=== PATIENT | male | born 1990 | race Caucasian/White ===

== ENCOUNTER 2016-08-10 21:00 | Emergency (ER) | payer SELFPAY ==
[~2016-08-10] VITALS: Ht 172.7 cm; Wt 92.5 kg
[~2016-08-10 21:00] MED LIST: AGM875T PO; ALBU8.5H2 IH; ARIP5TAB13 PO; AZIT250T5 PO; FAMO20TA5 PO; GUAN3TAB PO; HYDR-3714 PO; HYDR-3812 PO; IBP800T PO; LISD70CA3 PO; MED FOR ADHD; MNTL10T PO; OXYC-199 PO; PALI6TAB2 PO; PRED20TA PO
--- OUTSIDE RECORDS SUMMARY | 2016-08-10 21:05 | XMS REPORT | Continuity of Care Document ---
Author Author [facility] Organization [facility] Address Unknown Phone Unavailable Care Team Providers Care Broadcast Chief Engineer Name Role Phone [facility] PCP Insurance Providers Payer Name Policy Number Subscriber Name Relationship Unknown Damian Khanna 18 Self / Same As Patient Advance Directives Directive Response Recorded Date/Time Advance Directives No 12/08/15 9:21pm Organ Donor Yes 12/08/15 9:21pm Resuscitation Status Full Code 12/08/15 9:21pm Chief Complaint and Reason for Visit Chief Complaint Oral/Throat Problems Reason for Visit [id number] Problems Active Problems Medical Problem Onset Date Status Abdominal pain Unknown Acute Allergic dermatitis Unknown Acute Allergic dermatitis Unknown Acute Appendicitis Unknown Acute Asthma Unknown Acute Corneal abrasion Unknown Acute Dental caries Unknown Acute Fracture of fifth metacarpal bone of right hand Unknown Acute Sprain and strain of foot Unknown Acute Strep pharyngitis Unknown Acute Medications Current Home Medications Medication Dose Units Route Directions Days/Qty Instructions Start Date Hydrocodone/Acetaminophen 1 Each 1-2 Each Oral Every 4HRS as needed for Pain 12 07/26/15 Azithromycin 250 Mg 250 Mg Oral Daily 4 12/08/15 Past Home Medications Medication Directions Ordered Status Montelukast Sodium 10 Mg Tab, 1 Oral Daily 04/14/10 Discontinued [[id number] Mg] , 1 Oral Daily 04/14/10 Discontinued Paliperidone 6 Mg Tab.osm.24, 1 Oral Daily 04/14/10 Discontinued Guanfacine Hcl 3 Mg Tab.sr.24h, 1 Oral Daily 04/14/10 Discontinued Ibuprofen 800 Mg Tablet, 1 Each Oral Three Times A Day And Prn 06/22/12 Discontinued Aripiprazole 5 Mg Tablet, 5 Mg Oral Hs Prn 09/04/13 Discontinued Oxycodone Hcl/Acetaminophen 1 Tab Tablet, 2 Tab Oral Every 4HRS for Pain 06/07 Discontinued Amoxicillin/Clavulanate K 875 Mg Tab, 1 Tab Oral Twice A Day 05/03/14 Discontinued Hydrocodone Bit/Acetaminophen 1 Tab Tablet, 1 Tab Oral Every 4HRS 05/03/14 Discontinued [Med For Adhd] , 0.5 Tab Bedtime 02/23/15 Discontinued Famotidine (Pepcid) 20 Mg Tablet, 1 Each Oral Twice A Day 02/23/15 Discontinued Prednisone 20 Mg Tablet, 40 Mg Oral Daily 02/23/15 Discontinued Albuterol 8.5 Gm Hfa.aer.ad, 2 Puff Inhalation Respiratory Every Four Hours as needed for Shortness Of Breath 02/23/15 Discontinued Social History Social History Problem Response Recorded Date/Time Alcohol Use Denies Use 12/08/2015 9:21pm Recreational Drug Use No 12/08/2015 9:21pm Recent Foreign Travel No 05/03/2014 8:43pm Recent Infectious Disease Exposure No 05/03/2014 8:43pm Hospitalization with Isolation Denies 05/03/2014 8:43pm Sexually Transmitted Disease No 12/08/2015 9:21pm Smoking Status Never a Smoker 12/08/2015 9:21pm Do you dip or chew tobacco? No 12/08/2015 9:21pm Query Response Start Date Stop Date Smoking Status Never a Smoker Hospital Discharge Instructions No hospital discharge instructions. Plan of Care Discharge Date 12/08/15 9:54pm Disposition 01 HOME, SELF-CARE Condition at Discharge Improved Instructions/Education Provided Strep Throat (ED) Prescriptions See Medication Section Referrals [facility] - Primary Care Physician Additional Instructions/Education Your rapid strep test was positive. Complete the antibiotics as prescribed. Dispose of or sanitize your toothbrush and any other oral instruments in 2 or 3 days. Follow-up with your primary care provider if not improving. Exercise good hand and mouth hygiene to avoid spread of disease. All discharge instructions reviewed with patient and/or family. Voiced understanding. Functional Status No functional status results. Allergies, Adverse Reactions, Alerts No known allergies. Immunizations No immunization records. Vital Signs Acute Vital Signs Vital Response Date/Time Temperature (Fahrenheit) 98.5 degrees F (97.6 - 99.5) 12/08/2015 9:21pm Temperature (Calculated Celsius) 36.02209 degrees C (36.4 - 37.5) 12/08/2015 9:21pm Temperature Source Temporal 12/08/2015 9:21pm Pulse Rate (adult) 119 bpm (60 - 90) 12/08/2015 9:21pm Respiratory Rate 18 bpm (12 - 24) 12/08/2015 9:21pm O2 Sat by Pulse Oximetry 98 % (88 - 100) 12/08/2015 9:21pm Blood Pressure 136/86 mm Hg 12/08/2015 9:21pm Blood Pressure Mean 103 mm Hg 12/08/2015 9:21pm Pain Pain Intensity 7 12/08/2015 9:21pm Height (Feet) 5 feet 12/08/2015 9:21pm Height (Inches) 8 inches 12/08/2015 9:21pm Height (Calculated Centimeters) 172.502330 cm 12/08/2015 9:21pm Weight (Pounds) 204 pounds 12/08/2015 9:21pm Weight (Ounces) 0 oz 12/08/2015 9:21pm Weight (Calculated Grams) 46286.405 gm 12/08/2015 9:21pm Weight (Calculated Kilograms) 92.605774 kilograms 12/08/2015 9:21pm Calculated BMI 27.82 12/08/2015 9:21pm Results Laboratory Results Test Name Result Units Flags Reference Collection Date/Time Result Date/ Time Comments Group A Streptococcus Screen POSITIVE * NEGATIVE 12/08/2015 9:30pm 9:43pm Procedures No known history of procedures. Encounters Encounter Location Arrival/Admit Date Discharge/Depart Date Attending Provider Departed Emergency Room [facility] 12/08/15 8:50pm 12/07 9:54pm HOLLIS ROJAS MD Recent Diagnosis
[2016-08-10] MEDS ORDERED: RX-NAPROXEN (NAPROSYN) 250 MG TAB PPK#4 PO STA (22:53)
[2016-08-10] MEDS ORDERED: NAPR500T3 PO (22:55)
--- NOTE | 2016-08-10 22:55 | ED Upper Extremity ---
General Chief Complaint: Upper Extremity Stated Complaint: L ARM PAIN/INJURY Nursing Triage Note: R arm numbness after rolling over on it and felt it snap Nursing Sepsis Screen: No Definite Risk Source: patient History of Present Illness Time seen by provider: 22:07 Initial Comments PT STATES HE WAS SLEEPING AND ROLLED OVER ON HIS LEFT SIDE AND FELT SOMETHING POP IN HIS LEFT SHOULDER AREA OCCURRED IMMEDIATELY PRIOR TO ARRIVAL PT STATES INITIALLY HE HAD PAIN FROM HIS SHOULDER TO HIS ELBOW, BUT DOES NOT HURT AT ALL RIGHT NOW PT STATES NOW HIS ARM IS NUMB NO PRIOR INJURY TO THIS AREA HAS TAKEN NOTHING FOR PAIN PT IS LEFT HANDED PCP: [facility] Allergies and Home Medications Allergies Coded Allergies: No Known Drug Allergies (Unverified , 04/14/10) Home Medications Naproxen 500 Mg Tablet #20 500 MG PO BID Prescribed by: FERNANDO MEJIA on 08/10/16 2957 Constitutional: no symptoms reported Respiratory: no symptoms reported Cardiovascular: no symptoms reported Musculoskeletal: see HPI Skin: no symptoms reported Psychiatric/Neurological: See HPI Past Vuggkxj-Tiompf-Xgtdto Hx Patient Social History Alcohol Use: Occasionally Uses Recreational Drug Use: No Smoking Status: Current Everyday Smoker Type Used: Cigarettes Recent Foreign Travel: No Contact w/Someone Who Travel: No Recent Infectious Disease Expo: No Recent Hopitalizations: No Physical Abuse Screen: No Sexual Abuse: No Surgeries HX Surgeries: Yes (DENTAL) Surgeries: Appendectomy, Ear Surgery Respiratory Hx Respiratory Disorders: Yes Respiratory Disorders: Asthma Cardiovascular Hx Cardiac Disorders: No Neurological Hx Neurological Disorders: No Reproductive System Hx Reproductive Disorders: No Sexually Transmitted Disease: No Genitourinary Hx Genitourinary Disorders: No Gastrointestinal Hx Gastrointestinal Disorders: No Musculoskeletal Hx Musculoskeletal Disorders: No Endocrine Hx Endocrine Disorders: No HEENT HX ENT Disorders: No Cancer Hx Cancer: No Psychosocial Hx Psychiatric Problems: Yes Behavioral Health Disorders: ADD/ADHD, Bipolar Integumentary HX Skin/Integumentary Disorder: No Blood Transfusions Hx Blood Disorders: No Adverse Reaction to a Blood Tr: No Family Medical History Significant Family History: No Pertinent Family Hx Family Medial History: Cancer PATERNAL GRANDMOTHER Family history: Cardiovascular disease 03 FATHER (PATIENT STATES THAT FATHER HAS CARDIAC HISTORY BUT SPECIFICS WERE UNKNOWN TO PATIENT) PATERNAL GRANDMOTHER (PATIENT STATES THAT PATERNAL GRANDMOTHER HAS CARDIAC HISTORY BUT SPECIFICS WERE UNKNOWN TO PATIENT) Physical Exam Vital Signs Vital Sign - Last 12Hours 08/10/16 08/10/16 21:44 23:00 Temp 98.2 Pulse 78 Resp 20 B/P 131/78 Pulse Ox 98 O2 Delivery Room Air Capillary Refill : Less Than 3 Seconds General Appearance: WD/WN no apparent distress other (HOLDING LEFT ARM VERY STIFFLY AT SIDE, BENT AT ELBOW) HEENT: PERRL/EOMI Neck: normal inspection Cardiovascular: regular rate, rhythm no murmur Respiratory: chest non-tender normal breath sounds no respiratory distress Gastrointestinal: non tender Back: normal inspection no CVA tenderness no vertebral tenderness Shoulder: no evidence of injuryNo asymmetry, bone tendernessNo deformity, No ecchymosis, limited ROM (C/O PAIN IN ANTERIOR ASPECT OF SHOULDER WITH MINIMAL MOVEMENT/ROM) pain soft tissue tendernessNo swelling Elbow/Forearm: normal inspection, non-tender, no evidence of injury, normal ROM Wrist: Yes normal inspection, Yes non-tender, Yes no evidence of injury, Yes normal ROM Hand: normal inspection, non-tender, no evidence of injury, normal ROM Neurologic/Tendon: normal sensation normal motor functions normal tendon functions Neurologic/Psychiatric: button reclaimer II-XII nml as tested no motor/sensory deficits alert normal mood/affect oriented x 3 other (PT STATES "NUMBNESS" BUT DOES HAVE SENSATION TO LIGHT TOUCH TO ENTIRE ARM) Skin: normal color warm/dryNo rash Progress/Results/Core Measures Results/Orders My Orders Orders-FERNANDO MEJIA DO Shoulder, Left, 3 Views (08/10/16 22:14) Sling (08/10/16 22:53) Rx-Naproxen (Rx-Naprosyn) (08/10/16 22:53) Vital Signs/I&O Vital Sign - Last 12Hours 08/10/16 08/10/16 21:44 23:00 Temp 98.2 98.2 Pulse 78 78 Resp 20 20 B/P 131/78 Pulse Ox 98 98 O2 Delivery Room Air Blood Pressure Mean: 95 Progress Note : Progress Note PT ADVISED TO MOVE ARM AND NOT HOLD STIFFLY TO HIS SIDE, WHICH PT DID SLOWLY AND DRAMATICALLY. SUBJECTIVE NUMBNESS TO ARM IMPROVED AFTER THAT. Departure Impression Impression: Primary Impression: Left shoulder strain Disposition: 01 HOME, SELF-CARE Condition: Stable Departure-Patient Inst. Referrals: [facility] (PCP/Family) Primary Care Physician Patient Instructions: How to Use a Shoulder Sling, Shoulder Sprain (DC) Add. Discharge Instructions: WEAR SLING NEEDED FOR COMFORT ALTERNATE ICE AND HEAT TO SORE AREA AT 20 MINUTE INTERVALS FOLLOW UP WITH YOUR DR IN 4K-5 DAYS FOR FURTHER CARE All discharge instructions reviewed with patient and/or family. Voiced understanding. Scripts Naproxen 500 Mg Eletct488 Mg PO BID #20 TAB Prov:FERNANDO MEJIA DO 08/10/16 FERNANDO MEJIA DO Aug 10, 2016 22:55
[2016-08-10 23:00] VITALS: BP 131/78
--- NOTE | 2016-08-11 08:04 | Diagnostic Imaging Report ---
EXAMINATION: 3 views of the left shoulder. INDICATION: Pain. FINDINGS: No fracture, dislocation or radiopaque foreign body is seen. The acromioclavicular and glenohumeral joints appear unremarkable. IMPRESSION: Unremarkable exam. Dictated by: Dictated on workstation # [id number]
== END 2016-08-10 23:00 | disposition home or self-care (01) ==
LOC: EDUNIT# 21:00 → ER 21:02
DX: S46.912A Strain of unspecified muscle, fascia and tendon at shoulder and upper arm level, left arm, initial encounter (principal); F17.210 Nicotine dependence, cigarettes, uncomplicated; X58.XXXA Exposure to other specified factors, initial encounter; Y93.84 Activity, sleeping; Y92.013 Bedroom of single-family (private) house as the place of occurrence of the external cause; Y99.8 Other external cause status
CPT/HCPCS: 73030

== ENCOUNTER 2016-09-19 01:00 | Emergency (ER) | payer SELFPAY ==
[~2016-09-19] VITALS: Ht 172.7 cm; Wt 92.1 kg
[~2016-09-19 01:00] MED LIST changes: +NAPR500T3 PO
--- OUTSIDE RECORDS SUMMARY | 2016-09-19 01:11 | XMS REPORT | Continuity of Care Document ---
Author Author [facility] Organization [facility] Address Unknown Phone Unavailable Care Team Providers Care Fireman Name Role Phone [facility] PCP Insurance Providers Payer Name Policy Number Subscriber Name Relationship Unknown Damian Khanna 18 Self / Same As Patient Advance Directives Directive Response Recorded Date/Time Advance Directives No 12/08/15 9:21pm Organ Donor Yes 12/08/15 9:21pm Resuscitation Status Full Code 12/08/15 9:21pm Chief Complaint and Reason for Visit Chief Complaint Oral/Throat Problems Reason for Visit [id number] Problems Active Problems Medical Problem Onset Date [...] Mg Tab, 1 Oral Daily 04/14/10 Discontinued [[id number] Mg] , 1 Oral Daily 04/14/10 Discontinued [...] Throat (ED) Prescriptions See Medication Section Referrals [facility] - Primary Care Physician Additional Instructions/Education Your [...] - 99.5) 12/08/2015 9:21pm Temperature (Calculated Celsius) 36.47294 degrees C (36.4 - 37.5) 12/08/2015 9:21pm [...] 8 inches 12/08/2015 9:21pm Height (Calculated Centimeters) 172.164383 cm 12/08/2015 9:21pm Weight (Pounds) 204 pounds 12/08/2015 9:21pm Weight (Ounces) 0 oz 12/08/2015 9:21pm Weight (Calculated Grams) 16127.405 gm 12/08/2015 9:21pm Weight (Calculated Kilograms) 92.774120 kilograms 12/08/2015 9:21pm Calculated BMI 27.82 12/08/2015 9:21pm Results Laboratory Results Test Name Result Units Flags Reference Collection Date/Time Result Date/ Time Comments Group A Streptococcus Screen POSITIVE * NEGATIVE 12/08/2015 9:30pm 9:43pm Procedures No known history of procedures. Encounters Encounter Location Arrival/Admit Date Discharge/Depart Date Attending Provider Departed Emergency Room [facility] 12/08/15 8:50pm 12/07 9:54pm HOLLIS ROJAS MD Recent Diagnosis
[2016-09-19 02:24] LABS: BASOPHILS # (AUTO) 0.1 10^3/uL (0.0-0.1); BASOPHILS % (AUTO) 1 % (0-10); EOSINOPHILS # (AUTO) 0.4 10^3/uL (0.0-0.3); EOSINOPHILS % (AUTO) 4 % (0-10); LYMPHOCYTES # (AUTO) 2.7 X 10^3 (1.0-4.0); LYMPHOCYTES % (AUTO) 26 % (12-44); MEAN CORPUSCULAR HEMOGLOBIN 31 PG (25-34); MEAN CORPUSCULAR HGB CONC 35 G/DL (32-36); MEAN CORPUSCULAR VOLUME 90 FL (80-99); MEAN PLATELET VOLUME 9.2 FL (7.4-10.4); MONOCYTES # (AUTO) 1.2 X 10^3 (0.0-1.0); MONOCYTES % (AUTO) 11 % (0-12); NEUTROPHILS % (AUTO) 58 % (42-75); PLATELET COUNT 277 10^3/uL (130-400); RED BLOOD COUNT 4.95 10^6/uL (4.35-5.85); RED CELL DISTRIBUTION WIDTH 12.7 % (10.0-14.5); WHITE BLOOD COUNT 10.3 10^3/uL (4.3-11.0)
[2016-09-19 02:43] LABS: ALANINE AMINOTRANSFERASE 22 U/L (0-55); ALBUMIN 4.2 G/DL (3.2-4.5); ANION GAP 12 MMOL/L (5-14); ASPARTATE AMINO TRANSFERASE 21 U/L (5-34); BILIRUBIN,TOTAL 0.3 MG/DL (0.1-1.0); BLOOD UREA NITROGEN 18 MG/DL (7-18); BUN/CREATININE RATIO 19; CALCIUM 9.4 MG/DL (8.5-10.1); CARBON DIOXIDE 23 MMOL/L (21-32); CHLORIDE 107 MMOL/L (98-107); CREATININE SERUM 0.95 MG/DL (0.60-1.30); GFR ESTIMATED > 60; GLUCOSE 107 MG/DL (70-105); POTASSIUM 4.1 MMOL/L (3.6-5.0); SODIUM 142 MMOL/L (135-145); TOTAL PROTEIN 7.2 G/DL (6.4-8.2); hs C REACTIVE PROTEIN 0.25 MG/DL (0.00-0.50)
--- NOTE | 2016-09-19 02:53 | ED Lower Extremity ---
General Chief Complaint: Lower Extremity Stated Complaint: L LEG PAIN NUMBNESS Nursing Triage Note: PT TO ED 10 W/ C/O SUDDEN ONSET LT FOOT PAIN ET CHANGE IN COLOR WHILE ENROUTE HOME FROM [place]. DENIES INJURY. NO DEFORMITY NOTED. EXTREMITY COLOR PINK, CAP REFIL <3 SECONDS AT THIS TIME. Nursing Sepsis Screen: No Definite Risk Source: patient, RN notes reviewed Exam Limitations: no limitations History of Present Illness Time seen by provider: 01:31 Onset: just prior to arrival Severity: severe Pain/Injury Location: left foot Method of Injury: unknown Modifying Factors: Worse With Movement, Improves With Rest Allergies and Home Medications Allergies Coded Allergies: No Known Drug Allergies (Unverified , 04/14/10) Home Medications Diclofenac Potassium 50 Mg Tablet, 50 MG PO Q8H PRN for foot pain/swelling, #30 Ref 0 Prescribed by: NIDA NOEL on 09/19/16 0327 Naproxen 500 Mg Tablet, 500 MG PO BID, #20 Prescribed by: FERNANDO MEJIA on 08/10/16 2215 Constitutional: see HPI Musculoskeletal: see HPI, other (left foot pain) All Other Systems Reviewed Negative Unless Noted: Yes Past Fmtfbxv-Vtqzgm-Nghkze Hx Patient Social History Alcohol Use: Denies Use Recreational Drug Use: No Smoking Status: Current Everyday Smoker Type Used: Cigarettes Recent Foreign Travel: No Contact w/Someone Who Travel: No Recent Infectious Disease Expo: No Recent Hopitalizations: No Surgeries HX Surgeries: Yes (DENTAL) Surgeries: Appendectomy, Ear Surgery Respiratory Hx Respiratory Disorders: Yes Respiratory Disorders: Asthma Cardiovascular Hx Cardiac Disorders: No Neurological Hx Neurological Disorders: No Reproductive System Hx Reproductive Disorders: No Sexually Transmitted Disease: No Genitourinary Hx Genitourinary Disorders: No Gastrointestinal Hx Gastrointestinal Disorders: No Musculoskeletal Hx Musculoskeletal Disorders: No Endocrine Hx Endocrine Disorders: No HEENT HX ENT Disorders: No Cancer Hx Cancer: No Psychosocial Hx Psychiatric Problems: Yes Behavioral Health Disorders: ADD/ADHD, Bipolar Integumentary HX Skin/Integumentary Disorder: No Blood Transfusions Hx Blood Disorders: No Adverse Reaction to a Blood Tr: No Family Medical History Significant Family History: No Pertinent Family Hx Family Medial History: Cancer PATERNAL GRANDMOTHER Family history: Cardiovascular disease 03 FATHER (PATIENT STATES THAT FATHER HAS CARDIAC HISTORY BUT SPECIFICS WERE UNKNOWN TO PATIENT) PATERNAL GRANDMOTHER (PATIENT STATES THAT PATERNAL GRANDMOTHER HAS CARDIAC HISTORY BUT SPECIFICS WERE UNKNOWN TO PATIENT) Physical Exam Vital Signs Capillary Refill : Less Than 3 Seconds General Appearance: WD/WN, obese Cardiovascular: regular rate, rhythm Respiratory: no respiratory distress Feet: left foot limited range of motion, left foot pain Neurologic/Psychiatric: no motor/sensory deficits, alert, oriented x 3 Skin: normal color, warm/dry Progress/Results/Core Measures Results/Orders Lab Results Laboratory Tests Test 09/19/16 02:13 Range/Units White Blood Count 10.3 4.3-11.0 10^3/uL Red Blood Count 4.95 4.35-5.85 10^6/uL Hemoglobin 15.4 13.3-17.7 G/DL Hematocrit 44 40-54 % Mean Corpuscular Volume 90 80-99 FL Mean Corpuscular Hemoglobin 31 25-34 PG Mean Corpuscular Hemoglobin Concent 35 32-36 G/DL Red Cell Distribution Width 12.7 10.0-14.5 % Platelet Count 277 130-400 10^3/uL Mean Platelet Volume 9.2 7.4-10.4 FL Neutrophils (%) (Auto) 58 42-75 % Lymphocytes (%) (Auto) 26 12-44 % Monocytes (%) (Auto) 11 0-12 % Eosinophils (%) (Auto) 4 0-10 % Basophils (%) (Auto) 1 0-10 % Neutrophils # (Auto) 6.0 1.8-7.8 X 10^3 Lymphocytes # (Auto) 2.7 1.0-4.0 X 10^3 Monocytes # (Auto) 1.2 H 0.0-1.0 X 10^3 Eosinophils # (Auto) 0.4 H 0.0-0.3 10^3/uL Basophils # (Auto) 0.1 0.0-0.1 10^3/uL Erythrocyte Sedimentation Rate 6 0-15 MM/HR Sodium Level 142 135-145 MMOL/L Potassium Level 4.1 3.6-5.0 MMOL/L Chloride Level 107 98-107 MMOL/L Carbon Dioxide Level 23 21-32 MMOL/L Anion Gap 12 5-14 MMOL/L Blood Urea Nitrogen 18 7-18 MG/DL Creatinine 0.95 0.60-1.30 MG/DL Estimat Glomerular Filtration Rate > 60 BUN/Creatinine Ratio 19 Glucose Level 107 H 70-105 MG/DL Uric Acid 7.0 2.6-7.2 MG/DL Calcium Level 9.4 8.5-10.1 MG/DL Total Bilirubin 0.3 0.1-1.0 MG/DL Aspartate Amino Transf (AST/SGOT) 21 5-34 U/L Alanine Aminotransferase (ALT/SGPT) 22 0-55 U/L Alkaline Phosphatase 144 H 40-136 U/L C-Reactive Protein High Sensitivity 0.25 0.00-0.50 MG/DL Total Protein 7.2 6.4-8.2 G/DL Albumin 4.2 3.2-4.5 G/DL My Orders Orders - NIDA NOEL DO Cbc With Automated Diff (09/19/16 01:43) Comprehensive Metabolic Panel (09/19/16 01:43) Erythrocyte Sedimentation Rate (09/19/16 01:43) Uric Acid (09/19/16 01:43) Foot, Left, 3 Views (09/19/16 01:45) Hs C Reactive Protein (09/19/16 01:43) Vital Signs/I&O Blood Pressure Mean: 97 Diagnostic Imaging Diagonstic Imaging: Xray Plain Films/CT/US/NM/MRI: other (left foot is negative) Departure Impression Impression: Primary Impression: Left foot pain of UDE Disposition: 01 HOME, SELF-CARE Condition: Improved Departure-Patient Inst. Decision time for Depature: 03:26 Referrals: [facility] (PCP/Family) Primary Care Physician Patient Instructions: Acute Pain, Adult (DC) Scripts Diclofenac Potassium (Diclofenac Potassium) 50 Mg Tablet 50 MG PO Q8H Y for foot pain/swelling, #30 TAB 0 Refills Prov: NIDA NOEL DO 09/19/16 NIDA NOEL DO Sep 19, 2016 02:53
[2016-09-19 03:19] LABS: ERYTHROCYTE SEDIMENTATION RATE 6 MM/HR (0-15)
[2016-09-19] MEDS ORDERED: DICL50TA4 PO (03:27)
[2016-09-19 03:45] VITALS: BP 127/81
--- NOTE | 2016-09-19 08:08 | Diagnostic Imaging Report ---
EXAMINATION: Three views of the left foot are obtained. FINDINGS: No acute fracture, malalignment or osseous destructive process is seen. IMPRESSION: Negative left foot. Dictated by: Dictated on workstation # [id number]
== END 2016-09-19 03:45 | disposition home or self-care (01) ==
LOC: EDUNIT# 01:00 → ER 01:07
DX: M79.662 Pain in left lower leg (principal); F17.210 Nicotine dependence, cigarettes, uncomplicated
CPT/HCPCS: 36415; 73630; 80053; 84550; 85025; 85652; 86141; 99282

== ENCOUNTER → 2016-12-14 | Emergency (ER) | payer SELFPAY ==
[~2016-12-14] VITALS: Ht 172.7 cm; Wt 91.2 kg
[~2016-12-14] MED LIST changes: +AMOX500C2 PO; +DICL50TA4 PO; +RT-ALBUINH IH
--- NOTE | 2016-12-14 19:54 | ED General ---
General Chief Complaint: Respiratory Problems Stated Complaint: HARD TIME BREATHING WHEN LAYING DOWN Nursing Triage Note: C/O DIFFICULTY BREATHING ET SWALLOWING WHEN HE LAYS DOWN ONSET LAST NOC. Nursing Sepsis Screen: No Definite Risk Source of Information: Patient Exam Limitations: No Limitations History of Present Illness Time Seen by Provider: 19:35 Initial Comments This 26-year-old gentleman presents to emergency room with complaints of dyspnea when lying flat that gets better when he is up and around. He also has had a sore throat and sensation of throat swelling since yesterday evening around 17:00. He has had subjective fever but is afebrile upon presentation. He reports having some wheezing at home although none is heard on exam now. He denies any tobacco, alcohol, or drug use. He does report having a history of severe asthma in childhood but does not require treatment now. Allergies and Home Medications Allergies Coded Allergies: No Known Drug Allergies (Unverified , 04/14/10) Home Medications Albuterol Sulfate 1 Puff Puff, 1-4 PUFF IH Q4H PRN for SHORTNESS OF BREATH, #1 1 PUFF = 90 MCG Prescribed by: HOLLIS NAPOLES on 12/14/161953 Amoxicillin 500 Mg Capsule, 1,000 MG PO BID, #28 Prescribed by: HOLLIS NAPOLES on 12/14/161953 Diclofenac Potassium 50 Mg Tablet, 50 MG PO Q8H PRN for foot pain/swelling, #30 Ref 0 Prescribed by: NIDA NOEL on 09/19/16 0327 Naproxen 500 Mg Tablet, 500 MG PO BID, #20 Prescribed by: FERNANDO MEJIA on 08/10/16 6705 Constitutional: see HPI EENTM: see HPI Respiratory: see HPI Cardiovascular: no symptoms reported Gastrointestinal: no symptoms reported Genitourinary: no symptoms reported Musculoskeletal: no symptoms reported Skin: no symptoms reported Psychiatric/Neurological: No Symptoms Reported Hematologic/Lymphatic: No Symptoms Reported Immunological/Allergic: no symptoms reported Past Lnzedfi-Nhxrzv-Atlthz Hx Patient Social History Alcohol Use: Denies Use Recreational Drug Use: No Smoking Status: Never a Smoker Type Used: Cigarettes Recent Foreign Travel: No Contact w/Someone Who Travel: No Recent Infectious Disease Expo: No Recent Hopitalizations: No Surgeries HX Surgeries: Yes (DENTAL) Surgeries: Appendectomy, Ear Surgery Respiratory Hx Respiratory Disorders: Yes Respiratory Disorders: Asthma Cardiovascular Hx Cardiac Disorders: No Neurological Hx Neurological Disorders: No Reproductive System Hx Reproductive Disorders: No Sexually Transmitted Disease: No Genitourinary Hx Genitourinary Disorders: No Gastrointestinal Hx Gastrointestinal Disorders: No Musculoskeletal Hx Musculoskeletal Disorders: No Endocrine Hx Endocrine Disorders: No HEENT HX ENT Disorders: No Cancer Hx Cancer: No Psychosocial Hx Psychiatric Problems: Yes Behavioral Health Disorders: ADD/ADHD, Bipolar Integumentary HX Skin/Integumentary Disorder: No Blood Transfusions Hx Blood Disorders: No Adverse Reaction to a Blood Tr: No Family Medical History Significant Family History: No Pertinent Family Hx Family Medial History: Cancer PATERNAL GRANDMOTHER Family history: Cardiovascular disease 03 FATHER (PATIENT STATES THAT FATHER HAS CARDIAC HISTORY BUT SPECIFICS WERE UNKNOWN TO PATIENT) PATERNAL GRANDMOTHER (PATIENT STATES THAT PATERNAL GRANDMOTHER HAS CARDIAC HISTORY BUT SPECIFICS WERE UNKNOWN TO PATIENT) Physical Exam Vital Signs Vital Sign - Last 12Hours 12/14/16 19:15 Temp 97.3 Pulse 78 Resp 18 B/P (MAP) 120/73 Pulse Ox 99 O2 Delivery Room Air Capillary Refill : Less Than 3 Seconds General Appearance: No Apparent Distress, WD/WN HEENT: PERRL/EOMI, TMs Normal, Normal ENT Inspection, Pharyngeal Erythema, Tonsillar Enlargement Neck: Normal Inspection Respiratory: Lungs Clear, Normal Breath Sounds, No Accessory Muscle Use, No Respiratory Distress Cardiovascular: Regular Rate, Rhythm, No Edema, No Murmur Gastrointestinal: Non Tender, Soft Extremity: Normal Inspection, No Pedal Edema Neurologic/Psychiatric: Alert, Oriented x3, No Motor/Sensory Deficits, Normal Mood/Affect, neurology professor II-XII Norm as Tested Skin: Normal Color, Warm/Dry Progress/Results/Core Measures Results/Orders Vital Signs/I&O Vital Sign - Last 12Hours 12/14/16 19:15 Temp 97.3 Pulse 78 Resp 18 B/P (MAP) 120/73 Pulse Ox 99 O2 Delivery Room Air Blood Pressure Mean: 89 Progress Note : Progress Note Patient had tonsillar enlargement and erythema. Rapid strep testing offered but patient declines. Treatment was provided with an amoxicillin prescription. He also gives a history of severe asthma in childhood. He is not wheezing at present but reports wheezing at home. An albuterol inhaler prescription was provided. Departure Impression Impression: Primary Impression: Tonsillitis Additional Impressions: Dyspnea Qualified Codes: R06.00 - Dyspnea, unspecified History of asthma Disposition: HOME, SELF-CARE Condition: Stable Departure-Patient Inst. Decision time for Depature: 19:51 Referrals: [facility] (PCP/Family) Primary Care Physician Patient Instructions: Asthma, Adult (DC), Sore Throat in Adults Add. Discharge Instructions: Drink plenty of clear liquids. Complete your antibiotic as prescribed. Sanitize or replace your toothbrush and any other oral instruments about 3 or 4 days into the antibiotic treatment. You may use your inhaler up to 4 puffs in a four-hour period of time. Return to care if symptoms worsen. All discharge instructions reviewed with patient and/or family. Voiced understanding. Scripts Amoxicillin (Amoxicillin) 500 Mg Capsule 1000 MG PO BID, #28 CAP Prov: HOLLIS ROJAS MD 12/14/16 Albuterol Sulfate (PROAIR HFA) 1 Puff Puff 1-4 PUFF IH Q4H Y for SHORTNESS OF BREATH, #1 PUFF 1 PUFF = 90 MCG Prov: HOLLIS ROJAS MD 12/14/16 HOLLIS ROJAS MD December 14, 2016 19:54
[2016-12-14 19:58] VITALS: BP 120/73
== END | disposition home or self-care (01) ==
LOC: EDUNIT# 19:08 → ER 19:10
DX: J03.90 Acute tonsillitis, unspecified (principal); R06.00 Dyspnea, unspecified
CPT/HCPCS: 99281

== ENCOUNTER 2017-02-01 13:14 | Emergency (ER) | payer SELFPAY ==
[~2017-02-01] VITALS: Ht 172.7 cm; Wt 91.2 kg
[2017-02-01] MEDS ORDERED: FAMOTIDINE 20 MG (PEPCID) TABLET PO STA (14:05)
--- NOTE | 2017-02-01 14:09 | ED Abdominal Pain ---
General Chief Complaint: Abdominal/GI Problems Stated Complaint: STOMACHE PAIN Nursing Triage Note: PT REPORTS UPPER ABDOMINAL PAIN SINCE LAST NIGHT. PT REPORTS PAIN IS WORSE AFTER EATING. PT DENIES N/V/D. Sepsis Screen: No Definite Risk Source of Information: Patient Exam Limitations: No Limitations History of Present Illness Time Seen By Provider: 13:45 Initial Comments 26-year-old male patient presents to the emergency department complains of left upper abdominal pain beginning last night. Patient states worse with spicy foods. States when food hits system make pain is much worse. Reports the pain to be a burning sensation. Denies N/V/D. patient states he takes at least 1 dose of ibuprofen per day for chronic pain. Timing/Duration: 12-24 Hours Severity/Quality: Burning Location: LUQ Radiation: Epigastric Activities at Onset: Other (eating) Modifying Factors: Worsens With Eating Allergies and Home Medications Allergies Coded Allergies: No Known Drug Allergies (Unverified , 04/14/10) Home Medications Albuterol Sulfate 1 Puff Puff, 1-4 PUFF IH Q4H PRN for SHORTNESS OF BREATH, #1 1 PUFF = 90 MCG Prescribed by: HOLLIS NAPOLES on 12/14/161953 Review of Systems Constitutional: No chills, No fever, No malaise Respiratory: Denies Cough, Denies Shortness of Air, Denies Wheezing Cardiovascular: Denies Chest Pain, Denies Palpitations Gastrointestinal: See HPI, Denies Abdomen Distended, Abdominal Pain, Denies Blood Streaked Stools, Denies Diarrhea, Denies Difficulty Swallowing, Denies Nausea, Denies Rectal Bleeding, Denies Vomiting Genitourinary: Denies Burning, Denies Frequency, Denies Flank Pain, Denies Hematuria, Denies Pain Musculoskeletal: no symptoms reported Skin: no symptoms reported All Other Systems Reviewed Negative Unless Noted: Yes (Negative excepted noted.) Past Mjlezvq-Crawuq-Jspfrm Hx Patient Social History Alcohol Use: Denies Use Recreational Drug Use: No Smoking Status: Former Smoker Type Used: Cigarettes Recent Foreign Travel: No Contact w/Someone Who Travel: No Recent Infectious Disease Expo: No Recent Hopitalizations: No Immunizations Up To Date PED Vaccines UTD: Yes Surgeries HX Surgeries: Yes (DENTAL) Surgeries: Appendectomy, Ear Surgery Respiratory Hx Respiratory Disorders: Yes Respiratory Disorders: Asthma Cardiovascular Hx Cardiac Disorders: No Neurological Hx Neurological Disorders: No Reproductive System Hx Reproductive Disorders: No Sexually Transmitted Disease: No Genitourinary Hx Genitourinary Disorders: No Gastrointestinal Hx Gastrointestinal Disorders: No Musculoskeletal Hx Musculoskeletal Disorders: No Endocrine Hx Endocrine Disorders: No HEENT HX ENT Disorders: No Cancer Hx Cancer: No Psychosocial Hx Psychiatric Problems: Yes Behavioral Health Disorders: ADD/ADHD, Bipolar Integumentary HX Skin/Integumentary Disorder: No Blood Transfusions Hx Blood Disorders: No Adverse Reaction to a Blood Tr: No Reviewed Nursing Assessment Reviewed/Agree w Nursing PMH: Yes Family Medical History Significant Family History: No Pertinent Family Hx Family Medial History: Cancer PATERNAL GRANDMOTHER Family history: Cardiovascular disease 03 FATHER (PATIENT STATES THAT FATHER HAS CARDIAC HISTORY BUT SPECIFICS WERE UNKNOWN TO PATIENT) PATERNAL GRANDMOTHER (PATIENT STATES THAT PATERNAL GRANDMOTHER HAS CARDIAC HISTORY BUT SPECIFICS WERE UNKNOWN TO PATIENT) Physical Exam Vital Signs VS - Last 72 Hours, by Label 02/01/17 13:23 Temp 97.7 Pulse 72 Resp 18 B/P (MAP) 120/86 Pulse Ox 98 Capillary Refill : Less Than 3 Seconds General Appearance: WD/WN, no apparent distress HEENT: PERRL/EOMI, pharynx normal Neck: supple, normal inspection Respiratory: lungs clear, normal breath sounds, no respiratory distress Cardiovascular: normal peripheral pulses, regular rate, rhythm, no edema, no murmur Gastrointestinal: normal bowel sounds, soft, no organomegaly, No distended, guarding (LUQ), tenderness (LUQ) Extremities: no pedal edema, normal capillary refill Back: normal inspection, no CVA tenderness Neurologic/Psychiatric: alert, normal mood/affect, oriented x 3 Skin: normal color, warm/dry Progress/Results/Core Measures Results/Orders My Orders Orders - NIXON CHRISTIANSON Lidocaine 2% Viscous 15 Ml (Xylocaine Vi (02/01/17 14:15) Famotidine Tablet (Pepcid Tablet) (02/01/17 14:05) Antacid Suspension (Mylanta Suspension (02/01/17 14:15) Medications Given in ED Current Medications Medications Dose Ordered Sig/Anu Route Start Time Stop Time Status Last Admin Dose Admin Al Hydrox/Mg Hydrox/Simethicone 30 ml ONCE ONCE PO 02/01/17 14:15 02/01/17 14:16 DC 02/01/17 14:24 30 ML Lidocaine HCl 15 ml ONCE ONCE PO 02/01/17 14:15 02/01/17 14:16 DC 02/01/17 14:24 15 ML Vital Signs/I&O Vital Sign - Last 12Hours 02/01/17 13:23 Temp 97.7 Pulse 72 Resp 18 B/P (MAP) 120/86 Pulse Ox 98 Blood Pressure Mean: 97 Departure Communication Progress Notes Patient reports complete resolution of symptoms with medications given in the emergency department. Plan for discharge to home with oral Pepcid. Patient to follow-up with his primary care physician for recheck. Impression Impression: Primary Impression: Gastritis Qualified Codes: K29.00 - Acute gastritis without bleeding Disposition: HOME, SELF-CARE Condition: Improved Departure-Patient Inst. Decision time for Depature: 14:46 Referrals: [facility] (PCP/Family) Primary Care Physician Patient Instructions: Gastritis (DC), Ulcer and Gastritis Diet Add. Discharge Instructions: All discharge instructions reviewed with patient and/or family. Voiced understanding. Pepcid 20 mg by mouth twice daily. Drink plenty of fluids. Avoid NSAIDs (ibuprofen and Aleve), aspirin, spicy foods, fatty foods, carbonated beverages, caffeinated beverages, smoking, secondhand smoke, alcohol. Do not eat within 2 hours of lying down. Follow-up with your family practitioner for recheck as an outpatient. Return to the emergency department for worsened symptoms or any other concerns. Scripts Famotidine (Pepcid) 20 Mg Tablet 20 MG PO BID, #30 TAB 0 Refills Prov: NIXON CHRISTIANSON 02/01/17 NIXON CHRISTIANSON Feb 01, 2017 14:08
[2017-02-01] MEDS ORDERED: ANTACID SUSP 30 ML UDC (MYLANTA) PO ONE (14:15)
[2017-02-01] MEDS ORDERED: LIDOCAINE 2% VISCOUS 15 ML UDC PO ONE (14:15)
[2017-02-01] MEDS ORDERED: FAMO-119 PO (14:47)
[2017-02-01 14:49] VITALS: BP 128/64
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
== END 2017-02-01 14:49 | disposition home or self-care (01) ==
LOC: EDUNIT# 13:14 → ER 13:16
DX: K29.70 Gastritis, unspecified, without bleeding (principal); F90.9 Attention-deficit hyperactivity disorder, unspecified type; F31.9 Bipolar disorder, unspecified; J45.909 Unspecified asthma, uncomplicated; Z90.49 Acquired absence of other specified parts of digestive tract; Z87.891 Personal history of nicotine dependence
CPT/HCPCS: 99283

== ENCOUNTER 2017-07-05 14:42 | Emergency (ER) | payer SELFPAY ==
[~2017-07-05] VITALS: Ht 172.7 cm; Wt 93.0 kg
[~2017-07-05 14:42] MED LIST changes: +AZIT250T12 PO; -AZIT250T5 PO; +FAMO-119 PO; -NAPR500T3 PO; +NAPR500T4 PO
--- OUTSIDE RECORDS SUMMARY | 2017-07-05 14:46 | XMS REPORT ---
Author Author YONI MOORE [facility] Address [address] [place] [address] Care Team Providers Care Chemical Treatment Operator Name Role Phone YONI MOORE Unavailable PROBLEMS Unknown Problems ALLERGIES Substance Reaction Event Type Date Status Divalproex Sodium fatigue Drug Allergy Jul, Active Abilify fatigue Drug Allergy Jul, Active SOCIAL HISTORY No smoking Hx information available PLAN OF CARE Activity Details Follow Up 2 Weeks Reason:shoulder pain VITAL SIGNS Height 69.75 in 2016-08-11 Weight 205.9 lbs 2016-08-11 Temperature 97.9 degrees Fahrenheit 2016-08-11 Heart Rate 76 bpm 2016-08-11 Respiratory Rate 18 2016-08-11 BMI 29.75 kg/m2 2016-08-11 Blood pressure systolic 105 mmHg 2016-08-11 Blood pressure diastolic 68 mmHg 2016-08-11 MEDICATIONS Medication Instructions Dosage Frequency Start Date End Date Duration Status Naprosyn 500 MG Orally every 12 hrs 1 tablet as needed 12h Jul, Active RESULTS No Results PROCEDURES Procedure Date Ordered Related Diagnosis Body Site Office Visit, Est Pt., Level 3 Aug 11, 2016 IMMUNIZATIONS No Known Immunizations
--- OUTSIDE RECORDS SUMMARY | 2017-07-05 14:46 | XMS REPORT ---
Author Author YONI MOORE [facility] Address [address] [place] [address] Care Team Providers Care Bellows Filler Name Role Phone YONI MOORE Unavailable PROBLEMS Unknown Problems ALLERGIES Substance Reaction Event Type Date Status Divalproex Sodium fatigue Drug Allergy Aug, Active Abilify fatigue Drug Allergy Aug, Active SOCIAL HISTORY No smoking Hx information available PLAN OF CARE Activity Details Follow Up prn Reason: VITAL SIGNS Height 69.75 in 2016-08-26 Weight 201.5 lbs 2016-08-26 Temperature 98.2 degrees Fahrenheit 2016-08-26 Heart Rate 72 bpm 2016-08-26 Respiratory Rate 18 2016-08-26 BMI 29.12 kg/m2 2016-08-26 Blood pressure systolic 120 mmHg 2016-08-26 Blood pressure diastolic 84 mmHg 2016-08-26 MEDICATIONS No Known Medications RESULTS No Results PROCEDURES Procedure Date Ordered Related Diagnosis Body Site Office Visit, Est Pt., Level 3 Aug 26, 2016 IMMUNIZATIONS No Known Immunizations
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
[2017-07-05] MEDS ORDERED: AMOX500C2 PO (15:11)
[2017-07-05] MEDS ORDERED: BUTA1CAP17 PO (15:11)
[2017-07-05] MEDS ORDERED: METH4TAB PO (15:11)
[2017-07-05 15:21] VITALS: BP 142/68
== END 2017-07-05 15:21 | disposition home or self-care (01) ==
LOC: EDUNIT# 14:42 → ER 14:43
DX: R51 Headache (principal); J45.909 Unspecified asthma, uncomplicated; F90.9 Attention-deficit hyperactivity disorder, unspecified type; F31.9 Bipolar disorder, unspecified; Z82.49 Family history of ischemic heart disease and other diseases of the circulatory system; Z90.49 Acquired absence of other specified parts of digestive tract
CPT/HCPCS: 99282

== ENCOUNTER 2017-07-25 22:06 | Emergency (ER) | payer SELFPAY ==
[~2017-07-25] VITALS: Ht 172.7 cm; Wt 93.0 kg
[~2017-07-25 22:06] MED LIST changes: +ACHD5005 PO; +BUTA1CAP17 PO; -HYDR-3812 PO; +METH4TAB PO
--- OUTSIDE RECORDS SUMMARY | 2017-07-25 22:13 | XMS REPORT | Continuity of Care Document ---
Author Author [facility] Address Unknown Phone Unavailable Allergies Active Description Code Type Severity Reaction Onset Reported/Identified Relationship to Patient Clinical Status Yes No Known Drug Allergies [id number] Drug Allergy Unknown N/A 04/14/2010 Yes Abilify 5 mg tablet Drug Allergy N/A N/A 11/13/2013 Yes divalproex 125 mg tablet,delayed release (DR/EC) Drug Allergy N/A N/A 09/2014 Medications There is no data. Problems Date Dx Coded Attending Type Code [...] RYAN GUARDADO APRN 314.01 ADHD COMBINED 02/10/2012 GUARDADO DELFINA RYAN JEFFREY 314.01 ADHD COMBINED 02/10/2012 OJ EVANS DDS 314.01 ADHD COMBINED 02/10/2012 RYAN GUARDADO APRN 314.01 ADHD COMBINED 02/10/2012 DEBBY MATHIS RYAN JEFFREY 314.01 ADHD COMBINED 02/10/2012 NIDA PAL APRN 314.01 ADHD COMBINED 02/10/2012 TIMMY STEPHENS DDS 314.01 ADHD COMBINED 02/10/2012 TONYA KINCAID DDS 314.01 ADHD COMBINED 02/10/2012 FRANCO DO, MEENA K 314.01 ADHD COMBINED 02/10/2012 MEMO ACADEMIC DEAN, ALCIDES 314.01 ADHD COMBINED 02/10/2012 MEMO ACADEMIC DEAN, ALCIDES 314.01 ADHD COMBINED 02/10/2012 MEMO ACADEMIC DEAN, ALCIDES 314.01 ADHD COMBINED 06/22/2012 Ot 733.6 TIETZE'S DISEASE 06/22/2012 Ot 789.01 ABDOMINAL PAIN, RIGHT UPPER QUADRANT 04/03/2013 DEBBY MATHIS RYAN JEFFREY 296.90 MOOD DISORDER NOS 04/03/2013 DEBBY MATHIS RYAN JEFFREY 296.90 MOOD DISORDER NOS 04/03/2013 OJ EVANS DDS 296.90 MOOD DISORDER NOS 04/03/2013 RYAN GUARDADO APRN 296.90 MOOD DISORDER NOS 04/03/2013 RYAN GUARDADO APRN 296.90 MOOD DISORDER NOS 04/03/2013 NIDA PAL APRN 296.90 MOOD DISORDER NOS 04/03/2013 TIMMY STEPHENS DDS 296.90 MOOD DISORDER NOS 04/03/2013 TONYA KINCAID DDS 296.90 MOOD DISORDER NOS 04/03/2013 FRANCO DO, MEENA K 296.90 MOOD DISORDER NOS 04/03/2013 MEOM ACADEMIC DEAN, ALCIDES 296.90 MOOD DISORDER NOS 04/03/2013 MEMO ACADEMIC DEAN, ALCIDES 296.90 MOOD DISORDER NOS 04/03/2013 MEMO ACADEMIC DEAN, ALCIDES 296.90 MOOD DISORDER NOS 06/01/2013 RYAN GUARDADO APRN 296.80 MO BIPOLAR NOS 06/01/2013 OJ EVANS DDS 296.80 MO BIPOLAR NOS 06/01/2013 RYAN GUARDADO APRN 296.80 MO BIPOLAR NOS 06/01/2013 DEBBY DELFINA, RYAN MURPHY 296.80 MO BIPOLAR NOS 06/01/2013 NIDA PAL APRN 296.80 MO BIPOLAR NOS 06/01/2013 KAT DDS, TIMMY D 296.80 MO BIPOLAR NOS 06/01/2013 KINCAID DDS, TONYA 296.80 MO BIPOLAR NOS 06/01/2013 MEENA FRANCO DO K 296.80 MO BIPOLAR NOS 06/01/2013 MEMO ACADEMIC DEAN, ALCIDES 296.80 MO BIPOLAR NOS 06/01/2013 MEMO ACADEMIC DEAN, ALCIDES 296.80 MO BIPOLAR NOS 06/01/2013 MEMO ACADEMIC DEAN, ALCIDES 296.80 MO BIPOLAR NOS 09/05/2013 JOSHUA WILLETT DO Ot 540.9 ACUTE APPENDICITIS NOS 04/01/2014 NIDA PAL APRN 692.9 DERMATITIS CONTACT UNSPECIFIED 04/01/2014 KAT DDS, TIMMY D 692.9 DERMATITIS CONTACT UNSPECIFIED 04/01/2014 SANJIV PRESCOTTS, TONYA 692.9 DERMATITIS CONTACT UNSPECIFIED 04/01/2014 MEENA FRANCO DO K 692.9 DERMATITIS CONTACT UNSPECIFIED 04/01/2014 MEMO ACADEMIC DEAN, ALCIDES 692.9 DERMATITIS CONTACT UNSPECIFIED 04/01/2014 MEMO ACADEMIC DEAN, ALCIDES 692.9 DERMATITIS CONTACT UNSPECIFIED 04/01/2014 MEMO ACADEMIC DEAN, ALCIDES 692.9 DERMATITIS CONTACT UNSPECIFIED 05/03/2014 SHELLEY HOLCOMB APRN Ot 521.00 UNSPEC DENTAL CARIES 05/03/2014 SHELLEY HOLCOMB APRN Ot 528.9 ORAL SOFT TISSUE DIS NEC 07/23/2014 MEENA FRANCO DO 381.81 DYSFUNCTION OF EUSTACHIAN TUBE 07/23/2014 MEENA FRANCO DO 466.0 ACUTE BRONCHITIS 07/23/2014 MEMO ACADEMIC DEAN, ALCIDES 381.81 DYSFUNCTION OF EUSTACHIAN TUBE 07/23/2014 MEMO ACADEMIC DEAN, ALCIDES 466.0 ACUTE BRONCHITIS 07/23/2014 MEMO ACADEMIC DEAN, ALCIDES 381.81 DYSFUNCTION OF EUSTACHIAN TUBE 07/23/2014 MEMO ACADEMIC DEAN, ALCIDES 466.0 ACUTE BRONCHITIS 07/23/2014 MEMO ACADEMIC DEAN, ALCIDES 381.81 DYSFUNCTION OF EUSTACHIAN TUBE 07/23/2014 MEMO ACADEMIC DEAN, ALCIDES 466.0 ACUTE BRONCHITIS 07/29/2014 MEENA FRANCO DO 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 07/29/2014 MEMO ACADEMIC DEAN, ALCIDES 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 07/29/2014 MEMO ACADEMIC DEAN, ALCIDES 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 07/29/2014 MEMO ACADEMIC DEAN, ALCIDES 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 09/05/2014 MEMO ACADEMIC DEAN, ALCIDES 312.30 IMPULSE CONTROL DISORDER UNSPECIFIED 09/05/2014 MEMO ACADEMIC DEAN, ALCIDES 312.30 IMPULSE CONTROL DISORDER UNSPECIFIED 09/05/2014 MEMO ACADEMIC DEAN, ALCIDES 312.30 IMPULSE CONTROL DISORDER UNSPECIFIED 02/23/2015 [...] V58.83 07/27/2015 HOLLIS WIGGINS Ot 456.4 12/08/2015 CRYSTAL CUI, HOLLIS Webb Ot J02.0 STREPTOCOCCAL PHARYNGITIS 12/08/2015 Ot V58.69 OTH MED,LT, CURRENT USE 12/08/2015 Ot V58.83 ENCOUNTER FOR THERAPEUTIC DRUG MONITORIN 12/08/2015 HOLLIS WIGGINS Ot 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 12/10/2015 CRYSTAL CUI, HOLLIS Webb Ot J02.0 STREPTOCOCCAL PHARYNGITIS 08/10/2016 Ot V58.69 OTH MED,LT, CURRENT USE 08/10/2016 Ot V58.83 ENCOUNTER FOR THERAPEUTIC [...] EXTERNAL CAUSE STATUS 08/11/2016 Ot V58.69 OTH MED,LT, CURRENT USE 08/11/2016 Ot V58.83 ENCOUNTER FOR THERAPEUTIC [...] EXTERNAL CAUSE STATUS 09/19/2016 Ot V58.69 OTH MED,LT, CURRENT USE 09/19/2016 Ot V58.83 ENCOUNTER FOR THERAPEUTIC DRUG MONITORIN 09/19/2016 HOLLIS WIGGINS Ot 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90 ACUTE TONSILLITIS, UNSPECIFIED 12/16/2016 CRYSTAL CUI, HOLLIS T Ot R06.00 DYSPNEA, UNSPECIFIED 12/17/2016 CRYSTAL CUI, HOLLIS T Ot J03.90 ACUTE TONSILLITIS, UNSPECIFIED 12/17/2016 CRYSTAL CUI, HOLLIS Webb Ot R06.00 DYSPNEA, UNSPECIFIED 02/01/2017 NIXON GONZALEZ Ot F31.9 BIPOLAR DISORDER, UNSPECIFIED 02/01/2017 NIXON GONZALEZ Ot F90.9 ATTENTION-DEFICIT HYPERACTIVITY DISORDER 02/01/2017 NIXON GONZALEZ Ot J45.909 UNSPECIFIED ASTHMA, UNCOMPLICATED 02/01/2017 NIXON GONZALEZ Ot K29.70 GASTRITIS, UNSPECIFIED, WITHOUT BLEEDING 02/01/2017 NIXON GONZALEZ Ot R10.12 LEFT UPPER QUADRANT PAIN 02/01/2017 NIXON GONZALEZ Ot Z87.891 PERSONAL HISTORY OF NICOTINE DEPENDENCE 02/01/2017 NIXON GONZALEZ Ot Z90.49 ACQUIRED ABSENCE OF OTHER SPECIFIED PART 02/02/2017 NIXON GONZALEZ Ot F31.9 BIPOLAR DISORDER, UNSPECIFIED 02/02/2017 NIXON GONZALEZ Ot F90.9 ATTENTION-DEFICIT HYPERACTIVITY DISORDER 02/02/2017 NIXON GONZALEZ Ot J45.909 UNSPECIFIED ASTHMA, UNCOMPLICATED 02/02/2017 NIXON GONZALEZ Ot K29.70 GASTRITIS, UNSPECIFIED, WITHOUT BLEEDING 02/02/2017 NIXON GONZALEZ Ot R10.12 LEFT UPPER QUADRANT PAIN 02/02/2017 NIXON GONZALEZ Ot Z87.891 PERSONAL HISTORY OF NICOTINE DEPENDENCE 02/02/2017 NIXON GONZALEZ Ot Z90.49 ACQUIRED ABSENCE OF OTHER SPECIFIED PART Procedures Code [place] [address] PSYCH IND W/MED CK 20 06/21/2012 48885 THERAPUTIC INJ SQ/IM 04/01/2014 J2930 SOLUMEDROL INJ 04/01/2014 27353 US SCROTUM ULTRASOUND 07/29/2014 Results Test Result Range Complete blood count (CBC) with automated white blood cell (WBC) differential - 09/19/16 02:13 Blood leukocytes automated count (number/volume) 10.3 10*3/uL 4.3-11.0 Blood erythrocytes automated count (number/volume) 4.95 10*6/uL 4.35-5.85 Venous blood hemoglobin measurement (mass/volume) 15.4 [...] Automated blood platelet mean volume measurement 9.2 [foz_us] 7.4-10.4 Automated blood neutrophils/100 leukocytes 58 % [...] Serum or plasma sodium measurement (moles/volume) 142 mmol/L 135-145 Serum or plasma potassium measurement (moles/volume) 4.1 mmol/L 3.6-5.0 Serum or plasma chloride measurement (moles/volume) 107 mmol/L 98-107 Carbon dioxide 23 mmol/L 21-32 Serum or plasma anion gap determination (moles/volume) 12 mmol/L 5-14 Serum or plasma urea nitrogen measurement (mass/volume) 18 mg/dL 7-18 Serum or plasma creatinine measurement (mass/volume) 0.95 mg/dL 0.60-1.30 Serum or plasma urea nitrogen/creatinine mass [...] or plasma uric acid measurement (mass/volume) 7.0 mg/dL 2.6-7.2 Serum or plasma C reactive protein measurement (mass/volume) - 09/19/16 02:13 Serum or plasma C reactive protein measurement (mass/volume) 0.25 mg /dL 0.00-0.50 Erythrocyte sedimentation rate by westergren method - 09/19/16 02:13 Erythrocyte sedimentation rate by westergren method 6 mm 0-15 Encounters ACCT No. Visit Date/Time Discharge Status Pt. Type Provider Facility Loc./Unit Complaint [id number] 10/18/2014 10:52:00 10/18/2014 23:59:59 [facility] Outpatient ALCIDES HAMPTON APRN [id number] 10/18/2014 10:52:00 10/18/2014 23:59:59 [facility] Outpatient ALCIDES HAMPTON APRN [id number] 09/05/2014 15:58:00 09/05/2014 23:59:59 CLS Outpatient ALCIDES HAMPTON APRN [id number] 07/29/2014 18:46:00 07/29/2014 23:59:59 CLS Outpatient MEENA FRANCO DO [id number] 05/06/2014 16:32:00 05/06/2014 23:59:59 CLS Outpatient KINCAID DDSTONYA [id number] 04/10/2014 12:55:00 04/10/2014 23:59:59 CLS Outpatient KAT DDSTIMMY [id number] 04/01/2014 12:15:00 04/01/2014 23:59:59 CLS Outpatient KAE ACADEMIC DEANNIDA Hernandes [id number] 03/21/2014 14:22:00 03/21/2014 23:59:59 CLS Outpatient RYAN GUARDADO APRN [id number] 11/13/2013 12:23:00 11/13/2013 23:59:59 CLS Outpatient RYAN GUARDADO APRN [id number] 07/12/2013 13:45:00 07/12/2013 23:59:59 CLS Outpatient NATHAN DDSOJ [id number] 06/01/2013 10:48:00 06/01/2013 23:59:59 CLS Outpatient RYAN GUARDADO APRN [id number] 04/03/2013 10:21:00 04/03/2013 23:59:59 CLS Outpatient RYAN GUARDADO APRN [id number] 06/13/2012 12:52:00 06/13/2012 23:59:59 CLS Outpatient RYAN GUARDADO APRN [id number] 12/08/2012 15:23:00 Document Registration [id number] 07/05/2017 14:43:00 07/05/2017 15:21:00 DIS Emergency SHELLEY HOLCOMB APRN [facility] ER HEADACHE [id number] 02/01/2017 13:16:00 02/01/2017 14:49:00 DIS Emergency NIXON GONZALEZ [facility] ER STOMACHE PAIN [id number] 12/14/2016 19:10:00 12/14/2016 23:59:59 CLS Emergency HOLLIS ROJAS MD [facility] ER HARD TIME BREATHING WHEN LAYING DOWN [id number] 09/19/2016 01:07:00 09/19/2016 03:45:00 DIS Emergency NIDA NOEL DO [facility] ER L LEG PAIN NUMBNESS [id number] 08/10/2016 21:02:00 08/10/2016 23:00:00 DIS Emergency FERNANDO MEJIA DO [facility] ER L ARM PAIN/INJURY [id number] 12/08/2015 20:50:00 12/08/2015 21:54:00 DIS Emergency HOLLIS ROJAS MD [facility] ER DIFF BREATHING/COUGH/ SORE THROAT [id number] 07/26/2015 23:32:00 07/27/2015 00:18:00 DIS Emergency BEENA YANES MD [facility] ER FALL, RT HAND PAIN [id number] 04/20/2015 23:55:00 04/21/2015 01:30:00 DIS Emergency NIXON GONZALEZ [facility] ER RIGHT FOOT PAIN/ SWELLING [id number] 04/03/2015 13:07:00 04/03/2015 16:16:00 DIS Emergency NIXON GONZALEZ [facility] ER POSS FB IN LEFT EYE [id number] 02/23/2015 10:20:00 02/23/2015 12:25:00 DIS Emergency NIXON GONZALEZ [facility] ER RASH [id number] 08/08/2014 11:50:00 08/08/2014 23:59:59 CLS Outpatient HOLLIS WIGGINS [facility] RAD LEFT TESTICULAR MASS [id number] 05/03/2014 20:40:00 05/03/2014 20:50:00 DIS Emergency SHELLEY HOLCOMB ACADEMIC DEAN [facility] ER DENTAL PAIN [id number] 09/04/2013 04:40:00 09/05/2013 09:55:00 DIS Outpatient [facility] ACUTE ON CHRONIC APPENDICITIS [id number] 08/08/2013 18:48:00 08/08/2013 23:59:59 CLS Outpatient [id number] 02/23/2015 10:20:00 Document Registration [id number] 12/08/2011 08:54:00 Document Registration [id number] 04/14/2010 11:20:00 Document Registration
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
[2017-07-25 23:37] VITALS: BP 134/80
== END 2017-07-25 23:39 | disposition home or self-care (01) ==
LOC: EDUNIT# 22:06 → ER 22:07
DX: M22.41 Chondromalacia patellae, right knee (principal); J45.909 Unspecified asthma, uncomplicated; F31.9 Bipolar disorder, unspecified; F90.9 Attention-deficit hyperactivity disorder, unspecified type; Z87.891 Personal history of nicotine dependence; Z90.49 Acquired absence of other specified parts of digestive tract
CPT/HCPCS: 99283

== ENCOUNTER 2017-12-06 01:03 | Emergency (ER) | payer SELFPAY ==
[~2017-12-06] VITALS: Ht 172.7 cm; Wt 93.0 kg
[~2017-12-06 01:03] MED LIST changes: +NAPR-915 PO; -NAPR500T4 PO
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
--- OUTSIDE RECORDS SUMMARY | 2017-12-06 01:10 | XMS REPORT | Continuity of Care Document ---
Author Author [facility] Address Unknown Phone Unavailable Allergies Active Description Code Type Severity Reaction Onset Reported/Identified Relationship to Patient Clinical Status Yes No Known Drug Allergies [id number] Drug Allergy Unknown N/A 04/14/2010 Yes Abilify [...] MEENA K 314.01 ADHD COMBINED 02/10/2012 MEMO SOFTWARE INSTALLER, ALCIDES 314.01 ADHD COMBINED 02/10/2012 MEMO SOFTWARE INSTALLER, ALCIDES 314.01 ADHD COMBINED 02/10/2012 MEMO SOFTWARE INSTALLER, ALCIDES 314.01 ADHD COMBINED 06/22/2012 Ot 733.6 [...] K 296.90 MOOD DISORDER NOS 04/03/2013 MEMO SOFTWARE INSTALLER, ALCIDES 296.90 MOOD DISORDER NOS 04/03/2013 MEMO SOFTWARE INSTALLER, ALCIDES 296.90 MOOD DISORDER NOS 04/03/2013 MEMO SOFTWARE INSTALLER, ALCIDES 296.90 MOOD DISORDER NOS 06/01/2013 RYAN [...] K 296.80 MO BIPOLAR NOS 06/01/2013 MEMO SOFTWARE INSTALLER, ALCIDES 296.80 MO BIPOLAR NOS 06/01/2013 MEMO SOFTWARE INSTALLER, ALCIDES 296.80 MO BIPOLAR NOS 06/01/2013 MEMO SOFTWARE INSTALLER, ALCIDES 296.80 MO BIPOLAR NOS 09/05/2013 JOSHUA WILLETT DO Ot 540.9 ACUTE APPENDICITIS NOS 04/01/2014 NIDA PAL APRN 692.9 DERMATITIS CONTACT UNSPECIFIED 04/01/2014 KAT DDS, TIMMY D 692.9 DERMATITIS CONTACT UNSPECIFIED 04/01/2014 SANJIV PRESCOTTS, TONYA 692.9 DERMATITIS CONTACT UNSPECIFIED 04/01/2014 MEENA FRANCO DO K 692.9 DERMATITIS CONTACT UNSPECIFIED 04/01/2014 MEMO SOFTWARE INSTALLER, ALCIDES 692.9 DERMATITIS CONTACT UNSPECIFIED 04/01/2014 MEMO SOFTWARE INSTALLER, ALCIDES 692.9 DERMATITIS CONTACT UNSPECIFIED 04/01/2014 MEMO SOFTWARE INSTALLER, ALCIDES 692.9 DERMATITIS CONTACT UNSPECIFIED 05/03/2014 SHELLEY HOLCOMB APRN Ot 521.00 UNSPEC DENTAL CARIES 05/03/2014 SHELLEY HOLCOMB APRN Ot 528.9 ORAL SOFT TISSUE DIS NEC 07/23/2014 MEENA FRANCO DO 381.81 DYSFUNCTION OF EUSTACHIAN TUBE 07/23/2014 MEENA FRANCO DO 466.0 ACUTE BRONCHITIS 07/23/2014 MEMO SOFTWARE INSTALLER, ALCIDES 381.81 DYSFUNCTION OF EUSTACHIAN TUBE 07/23/2014 MEMO SOFTWARE INSTALLER, ALCIDES 466.0 ACUTE BRONCHITIS 07/23/2014 MEMO SOFTWARE INSTALLER, ALCIDES 381.81 DYSFUNCTION OF EUSTACHIAN TUBE 07/23/2014 MEMO SOFTWARE INSTALLER, ALCIDES 466.0 ACUTE BRONCHITIS 07/23/2014 MEMO SOFTWARE INSTALLER, ALCIDES 381.81 DYSFUNCTION OF EUSTACHIAN TUBE 07/23/2014 MEMO SOFTWARE INSTALLER, ALCIDES 466.0 ACUTE BRONCHITIS 07/29/2014 MEENA FRANCO DO 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 07/29/2014 MEMO SOFTWARE INSTALLER, ALCIDES 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 07/29/2014 MEMO SOFTWARE INSTALLER, ALCIDES 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 07/29/2014 MEMO SOFTWARE INSTALLER, ALCIDES 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 09/05/2014 MEMO SOFTWARE INSTALLER, ALCIDES 312.30 IMPULSE CONTROL DISORDER UNSPECIFIED 09/05/2014 MEMO SOFTWARE INSTALLER, ALCIDES 312.30 IMPULSE CONTROL DISORDER UNSPECIFIED 09/05/2014 MEMO SOFTWARE INSTALLER, ALCIDES 312.30 IMPULSE CONTROL DISORDER UNSPECIFIED 02/23/2015 [...] ACUTE TONSILLITIS, UNSPECIFIED 12/15/2016 CRYSTAL CUI, HOLLIS T Ot R06.00 DYSPNEA, UNSPECIFIED 12/16/2016 CRYSTAL CUI, HOLLIS T Ot J03.90 ACUTE TONSILLITIS, UNSPECIFIED 12/16/2016 CRYSTAL CUI, HOLLIS T Ot R06.00 DYSPNEA, UNSPECIFIED 12/17/2016 CRYSTAL CUI, HOLLIS T Ot J03.90 ACUTE TONSILLITIS, UNSPECIFIED 12/17/2016 CRYSTAL CUI, HOLLIS T Ot R06.00 DYSPNEA, UNSPECIFIED 02/01/2017 NIXON GONZALEZ L Ot F31.9 BIPOLAR DISORDER, UNSPECIFIED 02/01/2017 NIXON GONZALEZ Ot F90.9 ATTENTION-DEFICIT HYPERACTIVITY DISORDER 02/01/2017 NIXON GONZALEZ Ot J45.909 UNSPECIFIED ASTHMA, UNCOMPLICATED 02/01/2017 NIXON GONZALEZ Ot K29.70 GASTRITIS, UNSPECIFIED, WITHOUT BLEEDING 02/01/2017 NIXON GONZALEZ Ot R10.12 LEFT UPPER QUADRANT PAIN 02/01/2017 NIXON GONZALEZ Ot Z87.891 PERSONAL HISTORY OF NICOTINE DEPENDENCE 02/01/2017 NIOXN GONZALEZ Ot Z90.49 ACQUIRED ABSENCE OF OTHER [...] Z90.49 ACQUIRED ABSENCE OF OTHER SPECIFIED PART 07/05/2017 SHELLEY HOLCOMB SOFTWARE INSTALLER Ot F31.9 BIPOLAR DISORDER, UNSPECIFIED 07/05/2017 SHELLEY HOLCOMB SOFTWARE INSTALLER Ot F90.9 ATTENTION-DEFICIT HYPERACTIVITY DISORDER 07/05/2017 SHELLEY HOLCOMB SOFTWARE INSTALLER Ot J45.909 UNSPECIFIED ASTHMA, UNCOMPLICATED 07/05/2017 SHELLEY HOLCOMB SOFTWARE INSTALLER Ot R51 HEADACHE 07/05/2017 SHELLEY HOLCOMB SOFTWARE INSTALLER Ot Z82.49 FAMILY HX OF ISCHEM HEART DIS AND OTH DI 07/05/2017 SHELLEY HOLCOMB SOFTWARE INSTALLER Ot Z90.49 ACQUIRED ABSENCE OF OTHER SPECIFIED PART Procedures Code [place] [address] PSYCH IND W/MED CK 20 06/21/2012 20880 THERAPUTIC INJ SQ/IM 04/01/2014 J2930 SOLUMEDROL INJ 04/01/2014 62023 US SCROTUM ULTRASOUND 07/29/2014 Results Test Result [...] Status Pt. Type Provider Facility Loc./Unit Complaint [id number] 10/18/2014 10:52:00 10/18/2014 23:59:59 CLS Outpatient ALCIDES HAMPTON APRN [id number] 10/18/2014 10:52:00 10/18/2014 23:59:59 CLS Outpatient ALCIDES HAMPTON APRN [id number] 09/05/2014 15:58:00 09/05/2014 23:59:59 CLS Outpatient ALCIDES HAMPTON APRN [id number] 07/29/2014 18:46:00 07/29/2014 23:59:59 CLS Outpatient MEENA FRANCO DO [id number] 05/06/2014 16:32:00 05/06/2014 23:59:59 CLS Outpatient SANJIV STUART TONYA [id number] 04/10/2014 12:55:00 04/10/2014 23:59:59 CLS Outpatient KAT DDMary TIMMY Vaca [id number] 04/01/2014 12:15:00 04/01/2014 23:59:59 CLS Outpatient KAE DELFINA NIDA Webb [id number] 03/21/2014 14:22:00 03/21/2014 23:59:59 CLS Outpatient RYAN GUARDADO APRN [id number] 11/13/2013 12:23:00 11/13/2013 23:59:59 CLS Outpatient RYAN GUARDADO APRN [id number] 07/12/2013 13:45:00 07/12/2013 23:59:59 CLS Outpatient NATHAN NARCISO OJ Jack [id number] 06/01/2013 10:48:00 06/01/2013 23:59:59 CLS Outpatient RYAN GUARDADO APRN [id number] 04/03/2013 10:21:00 04/03/2013 23:59:59 CLS Outpatient RYAN GUARDADO APRN [id number] 06/13/2012 12:52:00 06/13/2012 23:59:59 CLS Outpatient RYAN GUARDADO APRN [id number] 12/08/2012 15:23:00 Document Registration [id number] 07/25/2017 22:07:00 07/25/2017 23:39:00 DIS Emergency WERNER CUI, ELENA Robledo [facility] RT KNEE PAIN [id number] 07/05/2017 14:43:00 07/05/2017 15:21:00 DIS Emergency HOLCOMBSHELLEY APRN [facility] HEADACHE [id number] 02/01/2017 13:16:00 02/01/2017 14:49:00 DIS Emergency NIXON GONZALEZ [facility] STOMACHE PAIN [id number] 12/14/2016 19:10:00 12/14/2016 23:59:59 CLS Emergency HOLLIS ROJAS MD [facility] ER HARD TIME BREATHING WHEN LAYING DOWN [id number] 09/19/2016 01:07:00 09/19/2016 03:45:00 DIS Emergency NIDA NOEL DO [facility] L LEG PAIN NUMBNESS [id number] 08/10/2016 21:02:00 08/10/2016 23:00:00 DIS Emergency FERNANDO MEJIA DO [facility] ER L ARM PAIN/INJURY [id number] 12/08/2015 20:50:00 12/08/2015 21:54:00 DIS Emergency HOLLIS ROJAS MD [facility] ER DIFF BREATHING/COUGH/ SORE THROAT [id number] 07/26/2015 23:32:00 07/27/2015 00:18:00 DIS Emergency BEENA YANES MD [facility] ER FALL, RT HAND PAIN [id number] 04/20/2015 23:55:00 04/21/2015 01:30:00 DIS Emergency NIXON GONZALEZ [facility] ER RIGHT FOOT PAIN/ SWELLING [id number] 04/03/2015 13:07:00 04/03/2015 16:16:00 DIS Emergency NIXON GONZALEZ [facility] ER POSS FB IN LEFT EYE [id number] 02/23/2015 10:20:00 02/23/2015 12:25:00 DIS Emergency NIXON GONZALEZ [facility] ER RASH [id number] 08/08/2014 11:50:00 08/08/2014 23:59:59 CLS Outpatient HOLLIS WIGGINS [facility] RAD LEFT TESTICULAR MASS [id number] 05/03/2014 20:40:00 05/03/2014 20:50:00 DIS Emergency SHELLEY HOLCOMB APRN [facility] ER DENTAL PAIN [id number] 09/04/2013 04:40:00 09/05/2013 09:55:00 DIS Outpatient TAMIE DOJOSHUA [facility] SDC ACUTE ON CHRONIC APPENDICITIS [id number] 08/08/2013 18:48:00 08/08/2013 23:59:59 CLS Outpatient [id number] 12/06/2017 01:05:00 ACT Emergency JACKIE FERNANDO Carlson [facility] ER RT FOOR PAIN,SWOLLEN [id number] 02/23/2015 10:20:00 Document Registration [id number] 12/08/2011 08:54:00 Document Registration [id number] 04/14/2010 11:20:00 Document Registration [id number] 04/21/2015 02:59:46 ACT Document Registration [id number] 04/19/2017 15:25:00 04/19/2017 23:59:59 CLS Outpatient YONI [facility]
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
[2017-12-06] MEDS ORDERED: RX-NAPROXEN (NAPROSYN) 250 MG TAB PPK#4 PO STA (01:43)
[2017-12-06] MEDS ORDERED: NAPR-915 PO (01:48)
[2017-12-06 01:52] VITALS: BP 0/0
--- NOTE | 2017-12-06 06:05 | Diagnostic Imaging Report ---
EXAMINATION: Right ankle at 0133 AM INDICATION: Injury, ankle pain Three views were obtained. There are no prior studies available for comparison. There is no fracture, dislocation or acute bony abnormality evident. The ankle mortise is not widened and the talar dome is smooth. There may be mild soft tissue edema over the lateral malleolus. IMPRESSION: There is no evidence for an acute bony abnormality Dictated by: Dictated on workstation # [id number]
--- NOTE | 2017-12-06 06:10 | Diagnostic Imaging Report ---
EXAMINATION: Right foot at 1:30 AM INDICATION: Injury, foot pain Three views were obtained. There is no fracture, dislocation or acute bony abnormality evident. The soft tissues are unremarkable. IMPRESSION: There is no evidence for an acute bony abnormality. Dictated by: Dictated on workstation # [id number]
== END 2017-12-06 01:52 | disposition home or self-care (01) ==
LOC: EDUNIT# 01:03 → ER 01:05
DX: S93.401A Sprain of unspecified ligament of right ankle, initial encounter (principal); J45.909 Unspecified asthma, uncomplicated; F90.9 Attention-deficit hyperactivity disorder, unspecified type; F31.9 Bipolar disorder, unspecified; Z79.51 Long term (current) use of inhaled steroids; Z82.49 Family history of ischemic heart disease and other diseases of the circulatory system; Z79.52 Long term (current) use of systemic steroids; Z90.49 Acquired absence of other specified parts of digestive tract; W01.0XXA Fall on same level from slipping, tripping and stumbling without subsequent striking against object, initial encounter
CPT/HCPCS: 73610; 73630

== ENCOUNTER 2018-05-02 14:06 | Emergency (ER) | payer SELFPAY ==
[~2018-05-02] VITALS: Ht 172.7 cm; Wt 98.9 kg
[2018-05-02] MEDS ORDERED: ACETAMINOPHEN 325 MG TABLET PO STA (14:29)
[2018-05-02] MEDS ORDERED: DEXAMETHASONE 10 MG/ML (DECADRON) 1 ML VIAL IM ONE (14:30)
[2018-05-02 15:36] LABS: BASOPHILS # (AUTO) 0.1 10^3/uL (0.0-0.1); BASOPHILS % (AUTO) 1 % (0-10); EOSINOPHILS # (AUTO) 0.3 10^3/uL (0.0-0.3); EOSINOPHILS % (AUTO) 4 % (0-10); HEMATOCRIT 47 % (40-54); HEMOGLOBIN 15.9 G/DL (13.3-17.7); LYMPHOCYTES # (AUTO) 1.1 X 10^3 (1.0-4.0); LYMPHOCYTES % (AUTO) 15 % (12-44); MEAN CORPUSCULAR HEMOGLOBIN 31 PG (25-34); MEAN CORPUSCULAR HGB CONC 34 G/DL (32-36); MEAN CORPUSCULAR VOLUME 90 FL (80-99); MEAN PLATELET VOLUME 8.9 FL (7.4-10.4); MONOCYTES % (AUTO) 15 % (0-12); NEUTROPHILS # (AUTO) 4.5 X 10^3 (1.8-7.8); NEUTROPHILS % (AUTO) 65 % (42-75); PLATELET COUNT 266 10^3/uL (130-400); RED BLOOD COUNT 5.16 10^6/uL (4.35-5.85); WHITE BLOOD COUNT 6.9 10^3/uL (4.3-11.0)
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
[2018-05-02] MEDS ORDERED: PRD20T PO (15:46)
[2018-05-02] MEDS ORDERED: AMOX500C2 PO (15:46)
[2018-05-02 15:50] VITALS: BP 126/81
[2018-05-02 15:56] LABS: ALANINE AMINOTRANSFERASE 29 U/L (0-55); ALBUMIN 4.4 GM/DL (3.2-4.5); ALKALINE PHOSPHATASE 113 U/L (40-136); BILIRUBIN,TOTAL 0.7 MG/DL (0.1-1.0); BUN/CREATININE RATIO 11; CALCIUM 9.7 MG/DL (8.5-10.1); CARBON DIOXIDE 25 MMOL/L (21-32); CHLORIDE 104 MMOL/L (98-107); CREATININE SERUM 1.02 MG/DL (0.60-1.30); GFR ESTIMATED > 60; GLUCOSE 142 MG/DL (70-105); POTASSIUM 3.9 MMOL/L (3.6-5.0); SODIUM 137 MMOL/L (135-145); TOTAL PROTEIN 7.4 GM/DL (6.4-8.2)
== END 2018-05-02 15:50 | disposition home or self-care (01) ==
LOC: EDUNIT# 14:06 → ER 14:07
DX: J03.90 Acute tonsillitis, unspecified (principal); J45.909 Unspecified asthma, uncomplicated; F90.9 Attention-deficit hyperactivity disorder, unspecified type; F31.9 Bipolar disorder, unspecified; Z82.49 Family history of ischemic heart disease and other diseases of the circulatory system; Z90.89 Acquired absence of other organs; Z79.52 Long term (current) use of systemic steroids
CPT/HCPCS: 36415; 80053; 85025; 86308; 87430

== ENCOUNTER 2019-04-01 05:55 | Emergency (ER) | payer SELFPAY ==
[~2019-04-01] VITALS: Ht 172.7 cm; Wt 96.6 kg
[~2019-04-01 05:55] MED LIST changes: +PRD20T PO
--- NOTE | 2019-04-01 06:18 | ED Abdominal Pain ---
General Stated Complaint: THROWING UP BLOOD, COUGHING , RUNNY NOSE Source of Information: Patient Exam Limitations: No Limitations History of Present Illness Date Seen by Provider: Apr 01, 2019 Time Seen by Provider: 06:13 Initial Comments 28-year-old white male presents with hematemesis. The patient relates that he is been coughing for the last 2 weeks. He denies hemoptysis with the coughing. The patient relates that he had an asthma attack 5 days ago that spontaneously resolved and is distinct from his 2 weeks of nonproductive coughing. He's had no associated fever or chill with a 2 week episode of coughing. Patient has had no previous history of hematemesis. Patient denies associated black tarry stools. The patient is essentially using no medications other than an inhaler on a when necessary basis. The patient's past medical history includes asthma. Last night at work he strained his left low back but does not believe this caused the coughing and subsequent hemoptysis. There is positive family history for peptic ulcer disease, heart disease, diabetes, and hypertension. Allergies and Home Medications Allergies Coded Allergies: No Known Drug Allergies (Unverified , 04/14/10) Patient Home Medication List Home Medication List Reviewed: Yes Review of Systems Review of Systems Constitutional: No chills, No fever, No malaise, No weakness EENTM: No Symptoms Reported; No Blurred Vision Respiratory: See HPI, Cough; Denies Shortness of Air Cardiovascular: Denies Chest Pain Gastrointestinal: See HPI; Denies Diarrhea; Vomiting (patient states that he vomited a significant amount of blood last night and early this morning with his 6-7 episodes of vomiting. Vomiting appears to be triggered by coughing.) Genitourinary: Denies Burning, Denies Frequency Musculoskeletal: see HPI, muscle pain (in the left lumbar area.) Skin: no symptoms reported; No rash Psychiatric/Neurological: Other (ADHD) Endocrine: No Symptoms Reported Hematologic/Lymphatic: No Symptoms Reported Past Bwifcgg-Cebcps-Xynpfa Hx Past Med/Social Hx: Reviewed Nursing Past Med/Soc Hx Physical Exam Vital Signs Vital Signs - First Documented 04/01/19 06:00 Temp 97.3 Pulse 82 Resp 18 B/P (MAP) 134/72 (92) Pulse Ox 98 O2 Delivery Room Air Capillary Refill : Height/Weight/BMI Height: '" Weight: lbs. oz. kg; BMI Method: General Appearance: WD/WN, no apparent distress HEENT: normal ENT inspection Neck: non-tender, full range of motion, supple Respiratory: chest non-tender, lungs clear, normal breath sounds, no respiratory distress Cardiovascular: regular rate, rhythm, no murmur Gastrointestinal: normal bowel sounds, non tender, soft Extremities: normal range of motion, normal inspection Back: normal inspection, other (. His muscle tenderness to palpation over the left lumbar region) Neurologic/Psychiatric: no motor/sensory deficits, alert, normal mood/affect, oriented x 3 Skin: normal color, warm/dry Progress/Results/Core Measures Results/Orders Lab Results Laboratory Tests Test 04/01/19 06:30 04/01/19 06:32 Range/Units Urine Color YELLOW Urine Clarity CLEAR Urine pH 6 5-9 Urine Specific [place] 1.020 1.016-1.022 Urine Protein NEGATIVE NEGATIVE Urine Glucose (UA) NEGATIVE NEGATIVE Urine Ketones NEGATIVE NEGATIVE Urine Nitrite NEGATIVE NEGATIVE Urine Bilirubin NEGATIVE NEGATIVE Urine Urobilinogen NORMAL NORMAL MG/DL Urine Leukocyte Esterase 2+ H NEGATIVE Urine RBC (Auto) NEGATIVE NEGATIVE Urine RBC NONE /HPF Urine WBC 5-10 H /HPF Urine Squamous Epithelial Cells RARE /HPF Urine Crystals NONE /LPF Urine Bacteria TRACE /HPF Urine Casts NONE /LPF Urine Mucus NEGATIVE /LPF Urine Culture Indicated NO White Blood Count 8.6 4.3-11.0 10^3/uL Red Blood Count 4.62 4.35-5.85 10^6/uL Hemoglobin 14.5 13.3-17.7 G/DL Hematocrit 42 40-54 % Mean Corpuscular Volume 92 80-99 FL Mean Corpuscular Hemoglobin 31 25-34 PG Mean Corpuscular Hemoglobin Concent 34 32-36 G/DL Red Cell Distribution Width 12.7 10.0-14.5 % Platelet Count 274 130-400 10^3/uL Mean Platelet Volume 9.0 7.4-10.4 FL Neutrophils (%) (Auto) 55 42-75 % Lymphocytes (%) (Auto) 24 12-44 % Monocytes (%) (Auto) 14 H 0-12 % Eosinophils (%) (Auto) 6 0-10 % Basophils (%) (Auto) 1 0-10 % Neutrophils # (Auto) 4.7 1.8-7.8 X 10^3 Lymphocytes # (Auto) 2.1 1.0-4.0 X 10^3 Monocytes # (Auto) 1.2 H 0.0-1.0 X 10^3 Eosinophils # (Auto) 0.5 H 0.0-0.3 10^3/uL Basophils # (Auto) 0.1 0.0-0.1 10^3/uL Sodium Level 142 135-145 MMOL/L Potassium Level 3.9 3.6-5.0 MMOL/L Chloride Level 106 98-107 MMOL/L Carbon Dioxide Level 27 21-32 MMOL/L Anion Gap 9 5-14 MMOL/L Blood Urea Nitrogen 11 7-18 MG/DL Creatinine 1.02 0.60-1.30 MG/DL Estimat Glomerular Filtration Rate > 60 BUN/Creatinine Ratio 11 Glucose Level 95 70-105 MG/DL Calcium Level 9.7 8.5-10.1 MG/DL Corrected Calcium 9.6 8.5-10.1 MG/DL Total Bilirubin 0.7 0.1-1.0 MG/DL Aspartate Amino Transf (AST/SGOT) 21 5-34 U/L Alanine Aminotransferase (ALT/SGPT) 26 0-55 U/L Alkaline Phosphatase 125 40-136 U/L Total Protein 7.2 6.4-8.2 GM/DL Albumin 4.1 3.2-4.5 GM/DL Lipase 34 8-78 U/L My Orders Orders - ALBIN THOMAS MD Ct Abdomen/Pelvis Wo (04/01/19 06:19) Cbc With Automated Diff (04/01/19 06:19) Comprehensive Metabolic Panel (04/01/19 06:19) Lipase (04/01/19 06:19) Ua Culture If Indicated (04/01/19 06:19) Ns Iv 1000 Ml (Sodium Chloride 0.9%) (04/01/19 06:30) Albuterol/Ipra Inhalation Soln (Duoneb I (04/01/19 06:30) Svn Small Volume Nebulizer (04/01/19 06:19) Pantoprazole Injection (Protonix Injecti (04/01/19 06:30) Chest Pa/Lat (2 View) (04/01/19 07:05) Medications Given in ED Current Medications Medications Dose Ordered Sig/Anu Route Start Time Stop Time Status Last Admin Dose Admin Albuterol/ Ipratropium 3 ml ONCE ONCE INH 9/8/19 06:30 04/01/19 06:31 DC 04/01/19 06:35 3 ML Pantoprazole 40 mg ONCE ONCE IV 04/01/19 06:30 04/01/19 06:31 DC 04/01/19 06:35 40 MG Vital Signs/I&O 04/01/19 06:00 Temp 97.3 Pulse 82 Resp 18 B/P (MAP) 134/72 (92) Pulse Ox 98 O2 Delivery Room Air Progress Progress Note : Time: 08:08 Progress Note The patient's CT of the abdomen and pelvis failed to demonstrate evidence of acute pathology. The patient's laboratory evaluation was unremarkable. Patient received 40 mg of Protonix IV. I discussed findings with patient. I'm starting him on Protonix until he can follow-up closely with [facility] tomorrow. I advised him return to the emergency department. Further problems or questions. Departure Impression Primary Impression: Hematemesis Qualified Codes: K92.0 - Hematemesis Disposition: 01 HOME, SELF-CARE Condition: Improved Departure-Patient Inst. Decision time for Depature: 08:10 Referrals: [facility] [place] Instructions: Acid Reflux (Gastroesophageal Reflux Disease) During Add. Discharge Instructions: Protonix as prescribed. Close follow-up with [facility] tomorrow for further evaluation of the hematemesis. Return if any further bloody vomiting or other problems. Scripts Pantoprazole Sodium (Protonix) 40 Mg 40 MG PO DAILY for 10 Days, TAB Prov: ALBIN THOMAS MD 04/01/19 ALBIN THOMAS MD Apr 01, 2019 06:18
[2019-04-01] MEDS ORDERED: PANTOPRAZOLE 40 MG (PROTONIX) VIAL IV ONE (06:30)
[2019-04-01] MEDS ORDERED: RT-ALBUTEROL/IPRATROPIUM 3 ML (DUONEB) VIAL INH ONE (06:30)
[2019-04-01] MEDS ORDERED: NS IV 1000 ML 1,000 ML IV SCH (06:30)
[2019-04-01 06:50] LABS: BASOPHILS # (AUTO) 0.1 10^3/uL (0.0-0.1); BASOPHILS % (AUTO) 1 % (0-10); EOSINOPHILS # (AUTO) 0.5 10^3/uL (0.0-0.3); EOSINOPHILS % (AUTO) 6 % (0-10); HEMATOCRIT 42 % (40-54); HEMOGLOBIN 14.5 G/DL (13.3-17.7); LYMPHOCYTES # (AUTO) 2.1 X 10^3 (1.0-4.0); LYMPHOCYTES % (AUTO) 24 % (12-44); MEAN CORPUSCULAR HEMOGLOBIN 31 PG (25-34); MEAN CORPUSCULAR HGB CONC 34 G/DL (32-36); MEAN CORPUSCULAR VOLUME 92 FL (80-99); MONOCYTES # (AUTO) 1.2 X 10^3 (0.0-1.0); MONOCYTES % (AUTO) 14 % (0-12); NEUTROPHILS # (AUTO) 4.7 X 10^3 (1.8-7.8); NEUTROPHILS % (AUTO) 55 % (42-75); PLATELET COUNT 274 10^3/uL (130-400); RED CELL DISTRIBUTION WIDTH 12.7 % (10.0-14.5); WHITE BLOOD COUNT 8.6 10^3/uL (4.3-11.0)
[2019-04-01 06:51] LABS: BILIRUBIN,URINE NEGATIVE (NEGATIVE); CLARITY,URINE CLEAR; COLOR,URINE YELLOW; GLUCOSE, URINE (UA) NEGATIVE (NEGATIVE); KETONES,URINE NEGATIVE (NEGATIVE); LEUKOCYTE ESTERASE ,URINE 2+ (NEGATIVE); NITRITE,URINE NEGATIVE (NEGATIVE); PH,URINE 6 (5-9); PROTEIN,URINE NEGATIVE (NEGATIVE); UROBILINOGEN,URINE NORMAL (NORMAL)
[2019-04-01 07:05] LABS: BACTERIA,URINE TRACE /HPF; SQUAMOUS EPITHELIAL CELL,UR RARE /HPF
[2019-04-01 07:12] LABS: ALANINE AMINOTRANSFERASE 26 U/L (0-55); ALBUMIN 4.1 GM/DL (3.2-4.5); ALKALINE PHOSPHATASE 125 U/L (40-136); BILIRUBIN,TOTAL 0.7 MG/DL (0.1-1.0); BUN/CREATININE RATIO 11; CALCIUM 9.7 MG/DL (8.5-10.1); CARBON DIOXIDE 27 MMOL/L (21-32); CHLORIDE 106 MMOL/L (98-107); CREATININE SERUM 1.02 MG/DL (0.60-1.30); GFR ESTIMATED > 60; GLUCOSE 95 MG/DL (70-105); LIPASE 34 U/L (8-78); POTASSIUM 3.9 MMOL/L (3.6-5.0); SODIUM 142 MMOL/L (135-145); TOTAL PROTEIN 7.2 GM/DL (6.4-8.2)
--- NOTE | 2019-04-01 07:28 | Diagnostic Imaging Report ---
PROCEDURE: CT abdomen and pelvis without contrast. TECHNIQUE: Multiple contiguous axial images were obtained through the abdomen and pelvis without the use of intravenous contrast. Auto Exposure Controls were utilized during the CT exam to meet ALARA standards for radiation dose reduction. INDICATION: Blood in vomit COMPARISON: CT abdomen and pelvis on 04/14/2010. FINDINGS: The heart is unremarkable. The included lung bases are clear. A small hiatal hernia is present. There is decreased attenuation throughout the liver, likely representing hepatic steatosis. No focal hepatic lesions are seen. The gallbladder is unremarkable. The spleen, pancreas, adrenal glands, and kidneys have a normal noncontrast CT appearance. Mildly prominent mesenteric lymph nodes are seen without evidence of pathologically enlarged lymphadenopathy. The bowel loops are nondilated. The appendix is surgically absent. There is no free fluid or free air. The osseous structures are age-appropriate. The bladder is decompressed. There is no free air, loculated collection, or adenopathy in the pelvis. IMPRESSION: 1. Hepatic steatosis. No focal hepatic lesions. 2. No evidence of bowel obstruction, free fluid, or acute inflammation in the abdomen and pelvis. Mildly prominent mesenteric lymph nodes are favored to be reactive. 3. Small hiatal hernia. Dictated by: Dictated on workstation # [id number]
--- NOTE | 2019-04-01 07:29 | Diagnostic Imaging Report ---
Patient History: Vomiting blood. Technique: Two views of the chest Comparison: 06/22/2012 FINDINGS: The lung volumes are normal. No focal consolidation is seen. No large pleural effusion or pneumothorax is seen. The cardiomediastinal silhouette is normal in size and contour. No acute osseous abnormality is seen. IMPRESSION: 1. No acute pleuroparenchymal process. Dictated by: Dictated on workstation # [id number]
[2019-04-01] MEDS ORDERED: PANT40SU PO (08:13)
[2019-04-01 08:20] VITALS: BP 115/84
== END 2019-04-01 08:20 | disposition home or self-care (01) ==
LOC: EDUNIT# 05:55 → ER 05:58
DX: K92.0 Hematemesis (principal); J45.909 Unspecified asthma, uncomplicated; F90.9 Attention-deficit hyperactivity disorder, unspecified type; Z82.49 Family history of ischemic heart disease and other diseases of the circulatory system
CPT/HCPCS: 36415; 71046; 74176; 80053; 81000; 83690; 85025; 96361; 96374

== ENCOUNTER 2019-05-26 06:06 | Emergency (ER) | payer SELFPAY ==
[~2019-05-26] VITALS: Ht 172.7 cm; Wt 95.5 kg
[~2019-05-26 06:06] MED LIST changes: +PANT40SU PO
[2019-05-26] MEDS ORDERED: RT-ALBUTEROL SULF 2.5 MG/3 ML PRE-MIX VIAL INH ONE (07:00)
[2019-05-26] MEDS ORDERED: IBUPROFEN 800 MG (MOTRIN) TAB PO ONE (07:00)
--- NOTE | 2019-05-26 07:08 | ED Cough/URI ---
General Chief Complaint: Cough/Cold/Flu Symptoms Stated Complaint: SMITH,CP Nursing Triage Note: AMBULATORY TO ED ROOM 6 WITH C/O HEADACHE FOR 2 WEEKS. STATES TAKES IBUPROFEN, BUT HEADACHES COME BACK AND "CAN'T GET INTO DOCTOR UNTIL NEXT MONTH". PT ALSO WITH C/O CHEST PAIN X4 HOURS, JUST IN MIDDLE OF CHEST, NO RADIATION, HAS HAD NON-PRODUCTIVE COUGH X3 DAYS. DENIES SOA. STATES HX OF ASTHMA, BUT DOES NOT HAVE NOR USE INHALER. Sepsis Screen: No Definite Risk Source: patient Exam Limitations: no limitations History of Present Illness Date Seen by Provider: May 26, 2019 Time Seen by Provider: 07:03 Initial Comments This 28-year-old white male presents with sinus congestion and cough in the past several days. The patient denies a productive nature of the cough. He denies associated nausea vomiting or diarrhea. He has had intermittent headache for the past 2 weeks relieved with ibuprofen. He has had no photophobia or stiff neck Past medical history is essentially unremarkable other than asthma. Patient does not use an inhaler currently. There is a positive family history for hypertension, heart disease, cancer, and diabetes. Patient denies use of daily medications. Allergies and Home Medications Allergies Coded Allergies: No Known Drug Allergies (Unverified , 04/14/10) Home Medications Pantoprazole Sodium 40 Mg Granpkt.dr, 40 MG PO DAILY Prescribed by: ALBIN THOMAS MD on 04/01/19 7253 Patient Home Medication List Home Medication List Reviewed: Yes Review of Systems Review of Systems Constitutional: see HPI; No chills, No fever; malaise EENTM: see HPI, nose congestion; No ear pain, No throat pain Respiratory: see HPI, cough Cardiovascular: see HPI, chest pain (with coughing) Gastrointestinal: No abdominal pain, No diarrhea, No nausea, No vomiting Genitourinary: no symptoms reported Musculoskeletal: no symptoms reported Skin: no symptoms reported Psychiatric/Neurological: No Symptoms Reported Hematologic/Lymphatic: No Symptoms Reported Immunological/Allergic: no symptoms reported Past Vfpvhqe-Bqqdza-Gpdypk Hx Past Med/Social Hx: Reviewed Nursing Past Med/Soc Hx Patient Social History Alcohol Use: Denies Use Recreational Drug Use: No Type Used: Cigarettes Recent Foreign Travel: No Contact w/Someone Who Travel: No Recent Infectious Disease Expo: No Recent Hopitalizations: No Physical Abuse: No Sexual Abuse: No Mistreated: No Fear: No Immunizations Up To Date Tetanus Booster (TDap): Less than 5yrs PED Vaccines UTD: Yes Date of Influenza Vaccine: Apr 24, 2017 Seasonal Allergies Seasonal Allergies: Yes Past Medical History Surgeries: Yes (DENTAL) Appendectomy, Ear Surgery Respiratory: Yes Asthma Cardiac: No Neurological: No Reproductive Disorders: No Sexually Transmitted Disease: No Genitourinary: No Gastrointestinal: No Musculoskeletal: No Endocrine: No HEENT: No Cancer: No Psychosocial: Yes ADD/ADHD, Bipolar Integumentary: No Blood Disorders: No Adverse Reaction/Blood Tranf: No Family Medical History Cancer PATERNAL GRANDMOTHER Family history: Cardiovascular disease 03 FATHER (PATIENT STATES THAT FATHER HAS CARDIAC HISTORY BUT SPECIFICS WERE UNKNOWN TO PATIENT) PATERNAL GRANDMOTHER (PATIENT STATES THAT PATERNAL GRANDMOTHER HAS CARDIAC HISTORY BUT SPECIFICS WERE UNKNOWN TO PATIENT) No Pertinent Family Hx Physical Exam Vital Signs - First Documented 05/26/19 06:20 Temp 36.7 Pulse 83 Resp 20 B/P (MAP) 134/83 (100) O2 Delivery Room Air Capillary Refill : Less Than 3 Seconds Height: 5'8.00" Weight: 213lbs. 0oz. 96.391213ia; 32.00 BMI Method:Stated General Appearance: WD/WN, mild distress Eyes: Bilateral Eye Normal Inspection HEENT: normal ENT inspection Neck: full range of motion, supple, normal inspection Respiratory: wheezing Cardiovascular: regular rate, rhythm, no murmur Gastrointestinal: normal bowel sounds, soft Extremities: normal range of motion, normal inspection Neurologic/Psychiatric: no motor/sensory deficits, alert Skin: normal color, warm/dry Progress/Results/Core Measures Suspected Sepsis Recent Fever Within 48 Hours: No Infection Criteria Present: Suspected New Infection New/Unexplained Altered Menta: No Sepsis Screen: No Definite Risk SIRS Temperature: Pulse: 83 Respiratory Rate: 20 Laboratory Tests 05/26/19 07:10: White Blood Count 8.2 Blood Pressure 134 /83 Mean: 100 Laboratory Tests 05/26/19 07:10: Platelet Count 254 Results/Orders Lab Results Laboratory Tests Test 05/26/19 07:10 Range/Units White Blood Count 8.2 4.3-11.0 10^3/uL Red Blood Count 4.87 4.35-5.85 10^6/uL Hemoglobin 15.2 13.3-17.7 G/DL Hematocrit 45 40-54 % Mean Corpuscular Volume 92 80-99 FL Mean Corpuscular Hemoglobin 31 25-34 PG Mean Corpuscular Hemoglobin Concent 34 32-36 G/DL Red Cell Distribution Width 12.5 10.0-14.5 % Platelet Count 254 130-400 10^3/uL Mean Platelet Volume 9.2 7.4-10.4 FL Neutrophils (%) (Auto) 65 42-75 % Lymphocytes (%) (Auto) 19 12-44 % Monocytes (%) (Auto) 12 0-12 % Eosinophils (%) (Auto) 4 0-10 % Basophils (%) (Auto) 1 0-10 % Neutrophils # (Auto) 5.3 1.8-7.8 X 10^3 Lymphocytes # (Auto) 1.5 1.0-4.0 X 10^3 Monocytes # (Auto) 1.0 0.0-1.0 X 10^3 Eosinophils # (Auto) 0.3 0.0-0.3 10^3/uL Basophils # (Auto) 0.1 0.0-0.1 10^3/uL Troponin I < 0.028 <0.028 NG/ML My Orders Orders - ALBIN THOMAS MD Chest 1 View, Ap/Pa Only (05/26/19 06:58) Ekg Tracing (05/26/19 06:58) Cbc With Automated Diff (05/26/19 06:58) Troponin I (05/26/19 06:58) Albuterol Pre-Mix Nebs (Rt) (Proventil (05/26/19 07:00) Ibuprofen Tablet (Motrin Tablet) (05/26/19 07:00) Svn Small Volume Nebulizer (05/26/19 06:58) Ns Iv 1000 Ml (Sodium Chloride 0.9%) (05/26/19 07:15) Medications Given in ED Current Medications Medications Dose Ordered Sig/Anu Route Start Time Stop Time Status Last Admin Dose Admin Albuterol Sulfate 2.5 mg ONCE ONCE INH 05/26/19 07:00 05/26/19 07:02 DC 05/26/19 07:27 2.5 MG Ibuprofen 800 mg ONCE ONCE PO 05/26/19 07:00 05/26/19 07:02 DC 05/26/19 07:26 800 MG Vital Signs/I&O 05/26/19 05/26/19 06:20 06:20 Temp 36.7 Pulse 83 Resp 20 B/P (MAP) 134/83 (100) O2 Delivery Room Air Room Air Capillary Refill : Less Than 3 Seconds Blood Pressure Mean: 100 POS Progress Note : Time: 08:43 Progress Note The patient's chest x-ray was unremarkable. Patient's CBC was normal. Chandra nt's EKG demonstrated a normal sinus rhythm. No acute current of injury was noted. Troponin was normal. Patient's headache was relieved with 800 mg of ibuprofen orally. I discussed findings with patient and we will treat the patient for his upper respiratory infection. The patient wanted a work note. Departure Impression Primary Impression: Upper respiratory infection Qualified Codes: J06.9 - Acute upper respiratory infection, unspecified Disposition: HOME, SELF-CARE Condition: Unchanged Departure-Patient Inst. Decision time for Depature: 08:44 Referrals: [facility] (PCP/Family) Primary Care Physician Patient Instructions: Acute Bronchitis, Adult (DC) Add. Discharge Instructions: Z-Jakob as prescribed. Return to work tomorrow. Return if any problems or questi ons. All discharge instructions reviewed with patient and/or family. Voiced understanding. Scripts Azithromycin (Azithromycin) 250 Mg Tablet 250 MG PO UD, #6 TAB TAKE 2 TABLETS ON DAY ONE THEN TAKE 1 TABLET DAILY FOR FOUR MORE DAYS Prov: ALBIN THOMAS MD 05/26/19 ALBIN THOMAS MD May 26, 2019 07:08 POS
[2019-05-26] MEDS ORDERED: NS IV 1000 ML 1,000 ML IV SCH (07:15)
[2019-05-26 07:28] LABS: BASOPHILS # (AUTO) 0.1 10^3/uL (0.0-0.1); BASOPHILS % (AUTO) 1 % (0-10); EOSINOPHILS # (AUTO) 0.3 10^3/uL (0.0-0.3); EOSINOPHILS % (AUTO) 4 % (0-10); HEMATOCRIT 45 % (40-54); HEMOGLOBIN 15.2 G/DL (13.3-17.7); LYMPHOCYTES # (AUTO) 1.5 X 10^3 (1.0-4.0); LYMPHOCYTES % (AUTO) 19 % (12-44); MEAN CORPUSCULAR HEMOGLOBIN 31 PG (25-34); MEAN CORPUSCULAR HGB CONC 34 G/DL (32-36); MEAN CORPUSCULAR VOLUME 92 FL (80-99); MEAN PLATELET VOLUME 9.2 FL (7.4-10.4); MONOCYTES % (AUTO) 12 % (0-12); NEUTROPHILS # (AUTO) 5.3 X 10^3 (1.8-7.8); NEUTROPHILS % (AUTO) 65 % (42-75); PLATELET COUNT 254 10^3/uL (130-400); RED CELL DISTRIBUTION WIDTH 12.5 % (10.0-14.5); WHITE BLOOD COUNT 8.2 10^3/uL (4.3-11.0)
--- NOTE | 2019-05-26 08:34 | Diagnostic Imaging Report ---
INDICATION: Cough. Portable chest obtained at 0815 a.m. and compared to 04/01/2019. Heart and mediastinal silhouette are normal in appearance. The lungs are clear. There is no pneumothorax or pleural fluid. IMPRESSION: Negative chest. Dictated by: Dictated on workstation # [id number]
[2019-05-26] MEDS ORDERED: AZIT250T12 PO (08:45)
[2019-05-26 09:16] VITALS: BP 124/75
--- OUTSIDE RECORDS SUMMARY | 2019-06-18 22:42 | XMS REPORT ---
Author Author ROMÁN Stanley POS Organization [facility] SP Address Unknown SP SP Care Team Providers Care Second Language Tutor Name Role Phone POS ROMÁN Stanley Unavailable SP PROBLEMS Unknown Problems ALLERGIES No Information ENCOUNTERS Encounter Location Date Diagnosis POS [facility] [address] [facility] [id number] [address] [place] [phone] SP Dec, SP [facility] [address] [facility] [id number] [address] [place] [phone] SP Apr, SP [facility] [address] [facility] [id number] [address] [place] [address] SP Apr, Acute gastroenteritis K52.9 SP [facility] [address] [facility] [id number] [address] [place] [address] SP Mar, Arm pain, left M79.602 and C ontusion of arm, left, initial SP S40.022A [facility] [address] [facility] [id number] [address] [place] [phone] SP Aug, Acute pain of left shoulder M25.512 SP [facility] [address] [facility] [id number] [address] [place] [phone] SP Jul, Acute pain of left shoulder M25.512 SP [facility] [address] [facility] [id number] [address] [place] [phone] SP Jul, Nondisplaced fracture of fif th right metatarsal bone S92.354A SP [facility] [address] [facility] [id number] [address] [place] [phone] SP Jul, SP [facility] [address] [facility] [id number] [address] [place] [phone] SP Feb, History of back pain V13.59 SP [facility] [address] [id number] [address] [place] [phone] SP Dec, SP [facility] [address] [id number] [address] [place] [phone] SP Dec, SP [facility] [address] [facility] [id number] [address] [place] [phone] SP Dec, Unspecified episodic mood di sorder 296.90 SP [facility] [address] [id number] [address] [place] [phone] SP Oct, SP [facility] [address] [id number] [address] [place] [phone] SP Oct, SP [facility] [address] [facility] [id number] [address] [place] [phone] SP Sep, SP [facility] [address] [facility] [id number] [address] [place] [phone] SP Sep, SP [facility] [address] [id number] [address] [place] [id number] SP Sep, SP [facility] [address] [facility] [id number] [address] [place] [phone] SP Sep, SP [facility] [address] [facility] [id number] [address] [place] [phone] SP Sep, SP [facility] [address] [facility] [id number] [address] [place] [phone] SP Sep, SP [facility] [address] [facility] [id number] [address] [place] [phone] SP Aug, SP [facility] [address] [facility] [id number] [address] [place] [phone] SP Aug, SP [facility] [address] [facility] [id number] [address] [place] [phone] SP Aug, SP [facility] [address] [id number] [address] [place] [address], [place] [address] SP Aug, 2014 SP [facility] [address] [id number] [address] [place] [address], [place] [address] SP Aug, 2014 SP [facility] [address] [facility] [id number] [address] [place] [address], [place] [address] SP Aug, 2014 SP [facility] [address] [id number] [address] [place] [address], [place] [address] SP Aug, 2014 SP [facility] [address] [id number] [address] [place] [address], [place] [address] SP Aug, 2014 SP [facility] [address] [id number] [address] [place] [address], [place] [id number] SP Jul, SP [facility] [address] [id number] [address] [place] [address], [place] [address] SP Jul, SP [facility] [address] [id number] [address] [place] [address], [place] [address] SP Jun, SP [facility] [address] [id number] [address] [place] [address], [place] [address] SP Jun, SP [facility] [address] [facility] [id number] [address] [place] [phone] SP Jun, SP [facility] [address] [id number] [address] [place] [phone] SP Jun, SP [facility] [address] [id number] [address] [place] [address], [place] [address] SP Apr, SP [facility] [address] [id number] [address] [place] [address], [place] [address] SP Apr, SP [facility] [address] [facility] [id number] [address] [place] [phone] SP Apr, SP [facility] [address] [id number] [address] [place] [phone] SP Apr, SP [facility] [address] [id number] [address] [place] [address], [place] [address] SP Mar, SP [facility] [address] [id number] [address] [place] [address], [place] [address] SP Mar, SP [facility] [address] [id number] [address] [place] [address], [place] [address] SP Feb, SP [facility] [address] [id number] [address] [place] [address], [place] [address] SP Feb, SP [facility] [address] [id number] [address] [place] [address], [place] [address] SP Feb, SP [facility] [address] [id number] [address] [place] [address], [place] [address] SP Feb, SP [facility] [address] [id number] [address] [place] [address], [place] [address] SP Feb, SP [facility] [address] [id number] [address] [place] [address], [place] [address] SP Feb, SP [facility] [address] [id number] [address] [place] [address], [place] [address] SP Jan, SP [facility] [address] [id number] [address] [place] [address], [place] [address] SP Jan, SP [facility] [address] [id number] [address] [place] [phone] SP Dec, SP [facility] [address] [id number] [address] [place] [address], [place] [address] SP Dec, SP [facility] [address] [id number] [address] [place] [address], [place] [address] SP November, SP [facility] [address] [id number] [address] [place] [address], [place] [address] SP November, SP [facility] [address] [id number] [address] [place] [address], [place] [address] SP Oct, SP [facility] [address] [id number] [address] [place] [address], [place] [address] SP Oct, SP [facility] [address] [id number] [address] [place] [address], [place] [address] SP Oct, SP [facility] [address] [id number] [address] [place] [address], [place] [address] SP Oct, SP [facility] [address] [id number] [address] [place] [address], [place] [address] SP Sep, SP [facility] [address] [id number] [address] [place] [address], [place] [address] SP Sep, SP [facility] [address] [id number] [address] [place] [address], [place] [address] SP Aug, SP [facility] [address] [id number] [address] [place] [address], [place] [address] SP Aug, SP [facility] [address] [id number] [address] [place] [address], [place] [address] SP Jul, SP [facility] [address] [id number] [address] [place] [phone] SP Jul, SP [facility] [address] [id number] [address] [place] [address], [place] [address] SP Jun, SP [facility] [address] [id number] [address] [place] [phone] SP Jun, SP [facility] [address] [id number] [address] [place] [address], [place] [address] SP May, SP [facility] [address] [id number] [address] [place] [phone] SP May, SP [facility] [address] [id number] [address] [place] [address], [place] [address] SP May, SP [facility] [address] [id number] [address] [place] [address], [place] [address] SP May, SP [facility] [address] [id number] [address] [place] [address], [place] [address] SP Apr, SP [facility] [address] [id number] [address] [place] [address], [place] [address] SP Apr, SP [facility] [address] [id number] [address] [place] [address], [place] [address] SP Apr, SP [facility] [address] [id number] [address] [place] [address], [place] [address] SP Mar, SP [facility] [address] [id number] [address] [place] [address], [place] [address] SP Mar, SP [facility] [address] [id number] [address] [place] [address], [place] [address] SP Jan, SP [facility] [address] [id number] [address] [place] [address], [place] [address] SP Jan, SP [facility] [address] [id number] [address] [place] [address], [place] [address] SP Dec, SP [facility] [address] [id number] [address] [place] [address], [place] [address] SP November, SP [facility] [address] [id number] [address] [place] [address], [place] [address] SP Jul, SP [facility] [address] [id number] [address] [place] [address], [place] [address] SP May, SP [facility] [address] [id number] [address] [place] [address], [place] [address] SP May, SP [facility] [address] [id number] [address] [place] [address], [place] [address] SP Mar, SP [facility] [address] [id number] [address] [place] [phone] SP Feb, SP [facility] [address] [facility] [id number] [address] [place] [phone] SP Feb, SP [facility] [address] [facility] [id number] [address] [place] [phone] SP Feb, SP [facility] [address] [facility] [id number] [address] [place] [phone] SP Feb, SP [facility] [address] [facility] [id number] [address] [place] [phone] SP Jan, SP [facility] [address] [facility] [id number] [address] [place] [phone] SP Jan, SP [facility] [address] [facility] [id number] [address] [place] [phone] SP Jul, SP IMMUNIZATIONS No Known Immunizations SOCIAL HISTORY Never Assessed REASON FOR VISIT PLAN OF CARE VITAL SIGNS MEDICATIONS Unknown Medications RESULTS No Results PROCEDURES No Known procedures INSTRUCTIONS MEDICATIONS ADMINISTERED No Known Medications MEDICAL (GENERAL) HISTORY Type Description Date POS Medical History asthma SP Medical History attention deficit hyperactivity disorder SP Medical History bipolar disorder SP Surgical History otolaryngologic surgery SP Surgical History appendectomy SP Hospitalization History [facility] for asthma as a child SP
--- OUTSIDE RECORDS SUMMARY | 2019-06-18 22:42 | XMS REPORT ---
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 Name Role Phone POS ALCIDES Hylton Unavailable SP PROBLEMS Unknown Problems ALLERGIES No Information ENCOUNTERS Encounter Location Date Diagnosis POS [facility] [address] [id number] [address] [place] [phone] SP Dec, SP [facility] [address] [facility] [id number] [address] [place] [phone] SP Apr, SP [facility] [id number] [place] [address] SP Apr, Acute gastroenteritis K52.9 SP [facility] [address] [facility] [id number] [address] [place] [address] SP Mar, Arm pain, left M79.602 and C ontusion of arm, left, initial SP S40.022A [facility] [address] [facility] [id number] [address] [place] [address] SP Aug, Acute pain of left shoulder M25.512 SP [facility] [address] [facility] [id number] [address] [place] [address] SP Jul, Acute pain of left shoulder M25.512 SP [facility] [address] [facility] [id number] [address] [place] [address] SP Jul, Nondisplaced fracture of fif th right metatarsal bone S92.354A SP [facility] [address] [facility] [id number] [address] [place] [address] SP Jul, SP [facility] [address] [facility] [id number] [address] [place] [address] SP Feb, History of back pain V13.59 SP [facility] [address] [id number] [address] [place] [phone] SP Dec, SP [facility] [address] [id number] [address] [place] [address] SP Dec, SP [facility] [address] [facility] [id number] [address] [place] [address] SP Dec, Unspecified episodic mood di sorder 296.90 SP [facility] [address] [id number] [address] [place] [phone] SP Oct, SP [facility] [address] [facility] [id number] [address] [place] [phone] SP Oct, SP [facility] [address] [facility] [id number] [address] [place] [phone] SP Sep, SP [facility] [address] [facility] [id number] [address] [place] [phone] SP Sep, SP [facility] [address] [id number] [address] [place] [id number] SP Sep, SP [facility] [address] [facility] [id number] [address] [place] [phone] SP Sep, SP [facility] [address] [facility] [id number] [address] [place] [phone] SP Sep, SP [facility] [address] [id number] [address] [place] [phone] SP Sep, SP [facility] [address] [facility] [id number] [address] [place] [phone] SP Aug, SP [facility] [address] [facility] [id number] [address] [place] [phone] SP Aug, SP [facility] [address] [facility] [id number] [address] [place] [phone] SP Aug, 2014 SP [facility] [address] [id number] [address] [place] [address], [place] [address] SP Aug, 2014 SP [facility] [address] [id number] [address] [place] [phone] SP Aug, 2014 SP [facility] [address] [id number] [address] [place] [address], [place] [address] SP Aug, 2014 SP [facility] [address] [id number] [address] [place] [phone] SP Aug, 2014 SP [facility] [address] [id number] [address] [place] [address], [place] [address] SP Aug, 2014 SP [facility] [address] [id number] [address] [place] [phone] SP Jul, SP [facility] [address] [id number] [address] [place] [address], [place] [address] SP Jul, SP [facility] [address] [id number] [address] [place] [address] SP Jun, SP [facility] [address] [id number] [address] [place] [phone] SP Jun, SP [facility] [address] [id number] [address] [place] [phone] SP Jun, SP [facility] [address] [id number] [address] [place] [phone] SP Jun, SP [facility] [address] [id number] [address] [place] [address], [place] [address] SP Apr, SP [facility] [address] [id number] [address] [place] [phone] SP Apr, SP [facility] [address] [facility] [id number] [address] [place] [address] SP Apr, SP [facility] [address] [id number] [address] [place] [address], [place] [address] SP Apr, SP [facility] [address] [id number] [address] [place] [address], [place] [address] SP Mar, SP [facility] [address] [id number] [address] [place] [address], [place] [address] SP Mar, SP [facility] [address] [id number] [address] [place] [address], [place] [address] SP Feb, SP [facility] [address] [id number] [address] [place] [address], [place] [address] SP Feb, SP [facility] [address] [id number] [address] [place] [address], [place] [address] SP Feb, SP [facility] [address] [id number] [address] [place] [address], [place] [address] SP Feb, SP [facility] [address] [id number] [address] [place] [address], [place] [address] SP Feb, SP [facility] [address] [id number] [address] [place] [address], [place] [address] SP Feb, SP [facility] [address] [id number] [address] [place] [address], [place] [address] SP Jan, SP [facility] [address] [id number] [address] [place] [address], [place] [address] SP Jan, SP [facility] [address] [id number] [address] [place] [address], [place] [address] SP Dec, SP [facility] [address] [id number] [address] [place] [address], [place] [address] SP Dec, SP [facility] [address] [id number] [address] [place] [address], [place] [address] SP November, SP [facility] [address] [id number] [address] [place] [address], [place] [address] SP November, SP [facility] [address] [id number] [address] [place] [address], [place] [address] SP Oct, SP [facility] [address] [id number] [address] [place] [address], [place] [address] SP Oct, SP [facility] [address] [id number] [address] [place] [address], [place] [address] SP Oct, SP [facility] [address] [id number] [address] [place] [address], [place] [address] SP Oct, SP [facility] [address] [id number] [address] [place] [address], [place] [address] SP Sep, SP [facility] [address] [id number] [address] [place] [address], [place] [address] SP Sep, SP [facility] [address] [id number] [address] [place] [address] SP Aug, SP [facility] [address] [id number] [address] [place] [address], [place] [address] SP Aug, SP [facility] [address] [id number] [address] [place] [address], [place] [address] SP Jul, SP [facility] [address] [id number] [address] [place] [address] SP Jul, SP [facility] [address] [id number] [address] [place] [address] SP Jun, SP [facility] [address] [id number] [address] [place] [address], [place] [address] SP Jun, SP [facility] [address] [id number] [address] [place] [address], [place] [address] SP May, SP [facility] [address] [id number] [address] [place] [address] SP May, SP [facility] [address] [id number] [address] [place] [address] SP May, SP [facility] [address] [id number] [address] [place] [address], [place] [address] SP May, SP [facility] [address] [id number] [address] [place] [address], [place] [address] SP Apr, SP [facility] [address] [id number] [address] [place] [address], [place] [address] SP Apr, SP [facility] [address] [id number] [address] [place] [address], [place] [address] SP Apr, SP [facility] [address] [id number] [address] [place] [address], [place] [address] SP Mar, SP [facility] [address] [id number] [address] [place] [address], [place] [address] SP Mar, SP [facility] [address] [id number] [address] [place] [address], [place] [address] SP Jan, SP [facility] [address] [id number] [address] [place] [address], [place] [address] SP Jan, SP [facility] [address] [id number] [address] [place] [address], [place] [address] SP Dec, SP [facility] [address] [id number] [address] [place] [address], [place] [address] SP November, SP [facility] [address] [id number] [address] [place] [address], [place] [address] SP Jul, SP [facility] [address] [id number] [address] [place] [address], [place] [address] SP May, SP [facility] [address] [id number] [address] [place] [address], [place] [address] SP May, SP [facility] [address] [id number] [address] [place] [address], [place] [address] SP Mar, SP [facility] [address] [facility] [id number] [address] [place] [address] SP Feb, SP [facility] [address] [facility] [id number] [address] [place] [address] SP Feb, SP [facility] [address] [facility] [id number] [address] [place] [address] SP Feb, SP [facility] [address] [facility] [id number] [address] [place] [address] SP Feb, SP [facility] [address] [facility] [id number] [address] [place] [address] SP Jan, SP [facility] [address] [facility] [id number] [address] [place] [address] SP Jan, SP [facility] [address] [facility] [id number] [address] [place] [address] SP Jul, SP IMMUNIZATIONS No Known Immunizations [...] SP Surgical History appendectomy SP Hospitalization History [facility] for asthma as a child SP
--- OUTSIDE RECORDS SUMMARY | 2019-06-18 22:43 | XMS REPORT ---
Author Author Migration, Doctor POS Organization [facility] SP Address Unknown SP Phone Unavailable SP Care Team Providers Care Shot Packer Name Role Phone POS Migration, Doctor Unavailable Unavailable SP PROBLEMS Unknown Problems ALLERGIES No Information ENCOUNTERS Encounter Location Date Diagnosis POS [facility] [address] [id number] SP Dec, SP [place] [address] [address] SP Apr, SP [facility] [address] SP Apr, Acute gastroenteritis K52.9 SP [facility] [address] [id number] [address] [place] [address] SP Mar, Arm pain, left M79.602 and C ontusion of arm, left, initial SP S40.022A [place] [address] [address] SP Aug, Acute pain of left shoulder M25.512 SP [place] [address] [id number] [address] [place] [address] SP Jul, Acute pain of left shoulder M25.512 SP [facility] [address] [id number] [address] [place] [address] SP Jul, Nondisplaced fracture of fif th right metatarsal bone S92.354A SP [place] [address] [id number] [address] [place] [address] SP Jul, SP [place] [address] [id number] [address] [place] [address] SP Feb, History of back pain V13.59 SP [facility] [address] [id number] [address] [place] [address] SP Dec, SP [facility] [address] [id number] [address] [place] [address] SP Dec, SP [facility] [address] [facility] [id number] [address] [place] [address] SP Dec, Unspecified episodic mood di sorder 296.90 SP [facility] [address] [id number] [address] [place] [address] SP Oct, SP [facility] [address] [id number] [address] [place] [address] SP Oct, SP [facility] [address] [id number] [address] [place] [address] SP Sep, SP [facility] [address] [id number] [address] [place] [address] SP Sep, SP [facility] [address] [facility] [id number] [address] [place] [id number] SP Sep, SP [facility] [address] [id number] [address] [place] [address] SP Sep, SP [facility] [address] [facility]NOTE 3] [id number] [address] [place] [address] SP Sep, SP [facility] [address] [id number] [address] [place] [address] SP Sep, SP [facility] [address] [id number] [address] [place] [address] SP Aug, SP [facility] [address] [id number] [address] [place] [address] SP Aug, SP [facility] [address] [facility]NOTE 3] [id number] [address] [place] [address] SP Aug, SP [facility] [address] [facility] 3] [id number] [address] [place] [address] SP Aug, 2014 SP [facility] [address] [id number] [address] [place] [address] SP Aug, 2014 SP [facility] [address] [id number] [address] [place] [address] SP Aug, 2014 SP [facility] [address] [id number] [address] [place] [address] SP Aug, 2014 SP [facility] [address] [id number] [address] [place] [address] SP Aug, SP [facility] [address] [id number] [address] [place] [address] SP Jul, SP [facility] [address] [id number] [address] [place] [address] SP Jul, SP [facility] [address] [id number] [address] [place] [address] SP Jun, SP [facility] [address] [id number] [address] [place] [address] SP Jun, SP [facility] [address] [id number] [address] [place] [address] SP Jun, SP [facility] [address] [id number] [address] [place] [address] SP Jun, SP [facility] [address] [id number] [address] [place] [address] SP Apr, SP [facility] [address] [id number] [address] [place] [address] SP Apr, SP [facility] [address] [facility]NOTE 3] [id number] [address] [place] [address] SP Apr, SP [facility] [address] [facility]NOTE 3] [id number] [address] [place] [address] SP Apr, SP [facility] [address] [id number] [address] [place] [address], [place] [address] SP Mar, SP [facility] [address] [id number] [address] [place] [address], [place] [address] SP Mar, SP [facility] [address] [id number] [address] [place] [address], [place] [address] SP Feb, SP [facility] [address] [id number] [address] [place] [address], [place] [address] SP Feb, SP [facility] [address] [id number] [address] [place] [address], [place] [address] SP Feb, SP [facility] [address] [id number] [address] [place] [address], [place] [address] SP Feb, SP [facility] [address] [id number] [address] [place] [address], [place] [address] SP Feb, SP [facility] [address] [id number] [address] [place] [address], [place] [address] SP Feb, SP [facility] [address] [id number] [address] [place] [address], [place] [address] SP Jan, SP [facility] [address] [id number] [address] [place] [address], [place] [address] SP Jan, SP [facility] [address] [id number] [address] [place] [address], [place] [address] SP Dec, SP [facility] [address] [id number] [address] [place] [address], [place] [address] SP Dec, SP [facility] [address] [id number] [address] [place] [address], [place] [address] SP November, SP [facility] [address] [id number] [address] [place] [address], [place] [address] SP November, SP [facility] [address] [id number] [address] [place] [address], [place] [address] SP Oct, SP [facility] [address] [id number] [address] [place] [address], [place] [address] SP Oct, SP [facility] [address] [id number] [address] [place] [address], [place] [address] SP Oct, SP [facility] [address] [id number] [address] [place] [address], [place] [address] SP Oct, SP [facility] [address] [id number] [address] [place] [address] SP Sep, SP [facility] [address] [id number] [address] [place] [address], [place] [address] SP Sep, SP [facility] [address] [id number] [address] [place] [address], [place] [address] SP Aug, SP [facility] [address] [id number] [address] [place] [address], [place] [address] SP Aug, SP [facility] [address] [id number] [address] [place] [address], [place] [address] SP Jul, SP [facility] [address] [id number] [address] [place] [address], [place] [address] SP Jul, SP [facility] [address] [facility][NOTE 3] [id number] [address] [place] [id number] SP Jun, SP [facility] [address] [id number] [address] [place] [phone] SP Jun, SP [facility] [address] [id number] [address] [place] [address], [place] [address] SP May, SP [facility] [address] [id number] [address] [place] [address], [place] [address] SP May, SP [facility] [address] [facility]NOTE 3] [id number] [address] [place] [phone] SP May, SP [facility] [address] [id number] [address] [place] [id number] SP May, SP [facility] [address] [id number] [address] [place] [address], [place] [address] SP Apr, SP [facility] [address] [id number] [address] [place] [address], [place] [address] SP Apr, SP [facility] [address] [id number] [address] [place] [address], [place] [address] SP Apr, SP [facility] [address] [id number] [address] [place] [address], [place] [address] SP Mar, SP [facility] [address] [id number] [address] [place] [address], [place] [address] SP Mar, SP [facility] [address] [id number] [address] [place] [address], [place] [address] SP Jan, SP [facility] [address] [id number] [address] [place] [address], [place] [address] SP Jan, SP [facility] [address] [id number] [address] [place] [address], [place] [address] SP Dec, SP [facility] [address] [id number] [address] [place] [address], [place] [address] SP November, SP [facility] [address] [id number] [address] [place] [address], [place] [address] SP Jul, SP [facility] [address] [id number] [address] [place] [address], [place] [address] SP May, SP [facility] [address] [id number] [address] [place] [address], [place] [address] SP May, SP [facility] [address] [id number] [address] [place] [address], [place] [address] SP Mar, SP [facility] [address] [id number] [address] [place] [address], [place] [address] SP Feb, SP [facility] [address] [facility]NOTE 3] [id number] [address] [place] [id number] SP Feb, SP [facility] [address] [facility][NOTE 3] [id number] [address] [place] [id number] SP Feb, SP [facility] [address] [facility][NOTE 3] [id number] [address] [place] [id number] SP Feb, SP [facility] [address] [facility][NOTE 3] [id number] [address] [place] [id number] SP Jan, SP [facility] [address] [facility][NOTE 3] [id number] [address] [place] [id number] SP Jan, SP [facility] [address] [facility][NOTE 3] [id number] [address] [place] [id number] SP Jul, SP IMMUNIZATIONS No Known Immunizations [...] SP Surgical History appendectomy SP Hospitalization History [facility] for asthma as a child SP
--- OUTSIDE RECORDS SUMMARY | 2019-06-18 22:43 | XMS REPORT ---
Author Author Migration, Doctor POS Organization [facility] SP Address Unknown SP Phone Unavailable SP Care Team Providers Care Logistics Supervisor Name Role Phone POS Migration, Doctor Unavailable Unavailable SP PROBLEMS Unknown Problems ALLERGIES No Information ENCOUNTERS Encounter Location Date Diagnosis POS [facility] [address] [facility] [id number] [address] [place] [id number] SP Mar, SP [facility] [address] [facility] [id number] [address] [place] [phone] SP Dec, SP [facility] [address] [facility] [id number] [address] [place] [phone] SP Apr, SP [facility] [address] [facility] [id number] [address] [place] [address] SP Apr, Acute gastroenteritis K52.9 SP [facility] [address] [facility] [id number] [address] [place] [address] SP Mar, Arm pain, left M79.602 and C ontusion of arm, left, initial SP S40.022A [facility] [address] [facility] [id number] [address] [place] [id number] SP Aug, Acute pain of left shoulder M25.512 SP [facility] [address] [facility] [id number] [address] [place] [phone] SP Jul, Acute pain of left shoulder M25.512 SP [facility] [address] [facility] [id number] [address] [place] [phone] SP Jul, Nondisplaced fracture of fif th right metatarsal bone S92.354A SP [facility] [address] [facility] [id number] [address] [place] [phone] SP Jul, SP [facility] [address] [facility] [id number] [address] [place] [phone] SP Feb, History of back pain V13.59 SP [facility] [address] [id number] [address] [place] [phone] SP Dec, SP [facility] [address] [facility] [id number] [address] [place] [phone] SP Dec, SP [facility] [address] [facility] [id number] [address] [place] [phone] SP Dec, Unspecified episodic mood di sorder 296.90 SP [facility] [address] [id number] [address] [place] [phone] SP Oct, SP [facility] [address] [facility] [id number] [address] [place] [phone] SP Oct, SP [facility] [address] [facility] [id number] [address] [place] [phone] SP Sep, SP [facility] [address] [facility] [id number] [address] [place] [phone] SP Sep, SP [facility] [address] [id number] [address] [place] [id number] SP Sep, SP [facility] [address] [facility] [id number] [address] [place] [phone] SP Sep, SP [facility] [address] [facility] [id number] [address] [place] [phone] SP Sep, SP [facility] [address] [facility] [id number] [address] [place] [phone] SP Sep, SP [facility] [address] [facility] [id number] [address] [place] [phone] SP Aug, SP [facility] [address] [facility] [id number] [address] [place] [phone] SP Aug, SP [facility] [address] [facility] [id number] [address] [place] [phone] SP Aug, 2014 SP [facility] [address] [id number] [address] [place] [address], [place] [address] SP Aug, 2014 SP [facility] [address] [id number] [address] [place] [phone] SP Aug, 2014 SP [facility] [address] [id number] [address] [place] [phone] SP Aug, 2014 SP [facility] [address] [id number] [address] [place] [phone] SP Aug, 2014 SP [facility] [address] [id number] [address] [place] [address], [place] [address] SP Aug, 2014 SP [facility] [address] [id number] [address] [place] [phone] SP Jul, SP [facility] [address] [id number] [address] [place] [phone] SP Jul, SP [facility] [address] [id number] [address] [place] [phone] SP Jun, SP [facility] [address] [id number] [address] [place] [phone] SP Jun, SP [facility] [address] [id number] [address] [place] [phone] SP Jun, SP [facility] [address] [id number] [address] [place] [phone] SP Jun, SP [facility] [address] [id number] [address] [place] [phone] SP Apr, SP [facility] [address] [id number] [address] [place] [phone] SP Apr, SP [facility] [address] [facility] [id number] [address] [place] [phone] SP Apr, SP [facility] [address] [id number] [address] [place] [address], [place] [address] SP Apr, SP [facility] [address] [id number] [address] [place] [address], [place] [address] SP Mar, SP [facility] [address] [id number] [address] [place] [address], [place] [address] SP Mar, SP [facility] [address] [id number] [address] [place] [address], [place] [address] SP Feb, SP [facility] [address] [id number] [address] [place] [address], [place] [address] SP Feb, SP [facility] [address] [id number] [address] [place] [address], [place] [address] SP Feb, SP [facility] [address] [id number] [address] [place] [address], [place] [address] SP Feb, SP [facility] [address] [id number] [address] [place] [address], [place] [address] SP Feb, SP [facility] [address] [id number] [address] [place] [address], [place] [address] SP Feb, SP [facility] [address] [id number] [address] [place] [address], [place] [address] SP Jan, SP [facility] [address] [id number] [address] [place] [address], [place] [address] SP Jan, SP [facility] [address] [id number] [address] [place] [address], [place] [address] SP Dec, SP [facility] [address] [id number] [address] [place] [address], [place] [address] SP Dec, SP [facility] [address] [id number] [address] [place] [address], [place] [address] SP November, SP [facility] [address] [id number] [address] [place] [address], [place] [address] SP November, SP [facility] [address] [id number] [address] [place] [address], [place] [address] SP Oct, SP [facility] [address] [id number] [address] [place] [address], [place] [address] SP Oct, SP [facility] [address] [id number] [address] [place] [address], [place] [address] SP Oct, SP [facility] [address] [id number] [address] [place] [address], [place] [address] SP Oct, SP [facility] [address] [id number] [address] [place] [address], [place] [address] SP Sep, SP [facility] [address] [id number] [address] [place] [address], [place] [address] SP Sep, SP [facility] [address] [id number] [address] [place] [phone] SP Aug, SP [facility] [address] [id number] [address] [place] [address], [place] [address] SP Aug, SP [facility] [address] [id number] [address] [place] [address], [place] [address] SP Jul, SP [facility] [address] [id number] [address] [place] [phone] SP Jul, SP [facility] [address] [id number] [address] [place] [phone] SP Jun, SP [facility] [address] [id number] [address] [place] [address], [place] [address] SP Jun, SP [facility] [address] [id number] [address] [place] [address], [place] [address] SP May, SP [facility] [address] [id number] [address] [place] [phone] SP May, SP [facility] [address] [id number] [address] [place] [phone] SP May, SP [facility] [address] [id number] [address] [place] [address], [place] [address] SP May, SP [facility] [address] [id number] [address] [place] [address], [place] [address] SP Apr, SP [facility] [address] [id number] [address] [place] [address], [place] [address] SP Apr, SP [facility] [address] [id number] [address] [place] [address], [place] [address] SP Apr, SP [facility] [address] [id number] [address] [place] [address], [place] [address] SP Mar, SP [facility] [address] [id number] [address] [place] [address], [place] [address] SP Mar, SP [facility] [address] [id number] [address] [place] [address], [place] [address] SP Jan, SP [facility] [address] [id number] [address] [place] [address], [place] [address] SP Jan, SP [facility] [address] [id number] [address] [place] [address], [place] [address] SP Dec, SP [facility] [address] [id number] [address] [place] [address], [place] [address] SP November, SP [facility] [address] [id number] [address] [place] [address], [place] [address] SP Jul, SP [facility] [address] [id number] [address] [place] [address], [place] [address] SP May, SP [facility] [address] [id number] [address] [place] [address], [place] [address] SP May, SP [facility] [address] [id number] [address] [place] [address], [place] [address] SP Mar, SP [facility] [address] [id number] [address] [place] [address] SP Feb, SP [facility] [address] [id number] [address] [place] [phone] SP Feb, SP [facility] [address] [id number] [address] [place] [address] SP Feb, SP [facility] [address] [facility] [id number] [address] [place] [phone] SP Feb, SP [facility] [address] [facility] [id number] [address] [place] [phone] SP Jan, SP [facility] [address] [facility] [id number] [address] [place] [phone] SP Jan, SP [facility] [address] [facility] [id number] [address] [place] [phone] SP Jul, SP IMMUNIZATIONS No Known Immunizations [...] SP Surgical History appendectomy SP Hospitalization History [facility] for asthma as a child SP
--- OUTSIDE RECORDS SUMMARY | 2019-06-18 22:43 | XMS REPORT ---
Author Author Migration, Doctor POS Organization [facility] SP Address Unknown SP Phone Unavailable SP Care Team Providers Care Plastics Engineer Name Role Phone POS Migration, Doctor Unavailable Unavailable SP PROBLEMS Unknown Problems ALLERGIES No Information ENCOUNTERS Encounter Location Date Diagnosis POS [facility] [address] [id number] SP Dec, SP [place] [address] [address] SP Apr, SP [facility] [address] SP Apr, Acute gastroenteritis K52.9 SP [facility] [address] [place] [id number] [address] [place] [address] SP Mar, Arm pain, left M79.602 and C ontusion of arm, left, initial SP S40.022A [place] [address] [id number] SP Aug, Acute pain of left shoulder M25.512 SP [place] [address] [place] [id number] [address] [place] [address] SP Jul, Acute pain of left shoulder M25.512 SP [facility] [address] [place] [id number] [address] [place] [address] SP Jul, Nondisplaced fracture of fif th right metatarsal bone S92.354A SP [place] [address] [place] [id number] [address] [place] [address] SP Jul, SP [place] [address] [place] [id number] [address] [place] [address] SP Feb, History of back pain V13.59 SP [facility] [address] [place] [id number] [address] [place] [address] SP Dec, SP [facility] [address] [id number] [address] [place] [address] SP Dec, SP [facility] [address] [facility] [id number] [address] [place] [address] SP Dec, Unspecified episodic mood di sorder 296.90 SP [facility] [address] [id number] [address] [place] [address] SP Oct, SP [facility] [address] [id number] [address] [place] [address] SP Oct, SP [facility] [address] [id number] [address] [place] [address] SP Sep, SP [facility] [address] [id number] [address] [place] [address] SP Sep, SP [facility] [address] [facility] [id number] [address] [place] [id number] SP Sep, SP [facility] [address] [id number] [address] [place] [address] SP Sep, SP [facility] [address] [facility] [id number] [address] [place] [address] SP Sep, SP [facility] [address] [id number] [address] [place] [address] SP Sep, SP [facility] [address] [id number] [address] [place] [address] SP Aug, SP [facility] [address] [id number] [address] [place] [address] SP Aug, SP [facility] [address] [facility] [id number] [address] [place] [phone] SP Aug, SP [facility] [address] [facility] [id number] [address] [place] [address] SP Aug, 2014 SP [facility] [address] [id number] [address] [place] [address] SP Aug, 2014 SP [facility] [address] [id number] [address] [place] [address] SP Aug, 2014 SP [facility] [address] [id number] [address] [place] [address] SP Aug, 2014 SP [facility] [address] [id number] [address] [place] [phone] SP Aug, SP [facility] [address] [id number] [address] [place] [address] SP Jul, SP [facility] [address] [id number] [address] [place] [address] SP Jul, SP [facility] [address] [id number] [address] [place] [address] SP Jun, SP [facility] [address] [id number] [address] [place] [address] SP Jun, SP [facility] [address] [id number] [address] [place] [address] SP Jun, SP [facility] [address] [id number] [address] [place] [address] SP Jun, SP [facility] [address] [id number] [address] [place] [address] SP Apr, SP [facility] [address] [id number] [address] [place] [address] SP Apr, SP [facility] [address] [facility] [id number] [address] [place] [address] SP Apr, SP [facility] [address] [facility] [id number] [address] [place] [address] SP Apr, SP [facility] [address] [id number] [address] [place] [address], [place] [address] SP Mar, SP [facility] [address] [id number] [address] [place] [address], [place] [address] SP Mar, SP [facility] [address] [id number] [address] [place] [address], [place] [address] SP Feb, SP [facility] [address] [id number] [address] [place] [address], [place] [address] SP Feb, SP [facility] [address] [id number] [address] [place] [address], [place] [address] SP Feb, SP [facility] [address] [id number] [address] [place] [address], [place] [address] SP Feb, SP [facility] [address] [id number] [address] [place] [address], [place] [address] SP Feb, SP [facility] [address] [id number] [address] [place] [address], [place] [address] SP Feb, SP [facility] [address] [id number] [address] [place] [address], [place] [address] SP Jan, SP [facility] [address] [id number] [address] [place] [address], [place] [address] SP Jan, SP [facility] [address] [id number] [address] [place] [address], [place] [address] SP Dec, SP [facility] [address] [id number] [address] [place] [address], [place] [address] SP Dec, SP [facility] [address] [id number] [address] [place] [address], [place] [address] SP November, SP [facility] [address] [id number] [address] [place] [address], [place] [address] SP November, SP [facility] [address] [id number] [address] [place] [address], [place] [address] SP Oct, SP [facility] [address] [id number] [address] [place] [address], [place] [address] SP Oct, SP [facility] [address] [id number] [address] [place] [address], [place] [address] SP Oct, SP [facility] [address] [id number] [address] [place] [address], [place] [address] SP Oct, SP [facility] [address] [id number] [address] [place] [id number] SP Sep, SP [facility] [address] [id number] [address] [place] [address], [place] [address] SP Sep, SP [facility] [address] [id number] [address] [place] [address], [place] [address] SP Aug, SP [facility] [address] [id number] [address] [place] [address], [place] [address] SP Aug, SP [facility] [address] [id number] [address] [place] [address], [place] [address] SP Jul, SP [facility] [address] [id number] [address] [place] [address], [place] [address] SP Jul, SP [facility] [address] [facility] [id number] [address] [place] [id number] SP Jun, SP [facility] [address] [id number] [address] [place] [id number] SP Jun, SP [facility] [address] [id number] [address] [place] [address], [place] [address] SP May, SP [facility] [address] [id number] [address] [place] [address], [place] [address] SP May, SP [facility] [address] [facility] [id number] [address] [place] [id number] SP May, SP [facility] [address] [id number] [address] [place] [id number] SP May, SP [facility] [address] [id number] [address] [place] [address], [place] [address] SP Apr, SP [facility] [address] [id number] [address] [place] [address], [place] [address] SP Apr, SP [facility] [address] [id number] [address] [place] [address], [place] [address] SP Apr, SP [facility] [address] [id number] [address] [place] [address], [place] [address] SP Mar, SP [facility] [address] [id number] [address] [place] [address], [place] [address] SP Mar, SP [facility] [address] [id number] [address] [place] [address], [place] [address] SP Jan, SP [facility] [address] [id number] [address] [place] [address], [place] [address] SP Jan, SP [facility] [address] [id number] [address] [place] [address], [place] [address] SP Dec, SP [facility] [address] [id number] [address] [place] [address], [place] [address] SP November, SP [facility] [address] [id number] [address] [place] [address], [place] [address] SP Jul, SP [facility] [address] [id number] [address] [place] [address], [place] [address] SP May, SP [facility] [address] [id number] [address] [place] [address], [place] [address] SP May, SP [facility] [address] [id number] [address] [place] [address], [place] [address] SP Mar, SP [facility] [address] [id number] [address] [place] [address], [place] [address] SP Feb, SP [facility] [address] [facility] [id number] [address] [place] [id number] SP Feb, SP [facility] [address] [facility] [id number] [address] [place] [id number] SP Feb, SP [facility] [address] [facility] [id number] [address] [place] [id number] SP Feb, SP [facility] [address] [facility] [id number] [address] [place] [id number] SP Jan, SP [facility] [address] [facility] [id number] [address] [place] [id number] SP Jan, SP [facility] [address] [facility] [id number] [address] [place] [id number] SP Jul, SP IMMUNIZATIONS No Known Immunizations [...] SP Surgical History appendectomy SP Hospitalization History [facility] for asthma as a child SP
--- OUTSIDE RECORDS SUMMARY | 2019-06-18 22:43 | XMS REPORT ---
Author Author Migration, Doctor POS Organization [facility] VAN SP Address Unknown SP Phone Unavailable SP Care Team Providers Care Installer Technician Name Role Phone POS Migration, Doctor Unavailable Unavailable SP PROBLEMS Unknown Problems ALLERGIES No Information ENCOUNTERS Encounter Location Date Diagnosis POS [facility] [address] [facility] [id number] [address] [place] [phone] SP Mar, SP [facility] [address] [facility] [id number] [address] [place] [phone] SP Dec, SP [facility] [address] [facility] [id number] [address] [place] [address] SP Apr, SP [facility] [address] [facility] [id number] [address] [place] [address] SP Apr, Acute gastroenteritis K52.9 SP [facility] [address] [facility] [id number] [address] [place] [address] SP Mar, Arm pain, left M79.602 and C ontusion of arm, left, initial SP S40.022A [facility] [address] [facility] [id number] [address] [place] [address] SP Aug, Acute pain of left shoulder M25.512 SP [facility] [address] [facility] [id number] [address] [place] [address] SP Jul, Acute pain of left shoulder M25.512 SP [facility] [address] [facility] [id number] [address] [place] [address] SP Jul, Nondisplaced fracture of fif th right metatarsal bone S92.354A SP [facility] [address] [facility] [id number] [address] [place] [address] SP Jul, SP [facility] [address] [facility] [id number] [address] [place] [address] SP Feb, History of back pain V13.59 SP [facility] [address] [id number] [address] [place] [phone] SP Dec, SP [facility] [address] [facility] [id number] [address] [place] [address] SP Dec, SP [facility] [address] [facility] [id number] [address] [place] [address] SP Dec, Unspecified episodic mood di sorder 296.90 SP [facility] [address] [id number] [address] [place] [address] SP Oct, SP [facility] [address] [facility] [id number] [address] [place] [address] SP Oct, SP [facility] [address] [facility] [id number] [address] [place] [phone] SP Sep, SP [facility] [address] [facility] [id number] [address] [place] [address] SP Sep, SP [facility] [address] [id number] [address] [place] [id number] SP Sep, SP [facility] [address] [facility] [id number] [address] [place] [phone] SP Sep, SP [facility] [address] [facility] [id number] [address] [place] [address] SP Sep, SP [facility] [address] [facility] [id number] [address] [place] [id number] SP Sep, SP [facility] [address] [facility] [id number] [address] [place] [address] SP Aug, SP [facility] [address] [facility] [id number] [address] [place] [address] SP Aug, SP [facility] [address] [facility] [id number] [address] [place] [phone] SP Aug, 2014 SP [facility] [address] [id number] [address] [place] [address], [place] [address] SP Aug, 2014 SP [facility] [address] [id number] [address] [place] [phone] SP Aug, 2014 SP [facility] [address] [id number] [address] [place] [address] SP Aug, 2014 SP [facility] [address] [id number] [address] [place] [phone] SP Aug, 2014 SP [facility] [address] [id number] [address] [place] [address], [place] [address] SP Aug, 2014 SP [facility] [address] [id number] [address] [place] [phone] SP Jul, SP [facility] [address] [id number] [address] [place] [phone] SP Jul, SP [facility] [address] [id number] [address] [place] [id number] SP Jun, SP [facility] [address] [id number] [address] [place] [id number] SP Jun, SP [facility] [address] [id number] [address] [place] [address] SP Jun, SP [facility] [address] [id number] [address] [place] [address] SP Jun, SP [facility] [address] [id number] [address] [place] [address] SP Apr, SP [facility] [address] [id number] [address] [place] [address] SP Apr, SP [facility] [address] [facility] [id number] [address] [place] [address] SP Apr, SP [facility] [address] [id number] [address] [place] [address], [place] [address] SP Apr, SP [facility] [address] [id number] [address] [place] [address], [place] [address] SP Mar, SP [facility] [address] [id number] [address] [place] [address], [place] [address] SP Mar, SP [facility] [address] [id number] [address] [place] [address], [place] [address] SP Feb, SP [facility] [address] [id number] [address] [place] [address], [place] [address] SP Feb, SP [facility] [address] [id number] [address] [place] [address], [place] [address] SP Feb, SP [facility] [address] [id number] [address] [place] [address], [place] [address] SP Feb, SP [facility] [address] [id number] [address] [place] [address], [place] [address] SP Feb, SP [facility] [address] [id number] [address] [place] [address], [place] [address] SP Feb, SP [facility] [address] [id number] [address] [place] [address], [place] [address] SP Jan, SP [facility] [address] [id number] [address] [place] [address], [place] [address] SP Jan, SP [facility] [address] [id number] [address] [place] [address], [place] [address] SP Dec, SP [facility] [address] [id number] [address] [place] [address], [place] [address] SP Dec, SP [facility] [address] [id number] [address] [place] [address], [place] [address] SP November, SP [facility] [address] [id number] [address] [place] [address], [place] [address] SP November, SP [facility] [address] [id number] [address] [place] [address], [place] [address] SP Oct, SP [facility] [address] [id number] [address] [place] [address], [place] [address] SP Oct, SP [facility] [address] [id number] [address] [place] [address], [place] [address] SP Oct, SP [facility] [address] [id number] [address] [place] [address], [place] [address] SP Oct, SP [facility] [address] [id number] [address] [place] [address], [place] [address] SP Sep, SP [facility] [address] [id number] [address] [place] [address], [place] [address] SP Sep, SP [facility] [address] [id number] [address] [place] [address] SP Aug, SP [facility] [address] [id number] [address] [place] [address], [place] [address] SP Aug, SP [facility] [address] [id number] [address] [place] [address], [place] [address] SP Jul, SP [facility] [address] [id number] [address] [place] [address] SP Jul, SP [facility] [address] [id number] [address] [place] [address] SP Jun, SP [facility] [address] [id number] [address] [place] [address], [place] [address] SP Jun, SP [facility] [address] [id number] [address] [place] [address], [place] [address] SP May, SP [facility] [address] [id number] [address] [place] [address] SP May, SP [facility] [address] [id number] [address] [place] [address] SP May, SP [facility] [address] [id number] [address] [place] [address], [place] [address] SP May, SP [facility] [address] [id number] [address] [place] [address], [place] [address] SP Apr, SP [facility] [address] [id number] [address] [place] [address], [place] [address] SP Apr, SP [facility] [address] [id number] [address] [place] [address], [place] [address] SP Apr, SP [facility] [address] [id number] [address] [place] [address], [place] [address] SP Mar, SP [facility] [address] [id number] [address] [place] [address], [place] [address] SP Mar, SP [facility] [address] [id number] [address] [place] [address], [place] [address] SP Jan, SP [facility] [address] [id number] [address] [place] [address], [place] [address] SP Jan, SP [facility] [address] [id number] [address] [place] [address], [place] [address] SP Dec, SP [facility] [address] [id number] [address] [place] [address], [place] [address] SP November, SP [facility] [address] [id number] [address] [place] [address], [place] [address] SP Jul, SP [facility] [address] [id number] [address] [place] [address], [place] [address] SP May, SP [facility] [address] [id number] [address] [place] [address], [place] [address] SP May, SP [facility] [address] [id number] [address] [place] [address], [place] [address] SP Mar, SP [facility] [address] [id number] [address] [place] [address] SP Feb, SP [facility] [address] [id number] [address] [place] [address] SP Feb, SP [facility] [address] [id number] [address] [place] [address] SP Feb, SP [facility] [address] [id number] [address] [place] [address] SP Feb, SP [facility] [address] [id number] [address] [place] [address] SP Jan, SP [facility] [address] [id number] [address] [place] [address] SP Jan, SP [facility] [address] [facility] [id number] [address] [place] [address] SP Jul, SP IMMUNIZATIONS No Known Immunizations SOCIAL HISTORY Never Assessed REASON FOR VISIT PLAN OF CARE VITAL SIGNS Height 69 in 2014-07-29 POS Weight 184 lbs 2014-07-29 POS Temperature 97 degrees Fahrenheit 2014-07-29 POS Heart Rate 76 bpm 2014-07-29 POS Respiratory Rate 18 2014-07-29 POS Blood pressure systolic 122 mmHg 2014-07-29 POS Blood pressure diastolic 78 mmHg 2014-07-29 POS MEDICATIONS Unknown Medications RESULTS No Results PROCEDURES Procedure Date Ordered Result Body Site POS US EXAM, SCROTUM Jul 29, 2014 SP INSTRUCTIONS MEDICATIONS ADMINISTERED No Known Medications MEDICAL (GENERAL) HISTORY Type Description Date POS Medical History asthma SP Medical History attention deficit hyperactivity disorder SP Medical History bipolar disorder SP Surgical History otolaryngologic surgery SP Surgical History appendectomy SP Hospitalization History [facility] for asthma as a child SP
--- OUTSIDE RECORDS SUMMARY | 2019-06-18 22:43 | XMS REPORT ---
Author Author Migration, Doctor POS Organization [facility] SP Address Unknown SP Phone Unavailable SP Care Team Providers Care Inspector Repairer Sandstone Name Role Phone POS Migration, Doctor Unavailable Unavailable SP PROBLEMS Unknown Problems ALLERGIES No Information ENCOUNTERS Encounter Location Date Diagnosis POS [facility] [address] [facility] [id number] [address] [place] [address] SP Mar, SP [facility] [address] [facility] [id number] [address] [place] [address] SP Dec, SP [facility] [address] [facility] [id number] [address] [place] [address] SP Apr, SP [facility] [address] [facility] [id number] [address] [place] [address] SP Apr, Acute gastroenteritis K52.9 SP [facility] [address] [facility] [id number] [address] [place] [address] SP Mar, Arm pain, left M79.602 and C ontusion of arm, left, initial SP S40.022A [facility] [address] [facility] [id number] [address] [place] [address] SP Aug, Acute pain of left shoulder M25.512 SP [facility] [address] [facility] [id number] [address] [place] [address] SP Jul, Acute pain of left shoulder M25.512 SP [facility] [address] [facility] [id number] [address] [place] [address] SP Jul, Nondisplaced fracture of fif th right metatarsal bone S92.354A SP [facility] [address] [facility] [id number] [address] [place] [address] SP Jul, SP [facility] [address] [facility] [id number] [address] [place] [address] SP Feb, History of back pain V13.59 SP [facility] [address] [id number] [address] [place] [address] SP Dec, SP [facility] [address] [facility] [id number] [address] [place] [address] SP Dec, SP [facility] [address] [facility] [id number] [address] [place] [address] SP Dec, Unspecified episodic mood di sorder 296.90 SP [facility] [address] [id number] [address] [place] [address] SP Oct, SP [facility] [address] [facility] [id number] [address] [place] [address] SP Oct, SP [facility] [address] [facility] [id number] [address] [place] [address] SP Sep, SP [facility] [address] [facility] [id number] [address] [place] [address] SP Sep, SP [facility] [address] [id number] [address] [place] [id number] SP Sep, SP [facility] [address] [facility] [id number] [address] [place] [address] SP Sep, SP [facility] [address] [facility] [id number] [address] [place] [address] SP Sep, SP [facility] [address] [facility] [id number] [address] [place] [address] SP Sep, SP [facility] [address] [facility] [id number] [address] [place] [address] SP Aug, SP [facility] [address] [facility] [id number] [address] [place] [address] SP Aug, SP [facility] [address] [facility] [id number] [address] [place] [address] SP Aug, 2014 SP [facility] [address] [id number] [address] [place] [address], [place] [address] SP Aug, 2014 SP [facility] [address] [id number] [address] [place] [address] SP Aug, 2014 SP [facility] [address] [id number] [address] [place] [address] SP Aug, 2014 SP [facility] [address] [id number] [address] [place] [address] SP Aug, 2014 SP [facility] [address] [id number] [address] [place] [address], [place] [address] SP Aug, 2014 SP [facility] [address] [id number] [address] [place] [address] SP Jul, SP [facility] [address] [id number] [address] [place] [address] SP Jul, SP [facility] [address] [id number] [address] [place] [address] SP Jun, SP [facility] [address] [id number] [address] [place] [address] SP Jun, SP [facility] [address] [id number] [address] [place] [address] SP Jun, SP [facility] [address] [id number] [address] [place] [address] SP Jun, SP [facility] [address] [id number] [address] [place] [address] SP Apr, SP [facility] [address] [id number] [address] [place] [address] SP Apr, SP [facility] [address] [facility] [id number] [address] [place] [address] SP Apr, SP [facility] [address] [id number] [address] [place] [address], [place] [address] SP Apr, SP [facility] [address] [id number] [address] [place] [address], [place] [address] SP Mar, SP [facility] [address] [id number] [address] [place] [address], [place] [address] SP Mar, SP [facility] [address] [id number] [address] [place] [address], [place] [address] SP Feb, SP [facility] [address] [id number] [address] [place] [address], [place] [address] SP Feb, SP [facility] [address] [id number] [address] [place] [address], [place] [address] SP Feb, SP [facility] [address] [id number] [address] [place] [address], [place] [address] SP Feb, SP [facility] [address] [id number] [address] [place] [address], [place] [address] SP Feb, SP [facility] [address] [id number] [address] [place] [address], [place] [address] SP Feb, SP [facility] [address] [id number] [address] [place] [address], [place] [address] SP Jan, SP [facility] [address] [id number] [address] [place] [address], [place] [address] SP Jan, SP [facility] [address] [id number] [address] [place] [address], [place] [address] SP Dec, SP [facility] [address] [id number] [address] [place] [address], [place] [address] SP Dec, SP [facility] [address] [id number] [address] [place] [address], [place] [address] SP November, SP [facility] [address] [id number] [address] [place] [address], [place] [address] SP November, SP [facility] [address] [id number] [address] [place] [address], [place] [address] SP Oct, SP [facility] [address] [id number] [address] [place] [address], [place] [address] SP Oct, SP [facility] [address] [id number] [address] [place] [address], [place] [address] SP Oct, SP [facility] [address] [id number] [address] [place] [address], [place] [address] SP Oct, SP [facility] [address] [id number] [address] [place] [address], [place] [address] SP Sep, SP [facility] [address] [id number] [address] [place] [address], [place] [address] SP Sep, SP [facility] [address] [id number] [address] [place] [id number] SP Aug, SP [facility] [address] [id number] [address] [place] [address], [place] [id number] SP Aug, SP [facility] [address] [id number] [address] [place] [address], [place] [address] SP Jul, SP [facility] [address] [id number] [address] [place] [id number] SP Jul, SP [facility] [address] [id number] [address] [place] [id number] SP Jun, SP [facility] [address] [id number] [address] [place] [address], [place] [address] SP Jun, SP [facility] [address] [id number] [address] [place] [address], [place] [address] SP May, SP [facility] [address] [id number] [address] [place] [id number] SP May, SP [facility] [address] [id number] [address] [place] [id number] SP May, SP [facility] [address] [id number] [address] [place] [address], [place] [address] SP May, SP [facility] [address] [id number] [address] [place] [address], [place] [address] SP Apr, SP [facility] [address] [id number] [address] [place] [address], [place] [address] SP Apr, SP [facility] [address] [id number] [address] [place] [address], [place] [address] SP Apr, SP [facility] [address] [id number] [address] [place] [address], [place] [address] SP Mar, SP [facility] [address] [id number] [address] [place] [address], [place] [address] SP Mar, SP [facility] [address] [id number] [address] [place] [address], [place] [address] SP Jan, SP [facility] [address] [id number] [address] [place] [address], [place] [address] SP Jan, SP [facility] [address] [id number] [address] [place] [address], [place] [address] SP Dec, SP [facility] [address] [id number] [address] [place] [address], [place] [address] SP November, SP [facility] [address] [id number] [address] [place] [address], [place] [address] SP Jul, SP [facility] [address] [id number] [address] [place] [address], [place] [address] SP May, SP [facility] [address] [id number] [address] [place] [address], [place] [address] SP May, SP [facility] [address] [id number] [address] [place] [address], [place] [address] SP Mar, SP [facility] [address] [id number] [address] [place] [id number] SP Feb, SP [facility] [address] [id number] [address] [place] [id number] SP Feb, SP [facility] [address] [id number] [address] [place] [id number] SP Feb, SP [facility] [address] [id number] [address] [place] [id number] SP Feb, SP [facility] [address] [id number] [address] [place] [id number] SP Jan, SP [facility] [address] [id number] [address] [place] [id number] SP Jan, SP [facility] [address] [facility] [id number] [address] [place] [id number] SP Jul, SP IMMUNIZATIONS No Known Immunizations SOCIAL HISTORY Never Assessed REASON FOR VISIT PLAN OF CARE VITAL SIGNS Height 68.75 in 2013-04-03 POS Weight 162 lbs 2013-04-03 POS Temperature 99.3 degrees Fahrenheit 2013-04-03 POS Heart Rate 80 bpm 2013-04-03 POS Respiratory Rate 22 2013-04-03 POS Blood pressure systolic 122 mmHg 2013-04-03 POS Blood pressure diastolic 82 mmHg 2013-04-03 POS MEDICATIONS Unknown Medications RESULTS No Results PROCEDURES No Known procedures INSTRUCTIONS MEDICATIONS ADMINISTERED No Known Medications MEDICAL (GENERAL) HISTORY Type Description Date POS Medical History asthma SP Medical History attention deficit hyperactivity disorder SP Medical History bipolar disorder SP Surgical History otolaryngologic surgery SP Surgical History appendectomy SP Hospitalization History [facility] for asthma as a child SP
--- OUTSIDE RECORDS SUMMARY | 2019-06-18 22:43 | XMS REPORT ---
Author Author NIDA PAL POS Organization [facility] SP Address [address] [place] [address] SP Care Team Providers Care Dust Mop Maker Name Role Phone POS NIDA PAL Unavailable SP PROBLEMS Unknown Problems ALLERGIES No Information ENCOUNTERS Encounter Location Date Diagnosis POS [facility] [address] [id number] SP Mar, SP [facility] [id number] [place] [id number] SP Dec, SP [facility] [address] [address] SP Apr, SP [facility] [id number] [place] [address] SP Apr, Acute gastroenteritis K52.9 SP [facility] [address] [facility] [id number] [address] [place] [address] SP Mar, Arm pain, left M79.602 and C ontusion of arm, left, initial SP S40.022A [facility] [address] [facility] [id number] [address] [place] [id number] SP Aug, Acute pain of left shoulder M25.512 SP [facility] [address] [facility] [id number] [address] [place] [id number] SP Jul, Acute pain of left shoulder M25.512 SP [facility] [address] [facility] [id number] [address] [place] [id number] SP Jul, Nondisplaced fracture of fif th right metatarsal bone S92.354A SP [facility] [id number] [place] [address] SP Jul, SP [facility] [address] [facility] [id number] [address] [place] [id number] SP Feb, History of back pain V13.59 SP [facility] [address] [id number] [address] [place] [id number] SP Dec, SP [facility] [address] [facility] [id number] [address] [place] [id number] SP Dec, SP [facility] [address] [facility] [id number] [address] [place] [id number] SP Dec, Unspecified episodic mood di sorder 296.90 SP [facility] [address] [id number] [address] [place] [id number] SP Oct, SP [facility] [address] [facility] [id number] [address] [place] [id number] SP Oct, SP [facility] [address] [facility] [id number] [address] [place] [id number] SP Sep, SP [facility] [address] [facility] [id number] [address] [place] [id number] SP Sep, SP [facility] [address] [id number] [address] [place] [id number] SP Sep, SP [facility] [address] [id number] [address] [place] [id number] SP Sep, SP [facility] [address] [facility] [id number] [address] [place] [id number] SP Sep, SP [facility] [address] [facility] [id number] [address] [place] [id number] SP Sep, SP [facility] [address] [facility] [id number] [address] [place] [id number] SP Aug, SP [facility] [address] [facility] [id number] [address] [place] [id number] SP Aug, SP [facility] [address] [id number] [address] [place] [address], [place] [id number] SP Aug, 2014 SP [facility] [address] [id number] [address] [place] [address], [place] [address] SP Aug, 2014 SP [facility] [address] [facility] [id number] [address] [place] [address], [place] [address] SP Aug, 2014 SP [facility] [address] [id number] [address] [place] [address], [place] [id number] SP Aug, 2014 SP [facility] [address] [id number] [address] [place] [address], [place] [id number] SP Aug, 2014 SP [facility] [address] [id number] [address] [place] [address], [place] [id number] SP Aug, 2014 SP [facility] [address] [id number] [address] [place] [address], [place] [id number] SP Jul, SP [facility] [address] [id number] [address] [place] [address], [place] [address] SP Jul, SP [facility] [address] [id number] [address] [place] [address], [place] [id number] SP Jun, SP [facility] [address] [id number] [address] [place] [id number] SP Jun, SP [facility] [address] [id number] [address] [place] [address], [place] [address] SP Jun, SP [facility] [address] [id number] [address] [place] [address], [place] [id number] SP Jun, SP [facility] [address] [id number] [address] [place] [address], [place] [address] SP Apr, SP [facility] [address] [facility] [id number] [address] [place] [address], [place] [address] SP Apr, SP [facility] [address] [id number] [address] [place] [address] [place] [id number] SP Apr, SP [facility] [address] [id number] [address] [place] [address], [place] [address] SP Apr, SP [facility] [address] [id number] [address] [place] [address], [place] [address] SP Mar, SP [facility] [address] [id number] [address] [place] [address], [place] [id number] SP Mar, SP [facility] [address] [id number] [address] [place] [address], [place] [id number] SP Feb, SP [facility] [address] [id number] [address] [place] [address], [place] [address] SP Feb, SP [facility] [address] [id number] [address] [place] [address], [place] [address] SP Feb, SP [facility] [address] [id number] [address] [place] [address], [place] [address] SP Feb, SP [facility] [address] [id number] [address] [place] [address], [place] [address] SP Feb, SP [facility] [address] [id number] [address] [place] [address], [place] [id number] SP Feb, SP [facility] [address] [id number] [address] [place] [address], [place] [address] SP Jan, SP [facility] [address] [id number] [address] [place] [address], [place] [id number] SP Jan, SP [facility] [address] [id number] [address] [place] [address], [place] [address] SP Dec, SP [facility] [address] [id number] [address] [place] [address], [place] [address] SP Dec, SP [facility] [address] [id number] [address] [place] [address], [place] [address] SP November, SP [facility] [address] [id number] [address] [place] [address], [place] [id number] SP November, SP [facility] [address] [id number] [address] [place] [address], [place] [address] SP Oct, SP [facility] [address] [id number] [address] [place] [address], [place] [address] SP Oct, SP [facility] [address] [id number] [address] [place] [address], [place] [address] SP Oct, SP [facility] [address] [id number] [address] [place] [address], [place] [address] SP Oct, SP [facility] [address] [id number] [address] [place] [address], [place] [id number] SP Sep, SP [facility] [address] [id number] [address] [place] [address], [place] [address] SP Sep, SP [facility] [address] [id number] [address] [place] [address], [place] [address] SP Aug, SP [facility] [address] [id number] [address] [place] [address], [place] [address] SP Aug, SP [facility] [address] [id number] [address] [place] [address], [place] [address] SP Jul, SP [facility] [address] [id number] [address] [place] [address], [place] [address] SP Jul, SP [facility] [address] [id number] [address] [place] [address], [place] [address] SP Jun, SP [facility] [address] [id number] [address] [place] [address], [place] [address] SP Jun, SP [facility] [address] [id number] [address] [place] [address], [place] [address] SP May, SP [facility] [address] [id number] [address] [place] [address], [place] [address] SP May, SP [facility] [address] [id number] [address] [place] [address], [place] [address] SP May, SP [facility] [address] [id number] [address] [place] [address], [place] [address] SP May, SP [facility] [address] [id number] [address] [place] [address], [place] [address] SP Apr, SP [facility] [address] [id number] [address] [place] [address], [place] [address] SP Apr, SP [facility] [address] [id number] [address] [place] [address], [place] [address] SP Apr, SP [facility] [address] [id number] [address] [place] [address], [place] [address] SP Mar, SP [facility] [address] [id number] [address] [place] [address], [place] [address] SP Mar, SP [facility] [address] [id number] [address] [place] [address], [place] [address] SP Jan, SP [facility] [address] [id number] [address] [place] [address], [place] [address] SP Jan, SP [facility] [address] [id number] [address] [place] [id number] SP Dec, SP [facility] [address] [id number] [address] [place] [address], [place] [address] SP November, SP [facility] [address] [id number] [address] [place] [address], [place] [address] SP Jul, SP [facility] [address] [id number] [address] [place] [address], [place] [address] SP May, SP [facility] [address] [id number] [address] [place] [address], [place] [address] SP May, SP [facility] [address] [id number] [address] [place] [id number] SP Mar, SP [facility] [address] [id number] [address] [place] [id number] SP Feb, SP [facility] [address] [id number] [address] [place] [id number] SP Feb, SP [facility] [address] [facility] [id number] [address] [place] [id number] SP Feb, SP [facility] [address] [facility] [id number] [address] [place] [id number] SP Feb, SP [facility] [address] [facility] [id number] [address] [place] [id number] SP Jan, SP [facility] [address] [facility] [id number] [address] [place] [id number] SP Jan, SP [facility] [address] [facility] [id number] [address] [place] [id number] SP Jul, SP IMMUNIZATIONS No Known Immunizations SOCIAL HISTORY Never Assessed REASON FOR VISIT PLAN OF CARE VITAL SIGNS Height 69 in 2014-04-01 POS Weight 169.1 lbs 2014-04-01 POS Heart Rate 76 bpm 2014-04-01 POS Respiratory Rate 20 2014-04-01 POS Blood pressure systolic 104 mmHg 2014-04-01 POS Blood pressure diastolic 76 mmHg 2014-04-01 POS MEDICATIONS Unknown Medications RESULTS No Results PROCEDURES Procedure Date Ordered Result Body Site POS THER/PROPH/DIAG INJ, SC/IM Apr 01, 2014 SP INJ METHYLPRDNISLN SODIM TO 125 MG Apr 01, 2014 SP INSTRUCTIONS MEDICATIONS ADMINISTERED No Known Medications MEDICAL (GENERAL) HISTORY Type Description Date POS Medical History asthma SP Medical History attention deficit hyperactivity disorder SP Medical History bipolar disorder SP Surgical History otolaryngologic surgery SP Surgical History appendectomy SP Hospitalization History [facility] for asthma as a child SP
--- OUTSIDE RECORDS SUMMARY | 2019-06-18 22:44 | XMS REPORT ---
Author Author Migration, Doctor POS Organization [facility] SP Address Unknown SP Phone Unavailable SP Care Team Providers Care Entry Level Drafter Name Role Phone POS Migration, Doctor Unavailable Unavailable SP PROBLEMS Unknown Problems ALLERGIES No Information ENCOUNTERS Encounter Location Date Diagnosis POS [facility] [address] [facility] [id number] [address] [place] [phone] SP Mar, SP [facility] [address] [facility] [id number] [address] [place] [phone] SP Dec, SP [facility] [address] [facility] [id number] [address] [place] [phone] SP Apr, SP [facility] [address] [facility] [id number] [address] [place] [address] SP Apr, Acute gastroenteritis K52.9 SP [facility] WALK IN [facility] [address] [facility] [id number] [address] [place] [address] SP Mar, Arm pain, left M79.602 and C ontusion of arm, left, initial SP S40.022A [facility] [address] [facility] [id number] [address] [place] [phone] SP Aug, Acute pain of left shoulder M25.512 SP [facility] [address] [facility] [id number] [address] [place] [phone] SP Jul, Acute pain of left shoulder M25.512 SP [facility] [address] [facility] [id number] [address] [place] [id number] SP Jul, Nondisplaced fracture of fif th right metatarsal bone S92.354A SP [facility] [address] [facility] [id number] [address] [place] [phone] SP Jul, SP [facility] [address] [facility] [id number] [address] [place] [phone] SP Feb, History of back pain V13.59 SP [facility] [address] [id number] [address] [place] [phone] SP Dec, SP [facility] [address] [facility] [id number] [address] [place] [phone] SP Dec, SP [facility] [address] [facility] [id number] [address] [place] [phone] SP Dec, Unspecified episodic mood di sorder 296.90 SP [facility] [address] [id number] [address] [place] [phone] SP Oct, SP [facility] [address] [facility] [id number] [address] [place] [phone] SP Oct, SP [facility] [address] [facility] [id number] [address] [place] [phone] SP Sep, SP [facility] [address] [facility] [id number] [address] [place] [phone] SP Sep, SP [facility] [address] [id number] [address] [place] [id number] SP Sep, SP [facility] [address] [facility] [id number] [address] [place] [phone] SP Sep, SP [facility] [address] [facility] [id number] [address] [place] [phone] SP Sep, SP [facility] [address] [facility] [id number] [address] [place] [phone] SP Sep, SP [facility] [address] [facility] [id number] [address] [place] [phone] SP Aug, SP [facility] [address] [facility] [id number] [address] [place] [phone] SP Aug, SP [facility] [address] [facility] [id number] [address] [place] [phone] SP Aug, 2014 SP [facility] [address] [id number] [address] [place] [address], [place] [address] SP Aug, 2014 SP [facility] [address] [id number] [address] [place] [phone] SP Aug, 2014 SP [facility] [address] [id number] [address] [place] [id number] SP Aug, 2014 SP [facility] [address] [id number] [address] [place] [phone] SP Aug, 2014 SP [facility] [address] [id number] [address] [place] [address], [place] [address] SP Aug, 2014 SP [facility] [address] [id number] [address] [place] [phone] SP Jul, SP [facility] [address] [id number] [address] [place] [id number] SP Jul, SP [facility] [address] [id number] [address] [place] [phone] SP Jun, SP [facility] [address] [id number] [address] [place] [phone] SP Jun, SP [facility] [address] [id number] [address] [place] [phone] SP Jun, SP [facility] [address] [id number] [address] [place] [phone] SP Jun, SP [facility] [address] [id number] [address] [place] [phone] SP Apr, SP [facility] [address] [id number] [address] [place] [phone] SP Apr, SP [facility] [address] [facility] [id number] [address] [place] [phone] SP Apr, SP [facility] [address] [id number] [address] [place] [address], [place] [address] SP Apr, SP [facility] [address] [id number] [address] [place] [address], [place] [address] SP Mar, SP [facility] [address] [id number] [address] [place] [address], [place] [address] SP Mar, SP [facility] [address] [id number] [address] [place] [address], [place] [id number] SP Feb, SP [facility] [address] [id number] [address] [place] [address], [place] [address] SP Feb, SP [facility] [address] [id number] [address] [place] [address], [place] [address] SP Feb, SP [facility] [address] [id number] [address] [place] [address], [place] [address] SP Feb, SP [facility] [address] [id number] [address] [place] [address], [place] [address] SP Feb, SP [facility] [address] [id number] [address] [place] [address], [place] [address] SP Feb, SP [facility] [address] [id number] [address] [place] [address], [place] [address] SP Jan, SP [facility] [address] [id number] [address] [place] [address], [place] [address] SP Jan, SP [facility] [address] [id number] [address] [place] [address], [place] [address] SP Dec, SP [facility] [address] [id number] [address] [place] [address], [place] [address] SP Dec, SP [facility] [address] [id number] [address] [place] [address], [place] [address] SP November, SP [facility] [address] [id number] [address] [place] [address], [place] [address] SP November, SP [facility] [address] [id number] [address] [place] [address], [place] [address] SP Oct, SP [facility] [address] [id number] [address] [place] [address], [place] [address] SP Oct, SP [facility] [address] [id number] [address] [place] [address], [place] [address] SP Oct, SP [facility] [address] [id number] [address] [place] [address], [place] [address] SP Oct, SP [facility] [address] [id number] [address] [place] [address], [place] [address] SP Sep, SP [facility] [address] [id number] [address] [place] [address], [place] [address] SP Sep, SP [facility] [address] [id number] [address] [place] [phone] SP Aug, SP [facility] [address] [id number] [address] [place] [address], [place] [address] SP Aug, SP [facility] [address] [id number] [address] [place] [address], [place] [address] SP Jul, SP [facility] [address] [id number] [address] [place] [id number] SP Jul, SP [facility] [address] [id number] [address] [place] [phone] SP Jun, SP [facility] [address] [id number] [address] [place] [address], [place] [address] SP Jun, SP [facility] [address] [id number] [address] [place] [address], [place] [address] SP May, SP [facility] [address] [id number] [address] [place] [phone] SP May, SP [facility] [address] [id number] [address] [place] [phone] SP May, SP [facility] [address] [id number] [address] [place] [address], [place] [address] SP May, SP [facility] [address] [id number] [address] [place] [address], [place] [address] SP Apr, SP [facility] [address] [id number] [address] [place] [address], [place] [address] SP Apr, SP [facility] [address] [id number] [address] [place] [address], [place] [address] SP Apr, SP [facility] [address] [id number] [address] [place] [address], [place] [address] SP Mar, SP [facility] [address] [id number] [address] [place] [address], [place] [address] SP Mar, SP [facility] [address] [id number] [address] [place] [address], [place] [address] SP Jan, SP [facility] [address] [id number] [address] [place] [address], [place] [address] SP Jan, SP [facility] [address] [id number] [address] [place] [address], [place] [address] SP Dec, SP [facility] [address] [id number] [address] [place] [address], [place] [address] SP November, SP [facility] [address] [id number] [address] [place] [address], [place] [address] SP Jul, SP [facility] [address] [id number] [address] [place] [address], [place] [address] SP May, SP [facility] [address] [id number] [address] [place] [address], [place] [address] SP May, SP [facility] [address] [id number] [address] [place] [address], [place] [address] SP Mar, SP [facility] [address] [id number] [address] [place] [phone] SP Feb, SP [facility] [address] [id number] [address] [place] [id number] SP Feb, SP [facility] [address] [id number] [address] [place] [id number] SP Feb, SP [facility] [address] [id number] [address] [place] [phone] SP Feb, SP [facility] [address] [id number] [address] [place] [phone] SP Jan, SP [facility] [address] [id number] [address] [place] [id number] SP Jan, SP [facility] [address] [facility] [id number] [address] [place] [phone] SP Jul, SP IMMUNIZATIONS No Known Immunizations SOCIAL HISTORY Never Assessed REASON FOR VISIT PLAN OF CARE VITAL SIGNS Weight 163.5 lbs 2014-03-21 POS Temperature 99.1 degrees Fahrenheit 2014-03-21 POS Heart Rate 76 bpm 2014-03-21 POS Respiratory Rate 24 2014-03-21 POS Blood pressure systolic 104 mmHg 2014-03-21 POS Blood pressure diastolic 80 mmHg 2014-03-21 POS MEDICATIONS Unknown Medications RESULTS No Results PROCEDURES No Known procedures INSTRUCTIONS MEDICATIONS ADMINISTERED No Known Medications MEDICAL (GENERAL) HISTORY Type Description Date POS Medical History asthma SP Medical History attention deficit hyperactivity disorder SP Medical History bipolar disorder SP Surgical History otolaryngologic surgery SP Surgical History appendectomy SP Hospitalization History [facility] for asthma as a child SP
--- OUTSIDE RECORDS SUMMARY | 2019-06-18 22:44 | XMS REPORT ---
Author Author ALCIDES Hylton POS Organization [facility] SP Address [address] [place] [address] SP Care Team Providers Care Mixer Helper Name Role Phone POS ALCIDES Hylton Unavailable SP PROBLEMS Unknown Problems ALLERGIES No Information ENCOUNTERS Encounter Location Date Diagnosis POS [facility] [address] [id number] [address] [place] [phone] SP Dec, SP [facility] [address] [facility] [id number] [address] [place] [id number] SP Apr, SP [facility] [id number] [place] [address] SP Apr, Acute gastroenteritis K52.9 SP [facility] [address] [facility] [id number] [address] [place] [address] SP Mar, Arm pain, left M79.602 and C ontusion of arm, left, initial SP S40.022A [facility] [address] [facility] [id number] [address] [place] [address] SP Aug, Acute pain of left shoulder M25.512 SP [facility] [address] [facility] [id number] [address] [place] [phone] SP Jul, Acute pain of left shoulder M25.512 SP [facility] [address] [facility] [id number] [address] [place] [address] SP Jul, Nondisplaced fracture of fif th right metatarsal bone S92.354A SP [facility] [address] [facility] [id number] [address] [place] [address] SP Jul, SP [facility] [address] [facility] [id number] [address] [place] [phone] SP Feb, History of back pain V13.59 SP [facility] [address] [id number] [address] [place] [phone] SP Dec, SP [facility] [address] [id number] [address] [place] [id number] SP Dec, SP [facility] [address] [facility] [id number] [address] [place] [phone] SP Dec, Unspecified episodic mood di sorder 296.90 SP [facility] [address] [id number] [address] [place] [id number] SP Oct, SP [facility] [address] [facility] [id number] [address] [place] [phone] SP Oct, SP [facility] [address] [facility] [id number] [address] [place] [id number] SP Sep, SP [facility] [address] [facility] [id number] [address] [place] [phone] SP Sep, SP [facility] [address] [id number] [address] [place] [id number] SP Sep, SP [facility] [address] [facility] [id number] [address] [place] [id number] SP Sep, SP [facility] [address] [facility] [id number] [address] [place] [id number] SP Sep, SP [facility] [address] [id number] [address] [place] [phone] SP Sep, SP [facility] [address] [facility] [id number] [address] [place] [id number] SP Aug, SP [facility] [address] [facility] [id number] [address] [place] [phone] SP Aug, SP [facility] [address] [facility] [id number] [address] [place] [id number] SP Aug, 2014 SP [facility] [address] [id number] [address] [place] [address], [place] [address] SP Aug, 2014 SP [facility] [address] [id number] [address] [place] [phone] SP Aug, 2014 SP [facility] [address] [id number] [address] [place] [address], [place] [address] SP Aug, 2014 SP [facility] [address] [id number] [address] [place] [id number] SP Aug, 2014 SP [facility] [address] [id number] [address] [place] [address], [place] [address] SP Aug, 2014 SP [facility] [address] [id number] [address] [place] [phone] SP Jul, SP [facility] [address] [id number] [address] [place] [address], [place] [address] SP Jul, SP [facility] [address] [id number] [address] [place] [id number] SP Jun, SP [facility] [address] [id number] [address] [place] [phone] SP Jun, SP [facility] [address] [id number] [address] [place] [id number] SP Jun, SP [facility] [address] [id number] [address] [place] [id number] SP Jun, SP [facility] [address] [id number] [address] [place] [address], [place] [address] SP Apr, SP [facility] [address] [id number] [address] [place] [phone] SP Apr, SP [facility] [address] [facility] [id number] [address] [place] [id number] SP Apr, SP [facility] [address] [id number] [address] [place] [address], [place] [address] SP Apr, SP [facility] [address] [id number] [address] [place] [address], [place] [id number] SP Mar, SP [facility] [address] [id number] [address] [place] [address], [place] [address] SP Mar, SP [facility] [address] [id number] [address] [place] [address], [place] [address] SP Feb, SP [facility] [address] [id number] [address] [place] [address], [place] [address] SP Feb, SP [facility] [address] [id number] [address] [place] [address], [place] [address] SP Feb, SP [facility] [address] [id number] [address] [place] [address], [place] [address] SP Feb, SP [facility] [address] [id number] [address] [place] [address], [place] [address] SP Feb, SP [facility] [address] [id number] [address] [place] [address], [place] [address] SP Feb, SP [facility] [address] [id number] [address] [place] [address], [place] [address] SP Jan, SP [facility] [address] [id number] [address] [place] [address], [place] [address] SP Jan, SP [facility] [address] [id number] [address] [place] [address], [place] [address] SP Dec, SP [facility] [address] [id number] [address] [place] [address], [place] [address] SP Dec, SP [facility] [address] [id number] [address] [place] [address], [place] [address] SP November, SP [facility] [address] [id number] [address] [place] [address], [place] [address] SP November, SP [facility] [address] [id number] [address] [place] [address], [place] [address] SP Oct, SP [facility] [address] [id number] [address] [place] [address], [place] [address] SP Oct, SP [facility] [address] [id number] [address] [place] [address], [place] [address] SP Oct, SP [facility] [address] [id number] [address] [place] [address], [place] [address] SP Oct, SP [facility] [address] [id number] [address] [place] [address], [place] [address] SP Sep, SP [facility] [address] [id number] [address] [place] [address], [place] [address] SP Sep, SP [facility] [address] [id number] [address] [place] [phone] SP Aug, SP [facility] [address] [id number] [address] [place] [address], [place] [address] SP Aug, SP [facility] [address] [id number] [address] [place] [address], [place] [address] SP Jul, SP [facility] [address] [id number] [address] [place] [phone] SP Jul, SP [facility] [address] [id number] [address] [place] [id number] SP Jun, SP [facility] [address] [id number] [address] [place] [address], [place] [phone] SP Jun, SP [facility] [address] [id number] [address] [place] [address], [place] [address] SP May, SP [facility] [address] [id number] [address] [place] [id number] SP May, SP [facility] [address] [id number] [address] [place] [phone] SP May, SP [facility] [address] [id number] [address] [place] [address], [place] [address] SP May, SP [facility] [address] [id number] [address] [place] [address], [place] [address] SP Apr, SP [facility] [address] [id number] [address] [place] [address], [place] [id number] SP Apr, SP [facility] [address] [id number] [address] [place] [address], [place] [id number] SP Apr, SP [facility] [address] [id number] [address] [place] [address], [place] [address] SP Mar, SP [facility] [address] [id number] [address] [place] [address], [place] [address] SP Mar, SP [facility] [address] [id number] [address] [place] [address], [place] [id number] SP Jan, SP [facility] [address] [id number] [address] [place] [address], [place] [id number] SP Jan, SP [facility] [address] [id number] [address] [place] [address], [place] [address] SP Dec, SP [facility] [address] [id number] [address] [place] [address], [place] [id number] SP November, SP [facility] [address] [id number] [address] [place] [address], [place] [id number] SP Jul, SP [facility] [address] [id number] [address] [place] [address], [place] [id number] SP May, SP [facility] [address] [id number] [address] [place] [address], [place] [address] SP May, SP [facility] [address] [id number] [address] [place] [address], [place] [id number] SP Mar, SP [facility] [address] [id number] [address] [place] [phone] SP Feb, SP [facility] [address] [id number] [address] [place] [phone] SP Feb, SP [facility] [address] [id number] [address] [place] [phone] SP Feb, SP [facility] [address] [facility] [id number] [address] [place] [phone] SP Feb, SP [facility] [address] [id number] [address] [place] [phone] SP Jan, SP [facility] [address] [facility] [id number] [address] [place] [phone] SP Jan, SP [facility] [address] [facility] [id number] [address] [place] [id number] SP Jul, SP IMMUNIZATIONS No Known Immunizations SOCIAL HISTORY Never Assessed REASON FOR VISIT PLAN OF CARE VITAL SIGNS Height 68.5 in 2014-09-24 POS Weight 191.12 lbs 2014-09-24 POS Temperature 97.9 degrees Fahrenheit 2014-09-24 POS Heart Rate 74 bpm 2014-09-24 POS Respiratory Rate 24 2014-09-24 POS Blood pressure systolic 100 mmHg 2014-09-24 POS Blood pressure diastolic 60 mmHg 2014-09-24 POS MEDICATIONS Unknown Medications RESULTS No Results PROCEDURES No Known procedures INSTRUCTIONS MEDICATIONS ADMINISTERED No Known Medications MEDICAL (GENERAL) HISTORY Type Description Date POS Medical History asthma SP Medical History attention deficit hyperactivity disorder SP Medical History bipolar disorder SP Surgical History otolaryngologic surgery SP Surgical History appendectomy SP Hospitalization History [facility] for asthma as a child SP
--- OUTSIDE RECORDS SUMMARY | 2019-06-18 22:44 | XMS REPORT ---
Author Author ALCIDES Hylton POS Organization [facility] SP Address [address] [place] [address] SP Care Team Providers Care Photo Finisher Name Role Phone POS ALCIDES Hylton Unavailable SP PROBLEMS Unknown Problems ALLERGIES No Information ENCOUNTERS Encounter Location Date Diagnosis POS [facility] [address] [id number] [address] [place] [id number] SP Dec, SP [facility] [address] [id number] [address] [phone] SP Apr, SP [facility] [id number] [place] [address] SP Apr, Acute gastroenteritis K52.9 SP [facility] [address] [facility] [id number] [address] [place] [address] SP Mar, Arm pain, left M79.602 and C ontusion of arm, left, initial SP S40.022A [facility] [address] [facility] [id number] [address] [place] [id number] SP Aug, Acute pain of left shoulder M25.512 SP [facility] [address] [facility] [id number] [address] [place] [phone] SP Jul, Acute pain of left shoulder M25.512 SP [facility] [address] [facility] [id number] [address] [place] [phone] SP Jul, Nondisplaced fracture of fif th right metatarsal bone S92.354A SP [facility] [address] [facility] [id number] [address] [place] [phone] SP Jul, SP [facility] [address] [facility] [id number] [address] [place] [phone] SP Feb, History of back pain V13.59 SP [facility] [address] [id number] [address] [place] [phone] SP Dec, SP [facility] [address] [id number] [address] [place] [phone] SP Dec, SP [facility] [address] [facility] [id number] [address] [place] [phone] SP Dec, Unspecified episodic mood di sorder 296.90 SP [facility] [address] [id number] [address] [place] [phone] SP Oct, SP [facility] [address] [facility] [id number] [address] [place] [phone] SP Oct, SP [facility] [address] [facility] [id number] [address] [place] [phone] SP Sep, SP [facility] [address] [facility] [id number] [address] [place] [phone] SP Sep, SP [facility] [address] [id number] [address] [place] [id number] SP Sep, SP [facility] [address] [facility] [id number] [address] [place] [phone] SP Sep, SP [facility] [address] [facility] [id number] [address] [place] [phone] SP Sep, SP [facility] [address] [id number] [address] [place] [phone] SP Sep, SP [facility] [address] [facility] [id number] [address] [place] [phone] SP Aug, SP [facility] [address] [facility] [id number] [address] [place] [phone] SP Aug, SP [facility] [address] [facility] [id number] [address] [place] [phone] SP Aug, 2014 SP [facility] [address] [id number] [address] [place] [address], [place] [address] SP Aug, 2014 SP [facility] [address] [id number] [address] [place] [phone] SP Aug, 2014 SP [facility] [address] [id number] [address] [place] [place] [address], [place] [address] SP Aug, 2014 SP [facility] [address] [id number] [address] [place] [phone] SP Aug, 2014 SP [facility] [address] [id number] [address] [place] [address], [place] [address] SP Aug, 2014 SP [facility] [address] [id number] [address] [place] [id number] SP Jul, SP [facility] [address] [id number] [address] [place] [address], [place] [address] SP Jul, SP [facility] [address] [id number] [address] [place] [phone] SP Jun, SP [facility] [address] [id number] [address] [place] [phone] SP Jun, SP [facility] [address] [id number] [address] [place] [id number] SP Jun, SP [facility] [address] [id number] [address] [place] [phone] SP Jun, SP [facility] [address] [id number] [address] [place] [address], [place] [address] SP Apr, SP [facility] [address] [id number] [address] [place] [phone] SP Apr, SP [facility] [address] [facility] [id number] [address] [place] [phone] SP Apr, SP [facility] [address] [id number] [address] [place] [address], [place] [address] SP Apr, SP [facility] [address] [id number] [address] [place] [place] [address], [place] [address] SP Mar, SP [facility] [address] [id number] [address] [place] [place] [address], [place] [address] SP Mar, SP [facility] [address] [id number] [address] [place] [place] [address], [place] [address] SP Feb, SP [facility] [address] [id number] [address] [place] [place] [address], [place] [address] SP Feb, SP [facility] [address] [id number] [address] [place] [address], [place] [address] SP Feb, SP [facility] [address] [id number] [address] [place] [address], [place] [address] SP Feb, SP [facility] [address] [id number] [address] [place] [address], [place] [address] SP Feb, SP [facility] [address] [id number] [address] [place] [address], [place] [address] SP Feb, SP [facility] [address] [id number] [address] [place] [address], [place] [address] SP Jan, SP [facility] [address] [id number] [address] [place] [address], [place] [address] SP Jan, SP [facility] [address] [id number] [address] [place] [place] [address], [place] [address] SP Dec, SP [facility] [address] [id number] [address] [place] [place] [address], [place] [address] SP Dec, SP [facility] [address] [id number] [address] [place] [address], [place] [address] SP November, SP [facility] [address] [id number] [address] [place] [address], [place] [address] SP November, SP [facility] [address] [id number] [address] [place] [address], [place] [address] SP Oct, SP [facility] [address] [id number] [address] [place] [address], [place] [address] SP Oct, SP [facility] [address] [id number] [address] [place] [place] [address], [place] [address] SP Oct, SP [facility] [address] [id number] [address] [place] [address], [place] [address] SP Oct, SP [facility] [address] [id number] [address] [place] [address], [place] [address] SP Sep, SP [facility] [address] [id number] [address] [place] [place] [address], [place] [address] SP Sep, SP [facility] [address] [id number] [address] [place] [phone] SP Aug, SP [facility] [address] [id number] [address] [place] [place] [address], [place] [address] SP Aug, SP [facility] [address] [id number] [address] [place] [address], [place] [address] SP Jul, SP [facility] [address] [id number] [address] [place] [id number] SP Jul, SP [facility] [address] [id number] [address] [place] [phone] SP Jun, SP [facility] [address] [id number] [address] [place] [address], [place] [address] SP Jun, SP [facility] [address] [id number] [address] [place] [place] [address], [place] [address] SP May, SP [facility] [address] [id number] [address] [place] [phone] SP May, SP [facility] [address] [id number] [address] [place] [phone] SP May, SP [facility] [address] [id number] [address] [place] [address], [place] [address] SP May, SP [facility] [address] [id number] [address] [place] [address], [place] [address] SP Apr, SP [facility] [address] [id number] [address] [place] [place] [address], [place] [address] SP Apr, SP [facility] [address] [id number] [address] [place] [address], [place] [address] SP Apr, SP [facility] [address] [id number] [address] [place] [address], [place] [address] SP Mar, SP [facility] [address] [id number] [address] [place] [address], [place] [address] SP Mar, SP [facility] [address] [id number] [address] [place] [place] [address], [place] [address] SP Jan, SP [facility] [address] [id number] [address] [place] [place] [address], [place] [address] SP Jan, SP [facility] [address] [id number] [address] [place] [place] [address], [place] [address] SP Dec, SP [facility] [address] [id number] [address] [place] [address], [place] [address] SP November, SP [facility] [address] [id number] [address] [place] [place] [address], [place] [address] SP Jul, SP [facility] [address] [id number] [address] [place] [place] [address], [place] [address] SP May, SP [facility] [address] [id number] [address] [place] [place] [address], [place] [address] SP May, SP [facility] [address] [id number] [address] [place] [place] [address], [place] [address] SP Mar, SP [facility] [address] [facility] [id number] [address] [place] [id number] SP Feb, SP [facility] [address] [facility] [id number] [address] [place] [id number] SP Feb, SP [facility] [address] [facility] [id number] [address] [place] [id number] SP Feb, SP [facility] [address] [facility] [id number] [address] [place] [id number] SP Feb, SP [facility] [address] [facility] [id number] [address] [place] [phone] SP Jan, SP [facility] [address] [facility] [id number] [address] [place] [phone] SP Jan, SP [facility] [address] [facility] [id number] [address] [place] [phone] SP Jul, SP IMMUNIZATIONS No Known Immunizations SOCIAL HISTORY Never Assessed REASON FOR VISIT PLAN OF CARE VITAL SIGNS Height 68.5 in 2014-09-05 POS Weight 189.8 lbs 2014-09-05 POS MEDICATIONS Unknown Medications RESULTS No Results PROCEDURES No Known procedures INSTRUCTIONS MEDICATIONS ADMINISTERED No Known Medications MEDICAL (GENERAL) HISTORY Type Description Date POS Medical History asthma SP Medical History attention deficit hyperactivity disorder SP Medical History bipolar disorder SP Surgical History otolaryngologic surgery SP Surgical History appendectomy SP Hospitalization History [facility] for asthma as a child SP
--- OUTSIDE RECORDS SUMMARY | 2019-06-18 22:44 | XMS REPORT ---
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 Name Role Phone POS ALCIDES Hylton Unavailable SP PROBLEMS Unknown Problems ALLERGIES No Information ENCOUNTERS Encounter Location Date Diagnosis POS [facility] [address] [id number] [address] [place] [phone] SP Dec, SP [facility] [address] [facility] [id number] [address] [place] [phone] SP Apr, SP [facility] [id number] [place] [address] SP Apr, Acute gastroenteritis K52.9 SP [facility] [address] [facility] [id number] [address] [place] [address] SP Mar, Arm pain, left M79.602 and C ontusion of arm, left, initial SP S40.022A [facility] [address] [facility] [id number] [address] [place] [phone] SP Aug, Acute pain of left shoulder M25.512 SP [facility] [address] [facility] [id number] [address] [place] [id number] SP Jul, Acute pain of left shoulder M25.512 SP [facility] [address] [facility] [id number] [address] [place] [phone] SP Jul, Nondisplaced fracture of fif th right metatarsal bone S92.354A SP [facility] [address] [facility] [id number] [address] [place] [phone] SP Jul, SP [facility] [address] [facility] [id number] [address] [place] [id number] SP Feb, History of back pain V13.59 SP [facility] [address] [id number] [address] [place] [phone] SP Dec, SP [facility] [address] [id number] [address] [place] [phone] SP Dec, SP [facility] [address] [facility] [id number] [address] [place] [id number] SP Dec, Unspecified episodic mood di sorder 296.90 SP [facility] [address] [id number] [address] [place] [phone] SP Oct, SP [facility] [address] [facility] [id number] [address] [place] [phone] SP Oct, SP [facility] [address] [facility] [id number] [address] [place] [phone] SP Sep, SP [facility] [address] [facility] [id number] [address] [place] [phone] SP Sep, SP [facility] [address] [id number] [address] [place] [id number] SP Sep, SP [facility] [address] [facility] [id number] [address] [place] [phone] SP Sep, SP [facility] [address] [facility] [id number] [address] [place] [phone] SP Sep, SP [facility] [address] [id number] [address] [place] [phone] SP Sep, SP [facility] [address] [facility] [id number] [address] [place] [phone] SP Aug, SP [facility] [address] [facility] [id number] [address] [place] [phone] SP Aug, SP [facility] [address] [facility] [id number] [address] [place] [phone] SP Aug, 2014 SP [facility] [address] [id number] [address] [place] [address], [place] [id number] SP Aug, 2014 SP [facility] [address] [id number] [address] [place] [phone] SP Aug, 2014 SP [facility] [address] [id number] [address] [place] [address], [place] [phone] SP Aug, 2014 SP [facility] [address] [id number] [address] [place] [phone] SP Aug, 2014 SP [facility] [address] [id number] [address] [place] [address], [place] [phone] SP Aug, 2014 SP [facility] [address] [id number] [address] [place] [phone] SP Jul, SP [facility] [address] [id number] [address] [place] [address], [place] [address] SP Jul, SP [facility] [address] [id number] [address] [place] [phone] SP Jun, SP [facility] [address] [id number] [address] [place] [phone] SP Jun, SP [facility] [address] [id number] [address] [place] [phone] SP Jun, SP [facility] [address] [id number] [address] [place] [phone] SP Jun, SP [facility] [address] [id number] [address] [place] [address], [place] [address] SP Apr, SP [facility] [address] [id number] [address] [place] [phone] SP Apr, SP [facility] [address] [facility] [id number] [address] [place] [id number] SP Apr, SP [facility] [address] [id number] [address] [place] [address], [place] [address] SP Apr, SP [facility] [address] [id number] [address] [place] [address], [place] [id number] SP Mar, SP [facility] [address] [id number] [address] [place] [address], [place] [address] SP Mar, SP [facility] [address] [id number] [address] [place] [address], [place] [address] SP Feb, SP [facility] [address] [id number] [address] [place] [address], [place] [address] SP Feb, SP [facility] [address] [id number] [address] [place] [address], [place] [address] SP Feb, SP [facility] [address] [id number] [address] [place] [address], [place] [address] SP Feb, SP [facility] [address] [id number] [address] [place] [address], [place] [address] SP Feb, SP [facility] [address] [id number] [address] [place] [address], [place] [address] SP Feb, SP [facility] [address] [id number] [address] [place] [address], [place] [address] SP Jan, SP [facility] [address] [id number] [address] [place] [address], [place] [address] SP Jan, SP [facility] [address] [id number] [address] [place] [address], [place] [address] SP Dec, SP [facility] [address] [id number] [address] [place] [address], [place] [address] SP Dec, SP [facility] [address] [id number] [address] [place] [address], [place] [address] SP November, SP [facility] [address] [id number] [address] [place] [address], [place] [address] SP November, SP [facility] [address] [id number] [address] [place] [address], [place] [address] SP Oct, SP [facility] [address] [id number] [address] [place] [address], [place] [address] SP Oct, SP [facility] [address] [id number] [address] [place] [address], [place] [address] SP Oct, SP [facility] [address] [id number] [address] [place] [address], [place] [address] SP Oct, SP [facility] [address] [id number] [address] [place] [address], [place] [address] SP Sep, SP [facility] [address] [id number] [address] [place] [address], [place] [address] SP Sep, SP [facility] [address] [id number] [address] [place] [phone] SP Aug, SP [facility] [address] [id number] [address] [place] [address], [place] [address] SP Aug, SP [facility] [address] [id number] [address] [place] [address], [place] [address] SP Jul, SP [facility] [address] [id number] [address] [place] [phone] SP Jul, SP [facility] [address] [id number] [address] [place] [phone] SP Jun, SP [facility] [address] [id number] [address] [place] [address], [place] [address] SP Jun, SP [facility] [address] [id number] [address] [place] [address], [place] [address] SP May, SP [facility] [address] [id number] [address] [place] [id number] SP May, SP [facility] [address] [id number] [address] [place] [phone] SP May, SP [facility] [address] [id number] [address] [place] [address], [place] [address] SP May, SP [facility] [address] [id number] [address] [place] [address], [place] [address] SP Apr, SP [facility] [address] [id number] [address] [place] [address], [place] [address] SP Apr, SP [facility] [address] [id number] [address] [place] [address], [place] [address] SP Apr, SP [facility] [address] [id number] [address] [place] [address], [place] [address] SP Mar, SP [facility] [address] [id number] [address] [place] [address], [place] [address] SP Mar, SP [facility] [address] [id number] [address] [place] [address], [place] [address] SP Jan, SP [facility] [address] [id number] [address] [place] [address], [place] [address] SP Jan, SP [facility] [address] [id number] [address] [place] [address], [place] [address] SP Dec, SP [facility] [address] [id number] [address] [place] [address], [place] [address] SP November, SP [facility] [address] [id number] [address] [place] [address], [place] [address] SP Jul, SP [facility] [address] [id number] [address] [place] [address], [place] [address] SP May, SP [facility] [address] [id number] [address] [place] [address], [place] [address] SP May, SP [facility] [address] [id number] [address] [place] [address], [place] [address] SP Mar, SP [facility] [address] [id number] [address] [place] [id number] SP Feb, SP [facility] [address] [id number] [address] [place] [phone] SP Feb, SP [facility] [address] [id number] [address] [place] [id number] SP Feb, SP [facility] [address] [facility] [id number] [address] [place] [id number] SP Feb, SP [facility] [address] [id number] [address] [place] [phone] SP Jan, SP [facility] [address] [facility] [id number] [address] [place] [id number] SP Jan, SP [facility] [address] [facility] [id number] [address] [place] [phone] SP Jul, SP IMMUNIZATIONS No Known Immunizations SOCIAL HISTORY Never Assessed REASON FOR VISIT PLAN OF CARE VITAL SIGNS Height 69.75 in 2014-10-18 POS Weight 195.38 lbs 2014-10-18 POS Temperature 97.5 degrees Fahrenheit 2014-10-18 POS Heart Rate 76 bpm 2014-10-18 POS Respiratory Rate 24 2014-10-18 POS Blood pressure systolic 98 mmHg 2014-10-18 POS Blood pressure diastolic 78 mmHg 2014-10-18 POS MEDICATIONS Unknown Medications RESULTS No Results PROCEDURES No Known procedures INSTRUCTIONS MEDICATIONS ADMINISTERED No Known Medications MEDICAL (GENERAL) HISTORY Type Description Date POS Medical History asthma SP Medical History attention deficit hyperactivity disorder SP Medical History bipolar disorder SP Surgical History otolaryngologic surgery SP Surgical History appendectomy SP Hospitalization History [facility] for asthma as a child SP
--- OUTSIDE RECORDS SUMMARY | 2019-06-18 22:44 | XMS REPORT ---
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 [id number] [address] [place] [phone] SP Apr, SP [facility] [id number] [place] [address] SP Apr, Acute gastroenteritis K52.9 SP [facility] WALK IN [facility] [address] [facility] [id number] [address] [place] [address] SP Mar, Arm pain, left M79.602 and C ontusion of arm, left, initial SP S40.022A [facility] [address] [facility] [id number] [address] [place] [phone] SP Aug, Acute pain of left shoulder M25.512 SP [facility] [address] [facility] [id number] [address] [place] [id number] SP Jul, Acute pain of left shoulder M25.512 SP [facility] [address] [facility] [id number] [address] [place] [phone] SP Jul, Nondisplaced fracture of fif th right metatarsal bone S92.354A SP [facility] [address] [facility] [id number] [address] [place] [id number] SP Jul, SP [facility] [address] [facility] [id number] [address] [place] [address] SP Feb, History of back pain V13.59 SP [facility] [address] [id number] [address] [place] [phone] SP Dec, SP [facility] [address] [id number] [address] [place] [address] SP Dec, SP [facility] [address] [facility] [id number] [address] [place] [phone] SP Dec, Unspecified episodic mood di sorder 296.90 SP [facility] [address] [id number] [address] [place] [phone] SP Oct, SP [facility] [address] [facility] [id number] [address] [place] [phone] SP Oct, SP [facility] [address] [facility] [id number] [address] [place] [phone] SP Sep, SP [facility] [address] [facility] [id number] [address] [place] [phone] SP Sep, SP [facility] [address] [id number] [address] [place] [id number] SP Sep, SP [facility] [address] [facility] [id number] [address] [place] [phone] SP Sep, SP [facility] [address] [facility] [id number] [address] [place] [phone] SP Sep, SP [facility] [address] [id number] [address] [place] [phone] SP Sep, SP [facility] [address] [facility] [id number] [address] [place] [phone] SP Aug, SP [facility] [address] [facility] [id number] [address] [place] [id number] SP Aug, SP [facility] [address] [facility] [id number] [address] [place] [phone] SP Aug, 2014 SP [facility] [address] [id number] [address] [place] [address], [place] [address] SP Aug, 2014 SP [facility] [address] [id number] [address] [place] [id number] SP Aug, 2014 SP [facility] [address] [id number] [address] [place] [address], [place] [address] SP Aug, 2014 SP [facility] [address] [id number] [address] [place] [phone] SP Aug, 2014 SP [facility] [address] [id number] [address] [place] [address], [place] [address] SP Aug, 2014 SP [facility] [address] [id number] [address] [place] [phone] SP Jul, SP [facility] [address] [id number] [address] [place] [address], [place] [address] SP Jul, SP [facility] [address] [id number] [address] [place] [phone] SP Jun, SP [facility] [address] [id number] [address] [place] [id number] SP Jun, SP [facility] [address] [id number] [address] [place] [address] SP Jun, SP [facility] [address] [id number] [address] [place] [id number] SP Jun, SP [facility] [address] [id number] [address] [place] [address], [place] [address] SP Apr, SP [facility] [address] [id number] [address] [place] [id number] SP Apr, SP [facility] [address] [facility] [id number] [address] [place] [phone] SP Apr, SP [facility] [address] [id number] [address] [place] [address], [place] [address] SP Apr, SP [facility] [address] [id number] [address] [place] [address], [place] [address] SP Mar, SP [facility] [address] [id number] [address] [place] [address], [place] [address] SP Mar, SP [facility] [address] [id number] [address] [place] [address], [place] [address] SP Feb, SP [facility] [address] [id number] [address] [place] [address], [place] [address] SP Feb, SP [facility] [address] [id number] [address] [place] [address], [place] [address] SP Feb, SP [facility] [address] [id number] [address] [place] [address], [place] [address] SP Feb, SP [facility] [address] [id number] [address] [place] [address], [place] [address] SP Feb, SP [facility] [address] [id number] [address] [place] [address], [place] [address] SP Feb, SP [facility] [address] [id number] [address] [place] [address], [place] [address] SP Jan, SP [facility] [address] [id number] [address] [place] [address], [place] [address] SP Jan, SP [facility] [address] [id number] [address] [place] [address], [place] [address] SP Dec, SP [facility] [address] [id number] [address] [place] [address], [place] [address] SP Dec, SP [facility] [address] [id number] [address] [place] [address], [place] [address] SP November, SP [facility] [address] [id number] [address] [place] [address], [place] [address] SP November, SP [facility] [address] [id number] [address] [place] [address], [place] [address] SP Oct, SP [facility] [address] [id number] [address] [place] [address], [place] [address] SP Oct, SP [facility] [address] [id number] [address] [place] [address], [place] [address] SP Oct, SP [facility] [address] [id number] [address] [place] [address], [place] [address] SP Oct, SP [facility] [address] [id number] [address] [place] [address], [place] [address] SP Sep, SP [facility] [address] [id number] [address] [place] [address], [place] [address] SP Sep, SP [facility] [address] [id number] [address] [place] [address] SP Aug, SP [facility] [address] [id number] [address] [place] [address], [place] [address] SP Aug, SP [facility] [address] [id number] [address] [place] [address], [place] [address] SP Jul, SP [facility] [address] [id number] [address] [place] [address] SP Jul, SP [facility] [address] [id number] [address] [place] [address] SP Jun, SP [facility] [address] [id number] [address] [place] [address], [place] [address] SP Jun, SP [facility] [address] [id number] [address] [place] [address], [place] [address] SP May, SP [facility] [address] [id number] [address] [place] [id number] SP May, SP [facility] [address] [id number] [address] [place] [id number] SP May, SP [facility] [address] [id number] [address] [place] [address], [place] [address] SP May, SP [facility] [address] [id number] [address] [place] [address], [place] [address] SP Apr, SP [facility] [address] [id number] [address] [place] [address], [place] [address] SP Apr, SP [facility] [address] [id number] [address] [place] [address], [place] [address] SP Apr, SP [facility] [address] [id number] [address] [place] [address], [place] [address] SP Mar, SP [facility] [address] [id number] [address] [place] [address], [place] [address] SP Mar, SP [facility] [address] [id number] [address] [place] [address], [place] [address] SP Jan, SP [facility] [address] [id number] [address] [place] [address], [place] [address] SP Jan, SP [facility] [address] [id number] [address] [place] [address], [place] [address] SP Dec, SP [facility] [address] [id number] [address] [place] [address], [place] [address] SP November, SP [facility] [address] [id number] [address] [place] [address], [place] [address] SP Jul, SP [facility] [address] [id number] [address] [place] [address], [place] [address] SP May, SP [facility] [address] [id number] [address] [place] [address], [place] [address] SP May, SP [facility] [address] [id number] [address] [place] [address], [place] [address] SP Mar, SP [facility] [address] [facility] [id number] [address] [place] [id number] SP Feb, SP [facility] [address] [facility] [id number] [address] [place] [address] SP Feb, SP [facility] [address] [facility] [id number] [address] [place] [address] SP Feb, SP [facility] [address] [facility] [id number] [address] [place] [id number] SP Feb, SP [facility] [address] [facility] [id number] [address] [place] [address] SP Jan, SP [facility] [address] [facility] [id number] [address] [place] [address] SP Jan, SP [facility] [address] [facility] [id number] [address] [place] [address] SP Jul, SP IMMUNIZATIONS No Known Immunizations [...] Surgical History appendectomy SP Hospitalization History [facility] for asthma as a child SP
--- OUTSIDE RECORDS SUMMARY | 2019-06-18 22:45 | XMS REPORT ---
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 Name Role Phone POS Migration, Doctor Unavailable Unavailable SP PROBLEMS Unknown Problems ALLERGIES No Information ENCOUNTERS Encounter Location Date Diagnosis POS [facility] [address] [facility] [id number] [address] [place] [id number] SP Apr, SP [facility] [address] [facility] [id number] [place] [address] SP Apr, Acute gastroenteritis K52.9 SP [facility] [address] [facility] [id number] [address] [place] [address] SP Mar, Arm pain, left M79.602 and C ontusion of arm, left, initial SP S40.022A [facility] [address] [facility] [id number] [address] [place] [address] SP Aug, Acute pain of left shoulder M25.512 SP [facility] [address] [facility] [id number] [address] [place] [address] SP Jul, Acute pain of left shoulder M25.512 SP [facility] [address] [facility] [id number] [address] [place] [address] SP Jul, Nondisplaced fracture of fif th right metatarsal bone S92.354A SP [facility] [address] [facility] [id number] [address] [place] [id number] SP Jul, SP [facility] [address] [facility] [id number] [address] [place] [id number] SP Feb, History of back pain V13.59 SP [facility] [address] [facility] [id number] [address] [place] [address] SP Dec, SP [facility] [address] [id number] [address] [place] [address] SP Dec, SP [facility] [address] [facility] [id number] [address] [place] [address] SP Dec, Unspecified episodic mood di sorder 296.90 SP [facility] [address] [id number] [address] [place] [address] SP Oct, SP [facility] [address] [id number] [address] [place] [id number] SP Oct, SP [facility] [address] [id number] [address] [place] [id number] SP Sep, SP [facility] [address] [facility] [id number] [address] [place] [id number] SP Sep, SP [facility] [address] [id number] [address] [place] [id number] SP Sep, SP [facility] [address] [id number] [address] [place] [phone] SP Sep, SP [facility] [address] [id number] [address] [place] [address] SP Sep, SP [facility] [address] [facility] [id number] [address] [place] [id number] SP Sep, SP [facility] [address] [id number] [address] [place] [id number] SP Aug, SP [facility] [address] [id number] [address] [place] [id number] SP Aug, SP [facility] [address] [facility] [id number] [address] [place] [id number] SP Aug, SP [facility] [address] [facility] [id number] [address] [place] [id number] SP Aug, SP [facility] [address] [facility] [id number] [address] [place] [id number] SP Aug, 2014 SP [facility] [address] [id number] [address] [place] [id number] SP Aug, 2014 SP [facility] [address] [id number] [address] [place] [id number] SP Aug, 2014 SP [facility] [address] [id number] [address] [place] [id number] SP Aug, 2014 SP [facility] [address] [id number] [address] [place] [id number] SP Jul, SP [facility] [address] [id number] [address] [place] [id number] SP Jul, SP [facility] [address] [facility] [id number] [address] [place] [id number] SP Jun, SP [facility] [address] [id number] [address] [place] [id number] SP Jun, SP [facility] [address] [id number] [address] [place] [id number] SP Jun, SP [facility] [address] [id number] [address] [place] [id number] SP Jun, SP [facility] [address] [id number] [address] [place] [id number] SP Apr, SP [facility] [address] [id number] [address] [place] [id number] SP Apr, SP [facility] [address] [id number] [address] [place] [id number] SP Apr, SP [facility] [address] [facility] [id number] [address] [place] [id number] SP Apr, SP [facility] [address] [facility] [id number] [address] [place] [id number] SP Mar, SP [facility] [address] [id number] [address] [place] [address], [place] [address] SP Mar, SP [facility] [address] [id number] [address] [place] [address], [place] [address] SP Feb, SP [facility] [address] [id number] [address] [place] [address], [place] [address] SP Feb, SP [facility] [address] [id number] [address] [place] [address], [place] [address] SP Feb, SP [facility] [address] [id number] [address] [place] [address], [place] [address] SP Feb, SP [facility] [address] [id number] [address] [place] [address], [place] [address] SP Feb, SP [facility] [address] [id number] [address] [place] [address], [place] [address] SP Feb, SP [facility] [address] [id number] [address] [place] [address], [place] [address] SP Jan, SP [facility] [address] [id number] [address] [place] [address], [place] [address] SP Jan, SP [facility] [address] [id number] [address] [place] [address], [place] [address] SP Dec, SP [facility] [address] [id number] [address] [place] [address], [place] [address] SP Dec, SP [facility] [address] [id number] [address] [place] [address], [place] [address] SP November, SP [facility] [address] [id number] [address] [place] [address], [place] [address] SP November, SP [facility] [address] [id number] [address] [place] [address], [place] [address] SP Oct, SP [facility] [address] [id number] [address] [place] [address], [place] [address] SP Oct, SP [facility] [address] [id number] [address] [place] [address], [place] [address] SP Oct, SP [facility] [address] [id number] [address] [place] [address], [place] [address] SP Oct, SP [facility] [address] [id number] [address] [place] [address], [place] [address] SP Sep, SP [facility] [address] [id number] [address] [place] [address], [place] [address] SP Sep, SP [facility] [address] [id number] [address] [place] [address], [place] [address] SP Aug, SP [facility] [address] [id number] [address] [place] [address], [place] [address] SP Aug, SP [facility] [address] [id number] [address] [place] [address], [place] [address] SP Jul, SP [facility] [address] [id number] [address] [place] [address], [place] [address] SP Jul, SP [facility] [address] [id number] [address] [place] [address], [place] [address] SP Jun, SP [facility] [address] [id number] [address] [place] [id number] SP Jun, SP [facility] [address] [id number] [address] [place] [id number] SP May, SP [facility] [address] [id number] [address] [place] [address], [place] [address] SP May, SP [facility] [address] [id number] [address] [place] [address], [place] [address] SP May, SP [facility] [address] [id number] [address] [place] [id number] SP May, SP [facility] [address] [id number] [address] [place] [id number] SP Apr, SP [facility] [address] [id number] [address] [place] [address], [place] [address] SP Apr, SP [facility] [address] [id number] [address] [place] [address], [place] [address] SP Apr, SP [facility] [address] [id number] [address] [place] [address], [place] [address] SP Mar, SP [facility] [address] [id number] [address] [place] [address], [place] [address] SP Mar, SP [facility] [address] [id number] [address] [place] [address], [place] [address] SP Jan, SP [facility] [address] [id number] [address] [place] [address], [place] [address] SP Jan, SP [facility] [address] [id number] [address] [place] [address], [place] [address] SP Dec, SP [facility] [address] [id number] [address] [place] [address], [place] [address] SP November, SP [facility] [address] [id number] [address] [place] [address], [place] [address] SP Jul, SP [facility] [address] [id number] [address] [place] [address], [place] [address] SP May, SP [facility] [address] [id number] [address] [place] [address], [place] [address] SP May, SP [facility] [address] [id number] [address] [place] [address], [place] [address] SP Mar, SP [facility] [address] [id number] [address] [place] [address], [place] [address] SP Feb, SP [facility] [address] [id number] [address] [place] [address], [place] [address] SP Feb, SP [facility] [address] [facility] [id number] [address] [place] [id number] SP Feb, SP [facility] [address] [facility] [id number] [address] [place] [id number] SP Feb, SP [facility] [address] [facility] [id number] [address] [place] [id number] SP Jan, SP [facility] [address] [facility] [id number] [address] [place] [id number] SP Jan, SP [facility] [address] [facility] [id number] [address] [place] [id number] SP Jul, SP IMMUNIZATIONS No Known Immunizations SOCIAL HISTORY Never Assessed [place]ASON FOR [place]IT [place] [place] VITAL SIGNS MEDICATIONS Unknown Medications RESULTS No Results PROCEDURES No Known procedures INSTRUCTIONS MEDICATIONS ADMINISTERED No Known Medications MEDICAL (GENERAL) HISTORY Type Description Date POS Medical History asthma SP Medical History attention deficit hyperactivity disorder SP Medical History bipolar disorder SP Surgical History otolaryngologic surgery SP Surgical History appendectomy SP Hospitalization History [facility] for asthma as a child SP
--- OUTSIDE RECORDS SUMMARY | 2019-06-18 22:45 | XMS REPORT ---
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 Name Role Phone POS Migration, Doctor Unavailable Unavailable SP PROBLEMS Unknown Problems ALLERGIES Substance Reaction Event Type Date Status POS Divalproex 125 Mg Tablet,delayed Release (dr/ec) Unknown Non Drug Allergy 14 2014 Active SP Abilify 5 Mg Tablet Unknown Non Drug Allergy Oct, Acti ve SP ENCOUNTERS Encounter Location Date Diagnosis POS [place] [address] [id number] SP Apr, SP [facility] [address] SP Apr, Acute gastroenteritis K52.9 SP [facility] [address] SP Mar, Arm pain, left M79.602 and C ontusion of arm, left, initial SP S40.022A [place] [address] [address] [place] [id number] [place] [id number] SP Aug, Acute pain of left shoulder M25.512 SP [facility] [address] [place] [id number] [place] [address] SP Jul, Acute pain of left shoulder M25.512 SP [facility] [address] [place] [id number] [place] [phone] SP Jul, Nondisplaced fracture of fif th right metatarsal bone S92.354A [facility] [address] [place] [id number] [place] [phone] SP Jul, SP [facility] [address] [place] [id number] [place] [id number] SP Feb, History of back pain V13.59 SP [facility] [address] [id number] [address] [place] [address], [place] [address] SP Dec, SP [facility] [address] [id number] [address] [place] [phone] SP Dec, SP [facility] [address] [facility] [id number] [address] [place] [phone] SP Dec, Unspecified episodic mood di sorder 296.90 SP [facility] [address] [id number] [address] [place] [address], [place] [address] SP Oct, SP [facility] [address] [id number] [address] [place] [phone] SP Oct, SP [facility] [address] [id number] [address] [place] [phone] SP Sep, SP [facility] [address] [id number] [address] [place] [phone] SP Sep, SP [facility] [address] [id number] [address] [place] [id number] SP Sep, SP [facility] [address] [id number] [address] [place] [phone] SP Sep, SP [facility] [address] [facility] [id number] [address] [place] [phone] SP Sep, SP [facility] [address] [id number] [address] [place] [phone] SP Sep, SP [facility] [address] [id number] [address] [place] [address], [place] [address] SP Aug, SP [facility] [address] [id number] [address] [place] [phone] SP Aug, SP [facility] [address] [facility] [id number] [address] [place] [phone] SP Aug, SP [facility] [address] [id number] [address] [place] [address], [place] [address] SP Aug, 2014 SP [facility] [address] [id number] [address] [place] [address], [place] [address] SP Aug, 2014 SP [facility] [address] [id number] [address] [place] [address], [place] [address] SP Aug, 2014 SP [facility] [address] [id number] [address] [place] [address], [place] [address] SP Aug, 2014 SP [facility] [address] [id number] [address] [place] [address], [place] [address] SP Aug, 2014 SP [facility] [address] [id number] [address] [place] [address], [place] [address] SP Jul, SP [facility] [address] [id number] [address] [place] [address], [place] [address] SP Jul, SP [facility] [address] [id number] [address] [place] [address], [place] [address] SP Jun, SP [facility] [address] [id number] [address] [place] [address], [place] [address] SP Jun, SP [facility] [address] [facility] [id number] [address] [place] [address], [place] [address] SP Jun, SP [facility] [address] [id number] [address] [place] [address], [place] [address] SP Jun, SP [facility] [address] [id number] [address] [place] [address], [place] [address] SP Apr, SP [facility] [address] [id number] [address] [place] [address], [place] [address] SP Apr, SP [facility] [address] [facility] [id number] [address] [place] [address], [place] [address] SP Apr, SP [facility] [address] [id number] [address] [place] [address], [place] [address] SP Apr, SP [facility] [address] [id number] [address] [place] [address], [place] [address] SP Mar, SP [facility] [address] [id number] [address] [place] [address], [place] [address] SP Mar, SP [facility] [address] [id number] [address] [place] [address], [place] [address] SP Feb, SP [facility] [address] [id number] [address] [place] [address], [place] [address] SP Feb, SP [facility] [address] [id number] [address] [place] [address], [place] [address] SP Feb, SP [facility] [address] [id number] [address] [place] [address], [place] [address] SP Feb, SP [facility] [address] [id number] [address] [place] [address], [place] [address] SP Feb, SP [facility] [address] [id number] [address] [place] [address], [place] [address] SP Feb, SP [facility] [address] [id number] [address] [place] [address], [place] [address] SP Jan, SP [facility] [address] [id number] [address] [place] [address], [place] [address] SP Jan, SP [facility] [address] [id number] [address] [place] [phone] SP Dec, SP [facility] [address] [id number] [address] [place] [address], [place] [address] SP Dec, SP [facility] [address] [id number] [address] [place] [address], [place] [address] SP November, SP [facility] [address] [id number] [address] [place] [address], [place] [address] SP November, SP [facility] [address] [id number] [address] [place] [address], [place] [address] SP Oct, SP [facility] [address] [id number] [address] [place] [address], [place] [address] SP Oct, SP [facility] [address] [id number] [address] [place] [address], [place] [address] SP Oct, SP [facility] [address] [id number] [address] [place] [address], [place] [address] SP Oct, SP [facility] [address] [id number] [address] [place] [address], [place] [address] SP Sep, SP [facility] [address] [id number] [address] [place] [address], [place] [address] SP Sep, SP [facility] [address] [id number] [address] [place] [address], [place] [address] SP Aug, SP [facility] [address] [id number] [address] [place] [address], [place] [address] SP Aug, SP [facility] [address] [id number] [address] [place] [address], [place] [address] SP Jul, SP [facility] [address] [id number] [address] [place] [address], [place] [address] SP Jul, SP [facility] [address] [id number] [address] [place] [address], [place] [address] SP Jun, SP [facility] [address] [id number] [address] [place] [address], [place] [address] SP Jun, SP [facility] [address] [id number] [address] [place] [address], [place] [address] SP May, SP [facility] [address] [id number] [address] [place] [address], [place] [address] SP May, SP [facility] [address] [id number] [address] [place] [address], [place] [address] SP May, SP [facility] [address] [id number] [address] [place] [address], [place] [address] SP May, SP [facility] [address] [id number] [address] [place] [address], [place] [address] SP Apr, SP [facility] [address] [id number] [address] [place] [address], [place] [address] SP Apr, SP [facility] [address] [id number] [address] [place] [address], [place] [address] SP Apr, SP [facility] [address] [id number] [address] [place] [address], [place] [address] SP Mar, SP [facility] [address] [id number] [address] [place] [address], [place] [address] SP Mar, SP [facility] [address] [id number] [address] [place] [address], [place] [address] SP Jan, SP [facility] [address] [id number] [address] [place] [address], [place] [address] SP Jan, SP [facility] [address] [id number] [address] [place] [address], [place] [address] SP Dec, SP [facility] [address] [id number] [address] [place] [address], [place] [address] SP November, SP [facility] [address] [id number] [address] [place] [address], [place] [address] SP Jul, SP [facility] [address] [id number] [address] [place] [address], [place] [address] SP May, SP [facility] [address] [id number] [address] [place] [address], [place] [address] SP May, SP [facility] [address] [id number] [address] [place] [address], [place] [address] SP Mar, SP [facility] [address] [id number] [address] [place] [address], [place] [address] SP Feb, SP [facility] [address] [id number] [address] [place] [address] SP Feb, SP [facility] [address] [facility] [id number] [address] [place] [address] SP Feb, SP [facility] [address] [facility] [id number] [address] [place] [address] SP Feb, SP [facility] [address] [facility] [id number] [address] [place] [address] SP Jan, SP [facility] [address] [facility] [id number] [address] [place] [address] SP Jan, SP [facility] [address] [facility] [id number] [address] [place] [address] SP Jul, SP IMMUNIZATIONS No Known Immunizations SOCIAL HISTORY Never Assessed REASON FOR VISIT [facility] [place] PLAN OF CARE VITAL SIGNS MEDICATIONS Medication Instructions Dosage Frequency Start Date End Date Duration S tatus POS Fanapt 1mg(2)-2mg(2)- 4mg(2)-6mg(2) 1 Ta blet by Oral route 2 times per day for SP4 days 1 mg po bid x 1 day, 2 mg po bid x 1 day, 4 mg po bid x 1 day, then 6 mg po bid x 1 day Feb, Active SP Clonidine HCl 0.1 mg 0.5-1 tablet by Ora l route 3 times per day take 1/2 tab SP and afternoon and 1 tab at bedtime. Sep, Active SP MethylPREDNISolone 4 mg by Oral route ev day for 6 days as directed per SP pack Mar, Active SP Zithromax Z-Jakob 250 mg 2 tablet by Oral route 1 time per day for 1 days then SP 1 tab daily on days 2-5 Jun, A ctive SP PredniSONE 20 mg 2 tablet by Oral route 1 time per day for 5 day(s) Jun, Active SP RESULTS No Results PROCEDURES No Known procedures INSTRUCTIONS MEDICATIONS ADMINISTERED No Known Medications MEDICAL (GENERAL) HISTORY Type Description Date POS Medical History asthma SP Medical History attention deficit hyperactivity disorder SP Medical History bipolar disorder SP Surgical History otolaryngologic surgery SP Surgical History appendectomy SP Hospitalization History [facility] for asthma as a child SP
--- OUTSIDE RECORDS SUMMARY | 2019-06-18 22:45 | XMS REPORT ---
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 Name Role Phone POS Migration, Doctor Unavailable Unavailable SP PROBLEMS Unknown Problems ALLERGIES No Information ENCOUNTERS Encounter Location Date Diagnosis POS [facility] [address] [facility] [id number] [address] [place] [phone] SP Apr, SP [facility] [address] [facility] [id number] [place] [address] SP Apr, Acute gastroenteritis K52.9 SP [facility] [address] [facility] [id number] [address] [place] [address] SP Mar, Arm pain, left M79.602 and C ontusion of arm, left, initial SP S40.022A [facility] [address] [facility] [id number] [address] [place] [phone] SP Aug, Acute pain of left shoulder M25.512 SP [facility] [address] [facility] [id number] [address] [place] [phone] SP Jul, Acute pain of left shoulder M25.512 SP [facility] [address] [facility] [id number] [address] [place] [phone] SP Jul, Nondisplaced fracture of fif th right metatarsal bone S92.354A SP [facility] [address] [facility] [id number] [address] [place] [phone] SP Jul, SP [facility] [address] [facility] [id number] [address] [place] [phone] SP Feb, History of back pain V13.59 SP [facility] [address] [facility] [id number] [address] [place] [phone] SP Dec, SP [facility] [address] [place] [id number] [address] [place] [phone] SP Dec, SP [facility] [address] [facility] [id number] [address] [place] [phone] SP Dec, Unspecified episodic mood di sorder 296.90 SP [facility] [address] [id number] [address] [place] [phone] SP Oct, SP [facility] [address] [id number] [address] [place] [phone] SP Oct, SP [facility] [address] [id number] [address] [place] [phone] SP Sep, SP [facility] [address] [facility] [id number] [address] [place] [phone] SP Sep, SP [facility] [address] [id number] [address] [place] [id number] SP Sep, SP [facility] [address] [id number] [address] [place] [phone] SP Sep, SP [facility] [address] [id number] [address] [place] [phone] SP Sep, SP [facility] [address] [facility] [id number] [address] [place] [phone] SP Sep, SP [facility] [address] [id number] [address] [place] [phone] SP Aug, SP [facility] [address] [id number] [address] [place] [phone] SP Aug, SP [facility] [address] [facility] [id number] [address] [place] [phone] SP Aug, SP [facility] [address] [facility] [id number] [address] [place] [phone] SP Aug, SP [facility] [address] [facility] [id number] [address] [place] [phone] SP Aug, 2014 SP [facility] [address] [id number] [address] [place] [phone] SP Aug, 2014 SP [facility] [address] [id number] [address] [place] [phone] SP Aug, 2014 SP [facility] [address] [id number] [address] [place] [phone] SP Aug, 2014 SP [facility] [address] [id number] [address] [place] [phone] SP Jul, SP [facility] [address] [id number] [address] [place] [phone] SP Jul, SP [facility] [address] [facility] [id number] [address] [place] [phone] SP Jun, SP [facility] [address] [id number] [address] [place] [phone] SP Jun, SP [facility] [address] [id number] [address] [place] [phone] SP Jun, SP [facility] [address] [id number] [address] [place] [phone] SP Jun, SP [facility] [address] [id number] [address] [place] [phone] SP Apr, SP [facility] [address] [id number] [address] [place] [phone] SP Apr, SP [facility] [address] [id number] [address] [place] [phone] SP Apr, SP [facility] [address] [facility] [id number] [address] [place] [phone] SP Apr, SP [facility] [address] [facility] [id number] [address] [place] [phone] SP Mar, SP [facility] [address] [id number] [address] [place] [address], [place] [address] SP Mar, SP [facility] [address] [id number] [address] [place] [address], [place] [address] SP Feb, SP [facility] [address] [id number] [address] [place] [address], [place] [address] SP Feb, SP [facility] [address] [id number] [address] [place] [address], [place] [address] SP Feb, SP [facility] [address] [id number] [address] [place] [address], [place] [address] SP Feb, SP [facility] [address] [id number] [address] [place] [address], [place] [address] SP Feb, SP [facility] [address] [id number] [address] [place] [address], [place] [address] SP Feb, SP [facility] [address] [id number] [address] [place] [address], [place] [address] SP Jan, SP [facility] [address] [id number] [address] [place] [address], [place] [address] SP Jan, SP [facility] [address] [id number] [address] [place] [address], [place] [address] SP Dec, SP [facility] [address] [id number] [address] [place] [address], [place] [address] SP Dec, SP [facility] [address] [id number] [address] [place] [address], [place] [address] SP November, SP [facility] [address] [id number] [address] [place] [address], [place] [address] SP November, SP [facility] [address] [id number] [address] [place] [address], [place] [address] SP Oct, SP [facility] [address] [id number] [address] [place] [address], [place] [address] SP Oct, SP [facility] [address] [id number] [address] [place] [address], [place] [address] SP Oct, SP [facility] [address] [id number] [address] [place] [address], [place] [address] SP Oct, SP [facility] [address] [id number] [address] [place] [address], [place] [address] SP Sep, SP [facility] [address] [id number] [address] [place] [address], [place] [address] SP Sep, SP [facility] [address] [id number] [address] [place] [address], [place] [address] SP Aug, SP [facility] [address] [id number] [address] [place] [address], [place] [address] SP Aug, SP [facility] [address] [id number] [address] [place] [address], [place] [address] SP Jul, SP [facility] [address] [id number] [address] [place] [address], [place] [address] SP Jul, SP [facility] [address] [id number] [address] [place] [address], [place] [address] SP Jun, SP [facility] [address] [id number] [address] [place] [phone] SP Jun, SP [facility] [address] [id number] [address] [place] [address] SP May, SP [facility] [address] [id number] [address] [place] [address], [place] [address] SP May, SP [facility] [address] [id number] [address] [place] [address], [place] [address] SP May, SP [facility] [address] [id number] [address] [place] [phone] SP May, SP [facility] [address] [id number] [address] [place] [address] SP Apr, SP [facility] [address] [id number] [address] [place] [address], [place] [address] SP Apr, SP [facility] [address] [id number] [address] [place] [address], [place] [address] SP Apr, SP [facility] [address] [id number] [address] [place] [address], [place] [address] SP Mar, SP [facility] [address] [id number] [address] [place] [address], [place] [address] SP Mar, SP [facility] [address] [id number] [address] [place] [address], [place] [address] SP Jan, SP [facility] [address] [id number] [address] [place] [address], [place] [address] SP Jan, SP [facility] [address] [id number] [address] [place] [address], [place] [address] SP Dec, SP [facility] [address] [id number] [address] [place] [address], [place] [address] SP November, SP [facility] [address] [id number] [address] [place] [address], [place] [address] SP Jul, SP [facility] [address] [id number] [address] [place] [address], [place] [address] SP May, SP [facility] [address] [id number] [address] [place] [address], [place] [address] SP May, SP [facility] [address] [id number] [address] [place] [address], [place] [address] SP Mar, SP [facility] [address] [id number] [address] [place] [address], [place] [address] SP Feb, SP [facility] [address] [id number] [address] [place] [address], [place] [address] SP Feb, SP [facility] [address] [facility] [id number] [address] [place] [address] SP Feb, SP [facility] [address] [facility] [id number] [address] [place] [address] SP Feb, SP [facility] [address] [facility] [id number] [address] [place] [phone] SP Jan, SP [facility] [address] [facility] [id number] [address] [place] [address] SP Jan, SP [facility] [address] [facility] [id number] [address] [place] [phone] SP Jul, SP IMMUNIZATIONS No Known Immunizations SOCIAL HISTORY Never Assessed REASON FOR VISIT EMR-[facility] [place]AN OF CARE VITAL SIGNS MEDICATIONS Unknown Medications RESULTS No Results PROCEDURES No Known procedures INSTRUCTIONS MEDICATIONS ADMINISTERED No Known Medications MEDICAL (GENERAL) HISTORY Type Description Date POS Medical History asthma SP Medical History attention deficit hyperactivity disorder SP Medical History bipolar disorder SP Surgical History otolaryngologic surgery SP Surgical History appendectomy SP Hospitalization History [facility] for asthma as a child SP
--- OUTSIDE RECORDS SUMMARY | 2019-06-18 22:45 | XMS REPORT ---
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 Name Role Phone POS Migration, Doctor Unavailable Unavailable SP PROBLEMS Unknown Problems ALLERGIES No Information ENCOUNTERS Encounter Location Date Diagnosis POS [facility] [address] [facility] [id number] [address] [place] [phone] SP Apr, SP [facility] [address] [facility] [id number] [place] [address] SP Apr, Acute gastroenteritis K52.9 SP [facility] [address] [facility] [id number] [address] [place] [address] SP Mar, Arm pain, left M79.602 and C ontusion of arm, left, initial SP S40.022A [facility] [address] [facility] [id number] [address] [place] [phone] SP Aug, Acute pain of left shoulder M25.512 SP [facility] [address] [facility] [id number] [address] [place] [phone] SP Jul, Acute pain of left shoulder M25.512 SP [facility] [address] [facility] [id number] [address] [place] [phone] SP Jul, Nondisplaced fracture of fif th right metatarsal bone S92.354A SP [facility] [address] [facility] [id number] [address] [place] [phone] SP Jul, SP [facility] [address] [facility] [id number] [address] [place] [phone] SP Feb, History of back pain V13.59 SP [facility] [address] [facility] [id number] [address] [place] [phone] SP Dec, SP [facility] [address] [place] [id number] [address] [place] [phone] SP Dec, SP [facility] [address] [facility] [id number] [address] [place] [phone] SP Dec, Unspecified episodic mood di sorder 296.90 SP [facility] [address] [id number] [address] [place] [phone] SP Oct, SP [facility] [address] [id number] [address] [place] [phone] SP Oct, SP [facility] [address] [id number] [address] [place] [phone] SP Sep, SP [facility] [address] [facility] [id number] [address] [place] [phone] SP Sep, SP [facility] [address] [id number] [address] [place] [id number] SP Sep, SP [facility] [address] [id number] [address] [place] [phone] SP Sep, SP [facility] [address] [id number] [address] [place] [phone] SP Sep, SP [facility] [address] [facility] [id number] [address] [place] [phone] SP Sep, SP [facility] [address] [id number] [address] [place] [phone] SP Aug, SP [facility] [address] [id number] [address] [place] [phone] SP Aug, SP [facility] [address] [facility] [id number] [address] [place] [phone] SP Aug, SP [facility] [address] [facility] [id number] [address] [place] [phone] SP Aug, SP [facility] [address] [facility] [id number] [address] [place] [phone] SP Aug, 2014 SP [facility] [address] [id number] [address] [place] [phone] SP Aug, 2014 SP [facility] [address] [id number] [address] [place] [phone] SP Aug, 2014 SP [facility] [address] [id number] [address] [place] [phone] SP Aug, 2014 SP [facility] [address] [id number] [address] [place] [phone] SP Jul, SP [facility] [address] [id number] [address] [place] [phone] SP Jul, SP [facility] [address] [facility] [id number] [address] [place] [phone] SP Jun, SP [facility] [address] [id number] [address] [place] [phone] SP Jun, SP [facility] [address] [id number] [address] [place] [phone] SP Jun, SP [facility] [address] [id number] [address] [place] [phone] SP Jun, SP [facility] [address] [id number] [address] [place] [phone] SP Apr, SP [facility] [address] [id number] [address] [place] [phone] SP Apr, SP [facility] [address] [id number] [address] [place] [phone] SP Apr, SP [facility] [address] [facility] [id number] [address] [place] [phone] SP Apr, SP [facility] [address] [facility] [id number] [address] [place] [phone] SP Mar, SP [facility] [address] [id number] [address] [place] [address], [place] [phone] SP Mar, SP [facility] [address] [id number] [address] [place] [address], [place] [address] SP Feb, SP [facility] [address] [id number] [address] [place] [address], [place] [phone] SP Feb, SP [facility] [address] [id number] [address] [place] [address], [place] [phone] SP Feb, SP [facility] [address] [id number] [address] [place] [address], [place] [phone] SP Feb, SP [facility] [address] [id number] [address] [place] [address], [place] [phone] SP Feb, SP [facility] [address] [id number] [address] [place] [address], [place] [phone] SP Feb, SP [facility] [address] [id number] [address] [place] [address], [place] [address] SP Jan, SP [facility] [address] [id number] [address] [place] [address], [place] [phone] SP Jan, SP [facility] [address] [id number] [address] [place] [address], [place] [address] SP Dec, SP [facility] [address] [id number] [address] [place] [address], [place] [phone] SP Dec, SP [facility] [address] [id number] [address] [place] [address], [place] [address] SP November, SP [facility] [address] [id number] [address] [place] [address], [place] [address] SP November, SP [facility] [address] [id number] [address] [place] [address], [place] [address] SP Oct, SP [facility] [address] [id number] [address] [place] [address], [place] [address] SP Oct, SP [facility] [address] [id number] [address] [place] [address], [place] [address] SP Oct, SP [facility] [address] [id number] [address] [place] [address], [place] [address] SP Oct, SP [facility] [address] [id number] [address] [place] [address], [place] [address] SP Sep, SP [facility] [address] [id number] [address] [place] [address], [place] [address] SP Sep, SP [facility] [address] [id number] [address] [place] [address], [place] [address] SP Aug, SP [facility] [address] [id number] [address] [place] [address], [place] [address] SP Aug, SP [facility] [address] [id number] [address] [place] [address], [place] [address] SP Jul, SP [facility] [address] [id number] [address] [place] [address], [place] [address] SP Jul, SP [facility] [address] [id number] [address] [place] [address], [place] [address] SP Jun, SP [facility] [address] [id number] [address] [place] [phone] SP Jun, SP [facility] [address] [id number] [address] [place] [phone] SP May, SP [facility] [address] [id number] [address] [place] [address], [place] [address] SP May, SP [facility] [address] [id number] [address] [place] [address], [place] [address] SP May, SP [facility] [address] [id number] [address] [place] [phone] SP May, SP [facility] [address] [id number] [address] [place] [phone] SP Apr, SP [facility] [address] [id number] [address] [place] [address], [place] [address] SP Apr, SP [facility] [address] [id number] [address] [place] [address], [place] [address] SP Apr, SP [facility] [address] [id number] [address] [place] [address], [place] [address] SP Mar, SP [facility] [address] [id number] [address] [place] [address], [place] [address] SP Mar, SP [facility] [address] [id number] [address] [place] [address], [place] [address] SP Jan, SP [facility] [address] [id number] [address] [place] [address], [place] [address] SP Jan, SP [facility] [address] [id number] [address] [place] [address], [place] [address] SP Dec, SP [facility] [address] [id number] [address] [place] [address], [place] [address] SP November, SP [facility] [address] [id number] [address] [place] [address], [place] [address] SP Jul, SP [facility] [address] [id number] [address] [place] [address], [place] [address] SP May, SP [facility] [address] [id number] [address] [place] [address], [place] [address] SP May, SP [facility] [address] [id number] [address] [place] [address], [place] [address] SP Mar, SP [facility] [address] [id number] [address] [place] [address], [place] [address] SP Feb, SP [facility] [address] [id number] [address] [place] [address], [place] [address] SP Feb, SP [facility] [address] [facility] [id number] [address] [place] [phone] SP Feb, SP [facility] [address] [facility] [id number] [address] [place] [phone] SP Feb, SP [facility] [address] [facility] [id number] [address] [place] [phone] SP Jan, SP [facility] [address] [facility] [id number] [address] [place] [phone] SP Jan, SP [facility] [address] [facility] [id number] [address] [place] [phone] SP Jul, SP IMMUNIZATIONS No Known Immunizations SOCIAL HISTORY Never Assessed REASON FOR VISIT EMR-[facility] PLAN OF CARE VITAL SIGNS MEDICATIONS Unknown Medications RESULTS No Results PROCEDURES No Known procedures INSTRUCTIONS MEDICATIONS ADMINISTERED No Known Medications MEDICAL (GENERAL) HISTORY Type Description Date POS Medical History asthma SP Medical History attention deficit hyperactivity disorder SP Medical History bipolar disorder SP Surgical History otolaryngologic surgery SP Surgical History appendectomy SP Hospitalization History [facility] for asthma as a child SP
--- OUTSIDE RECORDS SUMMARY | 2019-06-18 22:45 | XMS REPORT ---
Author Author Migration, Doctor POS Organization [facility] SP Address Unknown SP Phone Unavailable SP Care Team Providers Care Transportation Solutions Manager Name Role Phone POS Migration, Doctor Unavailable Unavailable SP PROBLEMS Unknown Problems ALLERGIES No Information ENCOUNTERS Encounter Location Date Diagnosis POS [facility] [address] [facility] [id number] [address] [place] [phone] SP Apr, SP [facility] [address] [facility] [id number] [place] [address] SP Apr, Acute gastroenteritis K52.9 SP [facility] [address] [facility] [id number] [address] [place] [address] SP Mar, Arm pain, left M79.602 and C ontusion of arm, left, initial SP S40.022A [facility] [address] [facility] [id number] [address] [place] [phone] SP Aug, Acute pain of left shoulder M25.512 SP [facility] [address] [facility] [id number] [address] [place] [phone] SP Jul, Acute pain of left shoulder M25.512 SP [facility] [address] [facility] [id number] [address] [place] [phone] SP Jul, Nondisplaced fracture of fif th right metatarsal bone S92.354A SP [facility] [address] [facility] [id number] [address] [place] [phone] SP Jul, SP [facility] [address] [facility] [id number] [address] [place] [phone] SP Feb, History of back pain V13.59 SP [facility] [address] [facility] [id number] [address] [place] [phone] SP Dec, SP [facility] [address] [place] [id number] [address] [place] [phone] SP Dec, SP [facility] [address] [facility] [id number] [address] [place] [phone] SP Dec, Unspecified episodic mood di sorder 296.90 SP [facility] [address] [id number] [address] [place] [phone] SP Oct, SP [facility] [address] [id number] [address] [place] [phone] SP Oct, SP [facility] [address] [id number] [address] [place] [phone] SP Sep, SP [facility] [address] [facility] [id number] [address] [place] [phone] SP Sep, SP [facility] [address] [id number] [address] [place] [id number] SP Sep, SP [facility] [address] [id number] [address] [place] [phone] SP Sep, SP [facility] [address] [id number] [address] [place] [phone] SP Sep, SP [facility] [address] [facility] [id number] [address] [place] [phone] SP Sep, SP [facility] [address] [id number] [address] [place] [phone] SP Aug, SP [facility] [address] [id number] [address] [place] [phone] SP Aug, SP [facility] [address] [facility] [id number] [address] [place] [phone] SP Aug, SP [facility] [address] [facility] [id number] [address] [place] [phone] SP Aug, SP [facility] [address] [facility] [id number] [address] [place] [phone] SP Aug, 2014 SP [facility] [address] [id number] [address] [place] [phone] SP Aug, 2014 SP [facility] [address] [id number] [address] [place] [phone] SP Aug, 2014 SP [facility] [address] [id number] [address] [place] [phone] SP Aug, 2014 SP [facility] [address] [id number] [address] [place] [phone] SP Jul, SP [facility] [address] [id number] [address] [place] [phone] SP Jul, SP [facility] [address] [facility] [id number] [address] [place] [phone] SP Jun, SP [facility] [address] [id number] [address] [place] [phone] SP Jun, SP [facility] [address] [id number] [address] [place] [phone] SP Jun, SP [facility] [address] [id number] [address] [place] [phone] SP Jun, SP [facility] [address] [id number] [address] [place] [phone] SP Apr, SP [facility] [address] [id number] [address] [place] [phone] SP Apr, SP [facility] [address] [id number] [address] [place] [phone] SP Apr, SP [facility] [address] [facility] [id number] [address] [place] [phone] SP Apr, SP [facility] [address] [facility] [id number] [address] [place] [phone] SP Mar, SP [facility] [address] [id number] [address] [place] [address], [place] [address] SP Mar, SP [facility] [address] [id number] [address] [place] [address], [place] [address] SP Feb, SP [facility] [address] [id number] [address] [place] [address], [place] [address] SP Feb, SP [facility] [address] [id number] [address] [place] [address], [place] [phone] SP Feb, SP [facility] [address] [id number] [address] [place] [address], [place] [address] SP Feb, SP [facility] [address] [id number] [address] [place] [address], [place] [phone] SP Feb, SP [facility] [address] [id number] [address] [place] [address], [place] [address] SP Feb, SP [facility] [address] [id number] [address] [place] [address], [place] [address] SP Jan, SP [facility] [address] [id number] [address] [place] [address], [place] [address] SP Jan, SP [facility] [address] [id number] [address] [place] [address], [place] [address] SP Dec, SP [facility] [address] [id number] [address] [place] [address], [place] [address] SP Dec, SP [facility] [address] [id number] [address] [place] [address], [place] [address] SP November, SP [facility] [address] [id number] [address] [place] [address], [place] [phone] SP November, SP [facility] [address] [id number] [address] [place] [address], [place] [address] SP Oct, SP [facility] [address] [id number] [address] [place] [address], [place] [address] SP Oct, SP [facility] [address] [id number] [address] [place] [address], [place] [address] SP Oct, SP [facility] [address] [id number] [address] [place] [address], [place] [address] SP Oct, SP [facility] [address] [id number] [address] [place] [address], [place] [address] SP Sep, SP [facility] [address] [id number] [address] [place] [address], [place] [address] SP Sep, SP [facility] [address] [id number] [address] [place] [address], [place] [address] SP Aug, SP [facility] [address] [id number] [address] [place] [address], [place] [address] SP Aug, SP [facility] [address] [id number] [address] [place] [address], [place] [address] SP Jul, SP [facility] [address] [id number] [address] [place] [address], [place] [address] SP Jul, SP [facility] [address] [id number] [address] [place] [address], [place] [address] SP Jun, SP [facility] [address] [id number] [address] [place] [phone] SP Jun, SP [facility] [address] [id number] [address] [place] [phone] SP May, SP [facility] [address] [id number] [address] [place] [address], [place] [address] SP May, SP [facility] [address] [id number] [address] [place] [address], [place] [address] SP May, SP [facility] [address] [id number] [address] [place] [phone] SP May, SP [facility] [address] [id number] [address] [place] [phone] SP Apr, SP [facility] [address] [id number] [address] [place] [address], [place] [address] SP Apr, SP [facility] [address] [id number] [address] [place] [address], [place] [address] SP Apr, SP [facility] [address] [id number] [address] [place] [address], [place] [address] SP Mar, SP [facility] [address] [id number] [address] [place] [address], [place] [address] SP Mar, SP [facility] [address] [id number] [address] [place] [address], [place] [address] SP Jan, SP [facility] [address] [id number] [address] [place] [address], [place] [address] SP Jan, SP [facility] [address] [id number] [address] [place] [address], [place] [address] SP Dec, SP [facility] [address] [id number] [address] [place] [address], [place] [address] SP November, SP [facility] [address] [id number] [address] [place] [address], [place] [address] SP Jul, SP [facility] [address] [id number] [address] [place] [address], [place] [address] SP May, SP [facility] [address] [id number] [address] [place] [address], [place] [address] SP May, SP [facility] [address] [id number] [address] [place] [address], [place] [address] SP Mar, SP [facility] [address] [id number] [address] [place] [address], [place] [address] SP Feb, SP [facility] [address] [id number] [address] [place] [address], [place] [address] SP Feb, SP [facility] [address] [facility] [id number] [address] [place] [phone] SP Feb, SP [facility] [address] [facility] [id number] [address] [place] [phone] SP Feb, SP [facility] [address] [facility] [id number] [address] [place] [phone] SP Jan, SP [facility] [address] [facility] [id number] [address] [place] [phone] SP Jan, SP [facility] [address] [facility] [id number] [address] [place] [phone] SP Jul, SP IMMUNIZATIONS No Known Immunizations SOCIAL HISTORY Never Assessed REASON FOR VISIT EMR-[facility] [place] PLAN OF CARE VITAL SIGNS MEDICATIONS Unknown Medications RESULTS No Results PROCEDURES No Known procedures INSTRUCTIONS MEDICATIONS ADMINISTERED No Known Medications MEDICAL (GENERAL) HISTORY Type Description Date POS Medical History asthma SP Medical History attention deficit hyperactivity disorder SP Medical History bipolar disorder SP Surgical History otolaryngologic surgery SP Surgical History appendectomy SP Hospitalization History [facility] for asthma as a child SP
--- OUTSIDE RECORDS SUMMARY | 2019-06-18 22:45 | XMS REPORT ---
Author Author Migration, Doctor POS Organization [facility] SP Address Unknown SP Phone Unavailable SP Care Team Providers Care Lsw Name Role Phone POS Migration, Doctor Unavailable Unavailable SP PROBLEMS Unknown Problems ALLERGIES No Information ENCOUNTERS Encounter Location Date Diagnosis POS [facility] [address] [facility] [place] [id number] [address] [place] [phone] SP Apr, SP [facility] [address] [facility] [place] [id number] [place] [address] SP Apr, Acute gastroenteritis K52.9 SP [facility] [address] [facility] [place] [facility] [id number] [address] [place] [address] SP Mar, Arm pain, left M79.602 and C ontusion of arm, left, initial SP S40.022A [facility] [address] [facility] [place] [id number] [address] [place] [address] SP Aug, Acute pain of left shoulder M25.512 SP [facility] [address] [facility] [place] [id number] [address] [place] [phone] SP Jul, Acute pain of left shoulder M25.512 SP [facility] [address] [facility] [place] [id number] [address] [place] [address] SP Jul, Nondisplaced fracture of fif th right metatarsal bone S92.354A SP [facility] [address] [facility] [place] [id number] [address] [place] [phone] SP Jul, SP [facility] [address] [facility] [place] [id number] [address] [place] [phone] SP Feb, History of back pain V13.59 SP [facility] [address] [facility] [place] [id number] [address] [place] [phone] SP Dec, SP [facility] [address] [place] [id number] [address] [place] [phone] SP Dec, SP [facility] [address] [facility] [place] [id number] [address] [place] [id number] SP Dec, Unspecified episodic mood di sorder 296.90 SP [facility] [address] [id number] [address] [place] [phone] SP Oct, SP [facility] [address] [id number] [address] [place] [phone] SP Oct, SP [facility] [address] [id number] [address] [place] [phone] SP Sep, SP [facility] [address] [facility] [place] [id number] [address] [place] [phone] SP Sep, SP [facility] [address] [id number] [address] [place] [id number] SP Sep, SP [facility] [address] [id number] [address] [place] [phone] SP Sep, SP [facility] [address] [id number] [address] [place] [phone] SP Sep, SP [facility] [address] [facility] [place] [id number] [address] [place] [phone] SP Sep, SP [facility] [address] [id number] [address] [place] [phone] SP Aug, SP [facility] [address] [id number] [address] [place] [phone] SP Aug, SP [facility] [address] [facility] [place] [id number] [address] [place] [phone] SP Aug, SP [facility] [address] [facility] [place] [id number] [address] [place] [phone] SP Aug, SP [facility] [address] [facility] [place] [id number] [address] [place] [phone] SP Aug, 2014 SP [facility] [address] [id number] [address] [place] [phone] SP Aug, 2014 SP [facility] [address] [id number] [address] [place] [phone] SP Aug, 2014 SP [facility] [address] [id number] [address] [place] [phone] SP Aug, 2014 SP [facility] [address] [id number] [address] [place] [phone] SP Jul, SP [facility] [address] [id number] [address] [place] [phone] SP Jul, SP [facility] [address] [facility] [place] [id number] [address] [place] [phone] SP Jun, SP [facility] [address] [id number] [address] [place] [phone] SP Jun, SP [facility] [address] [id number] [address] [place] [phone] SP Jun, SP [facility] [address] [id number] [address] [place] [phone] SP Jun, SP [facility] [address] [id number] [address] [place] [phone] SP Apr, SP [facility] [address] [id number] [address] [place] [phone] SP Apr, SP [facility] [address] [id number] [address] [place] [phone] SP Apr, SP [facility] [address] [facility] [place] [id number] [address] [place] [phone] SP Apr, SP [facility] [address] [facility] [place] [id number] [address] [place] [phone] SP Mar, SP [facility] [address] [id number] [address] [place] [address], [place] [address] SP Mar, SP [facility] [address] [id number] [address] [place] [address], [place] [address] SP Feb, SP [facility] [address] [id number] [address] [place] [address], [place] [address] SP Feb, SP [facility] [address] [id number] [address] [place] [address], [place] [address] SP Feb, SP [facility] [address] [id number] [address] [place] [address], [place] [address] SP Feb, SP [facility] [address] [id number] [address] [place] [address], [place] [address] SP Feb, SP [facility] [address] [id number] [address] [place] [address], [place] [address] SP Feb, SP [facility] [address] [id number] [address] [place] [address], [place] [address] SP Jan, SP [facility] [address] [id number] [address] [place] [address], [place] [address] SP Jan, SP [facility] [address] [id number] [address] [place] [address], [place] [address] SP Dec, SP [facility] [address] [id number] [address] [place] [address], [place] [address] SP Dec, SP [facility] [address] [id number] [address] [place] [address], [place] [address] SP November, SP [facility] [address] [id number] [address] [place] [address], [place] [address] SP November, SP [facility] [address] [id number] [address] [place] [address], [place] [address] SP Oct, SP [facility] [address] [id number] [address] [place] [address], [place] [address] SP Oct, SP [facility] [address] [id number] [address] [place] [address], [place] [address] SP Oct, SP [facility] [address] [id number] [address] [place] [address], [place] [address] SP Oct, SP [facility] [address] [id number] [address] [place] [address], [place] [address] SP Sep, SP [facility] [address] [id number] [address] [place] [address], [place] [address] SP Sep, SP [facility] [address] [id number] [address] [place] [address], [place] [address] SP Aug, SP [facility] [address] [id number] [address] [place] [address], [place] [address] SP Aug, SP [facility] [address] [id number] [address] [place] [address], [place] [address] SP Jul, SP [facility] [address] [id number] [address] [place] [address], [place] [address] SP Jul, SP [facility] [address] [id number] [address] [place] [address], [place] [address] SP Jun, SP [facility] [address] [id number] [address] [place] [address] SP Jun, SP [facility] [address] [id number] [address] [place] [address] SP May, SP [facility] [address] [id number] [address] [place] [address], [place] [address] SP May, SP [facility] [address] [id number] [address] [place] [address], [place] [address] SP May, SP [facility] [address] [id number] [address] [place] [phone] SP May, SP [facility] [address] [id number] [address] [place] [address] SP Apr, SP [facility] [address] [id number] [address] [place] [address], [place] [address] SP Apr, SP [facility] [address] [id number] [address] [place] [address], [place] [address] SP Apr, SP [facility] [address] [id number] [address] [place] [address], [place] [address] SP Mar, SP [facility] [address] [id number] [address] [place] [address], [place] [address] SP Mar, SP [facility] [address] [id number] [address] [place] [address], [place] [address] SP Jan, SP [facility] [address] [id number] [address] [place] [address], [place] [address] SP Jan, SP [facility] [address] [id number] [address] [place] [address], [place] [address] SP Dec, SP [facility] [address] [id number] [address] [place] [address], [place] [address] SP November, SP [facility] [address] [id number] [address] [place] [address], [place] [address] SP Jul, SP [facility] [address] [id number] [address] [place] [address], [place] [address] SP May, SP [facility] [address] [id number] [address] [place] [address], [place] [address] SP May, SP [facility] [address] [id number] [address] [place] [address], [place] [address] SP Mar, SP [facility] [address] [id number] [address] [place] [address], [place] [address] SP Feb, SP [facility] [address] [id number] [address] [place] [address], [place] [address] SP Feb, SP [facility] [address] [facility] [place] [id number] [address] [place] [address] SP Feb, SP [facility] [address] [facility] [place] [id number] [address] [place] [address] SP Feb, SP [facility] [address] [facility] [place] [id number] [address] [place] [address] SP Jan, SP [facility] [address] [facility] [place] [id number] [address] [place] [address] SP Jan, SP [facility] [address] [facility] [place] [id number] [address] [place] [address] SP Jul, SP IMMUNIZATIONS No Known Immunizations SOCIAL HISTORY Never Assessed REASON FOR VISIT [facility] PLAN OF CARE VITAL SIGNS MEDICATIONS Unknown Medications RESULTS No Results PROCEDURES No Known procedures INSTRUCTIONS MEDICATIONS ADMINISTERED No Known Medications MEDICAL (GENERAL) HISTORY Type Description Date POS Medical History asthma SP Medical History attention deficit hyperactivity disorder SP Medical History bipolar disorder SP Surgical History otolaryngologic surgery SP Surgical History appendectomy SP Hospitalization History [facility] for asthma as a child SP
--- OUTSIDE RECORDS SUMMARY | 2019-06-18 22:46 | XMS REPORT ---
Author Author Migration, Doctor POS Organization [facility] SP Address Unknown SP Phone Unavailable SP Care Team Providers Care Vocational Case Manager Name Role Phone POS Migration, Doctor Unavailable Unavailable SP PROBLEMS Unknown Problems ALLERGIES No Information ENCOUNTERS Encounter Location Date Diagnosis POS [facility] [address] [facility] [id number] [address] [place] [id number] SP Apr, SP [facility] [address] [facility] [id number] [place] [address] SP Apr, Acute gastroenteritis K52.9 SP [facility] [address] [facility] [id number] [address] [place] [address] SP Mar, Arm pain, left M79.602 and C ontusion of arm, left, initial SP S40.022A [facility] [address] [facility] [id number] [address] [place] [address] SP Aug, Acute pain of left shoulder M25.512 SP [facility] [address] [facility] [id number] [address] [place] [address] SP Jul, Acute pain of left shoulder M25.512 SP [facility] [address] [facility] [id number] [address] [place] [address] SP Jul, Nondisplaced fracture of fif th right metatarsal bone S92.354A SP [facility] [address] [facility] [id number] [address] [place] [phone] SP Jul, SP [facility] [address] [facility] [id number] [address] [place] [address] SP Feb, History of back pain V13.59 SP [facility] [address] [facility] [id number] [address] [place] [id number] SP Dec, SP [facility] [address] [place] [id number] [address] [place] [address] SP Dec, SP [facility] [address] [facility] [id number] [address] [place] [address] SP Dec, Unspecified episodic mood di sorder 296.90 SP [facility] [address] [id number] [address] [place] [address] SP Oct, SP [facility] [address] [id number] [address] [place] [address] SP Oct, SP [facility] [address] [id number] [address] [place] [phone] SP Sep, SP [facility] [address] [facility] [id number] [address] [place] [address] SP Sep, SP [facility] [address] [id number] [address] [place] [id number] SP Sep, SP [facility] [address] [id number] [address] [place] [id number] SP Sep, SP [facility] [address] [id number] [address] [place] [phone] SP Sep, SP [facility] [address] [facility] [id number] [address] [place] [phone] SP Sep, SP [facility] [address] [id number] [address] [place] [id number] SP Aug, SP [facility] [address] [id number] [address] [place] [id number] SP Aug, SP [facility] [address] [facility] [id number] [address] [place] [address] SP Aug, SP [facility] [address] [facility] [id number] [address] [place] [address] SP Aug, SP [facility] [address] [facility] [id number] [address] [place] [address] SP Aug, 2014 SP [facility] [address] [id number] [address] [place] [id number] SP Aug, 2014 SP [facility] [address] [id number] [address] [place] [address] SP Aug, 2014 SP [facility] [address] [id number] [address] [place] [phone] SP Aug, 2014 SP [facility] [address] [id number] [address] [place] [phone] SP Jul, SP [facility] [address] [id number] [address] [place] [phone] SP Jul, SP [facility] [address] [facility] [id number] [address] [place] [id number] SP Jun, SP [facility] [address] [id number] [address] [place] [phone] SP Jun, SP [facility] [address] [id number] [address] [place] [id number] SP Jun, SP [facility] [address] [id number] [address] [place] [phone] SP Jun, SP [facility] [address] [id number] [address] [place] [id number] SP Apr, SP [facility] [address] [id number] [address] [place] [address] SP Apr, SP [facility] [address] [id number] [address] [place] [phone] SP Apr, SP [facility] [address] [facility] [id number] [address] [place] [id number] SP Apr, SP [facility] [address] [facility] [id number] [address] [place] [id number] SP Mar, SP [facility] [address] [id number] [address] [place] [address], [place] [address] SP Mar, SP [facility] [address] [id number] [address] [place] [address], [place] [address] SP Feb, SP [facility] [address] [id number] [address] [place] [address], [place] [address] SP Feb, SP [facility] [address] [id number] [address] [place] [address], [place] [address] SP Feb, SP [facility] [address] [id number] [address] [place] [address], [place] [address] SP Feb, SP [facility] [address] [id number] [address] [place] [address], [place] [address] SP Feb, SP [facility] [address] [id number] [address] [place] [address], [place] [address] SP Feb, SP [facility] [address] [id number] [address] [place] [address], [place] [address] SP Jan, SP [facility] [address] [id number] [address] [place] [address], [place] [address] SP Jan, SP [facility] [address] [id number] [address] [place] [address], [place] [address] SP Dec, SP [facility] [address] [id number] [address] [place] [address], [place] [address] SP Dec, SP [facility] [address] [id number] [address] [place] [address], [place] [address] SP November, SP [facility] [address] [id number] [address] [place] [address], [place] [address] SP November, SP [facility] [address] [id number] [address] [place] [address], [place] [address] SP Oct, SP [facility] [address] [id number] [address] [place] [address], [place] [address] SP Oct, SP [facility] [address] [id number] [address] [place] [address], [place] [address] SP Oct, SP [facility] [address] [id number] [address] [place] [address], [place] [address] SP Oct, SP [facility] [address] [id number] [address] [place] [address], [place] [address] SP Sep, SP [facility] [address] [id number] [address] [place] [address], [place] [address] SP Sep, SP [facility] [address] [id number] [address] [place] [address], [place] [address] SP Aug, SP [facility] [address] [id number] [address] [place] [address], [place] [address] SP Aug, SP [facility] [address] [id number] [address] [place] [address], [place] [address] SP Jul, SP [facility] [address] [id number] [address] [place] [address], [place] [address] SP Jul, SP [facility] [address] [id number] [address] [place] [address], [place] [address] SP Jun, SP [facility] [address] [id number] [address] [place] [id number] SP Jun, SP [facility] [address] [id number] [address] [place] [id number] SP May, SP [facility] [address] [id number] [address] [place] [address], [place] [address] SP May, SP [facility] [address] [id number] [address] [place] [address], [place] [address] SP May, SP [facility] [address] [id number] [address] [place] [id number] SP May, SP [facility] [address] [id number] [address] [place] [phone] SP Apr, SP [facility] [address] [id number] [address] [place] [address], [place] [address] SP Apr, SP [facility] [address] [id number] [address] [place] [address], [place] [address] SP Apr, SP [facility] [address] [id number] [address] [place] [address], [place] [address] SP Mar, SP [facility] [address] [id number] [address] [place] [address], [place] [address] SP Mar, SP [facility] [address] [id number] [address] [place] [address], [place] [address] SP Jan, SP [facility] [address] [id number] [address] [place] [address], [place] [address] SP Jan, SP [facility] [address] [id number] [address] [place] [address], [place] [address] SP Dec, SP [facility] [address] [id number] [address] [place] [address], [place] [address] SP November, SP [facility] [address] [id number] [address] [place] [address], [place] [address] SP Jul, SP [facility] [address] [id number] [address] [place] [address], [place] [address] SP May, SP [facility] [address] [id number] [address] [place] [address], [place] [address] SP May, SP [facility] [address] [id number] [address] [place] [address], [place] [address] SP Mar, SP [facility] [address] [id number] [address] [place] [address], [place] [address] SP Feb, SP [facility] [address] [id number] [address] [place] [address], [place] [address] SP Feb, SP [facility] [address] [facility] [id number] [address] [place] [id number] SP Feb, SP [facility] [address] [facility] [id number] [address] [place] [id number] SP Feb, SP [facility] [address] [facility] [id number] [address] [place] [id number] SP Jan, SP [facility] [address] [facility] [id number] [address] [place] [id number] SP Jan, SP [facility] [address] [facility] [id number] [address] [place] [id number] SP Jul, SP IMMUNIZATIONS No Known Immunizations SOCIAL HISTORY Never Assessed REASON FOR VISIT EMR-[facility] PLAN OF CARE VITAL SIGNS MEDICATIONS Unknown Medications RESULTS No Results PROCEDURES No Known procedures INSTRUCTIONS MEDICATIONS ADMINISTERED No Known Medications MEDICAL (GENERAL) HISTORY Type Description Date POS Medical History asthma SP Medical History attention deficit hyperactivity disorder SP Medical History bipolar disorder SP Surgical History otolaryngologic surgery SP Surgical History appendectomy SP Hospitalization History [facility] for asthma as a child SP
--- OUTSIDE RECORDS SUMMARY | 2019-06-18 22:46 | XMS REPORT ---
Author Author MEENA FRANCO POS Organization [facility] SP Address [address] [place] [address] SP Care Team Providers Care Hand Sample Maker Name Role Phone POS MEENA FRANCO Unavailable SP PROBLEMS Unknown Problems ALLERGIES No Information ENCOUNTERS Encounter Location Date Diagnosis POS [place] [address] [id number] SP Apr, SP [facility] [address] [place] [id number] [place] [address] SP Apr, Acute gastroenteritis K52.9 SP [facility] [address] [place] [id number] [place] [address] SP Mar, Arm pain, left M79.602 and C ontusion of arm, left, initial SP S40.022A [place] [address] [facility] [id number] [address] [place] [id number] SP Aug, Acute pain of left shoulder M25.512 SP [facility] [address] [facility] [id number] [address] [place] [id number] SP Jul, Acute pain of left shoulder M25.512 SP [facility] [address] [facility] [id number] [address] [place] [phone] SP Jul, Nondisplaced fracture of fif th right metatarsal bone S92.354A SP [facility] [address] [facility] [id number] [address] [place] [phone] SP Jul, SP [facility] [address] [facility] [id number] [address] [place] [phone] SP Feb, History of back pain V13.59 SP [facility] [address] [facility] [id number] [address] [place] [phone] SP Dec, SP [facility] [address] [facility] [id number] [address] [place] [phone] SP Dec, SP [facility] [address] [facility] [id number] [address] [place] [phone] SP Dec, Unspecified episodic mood di sorder 296.90 SP [facility] [address] [facility] [id number] [address] [place] [phone] SP Oct, SP [facility] [address] [id number] [address] [place] [phone] SP Oct, SP [facility] [address] [facility] [id number] [address] [place] [phone] SP Sep, SP [facility] [address] [facility] [id number] [address] [place] [phone] SP Sep, SP [facility] [address] [facility] [id number] [address] [place] [id number] SP Sep, SP [facility] [address] [facility] [id number] [address] [place] [phone] SP Sep, SP [facility] [address] [facility] [id number] [address] [place] [phone] SP Sep, SP [facility] [address] [facility] [id number] [address] [place] [phone] SP Sep, SP [facility] [address] [facility] [id number] [address] [place] [phone] SP Aug, SP [facility] [address] [facility] [id number] [address] [place] [phone] SP Aug, SP [facility] [address] [facility] [id number] [address] [place] [phone] SP Aug, SP [facility] [address] [facility] [id number] [address] [place] [phone] SP Aug, SP [facility] [address] [id number] [address] [place] [address], [place] [address] SP Aug, 2014 SP [facility] [address] [id number] [address] [place] [address], [place] [address] SP Aug, 2014 SP [facility] [address] [id number] [address] [place] [address], [place] [address] SP Aug, 2014 SP [facility] [address] [id number] [address] [place] [address], [place] [address] SP Aug, 2014 SP [facility] [address] [id number] [address] [place] [address], [place] [address] SP Jul, SP [facility] [address] [id number] [address] [place] [address], [place] [address] SP Jul, SP [facility] [address] [id number] [address] [place] [address], [place] [address] SP Jun, SP [facility] [address] [id number] [address] [place] [address], [place] [address] SP Jun, SP [facility] [address] [id number] [address] [place] [address], [place] [address] SP Jun, SP [facility] [address] [id number] [address] [place] [phone] SP Jun, SP [facility] [address] [id number] [address] [place] [phone] SP Apr, SP [facility] [address] [id number] [address] [place] [address], [place] [address] SP Apr, SP [facility] [address] [id number] [address] [place] [phone] SP Apr, SP [facility] [address] [id number] [address] [place] [phone] SP Apr, SP [facility] [address] [id number] [address] [place] [address], [place] [address] SP Mar, SP [facility] [address] [id number] [address] [place] [address], [place] [address] SP Mar, SP [facility] [address] [id number] [address] [place] [address], [place] [address] SP Feb, SP [facility] [address] [id number] [address] [place] [address], [place] [address] SP Feb, SP [facility] [address] [id number] [address] [place] [address], [place] [address] SP Feb, SP [facility] [address] [id number] [address] [place] [address], [place] [address] SP Feb, SP [facility] [address] [id number] [address] [place] [address], [place] [address] SP Feb, SP [facility] [address] [id number] [address] [place] [address], [place] [address] SP Feb, SP [facility] [address] [id number] [address] [place] [address], [place] [address] SP Jan, SP [facility] [address] [id number] [address] [place] [address], [place] [address] SP Jan, SP [facility] [address] [id number] [address] [place] [address], [place] [address] SP Dec, SP [facility] [address] [id number] [address] [place] [address], [place] [address] SP Dec, SP [facility] [address] [id number] [address] [place] [address], [place] [address] SP November, SP [facility] [address] [id number] [address] [place] [address], [place] [address] SP November, SP [facility] [address] [id number] [address] [place] [address], [place] [address] SP Oct, SP [facility] [address] [id number] [address] [place] [address], [place] [address] SP Oct, SP [facility] [address] [id number] [address] [place] [address], [place] [address] SP Oct, SP [facility] [address] [id number] [address] [place] [address], [place] [address] SP Oct, SP [facility] [address] [id number] [address] [place] [address], [place] [address] SP Sep, SP [facility] [address] [id number] [address] [place] [address], [place] [address] SP Sep, SP [facility] [address] [id number] [address] [place] [address], [place] [address] SP Aug, SP [facility] [address] [id number] [address] [place] [address], [place] [address] SP Aug, SP [facility] [address] [id number] [address] [place] [address], [place] [address] SP Jul, SP [facility] [address] [id number] [address] [place] [address], [place] [address] SP Jul, SP [facility] [address] [id number] [address] [place] [address], [place] [address] SP Jun, SP [facility] [address] [id number] [address] [place] [address], [place] [address] SP Jun, SP [facility] [address] [id number] [address] [place] [address], [place] [address] SP May, SP [facility] [address] [id number] [address] [place] [address], [place] [address] SP May, SP [facility] [address] [id number] [address] [place] [address], [place] [address] SP May, SP [facility] [address] [id number] [address] [place] [address], [place] [address] SP May, SP [facility] [address] [id number] [address] [place] [address], [place] [address] SP Apr, SP [facility] [address] [id number] [address] [place] [address], [place] [address] SP Apr, SP [facility] [address] [id number] [address] [place] [address], [place] [address] SP Apr, SP [facility] [address] [id number] [address] [place] [address], [place] [address] SP Mar, SP [facility] [address] [id number] [address] [place] [address], [place] [address] SP Mar, SP [facility] [address] [id number] [address] [place] [address], [place] [address] SP Jan, SP [facility] [address] [id number] [address] [place] [address], [place] [address] SP Jan, SP [facility] [address] [id number] [address] [place] [address], [place] [address] SP Dec, SP [facility] [address] [id number] [address] [place] [address], [place] [address] SP November, SP [facility] [address] [id number] [address] [place] [address], [place] [address] SP Jul, SP [facility] [address] [id number] [address] [place] [address], [place] [address] SP May, SP [facility] [address] [id number] [address] [place] [address], [place] [address] SP May, SP [facility] [address] [id number] [address] [place] [address], [place] [address] SP Mar, SP [facility] [address] [id number] [address] [place] [address], [place] [address] SP Feb, SP [facility] [address] [id number] [address] [place] [phone] SP Feb, SP [facility] [address] [id number] [address] [place] [phone] SP Feb, SP [facility] [address] [facility] [id number] [address] [place] [id number] SP Feb, SP [facility] [address] [facility] [id number] [address] [place] [address] SP Jan, SP [facility] [address] [facility] [id number] [address] [place] [phone] SP Jan, SP [facility] [address] [facility] [id number] [address] [place] [phone] SP Jul, SP IMMUNIZATIONS No Known Immunizations SOCIAL HISTORY Never Assessed REASON FOR VISIT Triage PLAN OF CARE VITAL SIGNS MEDICATIONS Unknown Medications RESULTS No Results PROCEDURES No Known procedures INSTRUCTIONS MEDICATIONS ADMINISTERED No Known Medications MEDICAL (GENERAL) HISTORY Type Description Date POS Medical History asthma SP Medical History attention deficit hyperactivity disorder SP Medical History bipolar disorder SP Surgical History otolaryngologic surgery SP Surgical History appendectomy SP Hospitalization History [facility] for asthma as a child SP
--- OUTSIDE RECORDS SUMMARY | 2019-06-18 22:46 | XMS REPORT ---
Author Author Migration, Doctor POS Organization [facility] SP Address Unknown SP Phone Unavailable SP Care Team Providers Care Drier Tender Name Role Phone POS Migration, Doctor Unavailable Unavailable SP PROBLEMS Unknown Problems ALLERGIES No Information ENCOUNTERS Encounter Location Date Diagnosis POS [facility] [address] [facility] [id number] [address] [place] [id number] SP Apr, SP [facility] [address] [facility] [id number] [place] [address] SP Apr, Acute gastroenteritis K52.9 SP [facility] [address] [facility] [id number] [address] [place] [address] SP Mar, Arm pain, left M79.602 and C ontusion of arm, left, initial SP S40.022A [facility] [address] [facility] [id number] [address] [place] [phone] SP Aug, Acute pain of left shoulder M25.512 SP [facility] [address] [facility] [id number] [address] [place] [phone] SP Jul, Acute pain of left shoulder M25.512 SP [facility] [address] [facility] [id number] [address] [place] [id number] SP Jul, Nondisplaced fracture of fif th right metatarsal bone S92.354A SP [facility] [address] [facility] [id number] [address] [place] [phone] SP Jul, SP [facility] [address] [facility] [id number] [address] [place] [phone] SP Feb, History of back pain V13.59 SP [facility] [address] [facility] [id number] [address] [place] [phone] SP Dec, SP [facility] [address] [place] [id number] [address] [place] [id number] SP Dec, SP [facility] [address] [facility] [id number] [address] [place] [phone] SP Dec, Unspecified episodic mood di sorder 296.90 SP [facility] [address] [id number] [address] [place] [id number] SP Oct, SP [facility] [address] [id number] [address] [place] [phone] SP Oct, SP [facility] [address] [id number] [address] [place] [phone] SP Sep, SP [facility] [address] [facility] [id number] [address] [place] [phone] SP Sep, SP [facility] [address] [id number] [address] [place] [id number] SP Sep, SP [facility] [address] [id number] [address] [place] [phone] SP Sep, SP [facility] [address] [id number] [address] [place] [phone] SP Sep, SP [facility] [address] [facility] [id number] [address] [place] [phone] SP Sep, SP [facility] [address] [id number] [address] [place] [phone] SP Aug, SP [facility] [address] [id number] [address] [place] [phone] SP Aug, SP [facility] [address] [facility] [id number] [address] [place] [phone] SP Aug, SP [facility] [address] [facility] [id number] [address] [place] [phone] SP Aug, SP [facility] [address] [facility] [id number] [address] [place] [phone] SP Aug, 2014 SP [facility] [address] [id number] [address] [place] [phone] SP Aug, 2014 SP [facility] [address] [id number] [address] [place] [phone] SP Aug, 2014 SP [facility] [address] [id number] [address] [place] [phone] SP Aug, 2014 SP [facility] [address] [id number] [address] [place] [phone] SP Jul, SP [facility] [address] [id number] [address] [place] [phone] SP Jul, SP [facility] [address] [facility] [id number] [address] [place] [phone] SP Jun, SP [facility] [address] [id number] [address] [place] [phone] SP Jun, SP [facility] [address] [id number] [address] [place] [phone] SP Jun, SP [facility] [address] [id number] [address] [place] [phone] SP Jun, SP [facility] [address] [id number] [address] [place] [phone] SP Apr, SP [facility] [address] [id number] [address] [place] [id number] SP Apr, SP [facility] [address] [id number] [address] [place] [phone] SP Apr, SP [facility] [address] [facility] [id number] [address] [place] [phone] SP Apr, SP [facility] [address] [facility] [id number] [address] [place] [phone] SP Mar, SP [facility] [address] [id number] [address] [place] [address], [place] [address] SP Mar, SP [facility] [address] [id number] [address] [place] [address], [place] [address] SP Feb, SP [facility] [address] [id number] [address] [place] [address], [place] [address] SP Feb, SP [facility] [address] [id number] [address] [place] [address], [place] [address] SP Feb, SP [facility] [address] [id number] [address] [place] [address], [place] [address] SP Feb, SP [facility] [address] [id number] [address] [place] [address], [place] [address] SP Feb, SP [facility] [address] [id number] [address] [place] [address], [place] [address] SP Feb, SP [facility] [address] [id number] [address] [place] [address], [place] [address] SP Jan, SP [facility] [address] [id number] [address] [place] [address], [place] [address] SP Jan, SP [facility] [address] [id number] [address] [place] [address], [place] [address] SP Dec, SP [facility] [address] [id number] [address] [place] [address], [place] [address] SP Dec, SP [facility] [address] [id number] [address] [place] [address], [place] [address] SP November, SP [facility] [address] [id number] [address] [place] [address], [place] [address] SP November, SP [facility] [address] [id number] [address] [place] [address], [place] [address] SP Oct, SP [facility] [address] [id number] [address] [place] [address], [place] [address] SP Oct, SP [facility] [address] [id number] [address] [place] [address], [place] [address] SP Oct, SP [facility] [address] [id number] [address] [place] [address], [place] [address] SP Oct, SP [facility] [address] [id number] [address] [place] [address], [place] [address] SP Sep, SP [facility] [address] [id number] [address] [place] [address], [place] [address] SP Sep, SP [facility] [address] [id number] [address] [place] [address], [place] [address] SP Aug, SP [facility] [address] [id number] [address] [place] [address], [place] [address] SP Aug, SP [facility] [address] [id number] [address] [place] [address], [place] [address] SP Jul, SP [facility] [address] [id number] [address] [place] [address], [place] [address] SP Jul, SP [facility] [address] [id number] [address] [place] [address], [place] [address] SP Jun, SP [facility] [address] [id number] [address] [place] [id number] SP Jun, SP [facility] [address] [id number] [address] [place] [phone] SP May, SP [facility] [address] [id number] [address] [place] [address], [place] [address] SP May, SP [facility] [address] [id number] [address] [place] [address], [place] [address] SP May, SP [facility] [address] [id number] [address] [place] [phone] SP May, SP [facility] [address] [id number] [address] [place] [phone] SP Apr, SP [facility] [address] [id number] [address] [place] [address], [place] [address] SP Apr, SP [facility] [address] [id number] [address] [place] [address], [place] [address] SP Apr, SP [facility] [address] [id number] [address] [place] [address], [place] [address] SP Mar, SP [facility] [address] [id number] [address] [place] [address], [place] [address] SP Mar, SP [facility] [address] [id number] [address] [place] [address], [place] [address] SP Jan, SP [facility] [address] [id number] [address] [place] [address], [place] [address] SP Jan, SP [facility] [address] [id number] [address] [place] [address], [place] [address] SP Dec, SP [facility] [address] [id number] [address] [place] [address], [place] [address] SP November, SP [facility] [address] [id number] [address] [place] [address], [place] [address] SP Jul, SP [facility] [address] [id number] [address] [place] [address], [place] [address] SP May, SP [facility] [address] [id number] [address] [place] [address], [place] [address] SP May, SP [facility] [address] [id number] [address] [place] [address], [place] [address] SP Mar, SP [facility] [address] [id number] [address] [place] [address], [place] [address] SP Feb, SP [facility] [address] [id number] [address] [place] [address], [place] [address] SP Feb, SP [facility] [address] [facility] [id number] [address] [place] [phone] SP Feb, SP [facility] [address] [facility] [id number] [address] [place] [phone] SP Feb, SP [facility] [address] [facility] [id number] [address] [place] [phone] SP Jan, SP [facility] [address] [facility] [id number] [address] [place] [phone] SP Jan, SP [facility] [address] [facility] [id number] [address] [place] [phone] SP Jul, SP IMMUNIZATIONS No Known Immunizations SOCIAL HISTORY Never Assessed REASON FOR VISIT EMR-[facility] [place] PLAN OF CARE VITAL SIGNS MEDICATIONS Unknown Medications RESULTS No Results PROCEDURES No Known procedures INSTRUCTIONS MEDICATIONS ADMINISTERED No Known Medications MEDICAL (GENERAL) HISTORY Type Description Date POS Medical History asthma SP Medical History attention deficit hyperactivity disorder SP Medical History bipolar disorder SP Surgical History otolaryngologic surgery SP Surgical History appendectomy SP Hospitalization History [facility] for asthma as a child SP
--- OUTSIDE RECORDS SUMMARY | 2019-06-18 22:46 | XMS REPORT ---
Author Author Migration, Doctor POS Organization [facility] SP Address Unknown SP Phone Unavailable SP Care Team Providers Care Senior Game Developer Name Role Phone POS Migration, Doctor Unavailable Unavailable SP PROBLEMS Unknown Problems ALLERGIES No Information ENCOUNTERS Encounter Location Date Diagnosis POS [facility] [address] [facility] [id number] [address] [place] [phone] SP Apr, SP [facility] [address] [facility] [id number] [place] [address] SP Apr, Acute gastroenteritis K52.9 SP [facility] [address] [facility] [id number] [address] [place] [address] SP Mar, Arm pain, left M79.602 and C ontusion of arm, left, initial SP S40.022A [facility] [address] [facility] [id number] [address] [place] [address] SP Aug, Acute pain of left shoulder M25.512 SP [facility] [address] [facility] [id number] [address] [place] [address] SP Jul, Acute pain of left shoulder M25.512 SP [facility] [address] [facility] [id number] [address] [place] [address] SP Jul, Nondisplaced fracture of fif th right metatarsal bone S92.354A SP [facility] [address] [facility] [id number] [address] [place] [address] SP Jul, SP [facility] [address] [facility] [id number] [address] [place] [address] SP Feb, History of back pain V13.59 SP [facility] [address] [facility] [id number] [address] [place] [phone] SP Dec, SP [facility] [address] [place] [id number] [address] [place] [phone] SP Dec, SP [facility] [address] [facility] [id number] [address] [place] [address] SP Dec, Unspecified episodic mood di sorder 296.90 SP [facility] [address] [id number] [address] [place] [phone] SP Oct, SP [facility] [address] [id number] [address] [place] [phone] SP Oct, SP [facility] [address] [id number] [address] [place] [phone] SP Sep, SP [facility] [address] [facility] [id number] [address] [place] [phone] SP Sep, SP [facility] [address] [id number] [address] [place] [id number] SP Sep, SP [facility] [address] [id number] [address] [place] [phone] SP Sep, SP [facility] [address] [id number] [address] [place] [phone] SP Sep, SP [facility] [address] [facility] [id number] [address] [place] [phone] SP Sep, SP [facility] [address] [id number] [address] [place] [phone] SP Aug, SP [facility] [address] [id number] [address] [place] [phone] SP Aug, SP [facility] [address] [facility] [id number] [address] [place] [phone] SP Aug, SP [facility] [address] [facility] [id number] [address] [place] [phone] SP Aug, SP [facility] [address] [facility] [id number] [address] [place] [phone] SP Aug, 2014 SP [facility] [address] [id number] [address] [place] [phone] SP Aug, 2014 SP [facility] [address] [id number] [address] [place] [phone] SP Aug, 2014 SP [facility] [address] [id number] [address] [place] [phone] SP Aug, 2014 SP [facility] [address] [id number] [address] [place] [phone] SP Jul, SP [facility] [address] [id number] [address] [place] [phone] SP Jul, SP [facility] [address] [facility] [id number] [address] [place] [phone] SP Jun, SP [facility] [address] [id number] [address] [place] [phone] SP Jun, SP [facility] [address] [id number] [address] [place] [phone] SP Jun, SP [facility] [address] [id number] [address] [place] [phone] SP Jun, SP [facility] [address] [id number] [address] [place] [phone] SP Apr, SP [facility] [address] [id number] [address] [place] [phone] SP Apr, SP [facility] [address] [id number] [address] [place] [phone] SP Apr, SP [facility] [address] [facility] [id number] [address] [place] [phone] SP Apr, SP [facility] [address] [facility] [id number] [address] [place] [phone] SP Mar, SP [facility] [address] [id number] [address] [place] [address], [place] [address] SP Mar, SP [facility] [address] [id number] [address] [place] [address], [place] [address] SP Feb, SP [facility] [address] [id number] [address] [place] [address], [place] [address] SP Feb, SP [facility] [address] [id number] [address] [place] [address], [place] [address] SP Feb, SP [facility] [address] [id number] [address] [place] [address], [place] [address] SP Feb, SP [facility] [address] [id number] [address] [place] [address], [place] [address] SP Feb, SP [facility] [address] [id number] [address] [place] [address], [place] [address] SP Feb, SP [facility] [address] [id number] [address] [place] [address], [place] [address] SP Jan, SP [facility] [address] [id number] [address] [place] [address], [place] [address] SP Jan, SP [facility] [address] [id number] [address] [place] [address], [place] [address] SP Dec, SP [facility] [address] [id number] [address] [place] [address], [place] [address] SP Dec, SP [facility] [address] [id number] [address] [place] [address], [place] [address] SP November, SP [facility] [address] [id number] [address] [place] [address], [place] [address] SP November, SP [facility] [address] [id number] [address] [place] [address], [place] [address] SP Oct, SP [facility] [address] [id number] [address] [place] [address], [place] [address] SP Oct, SP [facility] [address] [id number] [address] [place] [address], [place] [address] SP Oct, SP [facility] [address] [id number] [address] [place] [address], [place] [address] SP Oct, SP [facility] [address] [id number] [address] [place] [address], [place] [address] SP Sep, SP [facility] [address] [id number] [address] [place] [address], [place] [address] SP Sep, SP [facility] [address] [id number] [address] [place] [address], [place] [address] SP Aug, SP [facility] [address] [id number] [address] [place] [address], [place] [address] SP Aug, SP [facility] [address] [id number] [address] [place] [address], [place] [address] SP Jul, SP [facility] [address] [id number] [address] [place] [address], [place] [address] SP Jul, SP [facility] [address] [id number] [address] [place] [address], [place] [address] SP Jun, SP [facility] [address] [id number] [address] [place] [id number] SP Jun, SP [facility] [address] [id number] [address] [place] [address] SP May, SP [facility] [address] [id number] [address] [place] [address], [place] [address] SP May, SP [facility] [address] [id number] [address] [place] [address], [place] [address] SP May, SP [facility] [address] [id number] [address] [place] [address] SP May, SP [facility] [address] [id number] [address] [place] [address] SP Apr, SP [facility] [address] [id number] [address] [place] [address], [place] [address] SP Apr, SP [facility] [address] [id number] [address] [place] [address], [place] [address] SP Apr, SP [facility] [address] [id number] [address] [place] [address], [place] [address] SP Mar, SP [facility] [address] [id number] [address] [place] [address], [place] [address] SP Mar, SP [facility] [address] [id number] [address] [place] [address], [place] [address] SP Jan, SP [facility] [address] [id number] [address] [place] [address], [place] [address] SP Jan, SP [facility] [address] [id number] [address] [place] [address], [place] [address] SP Dec, SP [facility] [address] [id number] [address] [place] [address], [place] [address] SP November, SP [facility] [address] [id number] [address] [place] [address], [place] [address] SP Jul, SP [facility] [address] [id number] [address] [place] [address], [place] [address] SP May, SP [facility] [address] [id number] [address] [place] [address], [place] [address] SP May, SP [facility] [address] [id number] [address] [place] [address], [place] [address] SP Mar, SP [facility] [address] [id number] [address] [place] [address], [place] [address] SP Feb, SP [facility] [address] [id number] [address] [place] [address], [place] [address] SP Feb, SP [facility] [address] [facility] [id number] [address] [place] [phone] SP Feb, SP [facility] [address] [facility] [id number] [address] [place] [phone] SP Feb, SP [facility] [address] [facility] [id number] [address] [place] [address] SP Jan, SP [facility] [address] [facility] [id number] [address] [place] [address] SP Jan, SP [facility] [address] [facility] [id number] [address] [place] [phone] SP Jul, SP IMMUNIZATIONS No Known Immunizations SOCIAL HISTORY Never Assessed REASON FOR VISIT [place] [place] VITAL SIGNS MEDICATIONS Unknown Medications RESULTS No Results PROCEDURES No Known procedures INSTRUCTIONS MEDICATIONS ADMINISTERED No Known Medications MEDICAL (GENERAL) HISTORY Type Description Date POS Medical History asthma SP Medical History attention deficit hyperactivity disorder SP Medical History bipolar disorder SP Surgical History otolaryngologic surgery SP Surgical History appendectomy SP Hospitalization History [facility] for asthma as a child SP
--- OUTSIDE RECORDS SUMMARY | 2019-06-18 22:46 | XMS REPORT ---
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 [id number] [address] [place] [phone] SP Apr, SP [facility] [address] [facility] [id number] [place] [address] SP Apr, Acute gastroenteritis K52.9 SP [facility] [address] [facility] [id number] [address] [place] [address] SP Mar, Arm pain, left M79.602 and C ontusion of arm, left, initial SP S40.022A [facility] [address] [facility] [id number] [address] [place] [address] SP Aug, Acute pain of left shoulder M25.512 SP [facility] [address] [facility] [id number] [address] [place] [address] SP Jul, Acute pain of left shoulder M25.512 SP [facility] [address] [facility] [id number] [address] [place] [address] SP Jul, Nondisplaced fracture of fif th right metatarsal bone S92.354A SP [facility] [address] [facility] [id number] [address] [place] [phone] SP Jul, SP [facility] [address] [facility] [id number] [address] [place] [address] SP Feb, History of back pain V13.59 SP [facility] [address] [facility] [id number] [address] [place] [phone] SP Dec, SP [facility] [address] [place] [id number] [address] [place] [phone] SP Dec, SP [facility] [address] [facility] [id number] [address] [place] [phone] SP Dec, Unspecified episodic mood di sorder 296.90 SP [facility] [address] [id number] [address] [place] [id number] SP Oct, SP [facility] [address] [id number] [address] [place] [phone] SP Oct, SP [facility] [address] [id number] [address] [place] [phone] SP Sep, SP [facility] [address] [facility] [id number] [address] [place] [phone] SP Sep, SP [facility] [address] [id number] [address] [place] [id number] SP Sep, SP [facility] [address] [id number] [address] [place] [phone] SP Sep, SP [facility] [address] [id number] [address] [place] [phone] SP Sep, SP [facility] [address] [facility] [id number] [address] [place] [phone] SP Sep, SP [facility] [address] [id number] [address] [place] [phone] SP Aug, SP [facility] [address] [id number] [address] [place] [id number] SP Aug, SP [facility] [address] [facility] [id number] [address] [place] [phone] SP Aug, SP [facility] [address] [facility] [id number] [address] [place] [phone] SP Aug, SP [facility] [address] [facility] [id number] [address] [place] [id number] SP Aug, 2014 SP [facility] [address] [id number] [address] [place] [phone] SP Aug, 2014 SP [facility] [address] [id number] [address] [place] [id number] SP Aug, 2014 SP [facility] [address] [id number] [address] [place] [id number] SP Aug, 2014 SP [facility] [address] [id number] [address] [place] [phone] SP Jul, SP [facility] [address] [id number] [address] [place] [id number] SP Jul, SP [facility] [address] [facility] [id number] [address] [place] [phone] SP Jun, SP [facility] [address] [id number] [address] [place] [phone] SP Jun, SP [facility] [address] [id number] [address] [place] [id number] SP Jun, SP [facility] [address] [id number] [address] [place] [phone] SP Jun, SP [facility] [address] [id number] [address] [place] [phone] SP Apr, SP [facility] [address] [id number] [address] [place] [id number] SP Apr, SP [facility] [address] [id number] [address] [place] [phone] SP Apr, SP [facility] [address] [facility] [id number] [address] [place] [phone] SP Apr, SP [facility] [address] [facility] [id number] [address] [place] [phone] SP Mar, SP [facility] [address] [id number] [address] [place] [address], [place] [address] SP Mar, SP [facility] [address] [id number] [address] [place] [address], [place] [address] SP Feb, SP [facility] [address] [id number] [address] [place] [address], [place] [address] SP Feb, SP [facility] [address] [id number] [address] [place] [address], [place] [address] SP Feb, SP [facility] [address] [id number] [address] [place] [address], [place] [address] SP Feb, SP [facility] [address] [id number] [address] [place] [address], [place] [address] SP Feb, SP [facility] [address] [id number] [address] [place] [address], [place] [id number] SP Feb, SP [facility] [address] [id number] [address] [place] [address], [place] [address] SP Jan, SP [facility] [address] [id number] [address] [place] [address], [place] [address] SP Jan, SP [facility] [address] [id number] [address] [place] [address], [place] [address] SP Dec, SP [facility] [address] [id number] [address] [place] [address], [place] [address] SP Dec, SP [facility] [address] [id number] [address] [place] [address], [place] [address] SP November, SP [facility] [address] [id number] [address] [place] [address], [place] [address] SP November, SP [facility] [address] [id number] [address] [place] [address], [place] [address] SP Oct, SP [facility] [address] [id number] [address] [place] [address], [place] [id number] SP Oct, SP [facility] [address] [id number] [address] [place] [address], [place] [id number] SP Oct, SP [facility] [address] [id number] [address] [place] [address], [place] [address] SP Oct, SP [facility] [address] [id number] [address] [place] [address], [place] [address] SP Sep, SP [facility] [address] [id number] [address] [place] [address], [place] [id number] SP Sep, SP [facility] [address] [id number] [address] [place] [address], [place] [id number] SP Aug, SP [facility] [address] [id number] [address] [place] [address], [place] [address] SP Aug, SP [facility] [address] [id number] [address] [place] [address], [place] [id number] SP Jul, SP [facility] [address] [id number] [address] [place] [address], [place] [id number] SP Jul, SP [facility] [address] [id number] [address] [place] [address], [place] [id number] SP Jun, SP [facility] [address] [id number] [address] [place] [id number] SP Jun, SP [facility] [address] [id number] [address] [place] [id number] SP May, SP [facility] [address] [id number] [address] [place] [address], [place] [address] SP May, SP [facility] [address] [id number] [address] [place] [address], [place] [id number] SP May, SP [facility] [address] [id number] [address] [place] [id number] SP May, SP [facility] [address] [id number] [address] [place] [id number] SP Apr, SP [facility] [address] [id number] [address] [place] [address], [place] [address] SP Apr, SP [facility] [address] [id number] [address] [place] [address], [place] [id number] SP Apr, SP [facility] [address] [id number] [address] [place] [address], [place] [address] SP Mar, SP [facility] [address] [id number] [address] [place] [address], [place] [address] SP Mar, SP [facility] [address] [id number] [address] [place] [address], [place] [address] SP Jan, SP [facility] [address] [id number] [address] [place] [address], [place] [address] SP Jan, SP [facility] [address] [id number] [address] [place] [address], [place] [id number] SP Dec, SP [facility] [address] [id number] [address] [place] [address], [place] [id number] SP November, SP [facility] [address] [id number] [address] [place] [address], [place] [address] SP Jul, SP [facility] [address] [id number] [address] [place] [address], [place] [address] SP May, SP [facility] [address] [id number] [address] [place] [address], [place] [address] SP May, SP [facility] [address] [id number] [address] [place] [address], [place] [address] SP Mar, SP [facility] [address] [id number] [address] [place] [address], [place] [address] SP Feb, SP [facility] [address] [id number] [address] [place] [address], [place] [address] SP Feb, SP [facility] [address] [facility] [id number] [address] [place] [id number] SP Feb, SP [facility] [address] [facility] [id number] [address] [place] [id number] SP Feb, SP [facility] [address] [facility] [id number] [address] [place] [id number] SP Jan, SP [facility] [address] [facility] [id number] [address] [place] [id number] SP Jan, SP [facility] [address] [facility] [id number] [address] [place] [id number] SP Jul, SP IMMUNIZATIONS No Known Immunizations SOCIAL HISTORY Never Assessed [place] [place] VITAL SIGNS MEDICATIONS Unknown [...]
--- OUTSIDE RECORDS SUMMARY | 2019-06-18 22:48 | XMS REPORT | Continuity of Care Document ---
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 leukocytes automated count (number/volume) 8.6 10*3/uL POS 4.3-11.0 SP Blood erythrocytes automated count (number/volume) 4.62 10*6/uL SP 4.35-5.85 SP Venous blood hemoglobin measurement (mass/volume) 14.5 g/dL SP17.7 Blood hematocrit (volume fraction) 42 % 40-54 SP Automated erythrocyte mean corpuscular volume 92 [ foz_us] SP99 Automated erythrocyte mean corpuscular h emoglobin (mass per erythrocyte) SP 31 pg 25-34 SP Automated erythrocyte mean corpuscular h emoglobin concentration measurement SP 34 g/dL 32-36 SP Automated erythrocyte distribution width ratio 12. 7 % 10.0- SP Automated blood platelet count (count/volume) 274 10*3/uL SP400 Automated blood platelet mean volume measurement 9.0 [foz_us] SP 7.4-10.4 SP Automated blood neutrophils/100 leukocytes 55 % 42-75 SP Automated blood lymphocytes/100 leukocytes 24 % 12-44 SP Blood monocytes/100 leukocytes 14 % 0-12 SP Automated blood eosinophils/100 leukocytes 6 % 0-10 SP Automated blood basophils/100 leukocytes 1 % 0-10 SP Blood neutrophils automated count (number/volume) 4.7 10*3 SP7.8 Blood lymphocytes automated count (number/volume) 2.1 10*3 SP4.0 Blood monocytes automated count (number/volume) 1. 2 10*3 SP1.0 Automated eosinophil count 0.5 10*3/uL 0 .0-0.3 SP Automated blood basophil count (count/volume) 0.1 10*3/uL SP0.1 Comprehensive metabolic panel - 04/01/19 06:32 POS Serum or plasma sodium measurement (moles/volume) 142 mmol/L SP 135-145 SP Serum or plasma potassium measurement (moles/volume) 3.9 mmol/L SP 3.6-5.0 SP Serum or plasma chloride measurement (moles/volume) 106 mmol/L SP 98-107 SP Carbon dioxide 27 mmol/L 21-32 SP Serum or plasma anion gap determination (moles/volume) 9 mmol/L SP 5-14 SP Serum or plasma urea nitrogen measurement (mass/volume ) 11 mg/dL SP 7-18 SP Serum or plasma creatinine measurement (mass/volume) 1.02 mg/dL SP 0.60-1.30 SP Serum or plasma urea nitrogen/creatinine mass ratio 11 NRG SP Serum or plasma creatinine measurement w ith calculation of estimated glomerular SP rate > NRG SP Serum or plasma glucose measurement (mass/volume) 95 mg/dL SP105 Serum or plasma calcium measurement (mass/volume) 9.7 mg/dL SP10.1 Serum or plasma total bilirubin measurement (mass/volu me) 0.7 mg/dL SP 0.1-1.0 SP Serum or plasma alkaline phosphatase bubba surement (enzymatic activity/volume) SP 125 U/L 40-136 SP Serum or plasma aspartate aminotransfera se measurement (enzymatic SP 21 U/L 5-34 SP Serum or plasma alanine aminotransferase measurement (enzymatic activity/volume) SP 26 U/L 0-55 SP Serum or plasma protein measurement (mass/volume) 7.2 g/dL SP8.2 Serum or plasma albumin measurement (mass/volume) 4.1 g/dL SP4.5 CALCIUM CORRECTED 9.6 mg/dL 8.5-10.1 SP Lipase - 04/01/19 06:32 POS Lipase 34 U/L 8-78 SP Complete blood count (CBC) with automate d white blood cell (WBC) differential - POS 07:10 Blood leukocytes automated count (number/volume) 8.2 10*3/uL POS 4.3-11.0 SP Blood erythrocytes automated count (number/volume) 4.87 10*6/uL SP 4.35-5.85 SP Venous blood hemoglobin measurement (mass/volume) 15.2 g/dL SP17.7 Blood hematocrit (volume fraction) 45 % 40-54 SP Automated erythrocyte mean corpuscular volume 92 [ foz_us] SP99 Automated erythrocyte mean corpuscular h emoglobin (mass per erythrocyte) SP 31 pg 25-34 SP Automated erythrocyte mean corpuscular h emoglobin concentration measurement SP 34 g/dL 32-36 SP Automated erythrocyte distribution width ratio 12. 5 % 10.0- SP Automated blood platelet count (count/volume) 254 10*3/uL SP400 Automated blood platelet mean volume measurement 9.2 [foz_us] SP 7.4-10.4 SP Automated blood neutrophils/100 leukocytes 65 % 42-75 SP Automated blood lymphocytes/100 leukocytes 19 % 12-44 SP Blood monocytes/100 leukocytes 12 % 0-12 SP Automated blood eosinophils/100 leukocytes 4 % 0-10 SP Automated blood basophils/100 leukocytes 1 % 0-10 SP Blood neutrophils automated count (number/volume) 5.3 10*3 SP7.8 Blood lymphocytes automated count (number/volume) 1.5 10*3 SP4.0 Blood monocytes automated count (number/volume) 1. 0 10*3 SP1.0 Automated eosinophil count 0.3 10*3/uL 0 .0-0.3 SP Automated blood basophil count (count/volume) 0.1 10*3/uL SP0.1 Serum or plasma troponin i.cardiac measu rement (mass/volume) - 05/26/19 07:10 POS Serum or plasma troponin i.cardiac measurement (mass/v olume) < ng/mL POS <0.028 SP Encounters ACCT No. Visit Date/Time Discharge Status POS Pt. Type Provider Facility Loc./Un it POS Complaint POS [id number] 10/18/2014 10:52:00 10/18/2014 23:59: 59 [facility] Outpatient ALCIDES HAMPTON APRN [id number] 10/18/2014 10:52:00 10/18/2014 23:59: 59 CLS SP Outpatient ALCIDES HAMPTON APRN [id number] 09/05/2014 15:58:00 09/05/2014 23:59: 59 CLS DAVID Outpatient ALCIDES HAMPTON APRN [id number] 07/29/2014 18:46:00 07/29/2014 23:59: 59 CLS SP Outpatient SALVADOR DOMEENA SP SP [id number] 05/06/2014 16:32:00 05/06/2014 23:59: 59 CLS SP Outpatient KINCAID DDS, TONYA SP SP [id number] 04/10/2014 12:55:00 04/10/2014 23:59: 59 CLS SP Outpatient KAT DDS, TIMMY Vaca SP SP [id number] 04/01/2014 12:15:00 04/01/2014 23:59: 59 CLS SP Outpatient KAE ACCOUNTING OFFICERNIDA SP SP [id number] 03/21/2014 14:22:00 03/21/2014 23:59: 59 CLS SP Outpatient DEBBY ACCOUNTING OFFICERRYAN SP SP [id number] 11/13/2013 12:23:00 11/13/2013 23:59: 59 CLS SP Outpatient DEBBY ACCOUNTING OFFICERRYAN SP SP [id number] 07/12/2013 13:45:00 07/12/2013 23:59: 59 CLS SP Outpatient NATHAN DDS, OJ Jack SP SP [id number] 06/01/2013 10:48:00 06/01/2013 23:59: 59 CLS SP Outpatient DEBBY ACCOUNTING OFFICERRYAN SP SP [id number] 04/03/2013 10:21:00 04/03/2013 23:59: 59 CLS SP Outpatient DEBBY ACCOUNTING OFFICERRYAN SP SP [id number] 06/13/2012 12:52:00 06/13/2012 23:59: 59 CLS SP Outpatient DEBBY ACCOUNTING OFFICERRYAN SP SP [id number] 12/08/2012 15:23:00 Document SP SP [id number] 05/26/2019 06:08:00 019 09:29:00 SP DIS Emergency ALBIN THOMAS MD Via [facility] ER SMITH,CP SP [id number] 04/01/2019 05:58:00 019 08:20:00 SP DIS Emergency ALBIN THOMAS MD [facility] ER THROWING UP BLOOD, COUGHING , RUNNY NOSE SP [id number] 05/02/2018 14:07:00 018 15:50:00 SP DIS Emergency BEBE JURADO [facility] ER THROAT SWELLING SHUT SP [id number] 12/06/2017 01:05:00 018 01:52:00 SP DIS Emergency JACKIE FERNANDO [facility] ER RT FOOR PAIN,SWOLLEN SP [id number] 07/25/2017 22:07:00 018 23:39:00 SP DIS Emergency ELENA CALDERA MD [facility] ER RT KNEE PAIN SP [id number] 07/05/2017 14:43:00 017 15:21:00 SP DIS Emergency SHELLEY HOLCOMB ACCOUNTING OFFICER Via [facility] ER HEADACHE SP [id number] 02/01/2017 13:16:00 017 14:49:00 SP DIS Emergency NIXON GONZALEZ [facility] ER STOMACHE PAIN SP [id number] 12/14/2016 19:10:00 017 23:59:59 SP CLS Emergency CRYSTAL CUI, HOLLIS Webb [facility] ER HARD TIME BREATHING WHEN LAYING SP [id number] 09/19/2016 01:07:00 017 03:45:00 SP DIS Emergency NIDA NOEL DO Via [facility] ER L LEG PAIN NUMBNESS SP [id number] 08/10/2016 21:02:00 017 23:00:00 SP DIS Emergency FERNANDO MEJIA DO [facility] ER L ARM PAIN/INJURY SP [id number] 12/08/2015 20:50:00 016 21:54:00 SP DIS Emergency CRYSTAL CUI, HOLLIS Webb [facility] ER DIFF BREATHING/COUGH /SORE THROAT SP [id number] 07/26/2015 23:32:00 016 00:18:00 SP DIS Emergency BEENA YANES MD [facility] ER FALL, RT HAND PAIN SP [id number] 04/20/2015 23:55:00 015 01:30:00 SP DIS Emergency NIXON GONZALEZ [facility] ER RIGHT FOOT PAIN/SWEL LING SP [id number] 04/03/2015 13:07:00 015 16:16:00 SP DIS Emergency NIXON GONZALEZ [facility] ER POSS FB IN LEFT EYE SP [id number] 02/23/2015 10:20:00 12:25:00 SP DIS Emergency NIXON GONZALEZ [facility] ER RASH SP [id number] 08/08/2014 11:50:00 23:59:59 SP CLS Outpatient HOLLIS WIGGINS [facility] RAD LEFT TESTICULAR MASS SP [id number] 05/03/2014 20:40:00 014 20:50:00 SP DIS Emergency SHELLEY HOLCOMB APRN Via [facility] ER DENTAL PAIN SP [id number] 09/04/2013 04:40:00 014 09:55:00 SP DIS Outpatient JOSHUA WILLETT DO Via [facility] SDC ACUTE ON CHRONIC IVAN ENDICITIS SP [id number] 08/08/2013 18:48:00 23:59:59 SP CLS Outpatient SP [id number] 02/23/2015 10:20:00 SP Registration SP [id number] 12/08/2011 08:54:00 SP Registration SP [id number] 04/14/2010 11:20:[place] [id number] 01/17/2019 13:20:00 01/17/2019 23:59:5 9 CLS SP Outpatient [facility] SP [facility] SP
== END 2019-05-26 09:29 | disposition home or self-care (01) ==
LOC: EDUNIT# 06:06 → ER 06:08
DX: J06.9 Acute upper respiratory infection, unspecified (principal); J45.909 Unspecified asthma, uncomplicated; F31.9 Bipolar disorder, unspecified; F90.9 Attention-deficit hyperactivity disorder, unspecified type; Z90.49 Acquired absence of other specified parts of digestive tract; Z82.49 Family history of ischemic heart disease and other diseases of the circulatory system
CPT/HCPCS: 36415; 71045; 84484; 85025; 93005; 96360; 96361

== ENCOUNTER → 2019-06-26 | Outpatient (CLI) | payer OTHER ==
[2019-06-26 11:34] LABS: SEMEN VOLUME 1.6 ML (1.5-5.0)
== END ==
LOC: LAB 09:59
PROVIDERS: ATTEND Physician Assistant
DX: N46.9 Male infertility, unspecified (principal)
CPT/HCPCS: 89320

== ENCOUNTER 2019-11-07 05:01 | Emergency (ER) | payer OTHER ==
[~2019-11-07] VITALS: Ht 172 cm; Wt 95.5 kg
--- OUTSIDE RECORDS SUMMARY | 2019-11-07 05:10 | XMS REPORT ---
Author Author Paddy Acevedo Doctor Organization [facility] Address Unknown Phone Unavailable Care Team Providers Care Bottom Turning Lathe Turner Name Role Phone Migration, Doctor Unavailable Unavailable PROBLEMS Type Condition ICD9-CM Code FVM63-IB Code Onset Dates Condition S tatus SNOMED Code Problem Infertility male N46.9 Active 290 4007 Problem Obesity (BMI 30.0-34.9) E66.9 Active [id number] ALLERGIES No Information ENCOUNTERS Encounter Location Date Diagnosis [facility] [address] [id number] Aug, Dental examination Z01.20 [facility] [address] [place] [id number] Jul, Dental examination Z01.20 and Caries K02 .[address] [address] [address] Jun, Bilious vomiting with nausea R11.[address] [address] Jun, Infertility male N46.9 and Obesity (BMI 30.0-34.9) E66.9 [address] [address] [address] Dec, [address] [address] Apr, [facility] [address] [facility] [id number] [place] [address] Apr, Acute gastroenteritis K52.9 [facility] [address] [place] [id number] [address] [place] [address] Mar, Arm pain, left M79.602 and C ontusion of arm, left, initial encounter [address]40.[address] [place] [id number] Aug, Acute pain of left shoulder M25.512 [facility] [id number] [place] [address] Jul, Acute pain of left shoulder M25.512 [facility] [id number] [place] [address] Jul, Nondisplaced fracture of fifth right met atarsal bone S92.354A [facility] [id number] [place] [address] Jul, [facility] [address] [address] Feb, History of back pain V13.59 [facility] [id number] [place] [address] Dec, [facility] [id number] [place] [address] Dec, [facility] [id number] [place] [address] Dec, Unspecified episodic mood disorder 296.9 0 [facility] [address] [address] Oct, [facility] [id number] [place] [address] Oct, [facility] [id number] [place] [address] Sep, [facility] [id number] [place] [address] Sep, [facility] [address] [id number] [place] [id number] Sep, [facility] [id number] [place] [address] Sep, [facility] [id number] [place] [address] Sep, [facility] [id number] [place] [address] Sep, [facility] [address] [id number] [place] [address] Aug, [facility] [address] [id number] [place] [address] Aug, 2014 [facility] [address] [id number] [place] [address] Aug, 2014 [facility] [address] [id number] [place] [address] Aug, 2014 [facility] [address] [id number] [place] [address] Aug, [facility] [address] [id number] [place] [address] Aug, 2014 [facility] [address] [id number] [place] [address] Aug, [facility] [address] [id number] [place] [address] Aug, [facility] [address] [id number] [place] [address] Jul, [facility] [address] [id number] [place] [address] Jul, [facility] [address] [id number] [place] [address] Jun, [facility] [address] [id number] [place] [address] Jun, [facility] [address] [id number] [place] [address] Jun, [facility] [id number] [place] [address] Jun, [facility] [address] [id number] [place] [address] Apr, [facility] [id number] [place] [address] Apr, [facility] [address] [id number] [place] [address] Apr, [facility] [address] [id number] [place] [address] Apr, [facility] [address] [id number] [place] [address] Mar, [facility] [address] [id number] [place] [address] Mar, [facility] [address] [facility] [id number] [place] [address] Feb, [facility] [address] [id number] [place] [address] Feb, [facility] [address] [id number] [place] [address] Feb, [facility] [address] [id number] [place] [address] Feb, [facility] [address] [id number] [place] [address] Feb, [facility] [address] [id number] [place] [address] Feb, [facility] [address] [id number] [place] [address] Jan, [facility] [address] [id number] [place] [address] Jan, [facility] [address] [id number] [place] [address] Dec, [facility] [address] [id number] [place] [address] Dec, [facility] [address] [id number] [place] [address] November, [facility] [address] [id number] [place] [address] November, [facility] [address] [id number] [place] [address] Oct, [facility] [address] [id number] [place] [address] Oct, [facility] [address] [id number] [place] [address] Oct, [facility] [address] [id number] [place] [address] Oct, [facility] [address] [id number] [place] [address] Sep, [facility] [address] [id number] [place] [address] Sep, [facility] [address] [id number] [place] [address] Aug, [facility] [address] [id number] [place] [address] Aug, [facility] [address] [id number] [place] [address] Jul, [facility] [address] [id number] [place] [address] Jul, [facility] [id number] [place] [address] Jun, [facility] [address] [id number] [place] [address] Jun, [facility] [id number] [place] [address] May, [facility] [address] [id number] [place] [address] May, [facility] [id number] [place] [address] May, [facility] [address] [id number] [place] [address] May, [facility] [address] [id number] [place] [address] Apr, [facility] [address] [id number] [place] [address] Apr, [facility] [address] [id number] [place] [address] Apr, [facility] [address] [id number] [place] [address] 13 Mar, 2013 [facility] [address] [id number] [place] [address] Mar, [facility] [address] [id number] [place] [address] Jan, [facility] [address] [id number] [place] [address] Jan, [facility] [address] [id number] [place] [address] Dec, [facility] [address] [id number] [place] [address] November, [facility] [address] [id number] [place] [address] Jul, [facility] [address] [id number] [place] [address] May, [facility] [address] [id number] [place] [address] May, [facility] [address] [id number] [place] [address] Mar, [facility] [address] [id number] [place] [address] Feb, [facility] [address] [id number] [place] [address] Feb, [facility] [address] [id number] [place] [address] Feb, [facility] [address] [id number] [place] [address] Feb, [facility] [address] [id number] [place] [address] Jan, [facility] [address] [facility] [id number] [place] [address] Jan, [facility] [address] [id number] [place] [address] Jul, IMMUNIZATIONS No Known Immunizations SOCIAL HISTORY Never Assessed REASON FOR VISIT PLAN OF CARE VITAL SIGNS MEDICATIONS Unknown Medications RESULTS No Results PROCEDURES No Known procedures INSTRUCTIONS MEDICATIONS ADMINISTERED No Known Medications MEDICAL (GENERAL) HISTORY Type Description Date Medical History asthma Medical History attention deficit hyperactivity disorder Medical History bipolar disorder Surgical History otolaryngologic surgery Surgical History appendectomy Hospitalization History [facility] for asthma as a child
--- OUTSIDE RECORDS SUMMARY | 2019-11-07 05:10 | XMS REPORT ---
Author Author Paddy Acevedo Doctor Organization [facility] Address Unknown Phone Unavailable Care Team Providers Care Central Supply Supervisor Name Role Phone Migration, Doctor Unavailable Unavailable PROBLEMS Type Condition ICD9-CM Code LZB95-CV Code Onset Dates Condition S tatus SNOMED Code Problem Infertility male N46.9 Active 290 4007 Problem Obesity (BMI 30.0-34.9) E66.9 Active [id number] ALLERGIES No Information ENCOUNTERS Encounter Location Date Diagnosis [place] [address] [id number] Sep, [place] [address] [address] Sep, [place] [address] [address] Sep, Hematemesis with nausea K92. 0 ; Obesity (BMI 30.0-34.9) E66.9 and Generalized abdominal pain R10.84 [facility] [id number] [place] [address] [id number] Aug, Dental examination Z01.20 [facility] [id number] [place] [address] [id number] Jul, Dental examination Z01.20 an d Caries K02.9 [place] [address] [id number] [address] [place] [address] Jun, Bilious vomiting with nausea R11.14 [place] [address] [address] Jun, Infertility male N46.9 and O besity (BMI 30.0-34.9) E66.9 [place] [address] [id number] [address] [place] [address] Dec, [facility] [place] [address] [id number] [address] [place] [address] Apr, [facility] [address] [facility] [id number] [address] [place] [address] Apr, Acute gastroenteritis K52.9 [facility] [address] [facility] [id number] [address] [place] [address] Mar, Arm pain, left M79.602 and C ontusion of arm, left, initial encounter S40.022A [facility] [place] [address] [facility] [id number] [address] [place] [address] Aug, Acute pain of left shoulder M25.512 [facility] [place] [address] [facility] [id number] [address] [place] [address] Jul, Acute pain of left shoulder M25.512 [facility] [place] [address] [id number] [address] [place] [address] Jul, Nondisplaced fracture of fif th right metatarsal bone S92.354A [facility] [place] [address] [facility] [id number] [address] [place] [address] Jul, [facility] [place] [address] [facility] [id number] [address] [place] [address] Feb, History of back pain V13.59 [facility] [place] [address] [facility] [id number] [address] [place] [address] Dec, [facility] [place] [address] [id number] [address] [place] [address] Dec, [facility] [place] [address] [facility] [id number] [address] [place] [address] Dec, Unspecified episodic mood di sorder 296.90 [facility] [place] [address] [facility] [id number] [address] [place] [address] 14 Oct, 2014 [facility] [place] [address] [id number] [address] [place] [address] Oct, [facility] [address] [id number] [address] [place] [address], [place] [address] Sep, [facility] [address] [id number] [address] [place] [address], [place] [address] Sep, [facility] [address] [id number] [address] [place] [address] [id number] Sep, [facility] [address] [id number] [address] [place] [address], [place] [address] Sep, [facility] [address] [id number] [address] [place] [address], [place] [address] Sep, [facility] [address] [id number] [address] [place] [address], [place] [address] Sep, [facility] [address] [id number] [address] [place] [address], [place] [address] Aug, [facility] [address] [id number] [address] [place] [address] Aug, [facility] [address] [id number] [address] [place] [address], [place] [address] Aug, [facility] [address] [id number] [address] [place] [address], [place] [address] Aug, [facility] [address] [id number] [address] [place] [address], [place] [address] Aug, [facility] [address] [id number] [address] [place] [address] Aug, [facility] [address] [id number] [address] [place] [address], [place] [address] Aug, [facility] [address] [id number] [address] [place] [address], [place] [address] Aug, [facility] [address] [id number] [address] [place] [address], [place] [address] Jul, [facility] [address] [id number] [address] [place] [address], [place] [address] Jul, [facility] [address] [id number] [address] [place] [address], [place] [address] Jun, [facility] [address] [id number] [address] [place] [address], [place] [address] Jun, [facility] [address] [id number] [address] [place] [address], [place] [address] Jun, [facility] [address] [id number] [address] [place] [address], [place] [address] Jun, [facility] [address] [id number] [address] [place] [address], [place] [address] Apr, [facility] [address] [id number] [address] [place] [address], [place] [address] Apr, [facility] [address] [id number] [address] [place] [address], [place] [address] Apr, [facility] [address] [id number] [address] [place] [address], [place] [address] Apr, [facility] [address] [id number] [address] [place] [address], [place] [address] Mar, [facility] [address] [id number] [address] [place] [address], [place] [address] Mar, [facility] [address] [id number] [address] [place] [address], [place] [address] Feb, [facility] [address] [id number] [address] [place] [address], [place] [address] Feb, [facility] [address] [id number] [address] [place] [address], [place] [address] Feb, [facility] [address] [id number] [address] [place] [address], [place] [address] Feb, [facility] [address] [id number] [address] [place] [address], [place] [address] Feb, [facility] [address] [id number] [address] [place] [address], [place] [address] Feb, [facility] [address] [id number] [address] [place] [address], [place] [address] Jan, [facility] [address] [id number] [address] [place] [address], [place] [address] Jan, [facility] [address] [id number] [address] [place] [address], [place] [address] Dec, [facility] [address] [id number] [address] [place] [address], [place] [address] Dec, [facility] [address] [id number] [address] [place] [address], [place] [address] November, [facility] [address] [id number] [address] [place] [address], [place] [address] November, [facility] [address] [id number] [address] [place] [address], [place] [address] Oct, [facility] [address] [id number] [address] [place] [address], [place] [address] Oct, [facility] [address] [id number] [address] [place] [address], [place] [address] Oct, [facility] [address] [id number] [address] [place] [address], [place] [address] Oct, [facility] [address] [id number] [address] [place] [address], [place] [address] Sep, [facility] [address] [id number] [address] [place] [address], [place] [address] Sep, [facility] [address] [id number] [address] [place] [address], [place] [address] Aug, [facility] [address] [id number] [address] [place] [address], [place] [address] Aug, [facility] [address] [id number] [address] [place] [address], [place] [address] Jul, [facility] [address] [id number] [address] [place] [address], [place] [address] Jul, [facility] [address] [id number] [address] [place] [address], [place] [address] Jun, [facility] [address] [id number] [address] [place] [address], [place] [address] Jun, [facility] [address] [id number] [address] [place] [address], [place] [address] May, [facility] [address] [id number] [address] [place] [address], [place] [address] May, [facility] [address] [id number] [address] [place] [address], [place] [address] May, [facility] [address] [id number] [address] [place] [address], [place] [address] May, [facility] [address] [id number] [address] [place] [address], [place] [address] Apr, [facility] [address] [id number] [address] [place] [address], [place] [address] Apr, [facility] [address] [id number] [address] [place] [address], [place] [address] Apr, [facility] [address] [id number] [address] [place] [address], [place] [address] Mar, [facility] [address] [id number] [address] [place] [address], [place] [address] Mar, [facility] [address] [id number] [address] [place] [address], [place] [address] Jan, [facility] [address] [id number] [address] [place] [address], [place] [address] Jan, [facility] [address] [id number] [address] [place] [address], [place] [address] Dec, [facility] [place] [address] [id number] [address] [place] [address] November, [facility] [place] [address] [id number] [address] [place] [address] Jul, [facility] [place] [address] [id number] [address] [place] [address] May, [facility] [place] [address] [id number] [address] [place] [address] May, [facility] [place] [address] [id number] [address] [place] [address] Mar, [facility] [place] [address] [id number] [address] [place] [address] Feb, [facility] [place] [address] [id number] [address] [place] [address] Feb, [facility] [place] [address] [id number] [address] [place] [address] Feb, [facility] [place] [address] [id number] [address] [place] [address] Feb, [facility] [place] [address] [id number] [address] [place] [address] Jan, [facility] [place] [address] [id number] [address] [place] [address] Jan, [facility] [place] [address] [id number] [address] [place] [address] Jul, IMMUNIZATIONS No Known Immunizations SOCIAL HISTORY Never Assessed REASON FOR VISIT PLAN OF CARE VITAL SIGNS MEDICATIONS Unknown Medications RESULTS No Results PROCEDURES No Known procedures INSTRUCTIONS MEDICATIONS ADMINISTERED No Known Medications MEDICAL (GENERAL) HISTORY Type Description Date Medical History asthma Medical History attention deficit hyperactivity disorder Medical History bipolar disorder Surgical History otolaryngologic surgery Surgical History appendectomy Hospitalization History [facility] for asthma as a child
--- OUTSIDE RECORDS SUMMARY | 2019-11-07 05:10 | XMS REPORT ---
Author Author Paddy Acevedo Doctor Organization [facility] Address Unknown Phone Unavailable Care Team Providers Care Loader Operator/Ground Leader Name Role Phone Migration, Doctor Unavailable Unavailable PROBLEMS Type Condition ICD9-CM Code [id number] Code Onset Dates Condition S tatus SNOMED Code Problem Infertility male N46.9 Active 290 4007 Problem Obesity (BMI 30.0-34.9) E66.9 Active [id number] ALLERGIES No Information ENCOUNTERS Encounter Location Date Diagnosis [facility] [address] [id number] Aug, Dental examination Z01.20 [facility] [address] [place] [address] [id number] Jul, Dental examination Z01.20 and Caries K02 .9 [place] [address] [address] Jun, Bilious vomiting with nausea R11.[address] [address] Jun, Infertility male N46.9 and Obesity (BMI 30.0-34.9) E66.9 [place] [address] [address] Dec, [address] [address] Apr, [facility] [address] [facility] [id number] [address] [place] [address] Apr, Acute gastroenteritis K52.9 [facility] [address] [place] [id number] [address] [place] [address] Mar, Arm pain, left M79.602 and C ontusion of arm, left, initial encounter S40.022A [place] [id number] Aug, Acute pain of left shoulder M25.512 [facility] [place] [address] [id number] [place] [address] Jul, Acute pain of left shoulder M25.512 [facility] [place] [address] [id number] [place] [address] Jul, Nondisplaced fracture of fifth right met atarsal bone S92.354A [facility] [place] [address] [id number] [place] [address] Jul, [facility] [place] [address] [address] Feb, History of back pain V13.59 [facility] [place] [id number] [place] [address] Dec, [facility] [place] [id number] [place] [address] Dec, [facility] [place] [id number] [place] [address] Dec, Unspecified episodic mood disorder 296.9 0 [facility] [place] [address] [address] Oct, [facility] [place] [id number] [place] [address] Oct, [facility] [place] [id number] [place] [address] Sep, [facility] [place] [id number] [place] [address] Sep, [facility] [address] [facility] [place] [id number] Sep, [facility] [place] [address] [id number] [place] [address] Sep, [facility] [place] [id number] [place] [address] Sep, [facility] [place] [address] [id number] [place] [address] Sep, [facility] [address] [id number] [place] [address] Aug, [facility] [address] [id number] [place] [address] Aug, 2014 [facility] [address] [id number] [place] [address] Aug, 2014 [facility] [address] [id number] [place] [address] Aug, 2014 [facility] [address] [id number] [place] [address] Aug, [facility] [address] [id number] [place] [address] Aug, 2014 [facility] [address] [id number] [place] [address] Aug, [facility] [address] [id number] [place] [address] Aug, [facility] [address] [id number] [place] [address] Jul, [facility] [address] [id number] [place] [address] Jul, [facility] [address] [id number] [place] [address] Jun, [facility] [address] [id number] [place] [address] Jun, [facility] [address] [id number] [place] [address] Jun, [facility] [id number] [place] [address] Jun, [facility] [address] [id number] [place] [address] Apr, [facility] [id number] [place] [address] Apr, [facility] [address] [id number] [place] [address] Apr, [facility] [address] [id number] [place] [address] Apr, [facility] [address] [id number] [place] [address] Mar, [facility] [address] [id number] [place] [address] Mar, [facility] [address] [facility] [id number] [place] [address] Feb, [facility] [address] [id number] [place] [address] Feb, [facility] [address] [id number] [place] [address] Feb, [facility] [address] [id number] [place] [address] Feb, [facility] [address] [id number] [place] [address] Feb, [facility] [address] [id number] [place] [address] Feb, [facility] [address] [id number] [place] [address] Jan, [facility] [address] [id number] [place] [address] Jan, [facility] [address] [id number] [place] [address] Dec, [facility] [address] [id number] [place] [address] Dec, [facility] [address] [id number] [place] [address] November, [facility] [address] [id number] [place] [address] November, [facility] [address] [id number] [place] [address] Oct, [facility] [address] [id number] [place] [address] Oct, [facility] [address] [id number] [place] [address] Oct, [facility] [address] [id number] [place] [address] Oct, [facility] [address] [id number] [place] [address] Sep, [facility] [address] [id number] [place] [address] Sep, [facility] [address] [id number] [place] [address] Aug, [facility] [address] [id number] [place] [address] Aug, [facility] [address] [id number] [place] [address] Jul, [facility] [address] [id number] [place] [address] Jul, [facility] [id number] [place] [address] Jun, [facility] [address] [facility] [place] [address] Jun, [facility] [id number] [place] [address] May, [facility] [address] [id number] [place] [address] May, [facility] [id number] [place] [address] May, [facility] [address] [id number] [place] [address] May, [facility] [address] [id number] [place] [address] Apr, [facility] [address] [id number] [place] [address] Apr, [facility] [address] [id number] [place] [address] Apr, [facility] [address] [id number] [place] [address] 13 Mar, 2013 [facility] [address] [id number] [place] [address] Mar, [facility] [address] [id number] [place] [address] Jan, [facility] [address] [id number] [place] [address] Jan, [facility] [address] [id number] [place] [address] Dec, [facility] [address] [id number] [place] [address] November, [facility] [address] [id number] [place] [address] Jul, [facility] [address] [id number] [place] [address] May, [facility] [address] [id number] [place] [address] May, [facility] [address] [id number] [place] [address] Mar, [facility] [address] [id number] [place] [address] Feb, [facility] [address] [id number] [place] [address] Feb, [facility] [address] [id number] [place] [address] Feb, [facility] [address] [id number] [place] [address] Feb, [facility] [address] [id number] [place] [address] Jan, [facility] [place] [address] [facility] [id number] [place] [address] Jan, [facility] [place] [address] [id number] [place] [address] Jul, IMMUNIZATIONS No Known Immunizations SOCIAL HISTORY Never Assessed REASON FOR VISIT PLAN OF CARE VITAL SIGNS MEDICATIONS Unknown Medications RESULTS No Results PROCEDURES No Known procedures INSTRUCTIONS MEDICATIONS ADMINISTERED No Known Medications MEDICAL (GENERAL) HISTORY Type Description Date Medical History asthma Medical History attention deficit hyperactivity disorder Medical History bipolar disorder Surgical History otolaryngologic surgery Surgical History appendectomy Hospitalization History [facility] for asthma as a child
--- OUTSIDE RECORDS SUMMARY | 2019-11-07 05:10 | XMS REPORT ---
Author Author Paddy Acevedo Doctor Organization [facility] Address Unknown Phone Unavailable Care Team Providers Care Receiver Stocker Name Role Phone Migration, Doctor Unavailable Unavailable PROBLEMS Type Condition ICD9-CM Code KFL48-WK Code Onset Dates Condition S tatus SNOMED Code Problem Infertility male N46.9 Active 290 4007 Problem Obesity (BMI 30.0-34.9) E66.9 Active [id number] ALLERGIES No Information ENCOUNTERS Encounter Location Date Diagnosis [facility] [address] [id number] Aug, Dental examination Z01.20 [facility] [address] [place] [id number] Jul, Dental examination Z01.20 and Caries K02 .[address] [address] [address] Jun, Bilious vomiting with nausea R11.[address] [address] Jun, Infertility male N46.9 and Obesity (BMI 30.0-34.9) E66.9 [place] [address] [address] Dec, [address] [address] Apr, [facility] [address] [facility] [id number] [address] [place] [address] Apr, Acute gastroenteritis K52.9 [facility] [address] [place] [id number] [address] [place] [address] Mar, Arm pain, left M79.602 and C ontusion of arm, left, initial encounter S40.[address] [place] [id number] Aug, Acute pain of left shoulder M25.512 [facility] [address] [id number] [place] [address] Jul, Acute pain of left shoulder M25.512 [facility] [address] [id number] [place] [address] Jul, Nondisplaced fracture of fifth right met atarsal bone S92.354A [facility] [address] [id number] [place] [address] Jul, [facility] [address] [address] Feb, History of back pain V13.59 [facility] [address] [id number] [place] [address] Dec, [facility] [address] [id number] [place] [address] Dec, [facility] [address] [id number] [place] [address] Dec, Unspecified episodic mood disorder 296.9 0 [facility] [address] [address] Oct, [facility] [address] [id number] [place] [address] Oct, [facility] [address] [id number] [place] [address] Sep, [facility] [address] [id number] [place] [address] Sep, [facility] [address] [id number] [place] [id number] Sep, [facility] [address] [id number] [place] [address] Sep, [facility] [address] [id number] [place] [address] Sep, [facility] [address] [id number] [place] [address] Sep, [facility] [address] [id number] [place] [address] Aug, [facility] [address] [id number] [place] [address] Aug, 2014 [facility] [address] [id number] [place] [address] Aug, 2014 [facility] [address] [id number] [place] [address] Aug, 2014 [facility] [address] [id number] [place] [address] Aug, [facility] [address] [id number] [place] [address] Aug, 2014 [facility] [address] [id number] [place] [address] Aug, [facility] [address] [id number] [place] [address] Aug, [facility] [address] [id number] [place] [address] Jul, [facility] [address] [id number] [place] [address] Jul, [facility] [address] [id number] [place] [address] Jun, [facility] [address] [id number] [place] [address] Jun, [facility] [address] [id number] [place] [address] Jun, [facility] [address] [id number] [place] [address] Jun, [facility] [address] [id number] [place] [address] Apr, [facility] [id number] [place] [address] Apr, [facility] [address] [id number] [place] [address] Apr, [facility] [address] [id number] [place] [address] Apr, [facility] [address] [id number] [place] [address] Mar, [facility] [address] [id number] [place] [address] Mar, [facility] [address] [facility] [id number] [place] [address] Feb, [facility] [address] [id number] [place] [address] Feb, [facility] [address] [id number] [place] [address] Feb, [facility] [address] [id number] [place] [address] Feb, [facility] [address] [id number] [place] [address] Feb, [facility] [address] [id number] [place] [address] Feb, [facility] [address] [id number] [place] [address] Jan, [facility] [address] [id number] [place] [address] Jan, [facility] [address] [id number] [place] [address] Dec, [facility] [address] [id number] [place] [address] Dec, [facility] [address] [id number] [place] [address] November, [facility] [address] [id number] [place] [address] November, [facility] [address] [id number] [place] [address] Oct, [facility] [address] [id number] [place] [address] Oct, [facility] [address] [id number] [place] [address] Oct, [facility] [address] [id number] [place] [address] Oct, [facility] [address] [id number] [place] [address] Sep, [facility] [address] [id number] [place] [address] Sep, [facility] [address] [id number] [place] [address] Aug, [facility] [address] [id number] [place] [address] Aug, [facility] [address] [id number] [place] [address] Jul, [facility] [address] [id number] [place] [address] Jul, [facility] [id number] [place] [address] Jun, [facility] [address] [id number] [place] [address] Jun, [facility] [id number] [place] [address] May, [facility] [address] [id number] [place] [address] May, [facility] [id number] [place] [address] May, [facility] [address] [id number] [place] [address] May, [facility] [address] [id number] [place] [address] Apr, [facility] [address] [id number] [place] [address] Apr, [facility] [address] [id number] [place] [address] Apr, [facility] [address] [id number] [place] [address] 13 Mar, 2013 [facility] [address] [id number] [place] [address] Mar, [facility] [address] [id number] [place] [address] Jan, [facility] [address] [id number] [place] [address] Jan, [facility] [address] [id number] [place] [address] Dec, [facility] [address] [id number] [place] [address] November, [facility] [address] [id number] [place] [address] Jul, [facility] [address] [id number] [place] [address] May, [facility] [address] [id number] [place] [address] May, [facility] [address] [id number] [place] [address] Mar, [facility] [address] [id number] [place] [address] Feb, [facility] [address] [id number] [place] [address] Feb, [facility] [address] [id number] [place] [address] Feb, [facility] [address] [id number] [place] [address] Feb, [facility] [address] [id number] [place] [address] Jan, [facility] [address] [facility] [id number] [place] [address] Jan, [facility] [address] [id number] [place] [address] Jul, IMMUNIZATIONS No Known Immunizations SOCIAL HISTORY Never Assessed REASON FOR VISIT PLAN OF CARE VITAL SIGNS MEDICATIONS Unknown Medications RESULTS No Results PROCEDURES No Known procedures INSTRUCTIONS MEDICATIONS ADMINISTERED No Known Medications MEDICAL (GENERAL) HISTORY Type Description Date Medical History asthma Medical History attention deficit hyperactivity disorder Medical History bipolar disorder Surgical History otolaryngologic surgery Surgical History appendectomy Hospitalization History [facility] for asthma as a child
--- OUTSIDE RECORDS SUMMARY | 2019-11-07 05:10 | XMS REPORT ---
Author Author Paddy Acevedo Doctor Organization [facility] Address Unknown Phone Unavailable Care Team Providers Care Fulfillment Associate Name Role Phone Migration, Doctor Unavailable Unavailable PROBLEMS Type Condition ICD9-CM Code [id number] Code Onset Dates Condition S tatus SNOMED Code Problem Infertility male N46.9 Active 290 4007 Problem Obesity (BMI 30.0-34.9) E66.9 Active [id number] ALLERGIES No Information ENCOUNTERS Encounter Location Date Diagnosis [facility] [address] [id number] Aug, Dental examination Z01.20 [facility] [address] [place] [id number] Jul, Dental examination Z01.20 and Caries K02 .[address] [address] Jun, Bilious vomiting with nausea R11.[address] [address] Jun, Infertility male N46.9 and Obesity (BMI 30.0-34.9) E66.[address] [address] Dec, [address] [address] Apr, [facility] [address] [facility] [id number] [address] [place] [address] Apr, Acute gastroenteritis K52.9 [facility] [address] [place] [id number] [address] [place] [address] Mar, Arm pain, left M79.602 and C ontusion of arm, left, initial encounter S40.022A [place] [id number] Aug, Acute pain of left shoulder M25.512 [facility] [address] [id number] [place] [address] Jul, Acute pain of left shoulder M25.512 [facility] [address] [id number] [place] [address] Jul, Nondisplaced fracture of fifth right met atarsal bone S92.354A [facility] [address] [id number] [place] [address] Jul, [facility] [address] [address] Feb, History of back pain V13.59 [facility] [address] [id number] [place] [address] Dec, [facility] [id number] [place] [address] Dec, [facility] [address] [id number] [place] [address] Dec, Unspecified episodic mood disorder 296.9 0 [facility] [address] [address] Oct, [facility] [id number] [place] [address] Oct, [facility] [id number] [place] [address] Sep, [facility] [address] [id number] [place] [address] Sep, [facility] [address] [id number] [place] [id number] Sep, [facility] [id number] [place] [address] Sep, [facility] [id number] [place] [address] Sep, [facility] [address] [id number] [place] [address] Sep, [facility] [address] [id number] [place] [address] Aug, [facility] [address] [id number] [place] [address] Aug, 2014 [facility] [address] [id number] [place] [address] Aug, 2014 [facility] [address] [id number] [place] [address] Aug, 2014 [facility] [address] [id number] [place] [address] Aug, [facility] [address] [id number] [place] [address] Aug, 2014 [facility] [address] [id number] [place] [address] Aug, [facility] [address] [id number] [place] [address] Aug, [facility] [address] [id number] [place] [address] Jul, [facility] [address] [id number] [place] [address] Jul, [facility] [address] [id number] [place] [address] Jun, [facility] [address] [id number] [place] [address] Jun, [facility] [address] [id number] [place] [address] Jun, [facility] [id number] [place] [address] Jun, [facility] [address] [id number] [place] [address] Apr, [facility] [id number] [place] [address] Apr, [facility] [address] [id number] [place] [address] Apr, [facility] [address] [id number] [place] [address] Apr, [facility] [address] [id number] [place] [address] Mar, [facility] [address] [id number] [place] [address] Mar, [facility] [address] [facility] [id number] [place] [address] Feb, [facility] [address] [id number] [place] [address] Feb, [facility] [address] [id number] [place] [address] Feb, [facility] [address] [id number] [place] [address] Feb, [facility] [address] [id number] [place] [address] Feb, [facility] [address] [id number] [place] [address] Feb, [facility] [address] [id number] [place] [address] Jan, [facility] [address] [id number] [place] [address] Jan, [facility] [address] [id number] [place] [address] Dec, [facility] [address] [id number] [place] [address] Dec, [facility] [address] [id number] [place] [address] November, [facility] [address] [id number] [place] [address] November, [facility] [address] [id number] [place] [address] Oct, [facility] [address] [id number] [place] [address] Oct, [facility] [address] [id number] [place] [address] Oct, [facility] [address] [id number] [place] [address] Oct, [facility] [address] [id number] [place] [address] Sep, [facility] [address] [id number] [place] [address] Sep, [facility] [address] [id number] [place] [address] Aug, [facility] [address] [id number] [place] [address] Aug, [facility] [address] [id number] [place] [address] Jul, [facility] [address] [id number] [place] [address] Jul, [facility] [id number] [place] [address] Jun, [facility] [address] [id number] [place] [address] Jun, [facility] [id number] [place] [address] May, [facility] [address] [id number] [place] [address] May, [facility] [id number] [place] [address] May, [facility] [address] [id number] [place] [address] May, [facility] [address] [id number] [place] [address] Apr, [facility] [address] [id number] [place] [address] Apr, [facility] [address] [id number] [place] [address] Apr, [facility] [address] [id number] [place] [address] 13 Mar, 2013 [facility] [address] [id number] [place] [address] Mar, [facility] [address] [id number] [place] [address] Jan, [facility] [address] [id number] [place] [address] Jan, [facility] [address] [id number] [place] [address] Dec, [facility] [address] [id number] [place] [address] November, [facility] [address] [id number] [place] [address] Jul, [facility] [address] [id number] [place] [address] May, [facility] [address] [id number] [place] [address] May, [facility] [address] [id number] [place] [address] Mar, [facility] [address] [id number] [place] [address] Feb, [facility] [address] [id number] [place] [address] Feb, [facility] [address] [id number] [place] [address] Feb, [facility] [address] [id number] [place] [address] Feb, [facility] [address] [id number] [place] [address] Jan, [facility] [address] [facility] [id number] [place] [address] Jan, [facility] [address] [id number] [place] [address] Jul, IMMUNIZATIONS No Known Immunizations SOCIAL HISTORY Never Assessed REASON FOR VISIT PLAN OF CARE VITAL SIGNS MEDICATIONS Unknown Medications RESULTS No Results PROCEDURES No Known procedures INSTRUCTIONS MEDICATIONS ADMINISTERED No Known Medications MEDICAL (GENERAL) HISTORY Type Description Date Medical History asthma Medical History attention deficit hyperactivity disorder Medical History bipolar disorder Surgical History otolaryngologic surgery Surgical History appendectomy Hospitalization History [facility] for asthma as a child
--- OUTSIDE RECORDS SUMMARY | 2019-11-07 05:10 | XMS REPORT ---
Author Author Paddy Acevedo Doctor Organization [facility] Address Unknown Phone Unavailable Care Team Providers Care Pulmonary Physician Name Role Phone Migration, Doctor Unavailable Unavailable PROBLEMS Type Condition ICD9-CM Code PMQ69-NE Code Onset Dates Condition S tatus SNOMED Code Problem Infertility male N46.9 Active 290 4007 Problem Obesity (BMI 30.0-34.9) E66.9 Active [id number] ALLERGIES No Information ENCOUNTERS Encounter Location Date Diagnosis [place] [address] [id number] Sep, [place] [address] [address] Sep, [place] [address] [address] Sep, Hematemesis with nausea K92. 0 ; Obesity (BMI 30.0-34.9) E66.9 and Generalized abdominal pain R10.84 [facility] [id number] [place] [id number] Aug, Dental examination Z01.20 [facility] [id number] [place] [id number] Jul, Dental examination Z01.20 an d Caries K02.9 [place] [id number] [place] [address] Jun, Bilious vomiting with nausea R11.14 [place] [address] [address] Jun, Infertility male N46.9 and O besity (BMI 30.0-34.9) E66.9 [place] [address] [id number] [address] [place] [address] Dec, [facility] [address] [id number] [address] [place] [address] Apr, [facility] [address] [facility] [id number] [address] [place] [address] Apr, Acute gastroenteritis K52.9 [facility] [address] [facility] [id number] [address] [place] [address] Mar, Arm pain, left M79.602 and C ontusion of arm, left, initial encounter S40.022A [facility] [address] [facility] [id number] [address] [place] [address] Aug, Acute pain of left shoulder M25.512 [facility] [address] [facility] [id number] [address] [place] [address] Jul, Acute pain of left shoulder M25.512 [facility] [address] [id number] [address] [place] [address] Jul, Nondisplaced fracture of fif th right metatarsal bone S92.354A [facility] [address] [facility] [id number] [address] [place] [address] Jul, [facility] [address] [facility] [id number] [address] [place] [address] Feb, History of back pain V13.59 [facility] [address] [facility] [id number] [address] [place] [address] Dec, [facility] [address] [id number] [address] [place] [address] Dec, [facility] [address] [facility] [id number] [address] [place] [address] Dec, Unspecified episodic mood di sorder 296.90 [facility] [address] [facility] [id number] [address] [place] [address] 14 Oct, 2014 [facility] [address] [id number] [address] [place] [address] Oct, [facility] [address] [id number] [address] [place] [address], [place] [address] Sep, [facility] [address] [id number] [address] [place] [address], [place] [address] Sep, [facility] [address] [id number] [address] [place] [id number] Sep, [facility] [address] [id number] [address] [place] [address], [place] [address] Sep, [facility] [address] [id number] [address] [place] [address], [place] [address] Sep, [facility] [address] [id number] [address] [place] [address], [place] [address] Sep, [facility] [address] [id number] [address] [place] [address], [place] [address] Aug, [facility] [address] [id number] [address] [place] [id number] Aug, [facility] [address] [id number] [address] [place] [address], [place] [address] Aug, [facility] [address] [id number] [address] [place] [address], [place] [address] Aug, [facility] [address] [id number] [address] [place] [address], [place] [address] Aug, [facility] [address] [id number] [address] [place] [address] Aug, [facility] [address] [id number] [address] [place] [address], [place] [address] Aug, [facility] [address] [id number] [address] [place] [address], [place] [address] Aug, [facility] [address] [id number] [address] [place] [address], [place] [address] Jul, [facility] [address] [id number] [address] [place] [address], [place] [address] Jul, [facility] [address] [id number] [address] [place] [address], [place] [address] Jun, [facility] [address] [id number] [address] [place] [address], [place] [address] Jun, [facility] [address] [id number] [address] [place] [address], [place] [address] Jun, [facility] [address] [id number] [address] [place] [address], [place] [address] Jun, [facility] [address] [id number] [address] [place] [address], [place] [address] Apr, [facility] [address] [id number] [address] [place] [address], [place] [address] Apr, [facility] [address] [id number] [address] [place] [address], [place] [address] Apr, [facility] [address] [id number] [address] [place] [address], [place] [address] Apr, [facility] [address] [id number] [address] [place] [address], [place] [address] Mar, [facility] [address] [id number] [address] [place] [address], [place] [address] Mar, [facility] [place] [facility] [address] [id number] [address] [place] [address], [place] [address] Feb, [facility] [address] [id number] [address] [place] [address], [place] [address] Feb, [facility] [place] [facility] [address] [id number] [address] [place] [address], [place] [address] Feb, [facility] [place] [facility] [address] [id number] [address] [place] [address], [place] [address] Feb, [facility] [place] [facility] [address] [id number] [address] [place] [address], [place] [address] Feb, [facility] [address] [id number] [address] [place] [address], [place] [address] Feb, [facility] [place] [facility] [address] [id number] [address] [place] [address], [place] [address] Jan, [facility] [place] [facility] [address] [id number] [address] [place] [address], [place] [address] Jan, [facility] [place] [facility] [address] [id number] [address] [place] [address], [place] [address] Dec, [facility] [address] [id number] [address] [place] [address], [place] [address] Dec, [facility] [place] [facility] [address] [id number] [address] [place] [address], [place] [address] November, [facility] [address] [id number] [address] [place] [address], [place] [address] November, [facility] [address] [id number] [address] [place] [address], [place] [address] Oct, [facility] [place] [facility] [address] [id number] [address] [place] [address], [place] [address] Oct, [facility] [place] [facility] [address] [id number] [address] [place] [address], [place] [address] Oct, [facility] [place] [facility] [address] [id number] [address] [place] [address], [place] [address] Oct, [facility] [place] [facility] [address] [id number] [address] [place] [address], [place] [address] Sep, [facility] [place] [facility] [address] [id number] [address] [place] [address], [place] [address] Sep, [facility] [place] [facility] [address] [id number] [address] [place] [address], [place] [address] Aug, [facility] [place] [facility] [address] [id number] [address] [place] [address], [place] [address] Aug, [facility] [place] [facility] [address] [id number] [address] [place] [address], [place] [address] Jul, [facility] [address] [id number] [address] [place] [address], [place] [address] Jul, [facility] [address] [id number] [address] [place] [address], [place] [address] Jun, [facility] [address] [id number] [address] [place] [address], [place] [address] Jun, [facility] [address] [id number] [address] [place] [address], [place] [address] May, [facility] [address] [id number] [address] [place] [address], [place] [address] May, [facility] [address] [id number] [address] [place] [address], [place] [address] May, [facility] [address] [id number] [address] [place] [address], [place] [address] May, [facility] [address] [id number] [address] [place] [address], [place] [address] Apr, [facility] [address] [id number] [address] [place] [address], [place] [address] Apr, [facility] [address] [id number] [address] [place] [address], [place] [address] Apr, [facility] [address] [id number] [address] [place] [address], [place] [address] Mar, [facility] [address] [id number] [address] [place] [address], [place] [address] Mar, [facility] [address] [id number] [address] [place] [address], [place] [address] Jan, [facility] [address] [id number] [address] [place] [address], [place] [address] Jan, [facility] [address] [id number] [address] [place] [address], [place] [address] Dec, [facility] [address] [id number] [address] [place] [address] November, [facility] [address] [id number] [address] [place] [address] Jul, [facility] [address] [id number] [address] [place] [address] May, [facility] [address] [id number] [address] [place] [address] May, [facility] [address] [id number] [address] [place] [address] Mar, [facility] [address] [id number] [address] [place] [address] Feb, [facility] [address] [id number] [address] [place] [address] Feb, [facility] [address] [id number] [address] [place] [address] Feb, [facility] [address] [id number] [address] [place] [address] Feb, [facility] [address] [id number] [address] [place] [address] Jan, [facility] [address] [id number] [address] [place] [address] Jan, [facility] [address] [id number] [address] [place] [address] Jul, IMMUNIZATIONS No Known Immunizations SOCIAL HISTORY Never Assessed REASON FOR VISIT PLAN OF CARE VITAL SIGNS MEDICATIONS Unknown Medications RESULTS No Results PROCEDURES No Known procedures INSTRUCTIONS MEDICATIONS ADMINISTERED No Known Medications MEDICAL (GENERAL) HISTORY Type Description Date Medical History asthma Medical History attention deficit hyperactivity disorder Medical History bipolar disorder Surgical History otolaryngologic surgery Surgical History appendectomy Hospitalization History [facility] for asthma as a child
--- OUTSIDE RECORDS SUMMARY | 2019-11-07 05:11 | XMS REPORT ---
Author Author Paddy Acevedo Doctor Organization [facility] Address Unknown Phone Unavailable Care Team Providers Care Technical Education Teacher Name Role Phone Migration, Doctor Unavailable Unavailable PROBLEMS Type Condition ICD9-CM Code [id number] Code Onset Dates Condition S tatus SNOMED Code Problem Infertility male N46.9 Active 290 4007 Problem Obesity (BMI 30.0-34.9) E66.9 Active [id number] ALLERGIES No Information ENCOUNTERS Encounter Location Date Diagnosis [facility] [address] [id number] Aug, Dental examination Z01.20 [facility] [address] [place] [id number] Jul, Dental examination Z01.20 and Caries K02 .[address] [address] [address] Jun, Bilious vomiting with nausea R11.[address] [address] Jun, Infertility male N46.9 and Obesity (BMI 30.0-34.9) E66.[address] [address] Dec, [address] [address] Apr, [facility] [address] [facility] [id number] [address] [place] [address] Apr, Acute gastroenteritis K52.9 [facility] [address] [place] [id number] [address] [place] [address] Mar, Arm pain, left M79.602 and C ontusion of arm, left, initial encounter S40.022A [place] [id number] Aug, Acute pain of left shoulder M25.512 [facility] [address] [id number] [place] [address] Jul, Acute pain of left shoulder M25.512 [facility] [id number] [place] [address] Jul, Nondisplaced fracture of fifth right met atarsal bone S92.354A [facility] [address] [id number] [place] [address] Jul, [facility] [address] [address] Feb, History of back pain V13.59 [facility] [id number] [place] [address] Dec, [facility] [id number] [place] [address] Dec, [facility] [id number] [place] [address] Dec, Unspecified episodic mood disorder 296.9 0 [facility] [address] [address] Oct, [facility] [id number] [place] [address] Oct, [facility] [id number] [place] [address] Sep, [facility] [id number] [place] [address] Sep, [facility] [address] [facility] [place] [id number] Sep, [facility] [id number] [place] [address] Sep, [facility] [id number] [place] [address] Sep, [facility] [address] [id number] [place] [address] Sep, [facility] [place] [facility] [address] [id number] [place] [address] Aug, [facility] [place] [facility] [address] [id number] [place] [address] Aug, 2014 [facility] [place] [facility] [address] [id number] [place] [address] Aug, 2014 [facility] [place] [facility] [address] [id number] [place] [address] Aug, 2014 [facility] [place] [facility] [address] [id number] [place] [address] Aug, [facility] [place] [facility] [address] [id number] [place] [address] Aug, 2014 [facility] [place] [facility] [address] [id number] [place] [address] Aug, [facility] [place] [facility] [address] [id number] [place] [address] Aug, [facility] [place] [facility] [address] [id number] [place] [address] Jul, [facility] [place] [facility] [address] [id number] [place] [address] Jul, [facility] [place] [facility] [address] [id number] [place] [address] Jun, [facility] [place] [facility] [address] [id number] [place] [address] Jun, [facility] [place] [facility] [address] [id number] [place] [address] Jun, [facility] [place] [facility] [id number] [place] [address] Jun, [facility] [place] [facility] [address] [id number] [place] [address] Apr, [facility] [place] [facility] [id number] [place] [address] Apr, [facility] [place] [facility] [address] [id number] [place] [address] Apr, [facility] [place] [facility] [address] [id number] [place] [address] Apr, [facility] [place] [facility] [address] [id number] [place] [address] Mar, [facility] [place] [facility] [address] [id number] [place] [address] Mar, [facility] [place] [facility] [address] [facility] [id number] [place] [address] Feb, [facility] [place] [facility] [address] [id number] [place] [address] Feb, [facility] [place] [facility] [address] [id number] [place] [address] Feb, [facility] [place] [facility] [address] [id number] [place] [address] Feb, [facility] [place] [facility] [address] [id number] [place] [address] Feb, [facility] [place] [facility] [address] [id number] [place] [address] Feb, [facility] [place] [facility] [address] [id number] [place] [address] Jan, [facility] [place] [facility] [address] [id number] [place] [address] Jan, [facility] [place] [facility] [address] [id number] [place] [address] Dec, [facility] [place] [facility] [address] [id number] [place] [address] Dec, [facility] [place] [facility] [address] [id number] [place] [address] November, [facility] [place] [facility] [address] [id number] [place] [address] November, [facility] [place] [facility] [address] [id number] [place] [address] Oct, [facility] [place] [facility] [address] [id number] [place] [address] Oct, [facility] [place] [facility] [address] [id number] [place] [address] Oct, [facility] [place] [facility] [address] [id number] [place] [address] Oct, [facility] [place] [facility] [address] [id number] [place] [address] Sep, [facility] [place] [facility] [address] [id number] [place] [address] Sep, [facility] [place] [facility] [address] [id number] [place] [address] Aug, [facility] [place] [facility] [address] [id number] [place] [address] Aug, [facility] [place] [facility] [address] [id number] [place] [address] Jul, [facility] [place] [facility] [address] [id number] [place] [address] Jul, [facility] [place] [facility] [id number] [place] [address] Jun, [facility] [place] [facility] [address] [id number] [place] [address] Jun, [facility] [place] [facility] [id number] [place] [address] May, [facility] [address] [id number] [place] [address] May, [facility] [address] [id number] [place] [address] May, [facility] [address] [id number] [place] [address] May, [facility] [address] [id number] [place] [address] Apr, [facility] [address] [id number] [place] [address] Apr, [facility] [address] [id number] [place] [address] Apr, [facility] [address] [id number] [place] [address] 13 Mar, 2013 [facility] [address] [id number] [place] [address] Mar, [facility] [address] [id number] [place] [address] Jan, [facility] [address] [id number] [place] [address] Jan, [facility] [address] [id number] [place] [address] Dec, [facility] [address] [id number] [place] [address] November, [facility] [address] [id number] [place] [address] Jul, [facility] [address] [id number] [place] [address] May, [facility] [address] [id number] [place] [address] May, [facility] [address] [id number] [place] [address] Mar, [facility] [address] [id number] [place] [address] Feb, [facility] [address] [id number] [place] [address] Feb, [facility] [address] [id number] [place] [address] Feb, [facility] [address] [id number] [place] [address] Feb, [facility] [address] [id number] [place] [address] Jan, [facility] [address] [facility] [id number] [place] [address] Jan, [facility] [address] [facility] [id number] [place] [address] Jul, IMMUNIZATIONS No Known Immunizations SOCIAL HISTORY Never Assessed REASON FOR VISIT PLAN OF CARE VITAL SIGNS Height 68.75 in 2013-11-13 Weight 166.2 lbs 2013-11-13 Temperature 97.9 degrees Fahrenheit 2013-11-13 Respiratory Rate 24 2013-11-13 Blood pressure systolic 122 mmHg 2013-11-13 Blood pressure diastolic 58 mmHg 2013-11-13 MEDICATIONS Unknown Medications RESULTS No Results PROCEDURES No Known procedures INSTRUCTIONS MEDICATIONS ADMINISTERED No Known Medications MEDICAL (GENERAL) HISTORY Type Description Date Medical History asthma Medical History attention deficit hyperactivity disorder Medical History bipolar disorder Surgical History otolaryngologic surgery Surgical History appendectomy Hospitalization History [facility] for asthma as a child
--- OUTSIDE RECORDS SUMMARY | 2019-11-07 05:11 | XMS REPORT ---
Author Author Paddy Acevedo Doctor Organization [facility] Address Unknown Phone Unavailable Care Team Providers Care Pilot Plant Supervisor Name Role Phone Migration, Doctor Unavailable Unavailable PROBLEMS Type Condition ICD9-CM Code [id number] Code Onset Dates Condition S tatus SNOMED Code Problem Infertility male N46.9 Active 290 4007 Problem Obesity (BMI 30.0-34.9) E66.9 Active [id number] ALLERGIES No Information ENCOUNTERS Encounter Location Date Diagnosis [place] [address] [address] Jun, Bilious vomiting with nausea R11.14 [place] [address] [address] Jun, Infertility male N46.9 and Obesity (BMI 30.0-34.9) E66.9 [place] [address] [address] Dec, [place] [address] [address] Apr, [facility] [address] [address] Apr, Acute gastroenteritis K52.9 [facility] [address] [address] Mar, Arm pain, left M79.602 and C ontusion of arm, left, initial encounter S40.022A [place] [address] [address] Aug, Acute pain of left shoulder M25.512 [place] [address] [address] Jul, Acute pain of left shoulder M25.512 [place] [address] [place] [address] Jul, Nondisplaced fracture of fifth right met atarsal bone S92.354A [facility] [id number] [place] [address] Jul, [facility] [id number] [place] [address] Feb, History of back pain V13.59 [facility] [id number] [place] [address] Dec, [facility] [id number] [place] [address] Dec, [facility] [id number] [place] [address] Dec, Unspecified episodic mood disorder 296.9 0 [facility] [address] [address] Oct, [facility] [id number] [place] [address] Oct, [facility] [id number] [place] [address] Sep, [facility] [id number] [place] [address] Sep, [facility] [address] [id number] [place] [id number] Sep, [facility] [id number] [place] [address] Sep, [facility] [id number] [place] [address] Sep, [facility] [id number] [place] [address] Sep, [facility] [id number] [place] [address] Aug, [facility] [address] [address] Aug, [facility] [address] [id number] [place] [address] Aug, 2014 [facility] [address] [id number] [place] [address] Aug, 2014 [facility] [address] [id number] [place] [address] Aug, 2014 [facility] [address] [id number] [place] [address] Aug, 2014 [facility] [address] [id number] [place] [address] Aug, 2014 [facility] [address] [id number] [place] [address] Aug, 2014 [facility] [address] [id number] [place] [address] Jul, [facility] [address] [id number] [place] [address] Jul, [facility] [address] [id number] [place] [address] Jun, [facility] [address] [id number] [place] [address] Jun, [facility] [address] [id number] [place] [address] Jun, [facility] [address] [id number] [place] [address] Jun, [facility] [address] [id number] [place] [address] Apr, [facility] [address] [id number] [place] [address] Apr, [facility] [address] [id number] [place] [address] Apr, [facility] [address] [id number] [place] [address] Apr, [facility] [address] [id number] [place] [address] Mar, [facility] [address] [id number] [place] [address] Mar, [facility] [address] [id number] [place] [address] Feb, [facility] [address] [id number] [place] [address] Feb, [facility] [address] [id number] [place] [address] Feb, [facility] [address] [id number] [place] [address] Feb, [facility] [address] [id number] [place] [address] Feb, [facility] [address] [id number] [place] [address] Feb, [facility] [address] [id number] [place] [address] Jan, [facility] [address] [id number] [place] [address] Jan, [facility] [address] [id number] [place] [address] Dec, [facility] [address] [id number] [place] [address] Dec, [facility] [address] [id number] [place] [address] November, [facility] [address] [id number] [place] [address] November, [facility] [address] [id number] [place] [address] Oct, [facility] [address] [id number] [place] [address] Oct, [facility] [address] [id number] [place] [address] Oct, [facility] [address] [id number] [place] [address] Oct, [facility] [address] [id number] [place] [address] Sep, [facility] [address] [id number] [place] [address] Sep, [facility] [id number] [place] [address] Aug, [facility] [address] [id number] [place] [address] Aug, [facility] [id number] [place] [address] Jul, [facility] [id number] [place] [address] Jul, [facility] [id number] [place] [address] Jun, [facility] [id number] [place] [address] Jun, [facility] [id number] [place] [address] May, [facility] [id number] [place] [address] May, [facility] [id number] [place] [address] May, [facility] [address] [id number] [place] [address] May, [facility] [address] [id number] [place] [address] Apr, [facility] [address] [id number] [place] [address] Apr, [facility] [address] [id number] [place] [address] Apr, [facility] [id number] [place] [address] 13 Mar, 2013 [facility] [address] [id number] [place] [address] Mar, [facility] [address] [id number] [place] [address] Jan, [facility] [address] [id number] [place] [address] Jan, [facility] [address] [id number] [place] [address] Dec, [facility] [address] [id number] [place] [address] November, [facility] [address] [id number] [place] [address] Jul, [facility] [address] [id number] [place] [address] May, [facility] [id number] [place] [address] May, [facility] [address] [id number] [place] [address] Mar, [facility] [id number] [place] [address] Feb, [facility] [address] [id number] [place] [address] Feb, [facility] [id number] [place] [address] Feb, [facility] [address] [id number] [place] [address] Feb, [facility] [address] [id number] [place] [address] Jan, [facility] [address] [id number] [place] [address] Jan, [facility] [address] [id number] [place] [address] Jul, IMMUNIZATIONS No Known Immunizations SOCIAL HISTORY Never Assessed REASON FOR VISIT PLAN OF CARE VITAL SIGNS MEDICATIONS No Known Medications RESULTS No Results PROCEDURES No Known procedures INSTRUCTIONS MEDICATIONS ADMINISTERED No Known Medications MEDICAL (GENERAL) HISTORY Type Description Date Medical History asthma Medical History attention deficit hyperactivity disorder Medical History bipolar disorder Surgical History otolaryngologic surgery Surgical History appendectomy Hospitalization History [facility] for asthma as a child
--- OUTSIDE RECORDS SUMMARY | 2019-11-07 05:11 | XMS REPORT ---
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 Active 290 4007 Problem Obesity (BMI 30.0-34.9) E66.9 Active [id number] ALLERGIES No Information ENCOUNTERS Encounter Location Date Diagnosis [place] [address] [address] Jun, Bilious vomiting with nausea R11.14 [place] [address] [address] Jun, Infertility male N46.9 and Obesity (BMI 30.0-34.9) E66.9 [place] [address] [address] Dec, [place] [address] [address] Apr, [facility] [address] [address] Apr, Acute gastroenteritis K52.9 [facility] [address] [address] Mar, Arm pain, left M79.602 and C ontusion of arm, left, initial encounter S40.022A [place] [address] [address] Aug, Acute pain of left shoulder M25.512 [place] [address] [address] Jul, Acute pain of left shoulder M25.512 [place] [address] [place] [address] Jul, Nondisplaced fracture of fifth right met atarsal bone S92.354A [facility] [id number] [place] [address] Jul, [facility] [id number] [place] [address] Feb, History of back pain V13.59 [facility] [id number] [place] [address] Dec, [facility] [id number] [place] [address] Dec, [facility] [id number] [place] [address] Dec, Unspecified episodic mood disorder 296.9 0 [facility] [address] [address] Oct, [facility] [id number] [place] [address] Oct, [facility] [id number] [place] [address] Sep, [facility] [id number] [place] [address] Sep, [facility] [address] [id number] [place] [id number] Sep, [facility] [id number] [place] [address] Sep, [facility] [id number] [place] [address] Sep, [facility] [id number] [place] [address] Sep, [facility] [id number] [place] [address] Aug, [facility] [address] [address] Aug, [facility] [address] [id number] [place] [address] Aug, 2014 [facility] [address] [id number] [place] [address] Aug, 2014 [facility] [address] [id number] [place] [address] Aug, 2014 [facility] [address] [id number] [place] [address] Aug, 2014 [facility] [address] [id number] [place] [address] Aug, 2014 [facility] [address] [id number] [place] [address] Aug, 2014 [facility] [address] [id number] [place] [address] Jul, [facility] [address] [id number] [place] [address] Jul, [facility] [address] [id number] [place] [address] Jun, [facility] [address] [id number] [place] [address] Jun, [facility] [address] [id number] [place] [address] Jun, [facility] [address] [id number] [place] [address] Jun, [facility] [address] [id number] [place] [address] Apr, [facility] [address] [id number] [place] [address] Apr, [facility] [address] [id number] [place] [address] Apr, [facility] [address] [id number] [place] [address] Apr, [facility] [address] [id number] [place] [address] Mar, [facility] [address] [id number] [place] [address] Mar, [facility] [address] [id number] [place] [address] Feb, [facility] [address] [id number] [place] [address] Feb, [facility] [address] [id number] [place] [address] Feb, [facility] [address] [id number] [place] [address] Feb, [facility] [address] [id number] [place] [address] Feb, [facility] [address] [id number] [place] [address] Feb, [facility] [address] [id number] [place] [address] Jan, [facility] [address] [id number] [place] [address] Jan, [facility] [address] [id number] [place] [address] Dec, [facility] [address] [id number] [place] [address] Dec, [facility] [address] [id number] [place] [address] November, [facility] [address] [id number] [place] [address] November, [facility] [address] [id number] [place] [address] Oct, [facility] [address] [id number] [place] [address] Oct, [facility] [address] [id number] [place] [address] Oct, [facility] [address] [id number] [place] [address] Oct, [facility] [address] [id number] [place] [address] Sep, [facility] [address] [id number] [place] [address] Sep, [facility] [id number] [place] [address] Aug, [facility] [address] [id number] [place] [address] Aug, [facility] [id number] [place] [address] Jul, [facility] [id number] [place] [address] Jul, [facility] [id number] [place] [address] Jun, [facility] [id number] [place] [address] Jun, [facility] [id number] [place] [address] May, [facility] [id number] [place] [address] May, [facility] [id number] [place] [address] May, [facility] [address] [id number] [place] [address] May, [facility] [address] [id number] [place] [address] Apr, [facility] [address] [id number] [place] [address] Apr, [facility] [address] [id number] [place] [address] Apr, [facility] [id number] [place] [address] 13 Mar, 2013 [facility] [address] [id number] [place] [address] Mar, [facility] [address] [id number] [place] [address] Jan, [facility] [address] [id number] [place] [address] Jan, [facility] [address] [id number] [place] [address] Dec, [facility] [address] [id number] [place] [address] November, [facility] [address] [id number] [place] [address] Jul, [facility] [address] [id number] [place] [address] May, [facility] [id number] [place] [address] May, [facility] [address] [id number] [place] [address] Mar, [facility] [id number] [place] [address] Feb, [facility] [address] [id number] [place] [address] Feb, [facility] [id number] [place] [address] Feb, [facility] [address] [id number] [place] [address] Feb, [facility] [address] [id number] [place] [address] Jan, [facility] [address] [id number] [place] [address] Jan, [facility] [address] [id number] [place] [address] Jul, IMMUNIZATIONS No Known Immunizations SOCIAL HISTORY Never Assessed REASON FOR VISIT PLAN OF CARE VITAL SIGNS MEDICATIONS No Known Medications RESULTS No Results PROCEDURES No Known procedures INSTRUCTIONS MEDICATIONS ADMINISTERED No Known Medications MEDICAL (GENERAL) HISTORY Type Description Date Medical History asthma Medical History attention deficit hyperactivity disorder Medical History bipolar disorder Surgical History otolaryngologic surgery Surgical History appendectomy Hospitalization History [facility] for asthma as a child
--- OUTSIDE RECORDS SUMMARY | 2019-11-07 05:12 | XMS REPORT | Continuity of Care Document ---
Author Organization Unknown Address Unknown Phone Unavailable Allergies Active Description Code Type Severity Reaction Onset Reported/Identified Relationship to Patient Clinical Status Yes No Known Drug Allergies [id number] Drug Allergy Unknown N/A 04/14/2010 Yes Abilify 5 mg tablet Drug Aller gy N/A N/A 11/13/2013 Yes divalproex 125 mg tablet,delayed release (DR/EC) Drug Allergy N/A N/A 09/2014 Medications There is no data. Problems Date Dx Coded Attending Type Code Diagnosis Diagnosed By 04/14/2010 Ot 789.03 07/28/2011 RYAN GUARDADO APRN 493.90 ASTHMA UNSPECIFIED 07/28/2011 493.90 AST HMA UNSPECIFIED 07/28/2011 RYAN GUARDADO APRN 493.90 ASTHMA [...] 493.90 ASTHMA UNSPECIFIED 07/28/2011 ALCIDES HAMPTON APRN 493 .90 ASTHMA UNSPECIFIED 07/28/2011 ALCIDES HAMPTON APRN 493 .90 ASTHMA UNSPECIFIED 07/28/2011 ALCIDES HAMPTON APRN 493 .90 ASTHMA UNSPECIFIED 02/10/2012 RYAN GUARDADO APRN 314.01 ADHD COMBINED 02/10/2012 314.01 ADH D COMBINED 02/10/2012 RYAN GUARDADO APRN 314.01 ADHD COMBINED 02/10/2012 RYAN GUARDADO APRNH 314.01 ADHD COMBINED 02/10/2012 NATHAN STUART, OJ Jack 314.01 ADHD COMBINED 02/10/2012 RYAN GUARDADO APRN 314.01 ADHD COMBINED 02/10/2012 RYAN GUARDADO APRN 314.01 ADHD COMBINED 02/10/2012 NIDA PAL APRN 314.01 ADHD COMBINED 02/10/2012 TIMMY STEPHENS DDS 314.01 ADHD COMBINED 02/10/2012 TONYA KINCAID DDS 314.01 ADHD COMBINED 02/10/2012 FRANCO DOMEENA K 314.01 ADHD COMBINED 02/10/2012 MEMO FINANCE AND ADMINISTRATION MANAGER, ALCIDES 314 .01 ADHD COMBINED 02/10/2012 MEMO FINANCE AND ADMINISTRATION MANAGER, ALCIDES 314 .01 ADHD COMBINED 02/10/2012 MEMO FINANCE AND ADMINISTRATION MANAGER, ALCIDES 314 .01 ADHD COMBINED 06/22/2012 Ot 733.6 TIET ZE'S DISEASE 06/22/2012 Ot 789.01 ABD OMINAL PAIN, RIGHT UPPER QUADRANT 04/03/2013 RYAN GUARDADO APRN 296.90 MOOD DISORDER NOS 04/03/2013 RYAN GUARDADO APRN 296.90 MOOD DISORDER NOS 04/03/2013 NATHAN STUART, OJ Jack 296.90 MOOD DISORDER NOS 04/03/2013 RYAN GUARDADO APRN 296.90 MOOD DISORDER NOS 04/03/2013 RYAN GUARDADO APRN 296.90 MOOD DISORDER NOS 04/03/2013 NIDA PAL APRN 296.90 MOOD DISORDER NOS 04/03/2013 KAT STUART, TIMMY Vaca 296.90 MOOD DISORDER NOS 04/03/2013 TONYA KINCAID DDS 296.90 MOOD DISORDER NOS 04/03/2013 MEENA FRANCO DO K 296.90 MOOD DISORDER NOS 04/03/2013 MEMO FINANCE AND ADMINISTRATION MANAGER, ALCIDES 296 .90 MOOD DISORDER NOS 04/03/2013 MEMO FINANCE AND ADMINISTRATION MANAGER, ALCIDES 296 .90 MOOD DISORDER NOS 04/03/2013 MEMO FINANCE AND ADMINISTRATION MANAGER, ALCIDES 296 .90 MOOD DISORDER NOS 06/01/2013 RYAN GUARDADO APRN 296.80 MO BIPOLAR NOS 06/01/2013 NATHAN STUART, OJ M 296.80 MO BIPOLAR NOS 06/01/2013 RYAN GUARDADO APRN 296.80 MO BIPOLAR NOS 06/01/2013 GUARDADO DELFINA RYAN MURPHY 296.80 MO BIPOLAR NOS 06/01/2013 NIDA PAL APRN 296.80 MO BIPOLAR NOS 06/01/2013 TIMMY STEPHENS DDS 296.80 MO BIPOLAR NOS 06/01/2013 TONYA KINCAID DDS 296.80 MO BIPOLAR NOS 06/01/2013 MEENA FRANCO DO 296.80 MO BIPOLAR NOS 06/01/2013 MEMO FINANCE AND ADMINISTRATION MANAGER, ALCIDES 296 .80 MO BIPOLAR NOS 06/01/2013 MEMO FINANCE AND ADMINISTRATION MANAGER, ALCIDES 296 .80 MO BIPOLAR NOS 06/01/2013 MEMO FINANCE AND ADMINISTRATION MANAGER, ALCIDES 296 .80 MO BIPOLAR NOS 09/05/2013 JOSHUA WILLETT DO Ot 540.9 ACUTE APPENDICITIS NOS 04/01/2014 NIDA PAL APRN 69 2.9 DERMATITIS CONTACT UNSPECIFIED 04/01/2014 TIMMY STEPHENS DDS 69 2.9 DERMATITIS CONTACT UNSPECIFIED 04/01/2014 TONYA KINCAID DDS 69 2.9 DERMATITIS CONTACT UNSPECIFIED 04/01/2014 MEENA FRANCO DO 692.9 DERMATITIS CONTACT UNSPECIFIED 04/01/2014 MEMO FINANCE AND ADMINISTRATION MANAGER, ALCIDES 692 .9 DERMATITIS CONTACT UNSPECIFIED 04/01/2014 MEMO FINANCE AND ADMINISTRATION MANAGER, ALCIDES 692 .9 DERMATITIS CONTACT UNSPECIFIED 04/01/2014 MEMO FINANCE AND ADMINISTRATION MANAGER, ALCIDES 692 .9 DERMATITIS CONTACT UNSPECIFIED 05/03/2014 SHELLEY HOLCOMB FINANCE AND ADMINISTRATION MANAGER Ot 521.00 UNSPEC DENTAL CARIES 05/03/2014 SHELLEY HOLCOMB FINANCE AND ADMINISTRATION MANAGER Ot 528 .9 ORAL SOFT TISSUE DIS NEC 07/23/2014 MEENA FRANCO DO 381.81 DYSFUNCTION OF EUSTACHIAN TUBE 07/23/2014 MEENA FRANCO DO 466.0 ACUTE BRONCHITIS 07/23/2014 MEMO FINANCE AND ADMINISTRATION MANAGER, ALCIDES 381 .81 DYSFUNCTION OF EUSTACHIAN TUBE 07/23/2014 MEMO FINANCE AND ADMINISTRATION MANAGER, ALCIDES 466 .0 ACUTE BRONCHITIS 07/23/2014 MEMO FINANCE AND ADMINISTRATION MANAGER, ALCIDES 381 .81 DYSFUNCTION OF EUSTACHIAN TUBE 07/23/2014 MEMO FINANCE AND ADMINISTRATION MANAGER, ALCIDES 466 .0 ACUTE BRONCHITIS 07/23/2014 MEMO FINANCE AND ADMINISTRATION MANAGER, ALCIDES 381 .81 DYSFUNCTION OF EUSTACHIAN TUBE 07/23/2014 MEMO FINANCE AND ADMINISTRATION MANAGER, ALCIDES 466 .0 ACUTE BRONCHITIS 07/29/2014 MEENA FRANCO DO 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 07/29/2014 MEMO FINANCE AND ADMINISTRATION MANAGER, ALCIDES 608 .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 07/29/2014 MEMO FINANCE AND ADMINISTRATION MANAGER, ALCIDES 608 .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 07/29/2014 MEMO FINANCE AND ADMINISTRATION MANAGER, ALCIDES 608 .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 09/05/2014 MEMO FINANCE AND ADMINISTRATION MANAGER, ALCIDES 312 .30 IMPULSE CONTROL DISORDER UNSPECIFIED 09/05/2014 MEMO FINANCE AND ADMINISTRATION MANAGER, ALCIDES 312 .30 IMPULSE CONTROL DISORDER UNSPECIFIED 09/05/2014 MEMO FINANCE AND ADMINISTRATION MANAGER, ALCIDES 312 .30 IMPULSE CONTROL DISORDER UNSPECIFIED 02/23/2015 Ot V58.69 02/23/2015 Ot V58.83 02/23/2015 HOLLIS WIGGINS Ot 456 .4 02/23/2015 NIXON GONZALEZ Ot 493.90 ASTHMA, UNSPECIFIED 02/23/2015 NIXON GONZALEZ Ot 692.9 DERMATITIS NOS 02/23/2015 NIXON GONZALEZ Ot 782.1 NONSPECIF SKIN ERUPT NEC 02/23/2015 Ot V58.69 02/23/2015 Ot V58.83 02/23/2015 HOLLIS WIGGINS Ot 456 .4 04/03/2015 NIXON GONZALEZ Ot 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 8 OTHER EXTERNAL CAUSE STATUS 07/27/2015 Ot V58.69 07/27/2015 Ot V58.83 07/27/2015 HOLLIS WIGGINS Ot 456 .4 12/08/2015 HOLLIS ROJAS MD Ot J02.0 STREPTOCOCCAL PHARYNGITIS 12/08/2015 Ot V58.69 OTH MED,LT,CURRENT USE 12/08/2015 Ot V58.83 ENC OUNTER FOR THERAPEUTIC DRUG MONITORIN 12/08/2015 HOLLIS WIGGINS Ot 456 .4 SCROTAL VARICES 12/10/2015 HOLLIS ROJAS MD Ot J02.0 STREPTOCOCCAL PHARYNGITIS 08/10/2016 Ot V58.69 OTH MED,LT,CURRENT USE 08/10/2016 Ot V58.83 ENC OUNTER FOR THERAPEUTIC DRUG MONITORIN 08/10/2016 HOLLIS WIGGINS Ot 456 .4 SCROTAL VARICES 08/10/2016 FERNANDO MEJIA DO Ot F17.210 NICOTINE DEPENDENCE, CIGARETTES, UNCOMPL 08/10/2016 FERNANDO MEJIA DO Ot S46.912 A STRAIN UNSP MUSC/FASC/TEND AT SHLDR/UP A 08/10/2016 FERNANDO MEJIA DO Ot S49.92X A UNSP INJURY OF LEFT SHOULDER AND UPPER A 08/10/2016 FERNANDO MEJIA DO Ot X58.XXX A EXPOSURE TO OTHER SPECIFIED FACTORS, INI 08/10/2016 FERNANDO MEJIA DO Ot Y92.013 BEDROOM OF SINGLE-FAMILY (PRIVATE) HOUSE 08/10/2016 FERNANDO MEJIA DO Ot Y93.84 ACTIVITY, SLEEPING 08/10/2016 FERNANDO MEJIA DO Ot Y99.8 OTHER EXTERNAL CAUSE STATUS 08/11/2016 Ot V58.69 OTH MED,LT,CURRENT USE 08/11/2016 Ot V58.83 ENC OUNTER FOR THERAPEUTIC DRUG MONITORIN 08/11/2016 HOLLIS WIGGINS Ot 456 .4 SCROTAL VARICES 08/11/2016 FERNANDO MEJIA DO Ot F17.210 NICOTINE DEPENDENCE, CIGARETTES, UNCOMPL 08/11/2016 FERNANDO MEJIA DO Ot S46.912 A STRAIN UNSP MUSC/FASC/TEND AT SHLDR/UP A 08/11/2016 FERNANDO MEJIA DO Ot S49.92X A UNSP INJURY OF LEFT SHOULDER AND UPPER A 08/11/2016 FERNANDO MEJIA DO Ot X58.XXX A EXPOSURE TO OTHER SPECIFIED FACTORS, INI 08/11/2016 FERNANDO MEJIA DO Ot Y92.013 BEDROOM OF SINGLE-FAMILY (PRIVATE) HOUSE 08/11/2016 FERNANDO MEJIA DO Ot Y93.84 ACTIVITY, SLEEPING 08/11/2016 FERNANDO MEJIA DO Ot Y99.8 OTHER EXTERNAL CAUSE STATUS 09/19/2016 Ot V58.69 OTH MED,LT,CURRENT USE 09/19/2016 Ot V58.83 ENC OUNTER FOR THERAPEUTIC DRUG MONITORIN 09/19/2016 HOLLIS WIGGINS Ot 456 .4 SCROTAL VARICES 09/19/2016 NIDA NOEL DO Ot [...] R06.00 DYSPNEA, UNSPECIFIED 12/15/2016 CRYSTAL CUI, HOLLIS T Ot J03.90 ACUTE TONSILLITIS, UNSPECIFIED 12/15/2016 CRYSTAL [...] OF OTHER SPECIFIED PART 07/05/2017 SHELLEY HOLCOMB FINANCE AND ADMINISTRATION MANAGER Ot F31 .9 BIPOLAR DISORDER, UNSPECIFIED 07/05/2017 SHELLEY HOLCOMB FINANCE AND ADMINISTRATION MANAGER Ot F90 .9 ATTENTION-DEFICIT HYPERACTIVITY DISORDER 07/05/2017 SHELLEY HOLCOMB APRN Ot J45.909 UNSPECIFIED ASTHMA, UNCOMPLICATED 07/05/2017 SHELLEY HOLCOMB FINANCE AND ADMINISTRATION MANAGER Ot R51 HEADACHE 07/05/2017 SHELLEY HOLCOMB FINANCE AND ADMINISTRATION MANAGER Ot Z82.49 FAMILY HX OF ISCHEM HEART DIS AND OTH DI 07/05/2017 SHELLEY HOLCOMB APRN Ot Z90.49 ACQUIRED ABSENCE OF OTHER SPECIFIED PART 07/25/2017 WERNER CUI, ELENA Robledo Ot F31. 9 BIPOLAR DISORDER, UNSPECIFIED 07/25/2017 WERNER CUI, ELENA Robledo Ot F90. 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 12/06/2017 FERNANDO MEJIA DO Ot Z79.52 POOLROOM TABLE ATTENDANT (CURRENT) USE OF SYSTEMIC STER 12/06/2017 FERNANDO MEJIA DO Ot Z82.49 FAMILY HX OF ISCHEM HEART DIS AND OTH DI 12/06/2017 FERNANDO MEJIA DO Ot Z90.49 ACQUIRED ABSENCE OF OTHER SPECIFIED PART 12/08/2017 FERNANDO MEJIA DO Ot F31.9 BIPOLAR DISORDER, UNSPECIFIED 12/08/2017 FERNANDO MEJIA DO Ot F90.9 ATTENTION-DEFICIT HYPERACTIVITY DISORDER 12/08/2017 FERNANDO MEJIA DO Ot J45.909 UNSPECIFIED ASTHMA, UNCOMPLICATED 12/08/2017 FERNANDO MEJIA DO Ot M79.671 PAIN IN RIGHT FOOT 12/08/2017 FERNANDO MEJIA DO Ot S93.401 A SPRAIN OF UNSPECIFIED LIGAMENT OF RIGHT 12/08/2017 FERNANDO MEJIA DO Ot W01.0XX A FALL SAME LEV FROM SLIP/TRIP W/O STRIKE 12/08/2017 FERNANDO MEJIA DO Ot Z79.51 [facility] (CURRENT) USE OF INHALED STERO 12/08/2017 JACKIE FORD FERNANDO Carlson Ot Z79.52 POOLROOM TABLE ATTENDANT (CURRENT) USE OF SYSTEMIC STER 12/08/2017 JACKIE FORD FERNANDO Carlson Ot Z82.49 FAMILY HX OF ISCHEM HEART DIS AND OTH DI 12/08/2017 JACKIE FORD FERNANDO Carlson Ot Z90.49 ACQUIRED ABSENCE OF OTHER SPECIFIED PART 05/02/2018 RHIANNON BEBE SHOWROOM SALES ASSISTANT Ot F31.9 BIPOLAR DISORDER, UNSPECIFIED 05/02/2018 RHIANNON BEBE SHOWROOM SALES ASSISTANT Ot F90.9 ATTENTION-DEFICIT HYPERACTIVITY DISORDER 05/02/2018 RHIANNON BEBE SHOWROOM SALES ASSISTANT Ot J03.90 ACUTE TONSILLITIS, UNSPECIFIED 05/02/2018 RHIANNON BEBE SHOWROOM SALES ASSISTANT Ot J45.909 UNSPECIFIED ASTHMA, UNCOMPLICATED 05/02/2018 RHIANNON BEBE SHOWROOM SALES ASSISTANT Ot R22.0 LOCALIZED SWELLING, MASS AND LUMP, HEAD 05/02/2018 RHIANNON BEBE SHOWROOM SALES ASSISTANT Ot Z79.52 POOLROOM TABLE ATTENDANT (CURRENT) USE OF SYSTEMIC STER 05/02/2018 RHIANNON, BEBE SHOWROOM SALES ASSISTANT Ot Z82.49 FAMILY HX OF ISCHEM HEART DIS AND OTH DI 05/02/2018 RHIANNON, BEBE SHOWROOM SALES ASSISTANT Ot Z90.89 ACQUIRED ABSENCE OF OTHER ORGANS 05/04/2018 RHIANNON, BEBE SHOWROOM SALES ASSISTANT Ot F31.9 BIPOLAR DISORDER, UNSPECIFIED 05/04/2018 RHIANNON, BEBE SHOWROOM SALES ASSISTANT Ot F90.9 ATTENTION-DEFICIT HYPERACTIVITY DISORDER 05/04/2018 RHIANNON, BEBE SHOWROOM SALES ASSISTANT Ot J03.90 ACUTE TONSILLITIS, UNSPECIFIED 05/04/2018 BEBE JURADO Ot J45.909 UNSPECIFIED ASTHMA, UNCOMPLICATED 05/04/2018 BEBE JURADO Ot R22.0 LOCALIZED SWELLING, MASS AND LUMP, HEAD 05/04/2018 BEBE JURADO Ot Z79.52 [facility] (CURRENT) USE OF SYSTEMIC STER 05/04/2018 BEBE JURADO Ot Z82.49 FAMILY HX OF ISCHEM HEART DIS AND OTH DI 05/04/2018 BEBE JURADO Ot Z90.89 ACQUIRED ABSENCE OF OTHER ORGANS 04/01/2019 MARTHA CUI, ALBIN Hernandez Ot F90. 9 ATTENTION-DEFICIT HYPERACTIVITY DISORDER 04/01/2019 MARTHA CUI, ALBIN Hernandez Ot J45.909 UNSPECIFIED ASTHMA, UNCOMPLICATED 04/01/2019 MARTHA CUI, ALBIN Hernandez Ot K92. 0 HEMATEMESIS 04/01/2019 MARTHA CUI, ALBIN Hernandez Ot Z82. 49 FAMILY HX OF ISCHEM HEART DIS AND OTH DI 04/05/2019 MARTHA CUI, ALBIN Hernandez Ot F90. 9 ATTENTION-DEFICIT HYPERACTIVITY DISORDER 04/05/2019 MARTHA CUI, ALBIN Hernandez Ot J45.909 UNSPECIFIED ASTHMA, UNCOMPLICATED 04/05/2019 MARTHA CUI, ALBIN Hernandez Ot K92. 0 HEMATEMESIS 04/05/2019 MARTHA CUI, ALBIN Hernandez Ot Z82. 49 FAMILY HX OF ISCHEM HEART DIS AND OTH DI 07/07/2019 MEME BOWER Ot N46 .9 MALE INFERTILITY, UNSPECIFIED 07/16/2019 MEME BOWER Ot N46 .9 MALE INFERTILITY, UNSPECIFIED Procedures Code Description [place] [address] [facility] H IND W/MED CK 20 06/21/2012 47945 THER APUTIC INJ SQ/IM 04/01/2014 J2930 SOLU MEDROL INJ 04/01/2014 12268 US S CROTUM ULTRASOUND 07/29/2014 Results Test Result Range Complete blood count (CBC) with automate d white blood cell (WBC) differential - 09/19/16 02:13 Blood leukocytes automated count (number/volume) 10.3 10*3/uL 4.3-11.0 Blood erythrocytes automated count (number/volume) 4.95 10*6/uL 4.35-5.85 Venous blood hemoglobin measurement (mass/volume) 15.4 g/dL 13.3-17.7 Blood hematocrit (volume fraction) 44 % 40-54 Automated erythrocyte mean corpuscular volume 90 [ foz_us] 80-99 Automated erythrocyte mean corpuscular h emoglobin (mass per erythrocyte) 31 pg 25-34 Automated erythrocyte mean corpuscular h emoglobin concentration measurement (mass/volume) 35 g/dL 32-36 Automated erythrocyte distribution width ratio 12. 7 % 10.0- 14.5 Automated blood platelet count (count/volume) 277 10*3/uL [...] 10*3 1.0-4.0 Blood monocytes automated count (number/volume) 1. 2 10*3 0.0-1.0 Automated eosinophil count 0.4 10*3/uL 0 .0-0.3 Automated blood basophil count (count/volume) 0.1 10*3/uL 0.0-0.1 Comprehensive metabolic panel - 09/19/16 02:13 Serum or plasma sodium measurement (moles/volume) 142 mmol/L 135-145 Serum or plasma potassium measurement (moles/volume) 4.1 mmol/L 3.6-5.0 Serum or plasma chloride measurement (moles/volume) 107 mmol/L 98-107 Carbon dioxide 23 mmol/L 21-32 Serum or plasma anion gap determination (moles/volume) 12 mmol/L 5-14 Serum or plasma urea nitrogen measurement (mass/volume ) 18 mg/dL 7-18 Serum or plasma creatinine measurement (mass/volume) 0.95 mg/dL 0.60-1.30 Serum or plasma urea nitrogen/creatinine mass ratio 19 NRG Serum or plasma creatinine measurement w ith calculation of estimated glomerular filtration rate > NRG Serum or plasma glucose measurement (mass/volume) 107 mg/dL 70-105 Serum or plasma calcium measurement (mass/volume) 9.4 mg/dL 8.5-10.1 Serum or plasma total bilirubin measurement (mass/volu me) 0.3 mg/dL 0.1-1.0 Serum or plasma alkaline phosphatase bubba surement (enzymatic activity/volume) 144 U/L 40-136 Serum or plasma aspartate aminotransfera se measurement (enzymatic activity/volume) 21 U/L 5-34 Serum or plasma alanine aminotransferase measurement (enzymatic activity/volume) 22 U/L 0-55 Serum or plasma protein measurement (mass/volume) 7.2 g/dL 6.4-8.2 Serum or plasma albumin measurement (mass/volume) 4.2 g/dL 3.2-4.5 Serum or plasma uric acid measurement (m ass/volume) - 09/19/16 02:13 Serum or plasma uric acid measurement (mass/volume) 7.0 mg/dL 2.6-7.2 Serum or plasma C reactive protein measu rement (mass/volume) - 09/19/16 02:13 Serum or plasma C reactive protein measurement (mass/v olume) 0.25 mg/dL 0.00-0.50 Erythrocyte sedimentation rate by coby gren method - 09/19/16 02:13 Erythrocyte sedimentation rate by westergren method 6 mm 0- 15 Streptococcus pyogenes antigen detection - 05/02/18 14:20 Streptococcus pyogenes antigen detection NEGATIVE NEGATIVE Bacterial throat culture - 05/02/18 14:2 0 Bacterial throat culture [facility] Complete blood count (CBC) with automate d white blood cell (WBC) differential - 05/02/18 15:25 Blood leukocytes automated count (number/volume) 6.9 10*3/uL 4.3-11.0 Blood erythrocytes automated count (number/volume) 5.16 10*6/uL 4.35-5.85 Venous blood hemoglobin measurement (mass/volume) 15.9 g/dL 13.3-17.7 Blood hematocrit (volume fraction) 47 % 40-54 Automated erythrocyte mean corpuscular volume 90 [ foz_us] 80-99 Automated erythrocyte mean corpuscular h emoglobin (mass per erythrocyte) 31 pg 25-34 Automated erythrocyte mean corpuscular h emoglobin concentration measurement (mass/volume) 34 g/dL 32-36 Automated erythrocyte distribution width ratio 13. 0 % 10.0- 14.5 Automated blood platelet count (count/volume) 266 10*3/uL 130-400 Automated blood platelet mean volume measurement 8.9 [foz_us] 7.4-10.4 Automated blood neutrophils/100 leukocytes 65 % 42-75 Automated blood lymphocytes/100 leukocytes 15 % 12-44 Blood monocytes/100 leukocytes 15 % 0-12 Automated blood eosinophils/100 leukocytes 4 % 0-10 Automated blood basophils/100 leukocytes 1 % 0-10 Blood neutrophils automated count (number/volume) 4.5 10*3 1.8-7.8 Blood lymphocytes automated count (number/volume) 1.1 10*3 1.0-4.0 Blood monocytes automated count (number/volume) 1. 0 10*3 0.0-1.0 Automated eosinophil count 0.3 10*3/uL 0 .0-0.3 Automated blood basophil count (count/volume) 0.1 10*3/uL 0.0-0.1 Serum heterophile antibody titer - 05/02 15:25 Serum heterophile antibody titer NEGATIVE NEGATIVE Comprehensive metabolic panel - 05/02/18 15:25 Serum or plasma sodium measurement (moles/volume) 137 mmol/L 135-145 Serum or plasma potassium measurement (moles/volume) 3.9 mmol/L 3.6-5.0 Serum or plasma chloride measurement (moles/volume) 104 mmol/L 98-107 Carbon dioxide 25 mmol/L 21-32 Serum or plasma anion gap determination (moles/volume) 8 mmol/L 5-14 Serum or plasma urea nitrogen measurement (mass/volume ) 11 mg/dL 7-18 Serum or plasma creatinine measurement (mass/volume) 1.02 mg/dL 0.60-1.30 Serum or plasma urea nitrogen/creatinine mass ratio 11 NRG Serum or plasma creatinine measurement w ith calculation of estimated glomerular filtration rate > NRG Serum or plasma glucose measurement (mass/volume) 142 mg/dL 70-105 Serum or plasma calcium measurement (mass/volume) 9.7 mg/dL 8.5-10.1 Serum or plasma total bilirubin measurement (mass/volu me) 0.7 mg/dL 0.1-1.0 Serum or plasma alkaline phosphatase bubba surement (enzymatic activity/volume) 113 U/L 40-136 Serum or plasma aspartate aminotransfera se measurement (enzymatic activity/volume) 26 U/L 5-34 Serum or plasma alanine aminotransferase measurement (enzymatic activity/volume) 29 U/L 0-55 Serum or plasma protein measurement (mass/volume) 7.4 g/dL 6.4-8.2 Serum or plasma albumin measurement (mass/volume) 4.4 g/dL 3.2-4.5 CALCIUM CORRECTED 9.4 mg/dL 8.5-10.1 Complete urinalysis with reflex to cultu re - 04/01/19 06:30 Urine color determination YELLOW NRG Urine clarity determination CLEAR NR G Urine pH measurement by test strip 6 5-9 Specific gravity of urine by test strip 1.020 1.016-1.022 Urine protein assay by test strip, semi-quantitative NEGATIVE NEGATIVE Urine glucose detection by automated test strip NE GATIVE NEGATIVE Erythrocytes detection in urine sediment by light micr oscopy NEGATIVE NEGATIVE Urine ketones detection by automated test strip NE GATIVE NEGATIVE Urine nitrite detection by test strip NEGATIVE NEGATIVE Urine total bilirubin detection by test strip NEGA TIVE NEGATIVE Urine urobilinogen measurement by automated test strip (mass/volume) NORMAL NORMAL Urine leukocyte esterase detection by dipstick 2+ NEGATIVE Automated urine sediment erythrocyte cou nt by microscopy (number/high power field) NONE NRG Automated urine sediment leukocyte count by microscopy (number/high power field) [HPF] NRG Bacteria detection in urine sediment by light microsco py TRACE NRG Squamous epithelial cells detection in u rine sediment by light microscopy RARE NRG Crystals detection in urine sediment by light microsco py NONE NRG Casts detection in urine sediment by light microscopy NONE NRG Mucus detection in urine sediment by light microscopy NEGATIVE NRG Complete urinalysis with reflex to culture NO NRG Complete blood count (CBC) with automate d white blood cell (WBC) differential - 04/01/19 06:32 Blood leukocytes automated count (number/volume) 8.6 10*3/uL 4.3-11.0 Blood erythrocytes automated count (number/volume) 4.62 10*6/uL 4.35-5.85 Venous blood hemoglobin measurement (mass/volume) 14.5 g/dL 13.3-17.7 Blood hematocrit (volume fraction) 42 % 40-54 Automated erythrocyte mean corpuscular volume 92 [ foz_us] 80-99 Automated erythrocyte mean corpuscular h emoglobin (mass per erythrocyte) 31 pg 25-34 Automated erythrocyte mean corpuscular h emoglobin concentration measurement (mass/volume) 34 g/dL 32-36 Automated erythrocyte distribution width ratio 12. 7 % 10.0- 14.5 Automated blood platelet count (count/volume) 274 10*3/uL 130-400 Automated blood platelet mean volume measurement 9.0 [foz_us] 7.4-10.4 Automated blood neutrophils/100 leukocytes 55 % 42-75 Automated blood lymphocytes/100 leukocytes 24 % 12-44 Blood monocytes/100 leukocytes 14 % 0-12 Automated blood eosinophils/100 leukocytes 6 % 0-10 Automated blood basophils/100 leukocytes 1 % 0-10 Blood neutrophils automated count (number/volume) 4.7 10*3 1.8-7.8 Blood lymphocytes automated count (number/volume) 2.1 10*3 1.0-4.0 Blood monocytes automated count (number/volume) 1. 2 10*3 0.0-1.0 Automated eosinophil count 0.5 10*3/uL 0 .0-0.3 Automated blood basophil count (count/volume) 0.1 10*3/uL 0.0-0.1 Comprehensive metabolic panel - 04/01/19 06:32 Serum or plasma sodium measurement (moles/volume) 142 mmol/L 135-145 Serum or plasma potassium measurement (moles/volume) 3.9 mmol/L 3.6-5.0 Serum or plasma chloride measurement (moles/volume) 106 mmol/L 98-107 Carbon dioxide 27 mmol/L 21-32 Serum or plasma anion gap determination (moles/volume) 9 mmol/L 5-14 Serum or plasma urea nitrogen measurement (mass/volume ) 11 mg/dL 7-18 Serum or plasma creatinine measurement (mass/volume) 1.02 mg/dL 0.60-1.30 Serum or plasma urea nitrogen/creatinine mass ratio 11 NRG Serum or plasma creatinine measurement w ith calculation of estimated glomerular filtration rate > NRG Serum or plasma glucose measurement (mass/volume) 95 mg/dL 70-105 Serum or plasma calcium measurement (mass/volume) 9.7 mg/dL 8.5-10.1 Serum or plasma total bilirubin measurement (mass/volu me) 0.7 mg/dL 0.1-1.0 Serum or plasma alkaline phosphatase bubba surement (enzymatic activity/volume) 125 U/L 40-136 Serum or plasma aspartate aminotransfera se measurement (enzymatic activity/volume) 21 U/L 5-34 Serum or plasma alanine aminotransferase measurement (enzymatic activity/volume) 26 U/L 0-55 Serum or plasma protein measurement (mass/volume) 7.2 g/dL 6.4-8.2 Serum or plasma albumin measurement (mass/volume) 4.1 g/dL 3.2-4.5 CALCIUM CORRECTED 9.6 mg/dL 8.5-10.1 Lipase - 04/01/19 06:32 Lipase 34 U/L 8-78 Complete blood count (CBC) with automate d white blood cell (WBC) differential - 05/26/19 07:10 Blood leukocytes automated count (number/volume) 8.2 10*3/uL 4.3-11.0 Blood erythrocytes automated count (number/volume) 4.87 10*6/uL 4.35-5.85 Venous blood hemoglobin measurement (mass/volume) 15.2 g/dL 13.3-17.7 Blood hematocrit (volume fraction) 45 % 40-54 Automated erythrocyte mean corpuscular volume 92 [ foz_us] 80-99 Automated erythrocyte mean corpuscular h emoglobin (mass per erythrocyte) 31 pg 25-34 Automated erythrocyte mean corpuscular h emoglobin concentration measurement (mass/volume) 34 g/dL 32-36 Automated erythrocyte distribution width ratio 12. 5 % 10.0- 14.5 Automated blood platelet count (count/volume) 254 10*3/uL 130-400 Automated blood platelet mean volume measurement 9.2 [foz_us] 7.4-10.4 Automated blood neutrophils/100 leukocytes 65 % 42-75 Automated blood lymphocytes/100 leukocytes 19 % 12-44 Blood monocytes/100 leukocytes 12 % 0-12 Automated blood eosinophils/100 leukocytes 4 % 0-10 Automated blood basophils/100 leukocytes 1 % 0-10 Blood neutrophils automated count (number/volume) 5.3 10*3 1.8-7.8 Blood lymphocytes automated count (number/volume) 1.5 10*3 1.0-4.0 Blood monocytes automated count (number/volume) 1. 0 10*3 0.0-1.0 Automated eosinophil count 0.3 10*3/uL 0 .0-0.3 Automated blood basophil count (count/volume) 0.1 10*3/uL 0.0-0.1 Serum or plasma troponin i.cardiac measu rement (mass/volume) - 05/26/19 07:10 Serum or plasma troponin i.cardiac measurement (mass/v olume) < ng/mL <0.028 TESTOSTERONE, TOTAL - 06/26/19 09:32 TESTOSTERONE, TOTAL, MALES (ADULT), IA 400 ng/dL 250-827 Complete semen analysis - 06/26/19 10:30 Sperm count 34 [mil_us] 60-200 Semen volume measurement 1.6 mL 1.5-5 .0 Spermatoz[place] motile detection in semen by light microsc opy 65 NRG Spermat[place] [morphology] in semen 41 NRG Spermatozoa.abnormal/100 spermatozoa 59 % NRG Encounters ACCT No. Visit Date/Time Discharge Status Pt. Type Provider Facility Loc./Unit Complaint [id number] 10/18/2014 10:52:00 10/18/2014 23:59: 59 CLS Outpatient ALCIDES HAMPTON APRN [id number] 10/18/2014 10:52:00 10/18/2014 23:59: 59 CLS Outpatient ALCIDES HAMPTON APRN [id number] 09/05/2014 15:58:00 09/05/2014 23:59: 59 CLS Outpatient ALCIDES HAMPTON APRN [id number] 07/29/2014 18:46:00 07/29/2014 23:59: 59 CLS Outpatient MEENA FRANCO DO [id number] 05/06/2014 16:32:00 05/06/2014 23:59: 59 CLS Outpatient TONYA KINCAID DDS [id number] 04/10/2014 12:55:00 04/10/2014 23:59: 59 CLS Outpatient TIMMY STEPHENS DDS [id number] 04/01/2014 12:15:00 04/01/2014 23:59: 59 CLS Outpatient NIDA PAL APRN [id number] 03/21/2014 14:22:00 03/21/2014 23:59: 59 CLS Outpatient RYAN GUARDADO APRN [id number] 11/13/2013 12:23:00 11/13/2013 23:59: 59 CLS Outpatient RYAN GUARDADO APRN [id number] 07/12/2013 13:45:00 07/12/2013 23:59: 59 CLS Outpatient NATHAN STUART OJ M [id number] 06/01/2013 10:48:00 06/01/2013 23:59: 59 CLS Outpatient RYAN GUARDADO APRN [id number] 04/03/2013 10:21:00 04/03/2013 23:59: 59 CLS Outpatient RYAN GUARDADO APRN [id number] 06/13/2012 12:52:00 06/13/2012 23:59: 59 CLS Outpatient RYAN GUARDADO APRN [id number] 12/08/2012 15:23:00 Document Registration [id number] 06/26/2019 09:59:00 23:59:59 CLS Outpatient MEME BOWER [facility] LAB SEMEN ANAYLSIS [id number] 05/26/2019 06:08:00 09:29:00 DIS Emergency ALBIN THOMAS MD [facility] ER SMITH,CP [id number] 04/01/2019 05:58:00 08:20:00 DIS Emergency ALBIN THOMAS MD [facility] ER THROWING UP BLOOD, COUG ILIA , RUNNY NOSE [id number] 05/02/2018 14:07:00 018 15:50:00 DIS Emergency BEBE JURADO [facility] ER THROAT SWELLING SHUT [id number] 12/06/2017 01:05:00 018 01:52:00 DIS Emergency FERNANDO MEJIA DO a [facility] ER RT FOOR PAIN,SWOLLEN [id number] 07/25/2017 22:07:00 018 23:39:00 DIS Emergency ELENA CALDERA MD [facility] ER RT KNEE PAIN [id number] 07/05/2017 14:43:00 017 15:21:00 DIS Emergency SHELLEY HOLCOMB APRN [facility] ER HEADACHE [id number] 02/01/2017 13:16:00 017 14:49:00 DIS Emergency NIXON GONZALEZ [facility] ER STOMACHE PAIN [id number] 12/14/2016 19:10:00 017 23:59:59 CLS Emergency HOLLIS ROJAS MD [facility] ER HARD TIME BREAT ILIA WHEN LAYING DOWN [id number] 09/19/2016 01:07:00 017 03:45:00 DIS Emergency NIDA NOEL DO Via [facility] ER L LEG PAIN NUMBNESS [id number] 08/10/2016 21:02:00 017 23:00:00 DIS Emergency FERNANDO MEJIA DO [facility] ER L ARM PAIN/INJURY [id number] 12/08/2015 20:50:00 016 21:54:00 DIS Emergency HOLLIS ROJAS MD [facility] ER DIFF BREATHING/ COUGH/SORE THROAT [id number] 07/26/2015 23:32:00 016 00:18:00 DIS Emergency BEENA YANES MD [facility] ER FALL, RT HAND PAIN [id number] 04/20/2015 23:55:00 015 01:30:00 DIS Emergency NIXON GONZALEZ Via [facility] ER RIGHT FOOT PAIN/SWELLI NG [id number] 04/03/2015 13:07:00 015 16:16:00 DIS Emergency NIXON GONZALEZ Via [facility] ER POSS FB IN LEFT EYE [id number] 02/23/2015 10:20:00 015 12:25:00 DIS Emergency NIXON GONZALEZ [facility] ER RASH [id number] 08/08/2014 11:50:00 015 23:59:59 CLS Outpatient HOLLIS WIGGINS [facility] RAD LEFT TESTICULAR MASS [id number] 05/03/2014 20:40:00 014 20:50:00 DIS Emergency SHELLEY HOLCOMB APRN [facility] ER DENTAL PAIN [id number] 09/04/2013 04:40:00 09:55:00 DIS Outpatient JOSHUA WILLETT DO [facility] SDC ACUTE ON CHRONI C APPENDICITIS [id number] 08/08/2013 18:48:00 23:59:59 CLS Outpatient [id number] 02/23/2015 10:20:00 Document Registration [id number] 12/08/2011 08:54:00 Document Registration [id number] 04/14/2010 11:20:00 Document Registration [id number] 08/20/2019 13:00:00 08/20/2019 23:59:5 9 CLS [facility] [id number] 06/26/2019 08:40:00 Document Registration
--- NOTE | 2019-11-07 06:11 | ED Integumentary General ---
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 He's having minor discomfort. He does not member the last time he had a tetanus vaccination but he thinks it was greater than 5 years. He does not take any routine medications. He does have a history of asthma. This occurred just prior to arrival. He's having no nausea fevers sweats chills cough shortness of breath dysuria. Mireya Hunter at [facility] is his PCP. Allergies and Home Medications Allergies Coded Allergies: No Known Drug Allergies (Unverified , 04/14/10) Home Medications Azithromycin 250 Mg Tablet, 250 MG PO UD TAKE 2 TABLETS ON DAY ONE THEN TAKE 1 TABLET DAILY FOR FOUR MORE DAYS Prescribed by: ALBIN THOMAS MD on 05/26/19 0845 Pantoprazole Sodium 40 Mg Granpkt.dr, 40 MG PO DAILY Prescribed by: ALBIN THOMAS MD on 04/01/19 0813 Patient Home Medication List Home Medication List Reviewed: Yes Review of Systems Review of Systems Constitutional: No chills, No diaphoresis EENTM: No ear discharge, No eye pain Respiratory: No cough, No short of breath Cardiovascular: No chest pain, No palpitations Gastrointestinal: No abdominal pain All Other Systems Reviewed Negative Unless Noted: Yes Past Nphqdyz-Jgaook-Qptjlj Hx Patient Social History Alcohol Use: Denies Use Recreational Drug Use: No Smoking Status: Former Smoker Type Used: Cigarettes Recent Foreign Travel: No Contact w/Someone Who Travel: No Recent Hopitalizations: No Immunizations Up To Date Tetanus Booster (TDap): Less than 5yrs PED Vaccines UTD: Yes Date of Influenza Vaccine: Apr 24, 2017 Seasonal Allergies Seasonal Allergies: Yes Past Medical History Surgeries: Yes (DENTAL) Appendectomy, Ear Surgery Respiratory: Yes Asthma Cardiac: No Neurological: No Reproductive Disorders: No Sexually Transmitted Disease: No Genitourinary: No Gastrointestinal: No Musculoskeletal: No Endocrine: No HEENT: No Cancer: No Psychosocial: Yes ADD/ADHD, Bipolar Integumentary: No Blood Disorders: No Adverse Reaction/Blood Tranf: No Family Medical History Cancer PATERNAL GRANDMOTHER Family history: Cardiovascular disease 03 FATHER (PATIENT STATES THAT FATHER HAS CARDIAC HISTORY BUT SPECIFICS WERE UNKNOWN TO PATIENT) PATERNAL GRANDMOTHER (PATIENT STATES THAT PATERNAL GRANDMOTHER HAS CARDIAC HISTORY BUT SPECIFICS WERE UNKNOWN TO PATIENT) No Pertinent Family Hx Physical Exam Vital Signs Capillary Refill : General Appearance: WD/WN, no apparent distress HEENT: PERRL/EOMI, pharynx normal Neck: full range of motion, normal inspection Cardiovascular: normal peripheral pulses, regular rate, rhythm Respiratory: no respiratory distress, no accessory muscle use Extremities: normal range of motion, non-tender, normal inspection, no pedal ed jerzy, normal capillary refill Neurologic/Psychiatric: alert, normal mood/affect Skin: normal color, warm/dry, other (several small melanotic papules on his left thigh but none consistent with a significant injury. Nontender to palpation. There is a small, linear 2 cm superficial abrasion.) Progress/Results/Core Measures Results/Orders My Orders Orders - ELENA CALDERA DiphtBety(Acell),Tet Adult (Boostrix (11/07/19 06:15) Progress Progress Note : Time: 06:11 Progress Note This examiner was unable to locate the exact point of penetration. There is no erythema or induration. No point of this tender. There is a small superficial abrasion. Plan to make him up to date with the tetanus vaccination. We discussed the case with occupational health and they will take care of serology and PCR for HIV, hepatitis. There is no apparent wound right now so we'll hold off any antibiotics. They will also follow him up with appropriate vaccinations for hepatitis B anything else as indicated. They will set him up with follow-up appointment. We will dismiss him from the ER into their immediate care. Departure Impression Primary Impression: Injury due to foreign body Disposition: 01 HOME, SELF-CARE Condition: Stable Departure-Patient Inst. Decision time for Depature: 06:21 Referrals: [facility] (PCP/Family) Primary Care Physician Patient Instructions: Foreign Body in Skin (DC) Add. Discharge Instructions: If any site of redness swelling heat or pain shows up just keep it clean regular soap and water and bring it to the attention of occupational health or your primary care doctor. Go from the ER immediately to occupational health for appropriate testing and vaccination. All discharge instructions reviewed with patient and/or family. Voiced understanding. Work/School Note: Work Release Form Date Seen in the Emergency Department: Nov 07, 2019 Return to Work: Nov 07, 2019 Restrictions: No Restrictions ELENA CALDERA Nov 07, 2019 06:11
[2019-11-07] MEDS ORDERED: TETANUS,DIPTH,PERTUSS P/F (BOOSTRIX) 0.5 ML VIAL IM ONE (06:15)
[2019-11-07 06:24] VITALS: BP 135/80
== END 2019-11-07 06:24 | disposition home or self-care (01) ==
LOC: EDUNIT# 05:01 → ER 05:05
DX: S70.312A Abrasion, left thigh, initial encounter (principal); W45.8XXA Other foreign body or object entering through skin, initial encounter; Z23 Encounter for immunization
CPT/HCPCS: 90715; 99284

== ENCOUNTER 2020-05-31 03:07 | Emergency (ER) | payer SELFPAY ==
--- NOTE | 2020-05-31 03:20 | NUR ---
Went to waiting room to get patient was not there. Checked the bathroom and no one is responding from bathroom. Hollered patient's name outside and no one responded. Called patient at number listed and pt did not answer.
== END 2020-05-31 03:21 | disposition left against medical advice (07) ==
LOC: EDUNIT# 03:07 → ER 03:11
DX: R10.10 Upper abdominal pain, unspecified (principal)

== ENCOUNTER 2020-10-06 08:05 | Emergency (ER) | payer SELFPAY ==
[~2020-10-06] VITALS: Ht 172.7 cm; Wt 101.0 kg
[2020-10-06 08:14] VITALS: BP 144/88
--- NOTE | 2020-10-06 08:25 | ED Chest Pain ---
General Chief Complaint: Chest Pain Stated Complaint: CP Nursing Triage Note: Ambulatory to ED. Pt reports epigastric, burning chest pain that began 4 hours ago. Pain awoke pt from sleep. Pt reports feeling concerned as father has severe heart problems. Nursing Sepsis Screen: No Definite Risk Source: patient Exam Limitations: no limitations History of Present Illness Date Seen by Provider: Oct 06, 2020 Time Seen by Provider: 08:10 Initial Comments Patient is a 29-year-old male who presents to the emergency department today with a chief complaint of epigastric and midsternal chest discomfort. He describes it as both a sharp and burning pain that awoke him from sleep approximately 4 hours prior to arrival. Patient states that he may have had similar symptoms about 4 years ago but he cannot recall what that was related to. Patient states that he has a little bit of nausea with sudden position changes he feels a little short of breath with the discomfort. He has not taken any medications for the pain. The pain does not radiate. Patient states that he is a non-smoker and never has used tobacco products. He has a history of a father with some heart disease but he can not recall what exactly his heart disease is. Patient denies any recent illnesses such as fevers, chills, productive cough. No GI or symptoms. He has been under increased stress over the last week as his father was recently diagnosed with cancer. Patient himself has no prior medical history. Patient states that leaning forward makes the pain feel little bit better. Lay ing back makes it a little bit worse. Otherwise there are no alleviating or exacerbating factors. All other review of systems reviewed and negative except as stated. Timing/Duration: 4-6 hours Severity/Quality: moderate (Currently rated at a "7") Location: central Radiation: no radiation Activities at Onset: rest Prior CP/Workup: no prior cardiac workup ASA po ASSOCIATE PROFESSOR PHYSICIAN: No NTG SL ASSOCIATE PROFESSOR PHYSICIAN: No Allergies and Home Medications Allergies Coded Allergies: No Known Drug Allergies (Unverified , 04/14/10) Home Medications Azithromycin 250 Mg Tablet, 250 MG PO UD TAKE 2 TABLETS ON DAY ONE THEN TAKE 1 TABLET DAILY FOR FOUR MORE DAYS Prescribed by: ALBIN THOMAS MD on 05/26/19 0845 Pantoprazole Sodium [address], 40 MG PO DAILY Prescribed by: ALBIN THOMAS MD on 04/01/19 0813 Patient Home Medication List Home Medication List Reviewed: Yes Review of Systems Review of Systems Constitutional: see HPI EENTM: No Symptoms Reported Respiratory: SOA at Rest Cardiovascular: Chest Pain Gastrointestinal: Nausea (Minimal) Genitourinary: No Symptoms Reported Musculoskeletal: no symptoms reported Skin: no symptoms reported All Other Systems Reviewed Negative Unless Noted: Yes Past Nisflmu-Azselz-Bnrixz Hx Patient Social History Alcohol Use: Denies Use Type Used: Cigarettes 2nd Hand Smoke Exposure: No (PT DENIES EVER BEING A SMOKER) Recent Infectious Disease Expo: No Recent Hopitalizations: No Immunizations Up To Date Tetanus Booster (TDap): Unknown PED Vaccines UTD: Yes Date of Influenza Vaccine: Apr 24, 2017 Seasonal Allergies Seasonal Allergies: Yes Past Medical History Surgeries: Yes (DENTAL) Appendectomy, Ear Surgery Respiratory: Yes Asthma Cardiac: No Neurological: No Reproductive Disorders: No Sexually Transmitted Disease: No Genitourinary: No Gastrointestinal: No Musculoskeletal: No Endocrine: No HEENT: No Cancer: No Psychosocial: Yes ADD/ADHD, Bipolar Integumentary: No Blood Disorders: No Adverse Reaction/Blood Tranf: No Family Medical History Cancer PATERNAL GRANDMOTHER Family history: Cardiovascular disease 03 FATHER (PATIENT STATES THAT FATHER HAS CARDIAC HISTORY BUT SPECIFICS WERE UNKNOWN TO PATIENT) PATERNAL GRANDMOTHER (PATIENT STATES THAT PATERNAL GRANDMOTHER HAS CARDIAC HISTORY BUT SPECIFICS WERE UNKNOWN TO PATIENT) No Pertinent Family Hx Physical Exam Vital Signs Vital Signs - First Documented Capillary Refill : Less Than 3 Seconds Height, Weight, BMI Height: 5'8.00" Weight: 213lbs. 0oz. 96.185828mm; 33.00 BMI Method:Stated General Appearance: No Apparent Distress, WD/WN HEENT: PERRL/EOMI Neck: Normal Inspection Respiratory: Chest Non Tender, Lungs Clear, Normal Breath Sounds, No Accessory Muscle Use, No Respiratory Distress Cardiovascular: Regular Rate, Rhythm, Normal Peripheral Pulses Gastrointestinal: Normal Bowel Sounds, Non Tender, Soft Extremity: Normal Inspection, No Pedal Edema Neurologic/Psychiatric: Alert, Oriented x3, No Motor/Sensory Deficits, Normal Mood/Affect Skin: Normal Color, Warm/Dry Progress/Results/Core Measures Results/Orders My Orders Orders - UMER MACKEY MD Ekg Tracing (10/06/20 08:20) Chest 1 View, Ap/Pa Only (10/06/20 08:20) Antacid Suspension (Mylanta Suspension (10/06/20 08:30) Lidocaine 2% Viscous 15 Ml (Xylocaine Vi (10/06/20 08:30) Sucralfate Tablet (Carafate Tablet) (10/06/20 08:30) Medications Given in ED Current Medications Medications Dose Ordered Sig/Anu Route Start Time Stop Time Status Last Admin Dose Admin Al Hydrox/Mg Hydrox/Simethicone 30 ml ONCE ONCE PO 10/06/20 08:30 10/06/20 08:31 DC 10/06/20 08:37 30 ML Lidocaine HCl 5 ml ONCE ONCE PO 10/06/20 08:30 10/06/20 08:31 DC 10/06/20 08:37 5 ML Sucralfate 1 gm ONCE ONCE PO 10/06/20 08:30 10/06/20 08:31 DC 10/06/20 08:35 1 GM Vital Signs/I&O 10/06/20 10/06/20 08:14 08:14 Temp 36.2 Pulse 87 Resp 23 B/P (MAP) 144/88 (106) Pulse Ox 98 O2 Delivery Room Air Room Air Blood Pressure Mean: 106 Initial ECG Impression Date: Oct 06, 2020 Initial ECG Impression Time: 08:17 Initial ECG Rate: 80 Initial ECG Rhythm: Normal Sinus Initial ECG Intervals: Normal Initial ECG Impression: Normal Diagnostic Imaging Diagonstic Imaging: Xray Plain Films/CT/US/NM/MRI: chest Comments [facility] [place] NAME: [facility]AN[facility] REC#: [id number] PT STATUS: REG ER : 1990 PHYSICIAN: UMER MACKEY MD ADMIT DATE: 10/06/20/ER Draft Date of Exam:10/06/20 CHEST 1 VIEW, AP/PA ONLY INDICATION: Epigastric pain and chest pain. TIME OF EXAM: 8:24 AM. COMPARISON: Correlation is made with the prior chest of 05/26/2019. FINDINGS: The heart size is normal. The pulmonary vascularity is unremarkable. The lungs are clear. No infiltrate, effusion, or pneumothorax is detected. IMPRESSION: No acute cardiopulmonary process is detected. Dictated on workstation # [id number] Dict: 10/06/20 0838 Trans: 10/06/20 0840 [id number] Interpreted by: SUZANNE GUIDRY MD Electronically signed by: Departure Impression Primary Impression: Chest pain Qualified Codes: R07.9 - Chest pain, unspecified Additional Impression: GERD (gastroesophageal reflux disease) Qualified Codes: K21.9 - Gastro-esophageal reflux disease without esophagitis Disposition: HOME, SELF-CARE Condition: Stable Departure-Patient Inst. Decision time for Depature: 08:46 Referrals: [facility] (PCP/Family) Primary Care Physician Patient Instructions: Chest Pain That Is Not Caused by the Heart (DC), Acid Reflux and Gastroesophageal Reflux Disease in Adults Add. Discharge Instructions: You can take over the counter Maalox as directed on the bottle for acid reflux type symptoms. You can also start on a short course (2 weeks) of an acid photographer news such as prilosec or nexium, that is available over the counter to help prevent your symptoms. Decrease the amount of spicy foods in your diet as well as soda. Follow up with your primary care physician. Work/School Note: Work Release Form Date Seen in the Emergency Department: Oct 06, 2020 Return to Work: Oct 06, 2020 UMER MACKEY MD Oct 06, 2020 08:25
[2020-10-06] MEDS ORDERED: ANTACID SUSP 30 ML UDC (MYLANTA) PO ONE (08:30)
[2020-10-06] MEDS ORDERED: LIDOCAINE 2% VISCOUS 15 ML UDC PO ONE (08:30)
[2020-10-06] MEDS ORDERED: SUCRALFATE 1 GM (CARAFATE) TAB PO ONE (08:30)
--- NOTE | 2020-10-06 08:40 | Diagnostic Imaging Report ---
INDICATION: Epigastric pain and chest pain. TIME OF EXAM: 8:24 AM. COMPARISON: Correlation is made with the prior chest of 05/26/2019. FINDINGS: The heart size is normal. The pulmonary vascularity is unremarkable. The lungs are clear. No infiltrate, effusion, or pneumothorax is detected. IMPRESSION: No acute cardiopulmonary process is detected. Dictated by: Dictated on workstation # [id number]
== END 2020-10-06 08:57 | disposition home or self-care (01) ==
LOC: EDUNIT# 08:05 → ER 08:08
DX: K21.9 Gastro-esophageal reflux disease without esophagitis (principal)
CPT/HCPCS: 71045; 93005

== ENCOUNTER 2022-02-11 02:27 | Observation (INO) | payer SELFPAY ==
[~2022-02-11] VITALS: Ht 170.2 cm; Wt 108.5 kg
--- NOTE | 2022-02-11 03:17 | ED GI ---
General Chief Complaint: Abdominal/GI Problems Stated Complaint: ABD PAIN,VOMITING Nursing Triage Note: PATIENT COMPLAINT OF ABDOMINAL PAIN, NAUSEA, VOMITTING. aBDOMINAL PAIN STARTED YESTERDAY, VOMITTING STARTED AT MIDNIGHT. PATIENT STATES AROUND 0100 HE STARTED VOMITTED COFFEE GROUND EMESIS. PATIENT ALSO STATES HAS A COUGH AND HEADACHE FOR A COUPLE OF DAYS. History of Present Illness Date Seen by Provider: Feb 11, 2022 Time Seen by Provider: 03:17 Initial Comments 31-year-old male with no significant past medical history except appendectomy, is here with complaints of periumbilical and left lower quadrant abdominal pain which is associated with nausea and vomiting, that began last night around midnight. Patient had 1 episode of vomiting with some streaks of dark blood. Patient is unsure if it was dark blood or gastric acid. Patient also complains of a cough. Denies fever, chest pain, shortness of breath, palpitations, dizziness, no known sick contacts. Patient had a cheeseburger for dinner last night. Allergies and Home Medications Allergies Coded Allergies: No Known Drug Allergies (Unverified , 04/14/10) Patient Home Medication List Home Medication List Reviewed: Yes Azithromycin (Azithromycin) 250 Mg Tablet, 250 MG PO UD Prescribed by: ALBIN THOMAS MD on 05/26/19 0845 Pantoprazole Sodium (Protonix) 40 Mg Granpkt.dr, 40 MG PO DAILY Prescribed by: ALBIN THOMAS MD on 04/01/19 0813 Review of Systems Review of Systems Constitutional: no symptoms reported EENTM: No Symptoms Reported Respiratory: No Symptoms Reported Cardiovascular: No Symptoms Reported Gastrointestinal: Abdominal Pain, Nausea, Vomiting Genitourinary: No Symptoms Reported Musculoskeletal: no symptoms reported Skin: no symptoms reported Psychiatric/Neurological: No Symptoms Reported Endocrine: No Symptoms Reported Hematologic/Lymphatic: No Symptoms Reported Past Aaoytco-Eywlmi-Shpcrm Hx Patient Social History Tobacco Use?: No Use of E-Cig and/or Vaping dev: No Substance use?: No Alcohol Use?: No Pt feels they are or have been: No Immunizations Up To Date Tetanus Booster (TDap): Unknown PED Vaccines UTD: Yes Seasonal Allergies Seasonal Allergies: Yes Past Medical History Surgeries: Yes (DENTAL) Appendectomy, Ear Surgery Respiratory: Yes Asthma Cardiac: No Neurological: No Reproductive Disorders: No Sexually Transmitted Disease: No Genitourinary: No Gastrointestinal: No Musculoskeletal: No Endocrine: No HEENT: No Cancer: No Psychosocial: Yes ADD/ADHD, Bipolar Integumentary: No Blood Disorders: No Adverse Reaction/Blood Tranf: No Family Medical History Cancer PATERNAL GRANDMOTHER Family history: Cardiovascular disease 03 FATHER (PATIENT STATES THAT FATHER HAS CARDIAC HISTORY BUT SPECIFICS WERE UNKNOWN TO PATIENT) PATERNAL GRANDMOTHER (PATIENT STATES THAT PATERNAL GRANDMOTHER HAS CARDIAC HISTORY BUT SPECIFICS WERE UNKNOWN TO PATIENT) No Pertinent Family Hx Physical Exam Vital Signs Vital Signs - First Documented 02/11/22 03:06 Temp 37.0 Pulse 80 Resp 20 B/P (MAP) 143/91 (108) Pulse Ox 98 O2 Delivery Room Air Capillary Refill : Less Than 3 Seconds Height/Weight/BMI Height: 5'8.00" Weight: 213lbs. 0oz. 96.814328wo; 36.00 BMI Method:Stated General Appearance: WD/WN, no apparent distress HEENT: PERRL/EOMI, normal ENT inspection Neck: non-tender Respiratory: chest non-tender, lungs clear, normal breath sounds Cardiovascular: normal peripheral pulses, no edema Gastrointestinal: normal bowel sounds, soft, no pulsatile mass, tenderness (mikala-umbilical and LLQ) Extremities: normal range of motion Back: normal inspection, no CVA tenderness Neurologic/Psychiatric: alert, normal mood/affect, oriented x 3 Skin: normal color Progress/Results/Core Measures Results/Orders Lab Results Laboratory Tests Test 02/11/22 03:00 02/11/22 03:34 02/11/22 03:43 Range/Units White Blood Count 8.3 4.3-11.0 10^3/uL Red Blood Count 4.88 4.30-5.52 10^6/uL Hemoglobin 15.5 13.3-17.7 g/dL Hematocrit 45 40-54 % Mean Corpuscular Volume 93 80-99 fL Mean Corpuscular Hemoglobin 32 25-34 pg Mean Corpuscular Hemoglobin Concent 34 32-36 g/dL Red Cell Distribution Width 12.3 10.0-14.5 % Platelet Count 263 130-400 10^3/uL Mean Platelet Volume 9.3 9.0-12.2 fL Immature Granulocyte % (Auto) 1 % Neutrophils (%) (Auto) 56 42-75 % Lymphocytes (%) (Auto) 23 12-44 % Monocytes (%) (Auto) 14 H 0-12 % Eosinophils (%) (Auto) 6 0-10 % Basophils (%) (Auto) 1 0-10 % Neutrophils # (Auto) 4.7 1.8-7.8 10^3/uL Lymphocytes # (Auto) 1.9 1.0-4.0 10^3/uL Monocytes # (Auto) 1.1 H 0.0-1.0 10^3/uL Eosinophils # (Auto) 0.5 H 0.0-0.3 10^3/uL Basophils # (Auto) 0.1 0.0-0.1 10^3/uL Immature Granulocyte # (Auto) 0.1 0.0-0.1 10^3/uL Prothrombin Time 13.4 12.2-14.7 SEC INR Comment 1.0 0.8-1.4 Activated Partial Thromboplast Time 32 24-35 SEC D-Dimer < 0.27 0.00-0.49 UG/ML Sodium Level 140 135-145 MMOL/L Potassium Level 4.2 3.6-5.0 MMOL/L Chloride Level 107 98-107 MMOL/L Carbon Dioxide Level 22 21-32 MMOL/L Anion Gap 11 5-14 MMOL/L Blood Urea Nitrogen 15 7-18 MG/DL Creatinine 1.01 0.60-1.30 MG/DL Estimat Glomerular Filtration Rate 103 BUN/Creatinine Ratio 15 Glucose Level 124 H 70-105 MG/DL Calcium Level 9.5 8.5-10.1 MG/DL Corrected Calcium 9.3 8.5-10.1 MG/DL Magnesium Level 2.0 1.6-2.4 MG/DL Total Bilirubin 0.4 0.1-1.0 MG/DL Aspartate Amino Transf (AST/SGOT) 19 5-34 U/L Alanine Aminotransferase (ALT/SGPT) 27 0-55 U/L Alkaline Phosphatase 113 40-136 U/L Troponin I < 0.028 <0.028 NG/ML Total Protein 7.4 6.4-8.2 GM/DL Albumin 4.2 3.2-4.5 GM/DL Serum Alcohol < 10 <10 MG/DL Influenza Type A (RT-PCR) Not Detected Not Detecte Influenza Type B (RT-PCR) Not Detected Not Detecte SARS-CoV-2 RNA (RT-PCR) Not Detected Not Detecte Urine Color YELLOW Urine Clarity CLEAR Urine pH 5.5 5-9 Urine Specific Lindsay 1.025 H 1.016-1.022 Urine Protein NEGATIVE NEGATIVE Urine Glucose (UA) NEGATIVE NEGATIVE Urine Ketones NEGATIVE NEGATIVE Urine Nitrite NEGATIVE NEGATIVE Urine Bilirubin NEGATIVE NEGATIVE Urine Urobilinogen 1.0 < = 1.0 MG/DL Urine Leukocyte Esterase TRACE H NEGATIVE Urine RBC (Auto) NEGATIVE NEGATIVE Urine RBC NONE /HPF Urine WBC 0-2 /HPF Urine Squamous Epithelial Cells 0-2 /HPF Urine Crystals NONE /LPF Urine Bacteria TRACE /HPF Urine Casts NONE /LPF Urine Mucus SMALL H /LPF Urine Culture Indicated NO Urine Opiates Screen NEGATIVE NEGATIVE Urine Oxycodone Screen NEGATIVE NEGATIVE Urine Methadone Screen NEGATIVE NEGATIVE Urine Propoxyphene Screen NEGATIVE NEGATIVE Urine Barbiturates Screen NEGATIVE NEGATIVE Ur Tricyclic Antidepressants Screen NEGATIVE NEGATIVE Urine Phencyclidine Screen NEGATIVE NEGATIVE Urine Amphetamines Screen NEGATIVE NEGATIVE Urine Methamphetamines Screen NEGATIVE NEGATIVE Urine Benzodiazepines Screen NEGATIVE NEGATIVE Urine Cocaine Screen NEGATIVE NEGATIVE Urine Cannabinoids Screen NEGATIVE NEGATIVE My Orders Orders - TOM ROSENBERG MD Covid 19 Inhouse Test (02/11/22 03:28) Influenza A And B By Pcr (02/11/22 03:28) Ct Abdomen/Pelvis W (02/11/22 03:29) Chest 1 View, Ap/Pa Only (02/11/22 03:29) Alcohol (02/11/22 03:29) Cbc With Automated Diff (02/11/22 03:29) Comprehensive Metabolic Panel (02/11/22 03:29) Fibrin Degradation Products (02/11/22 03:29) Drug Screen Stat (Urine) (02/11/22 03:29) Magnesium (02/11/22 03:29) Protime With Inr (02/11/22 03:29) Partial Thromboplastin Time (02/11/22 03:29) Ua Culture If Indicated (02/11/22 03:29) Troponin I [place] (02/11/22 03:29) Iohexol Injection (Omnipaque 350 Mg/Ml 1 (02/11/22 04:15) Sodium Chloride Flush (Catheter Flush Sy (02/11/22 04:15) Ns (Ivpb) (Sodium Chloride 0.9% Ivpb Bag (02/11/22 04:15) Medications Given in ED Current Medications Medications Dose Ordered Sig/Anu Route Start Time Stop Time Status Last Admin Dose Admin Iohexol 100 ml ONCE ONCE IV 02/11/22 04:15 02/11/22 04:16 DC 02/11/22 04:08 100 ML Sodium Chloride 10 ml NEEDED PRN IV 02/11/22 04:15 02/11/22 04:08 10 ML Sodium Chloride 100 ml ONCE ONCE IV 02/11/22 04:15 02/11/22 04:16 DC 02/11/22 04:08 80 ML Vital Signs/I&O 02/11/22 03:06 Temp 37.0 Pulse 80 Resp 20 B/P (MAP) 143/91 (108) Pulse Ox 98 O2 Delivery Room Air Blood Pressure Mean: 108 Progress Progress Note : Progress Note 1. ACUTE CHOLELITHISASIS: - CT ABD: Acute cholelithiasis - Labs unremarkable - Will admit to floor for surgery consult. Discussed with hospitalist - Departure Communication (Admissions) Time/Spoke to Admitting Phy: 04:[address] Tarango Impression Primary Impression: Cholelithiasis Qualified Codes: K80.80 - Other cholelithiasis without obstruction Disposition: 30 STILL A PATIENT Condition: Improved Admissions Decision to Admit Reason: Admit from ER (General) Decision to Admit/Date: Feb 11, 2022 Time/Decision to Admit Time: 04:20 Departure-Patient Inst. Referrals: [facility] (PCP/Family) Primary Care Physician Patient Instructions: Cholecystectomy (DC), Gallstones TOM ROSENBERG MD Feb 11, 2022 03:17
[2022-02-11 03:37] LABS: BASOPHILS # (AUTO) 0.1 10^3/uL (0.0-0.1); BASOPHILS % (AUTO) 1 % (0-10); EOSINOPHILS # (AUTO) 0.5 10^3/uL (0.0-0.3); EOSINOPHILS % (AUTO) 6 % (0-10); HEMATOCRIT 45 % (40-54); HEMOGLOBIN 15.5 g/dL (13.3-17.7); LYMPHOCYTES # (AUTO) 1.9 10^3/uL (1.0-4.0); LYMPHOCYTES % (AUTO) 23 % (12-44); MEAN CORPUSCULAR HEMOGLOBIN 32 pg (25-34); MEAN CORPUSCULAR HGB CONC 34 g/dL (32-36); MEAN CORPUSCULAR VOLUME 93 fL (80-99); MEAN PLATELET VOLUME 9.3 fL (9.0-12.2); MONOCYTES # (AUTO) 1.1 10^3/uL (0.0-1.0); MONOCYTES % (AUTO) 14 % (0-12); NEUTROPHILS # (AUTO) 4.7 10^3/uL (1.8-7.8); NEUTROPHILS % (AUTO) 56 % (42-75); PLATELET COUNT 263 10^3/uL (130-400); WHITE BLOOD COUNT 8.3 10^3/uL (4.3-11.0)
[2022-02-11 03:38] LABS: ALBUMIN 4.2 GM/DL (3.2-4.5)
[2022-02-11 03:39] LABS: CHLORIDE 107 MMOL/L (98-107); POTASSIUM 4.2 MMOL/L (3.6-5.0); SODIUM 140 MMOL/L (135-145)
[2022-02-11 03:40] LABS: CALCIUM 9.5 MG/DL (8.5-10.1)
[2022-02-11 03:41] LABS: GLUCOSE 124 MG/DL (70-105); TOTAL PROTEIN 7.4 GM/DL (6.4-8.2)
[2022-02-11 03:42] LABS: CARBON DIOXIDE 22 MMOL/L (21-32)
[2022-02-11 03:43] LABS: BILIRUBIN,TOTAL 0.4 MG/DL (0.1-1.0)
[2022-02-11 03:45] LABS: ALKALINE PHOSPHATASE 113 U/L (40-136); CREATININE SERUM 1.01 MG/DL (0.60-1.30); GFR ESTIMATED 103
[2022-02-11 03:46] LABS: BUN/CREATININE RATIO 15
[2022-02-11 03:48] LABS: ALANINE AMINOTRANSFERASE 27 U/L (0-55)
[2022-02-11 03:50] LABS: BILIRUBIN,URINE NEGATIVE (NEGATIVE); CLARITY,URINE CLEAR; COLOR,URINE YELLOW; GLUCOSE, URINE (UA) NEGATIVE (NEGATIVE); KETONES,URINE NEGATIVE (NEGATIVE); LEUKOCYTE ESTERASE ,URINE TRACE (NEGATIVE); NITRITE,URINE NEGATIVE (NEGATIVE); PH,URINE 5.5 (5-9); PROTEIN,URINE NEGATIVE (NEGATIVE)
[2022-02-11 03:59] LABS: AMPHETAMINE SCREEN, URINE NEGATIVE (NEGATIVE); BARBITURATE SCREEN URINE NEGATIVE (NEGATIVE); BENZODIAZEPINES SCREEN URINE NEGATIVE (NEGATIVE); CANNABINOID SCREEN, URINE NEGATIVE (NEGATIVE); COCAINE SCREEN URINE NEGATIVE (NEGATIVE); METHADONE STAT NEGATIVE (NEGATIVE); OPIATE SCREEN URINE NEGATIVE (NEGATIVE); OXYCODONE STAT NEGATIVE (NEGATIVE); PROPOXYPHENE STAT NEGATIVE (NEGATIVE); TRICYCLIC ANTIDEPRESSANTS SCRE NEGATIVE (NEGATIVE)
[2022-02-11 04:00] LABS: FIBRIN DEGRADATION PRODUCTS < 0.27 UG/ML (0.00-0.49); PARTIAL THROMBOPLASTIN TIME 32 SEC (24-35); PROTHROMBIN TIME PATIENT 13.4 SEC (12.2-14.7)
[2022-02-11 04:09] LABS: BACTERIA,URINE TRACE /HPF; SQUAMOUS EPITHELIAL CELL,UR 0-2 /HPF; WBC,URINE 0-2 /HPF
[2022-02-11] MEDS ORDERED: IOHEXOL 350 MG/ML 100 ML (OMNIPAQUE 350) VIAL IV ONE (04:15)
[2022-02-11] MEDS ORDERED: NS 100 ML (IVPB) BAG IV ONE (04:15)
[2022-02-11] MEDS ORDERED: CATHETER FLUSH 10 ML SYR IV PRN (04:15)
--- NOTE | 2022-02-11 05:28 | Diagnostic Imaging Report ---
INDICATION: cough COMPARISON: 10/06/2020 FINDINGS: Single frontal view of the chest demonstrates normal heart size and pulmonary vascularity. The lungs are well aerated and clear. No large pleural effusion or pneumothorax is seen. The visualized osseous structures show no acute abnormalities. IMPRESSION: 1. No acute cardiopulmonary process. Dictated by: Dictated on workstation # [id number]
[2022-02-11] MEDS ORDERED: KETOROLAC 15 MG/ML VIAL IVP PRN (06:15)
[2022-02-11] MEDS ORDERED: CATHETER FLUSH 10 ML SYR IVP PRN (06:15)
[2022-02-11] MEDS ORDERED: ONDANSETRON 4 MG/2 ML (SDV) Z0FRAN IV PRN (06:15)
--- NOTE | 2022-02-11 06:20 | Diagnostic Imaging Report ---
PROCEDURE: CT abdomen and pelvis with contrast. TECHNIQUE: Multiple contiguous axial images were obtained through the abdomen and pelvis after administration of intravenous contrast. Auto Exposure Controls were utilized during the CT exam to meet ALARA standards for radiation dose reduction. All CT scans use one or more of the following dose optimizing techniques: automated exposure control, MA and/or KvP adjustment based on patient size and exam type or iterative reconstruction. INDICATION: Abdominal pain. Nausea and vomiting. Cough. COMPARISON: 04/01/2019 FINDINGS: Included portions of the lung bases are clear. Small hiatal hernia is noted. CT ABDOMEN: Normal appendix cannot be adequately identified, but appears to be surgically absent. Small bowel loops are nondistended. Small benign-appearing right renal cyst is present. Otherwise, the kidneys, adrenal glands, spleen, pancreas, and liver have an normal CT appearance. Multiple large gallstones are noted within the lumen of the gallbladder. There is no appreciable gallbladder wall thickening or pericholecystic free fluid on this exam. There is no loculated fluid collection, free fluid or free air. No abnormal mesenteric or retroperitoneal adenopathy is seen. Osseous structures show no acute abnormalities. CT PELVIS: Urinary bladder is unopacified and minimally distended. No calculi are seen within urinary bladder. There is no loculated fluid collection, free fluid or free air within the pelvis. No abnormal adenopathy is seen. Osseous structures show no acute abnormalities. IMPRESSION: 1. No acute abnormalities seen within the abdomen or pelvis. 2. Cholelithiasis, but no CT evidence of acute cholecystitis. Dictated by: Dictated on workstation # [id number]
--- NOTE | 2022-02-11 07:37 | Consultation - Surgery ---
COLLIN NUNEZ 02/11/22 0737: History of Present Illness History of Present Illness Patient Consulted On(sulema/time) 02/11/22 07:32 Date Seen by Provider: Feb 11, 2022 Time Seen by Provider: 06:45 Reason for Visit: Abdominal pain History of Present Illness Mr. Messina is a 31 year old male with a past medical history of asthma, GERD, and ADHD who presented to the ED with abdominal pain. He reports that his abdominal pain began yesterday at around 0600 when he woke up for work. He described it as a constant, crampy pain that was located in his LLQ and RLQ with radiation to his epigastrum. He reports associated nausea and vomiting with hematemsis. He says he has had pain similar to this for years. He came to the ED around 0100 after his episode of hematemesis around midnight. He says nothing makes his pain better; movement makes his pain worse. He says the pain will somewhat radiate under his ribs on the right. He rates his pain as a 10/10. He says that he ate a cheeseburger last night for dinner which caused his pain to worsen. He says normally spicy foods will cause similar pain. He says his hematemesis only occurs after spicy food. He had an EGD scheduled in [place] but it was canceled and a new one is not planned. Allergies and Home Medications Allergies Coded Allergies: No Known Drug Allergies (Unverified , 04/14/10) Patient Home Medication List Azithromycin (Azithromycin) 250 Mg Tablet, 250 MG PO UD Prescribed by: ALBIN THOMAS MD on 05/26/19 0845 Pantoprazole Sodium (Protonix) 40 Mg Granpkt.dr, 40 MG PO DAILY Prescribed by: ALBIN THOMAS MD on 04/01/19 0813 Past Vkedprv-Gbahcy-Vtpuhy Hx Patient Social History Smoking Status: Never a Smoker 2nd Hand Smoke Exposure: No Recent Hopitalizations: No Alcohol Use?: No Have you traveled recently?: No Immunizations Up To Date Tetanus Booster (TDap): Unknown PED Vaccines UTD: Yes Date of Influenza Vaccine: Apr 24, 2017 Seasonal Allergies Seasonal Allergies: Yes Surgeries History of Surgeries: Yes Surgeries: Appendectomy, Ear Surgery Respiratory Respiratory Disorders: Asthma Cardiovascular History of Cardiac Disorders: No Neurological History of Neurological Disord: No Reproductive System Hx Reproductive Disorders: No Sexually Transmitted Disease: No Genitourinary History of Genitourinary Disor: No Gastrointestinal History of Gastrointestinal Di: Yes Gastrointestinal Disorders: Gastroesophageal Reflux Musculoskeletal History of Musculoskeletal Dis: No Endocrine History of Endocrine Disorders: No HEENT History of HEENT Disorders: No Cancer History of Cancer: No Psychosocial History of Psychiatric Problem: Yes Behavioral Health Disorders: ADD/ADHD, Bipolar Integumentary History of Skin or Integumenta: No Blood Transfusions History of Blood Disorders: No Adverse Reaction to a Blood Tr: No Family Medical History Significant Family History: Diabetes (Father), Other Conditions/Hx (Parkinson disease and dementia in father) Review of Systems-General Constitutional: No chills, No fever EENTM: No blurred vision, No double vision Respiratory: No cough, No dyspnea on exertion, No short of breath Cardiovascular: No chest pain, No palpitations Gastrointestinal: abdominal pain, hematemesis, nausea, vomiting Psychiatric/Neurological: Denies Tremors, Denies Weakness Physical Exam-General Problems Physical Exam Vital Signs Vital Signs - First Documented 02/11/22 03:06 Temp 37.0 Pulse 80 Resp 20 B/P (MAP) 143/91 (108) Pulse Ox 98 O2 Delivery Room Air Capillary Refill : Less Than 3 Seconds General Appearance: WD/WN, no apparent distress HEENT: PERRL/EOMI; No pale conjunctivae (R), No pale conjunctivae (L) Neck: supple, normal inspection Respiratory: chest non-tender, lungs clear, normal breath sounds, no respiratory distress, no accessory muscle use Cardiovascular: normal peripheral pulses, regular rate, rhythm, no murmur Peripheral Pulses: 2+ Radial Pulses (R), 2+ Radial Pulses (L) Gastrointestinal: soft; No distended, No guarding, No rebound; tenderness (Tender in epigastric region, markedly tender in periumbilical area.) Extremities: non-tender, no pedal edema, no calf tenderness Neurologic/Psychiatric: alert, normal mood/affect, oriented x 3 Skin: normal color, warm/dry Data Review Labs Laboratory Tests 02/11/22 03:00: White Blood Count 8.3, Red Blood Count 4.88, Hemoglobin 15.5, Hematocrit 45, Mean Corpuscular Volume 93, Mean Corpuscular Hemoglobin 32, Mean Corpuscular Hemoglobin Concent 34, Red Cell Distribution Width 12.3, Platelet Count 263, Mean Platelet Volume 9.3, Immature Granulocyte % (Auto) 1, Neutrophils (%) (Auto) 56, Lymphocytes (%) (Auto) 23, Monocytes (%) (Auto) 14H, Eosinophils (%) (Auto) 6, Basophils (%) (Auto) 1, Neutrophils # (Auto) 4.7, Lymphocytes # (Auto) 1.9, Monocytes # (Auto) 1.1H, Eosinophils # (Auto) 0.5H, Basophils # (Auto) 0.1, Immature Granulocyte # (Auto) 0.1, Prothrombin Time 13.4, INR Comment 1.0, Activated Partial Thromboplast Time 32, D-Dimer < 0.27, Sodium Level 140, Potassium Level 4.2, Chloride Level 107, Carbon Dioxide Level 22, Anion Gap 11, Blood Urea Nitrogen 15, Creatinine 1.01, Estimat Glomerular Filtration Rate 103, BUN/Creatinine Ratio 15, Glucose Level 124H, Calcium Level 9.5, Corrected Calcium 9.3, Magnesium Level 2.0, Total Bilirubin 0.4, Aspartate Amino Transf (AST/SGOT) 19, Alanine Aminotransferase (ALT/SGPT) 27, Alkaline Phosphatase 113, Troponin I < 0.028, Total Protein 7.4, Albumin 4.2, Serum Alcohol < 10 02/11/22 03:34: Influenza Type A (RT-PCR) Not Detected, Influenza Type B (RT-PCR) Not Detected, SARS-CoV-2 RNA (RT-PCR) Not Detected 02/11/22 03:43: Urine Color YELLOW, Urine Clarity CLEAR, Urine pH 5.5, Urine Specific [place] 1.025H, Urine Protein NEGATIVE, Urine Glucose (UA) NEGATIVE, Urine Ketones NEGATIVE, Urine Nitrite NEGATIVE, Urine Bilirubin NEGATIVE, Urine Urobilinogen 1.0, Urine Leukocyte Esterase TRACEH, Urine RBC (Auto) NEGATIVE, Urine RBC NONE, Urine WBC 0-2, Urine Squamous Epithelial Cells 0-2, Urine Crystals NONE, Urine Bacteria TRACE, Urine Casts NONE, Urine Mucus SMALLH, Urine Culture Indicated NO, Urine Opiates Screen NEGATIVE, Urine Oxycodone Screen NEGATIVE, Urine Methadone Screen NEGATIVE, Urine Propoxyphene Screen NEGATIVE, Urine Barbiturates Screen NEGATIVE, Ur Tricyclic Antidepressants Screen NEGATIVE, Urine Phencyclidine Screen NEGATIVE, Urine Amphetamines Screen NEGATIVE, Urine Methamphetamines Screen NEGATIVE, Urine Benzodiazepines Screen NEGATIVE, Urine Cocaine Screen NEGATIVE, Urine Cannabinoids Screen NEGATIVE Radiology Date of Exam:02/11/22 CT ABDOMEN/PELVIS W PROCEDURE: CT abdomen and pelvis with contrast. TECHNIQUE: Multiple contiguous axial images were obtained through the abdomen and pelvis after administration of intravenous contrast. Auto Exposure Controls were utilized during the CT exam to meet ALARA standards for radiation dose reduction. All CT scans use one or more of the following dose optimizing techniques: automated exposure control, MA and/or KvP adjustment based on patient size and exam type or iterative reconstruction. INDICATION: Abdominal pain. Nausea and vomiting. Cough. COMPARISON: 04/01/2019 FINDINGS: Included portions of the lung bases are clear. Small hiatal hernia is noted. CT ABDOMEN: Normal appendix cannot be adequately identified, but appears to be surgically absent. Small bowel loops are nondistended. Small benign-appearing right renal cyst is present. Otherwise, the kidneys, adrenal glands, spleen, pancreas, and liver have an normal CT appearance. Multiple large gallstones are noted within the lumen of the gallbladder. There is no appreciable gallbladder wall thickening or pericholecystic free fluid on this exam. There is no loculated fluid collection, free fluid or free air. No abnormal mesenteric or retroperitoneal adenopathy is seen. Osseous structures show no acute abnormalities. CT PELVIS: Urinary bladder is unopacified and minimally distended. No calculi are seen within urinary bladder. There is no loculated fluid collection, free fluid or free air within the pelvis. No abnormal adenopathy is seen. Osseous structures show no acute abnormalities. IMPRESSION: 1. No acute abnormalities seen within the abdomen or pelvis. 2. Cholelithiasis, but no CT evidence of acute cholecystitis. Dictated on workstation # [id number] Dict: 02/11/2216 Trans: 02/11/22 0619 [id number] Interpreted by: DILIA FRYE MD Electronically signed by: Assessment/Plan Assessment/Plan Assessment/Plan Abdominal pain Lower quadrant abdominal pain Tenderness in periumbilical region upon palpation Pain pattern not typical of biliary colic Nausea/vomiting Hematemesis Cholelithiasis CT shows 3 large gallstones in the lumen of the gallbladder Each measures around 15-17 mm in size No evidence of acute cholecystitis on CT No elevated white count, afebrile GERD Continue pain control and anti-emetics as needed. CXR showed no acute abnormalities and CT showed no evidence of acute cholecystitis. With patient's pattern of pain and timing I am not convinced of acute c holecystitis and biliary colic is low on the differential. I don't think cholecystectomy would necessarily resolve his pain or be of significant benefit to him. Based on history of GERD and hematemesis I think an EGD would be warranted and would be more appropriate than surgery at this time. APOLINAR CONNER DO 02/11/22 1121: History of Present Illness History of Present Illness Time Seen by Provider: 11:01 History of Present Illness Surgery asked to consult regarding cholelithiasis. HPI per ED: 31-year-old male with no significant past medical history except appendectomy, is here with complaints of periumbilical and left lower quadrant abdominal pain which is associated with nausea and vomiting, that began last night around midnight. Patient had 1 episode of vomiting with some streaks of dark blood. Patient is unsure if it was dark blood or gastric acid. Patient also complains of a cough. Denies fever, chest pain, shortness of breath, palpitations, dizziness, no known sick contacts. Patient had a cheeseburger for dinner last night. When I spoke to pt he states he has been having "stomach problems" for at least 3 years. His main complaint is vomiting, usually with hematemesis "last night my girlfriend told me it was coffee ground". He avoids niuean and biscuits and gravy, "they always cause problems". His last episode was 6 months ago. Pain is always "below the belly button", denies in RUQ. He states sometimes he vomits for 2 hours and then is able to go back to sleep. Allergies and Home Medications Allergies Coded Allergies: No Known Drug Allergies (Unverified , 04/14/10) Patient Home Medication List Home Medication List Reviewed: Yes Azithromycin (Azithromycin) 250 Mg Tablet, 250 MG PO UD Prescribed by: ALBIN THOMAS MD on 05/26/19 0859 Pantoprazole Sodium (Protonix) 40 Mg , 40 MG PO DAILY Prescribed by: ABLIN THOMAS MD on 04/01/19 0813 Past Ebxbjrs-Eenbwi-Kovsyq Hx Patient Social History Smoking Status: Never a Smoker 2nd Hand Smoke Exposure: No Alcohol Use?: No Surgeries History of Surgeries: Yes Surgeries: Appendectomy, Ear Surgery (tubes) Respiratory History of Respiratory Disorde: Yes Respiratory Disorders: Asthma Cardiovascular History of Cardiac Disorders: No Neurological History of Neurological Disord: No Genitourinary History of Genitourinary Disor: No Gastrointestinal History of Gastrointestinal Di: Yes Gastrointestinal Disorders: Gastroesophageal Reflux Musculoskeletal History of Musculoskeletal Dis: No Endocrine History of Endocrine Disorders: No HEENT History of HEENT Disorders: No Loss of Vision: Denies Hearing Impairment: Denies Cancer History of Cancer: No Psychosocial History of Psychiatric Problem: No Family Medical History Significant Family History: Diabetes (Father), Other Conditions/Hx (Parkinson disease and dementia in father) Family Medial History: Cancer PATERNAL GRANDMOTHER Family history: Cardiovascular disease 03 FATHER (PATIENT STATES THAT FATHER HAS CARDIAC HISTORY BUT SPECIFICS WERE UNKNOWN TO PATIENT) PATERNAL GRANDMOTHER (PATIENT STATES THAT PATERNAL GRANDMOTHER HAS CARDIAC HISTORY BUT SPECIFICS WERE UNKNOWN TO PATIENT) Review of Systems-General Constitutional: No chills, No fever, No weight loss EENTM: No blurred vision, No double vision, No mouth swelling, No epistaxis Respiratory: No cough, No dyspnea on exertion, No short of breath Cardiovascular: No chest pain, No palpitations Gastrointestinal: abdominal pain, hematemesis, nausea, vomiting Genitourinary: No dysuria, No frequency, No hematuria Musculoskeletal: No back pain, No joint pain Skin: No change in color, No change in hair/nails Psychiatric/Neurological: Denies Anxiety, Denies Depressed, Denies Tremors, Denies Weakness Physical Exam-General Problems Physical Exam General Appearance: no apparent distress, obese Eyes: Bilateral Eye PERRL, Bilateral Eye EOMI HEENT: pharynx normal; No scleral icterus (R), No scleral icterus (L), No pale conjunctivae (R), No pale conjunctivae (L) Neck: supple, normal inspection Respiratory: chest non-tender, lungs clear, normal breath sounds, no respiratory distress, no accessory muscle use Cardiovascular: regular rate, rhythm, no murmur Peripheral Pulses: 2+ Radial Pulses (R), 2+ Radial Pulses (L) Gastrointestinal: soft; No distended, No guarding, No rebound; tenderness ( Tender in epigastric region, markedly tender in periumbilical area.), hernia (umbilical) Rectal: deferred Back: no CVA tenderness, no vertebral tenderness Extremities: non-tender, no pedal edema, no calf tenderness Neurologic/Psychiatric: guidance adviser II-XII nml as tested, alert, normal mood/affect Skin: normal color, warm/dry Lymphatic: no adenopathy (neck, axilla or groin) Assessment/Plan Assessment/Plan Assessment/Plan Abdominal pain Lower quadrant abdominal pain, Tenderness in periumbilical region upon palpation, Pain site not typical of biliary colic Nausea/vomiting with Hematemesis Cholelithiasis CT shows 3 large gallstones in the lumen of the gallbladder Each measures around 15-17 mm in size No evidence of acute cholecystitis on CT No elevated white count, afebrile GERD Hiatal Hernia I reviewed the CT films myself and noted the Hiatal hernia that Radiologist saw; also see umbilical hernia and a left inguinal hernia. Continue pain control and anti-emetics as needed. CT showed no evidence of acute cholecystitis; however I did talk to pt about the fact that he still could have bad inflammation, the CT just didn't see it. He does not have a typical presentation, but it does seem to occur after greasy, fatty foods. I think the work-up for his pain and vomiting is to first do an EGD to rule out Ulcers, Gastritis and to document his hiatal hernia. It is still possible that the gallbladder is causing his problems, but I think we need to rule everything else out first and maximize acid blockers, etc. I explained all of this to pt and he agreed. We will do EGD today and then he can probably go home. Went over risks and complications not limited to pain, bleeding, infection and even esophageal perforation. All questions answered to his satisfaction. Supervisory-Addendum Brief Verification & Attestation Participated in pt care: history, MDM, physical Personally performed: exam, history, MDM, supervision of care Care discussed with: Medical Student Procedures: n/a Verification and Attestation of Medical Student E/M Service A medical student performed and documented this service. I then reviewed and verified all information documented by the medical student and made modifications to such information, when appropriate. I personally performed a physical exam, medical decision making and then discussed any differences between the notes and made revisions as necessary to create one note. Apolinar Conner , 02/11/22 , 11:27 COLLIN NUNEZ Feb 11, 2022 07:37 APOLINAR CONNER DO Feb 11, 2022 11:21
[2022-02-11 08:25] VITALS: BP 122/58
[2022-02-11] MEDS ORDERED: LACTATED RINGERS 1,000 ML IV STA (10:43)
[2022-02-11] MEDS ORDERED: HURRICAINE EXT TUBE (BENZOCAINE) XX PRN (10:45)
[2022-02-11] MEDS ORDERED: LACTATED RINGERS 1,000 ML IV ONE (10:46)
[2022-02-11] MEDS ORDERED: PROPOFOL INJECTION 50 ML IV ONE (11:34)
[2022-02-11] MEDS ORDERED: MIDAZOLAM 2 MG/2 ML (VERSED) VIAL ONE (11:34)
[2022-02-11 11:51] VITALS: BP 110/59
--- NOTE | 2022-02-11 11:51 | Progress Note-Post Operative ---
Post-Operative Progess Note Surgeon (s)/Underwriting Account Representative (s) Surgeon APOLINAR CONNER DO Underwriting Account Representative: none Pre-Operative Diagnosis Hematemesis Post-Operative Diagnosis Esophageal ulcer Gastritis duodenitis Hiatal hernia - large Procedure & Operative Findings Date of Procedure 02/11/22 Procedure Performed/Findings EGD with bx PROCEDURE NOTE: After informed consent was obtained, the patient was brought to the endoscopy suite, placed in bed in left lateral decubitus position. He was administered IV sedation by the BOARD MEMBER who then monitored vitals the entire time, heart rate, blood pressure and pulse ox and the scope was inserted down the mouth through the esophagus into the stomach. On the way down, noted severe esophagitis with ulcers and took a picture. Next pushed into the stomach and past the antrum into the duodenum. Duodenum looked inflammed; took a picture and a biopsy. Pulled back and did a biopsy of the antrum and then retroflexed the scope. I saw a large hiatal hernia (at least 3-4cm) and took a picture of this Pulled the scope into the GE junction, took another picture of the hiatal hernia and the ulceration. Finally, did a biopsy of the GE junction and then a couple of biopsies of the ulceration. Pushed the scope back into the stomach, suctioned all the air out of the stomach. At this point pulled the scope up the esophagus and out the mouth. The patient tolerated the procedure, and he recovered in endoscopy suite. Anesthesia Type IV sedation by BOARD MEMBER Estimated Blood Loss Estimated blood loss (mL): scant Specimens/Packing Specimens Removed duodenal bx antral bx GE jxn bx Ulcer at GE jxn bx APOLINAR CONNER DO Feb 11, 2022 11:51
--- NOTE | 2022-02-11 11:53 | Endoscopy Discharge Instruct ---
Endo Procedure/Findings Findings 1.: Other Findings (Esophageal ulcer) 2.: Gastritis 3.: Hiatal Hernia Discharge Instructions - Activity: You might feel a little sleepy until tomorrow. This is due to the medicine you received to relax you. Until tomorrow, you should: NOT drive a car, operate machinery or power tools. NOT drink any alcoholic beverages. NOT make any important decisions or sign importortant papers. Do not return to work until tomorrow, unless otherwise instructed. Resume previous activities tomorrow. Diet: Start by taking liquids. If you tolerate liquids, advance to solid food. 1.: EGD in 6-8 weeks Notify Physician - If you experience excessive bleeding, unusual abdominal pain, fever, or chest pain, contact your doctor immediately. APOLINAR CONNER DO Feb 11, 2022 11:53
[2022-02-11] MEDS ORDERED: PANT40SU PO (11:55)
[2022-02-11] MEDS ORDERED: SUCR1TAB36 PO (11:55)
[2022-02-11 11:56] VITALS: BP 115/65
[2022-02-11 12:01] VITALS: BP 118/68
[2022-02-11 12:06] VITALS: BP 116/70
--- NOTE | 2022-02-11 12:17 | Short Stay Summary ---
HPI History of Present Illness: 31 yo M that came in with abdominal pain, N/V with some dark old blood in vomit. States that the pain started yesterday but he has had similiar episodes previously. States that he has not previously had any scopes or imaging done. Previous episodes occurred after eating but this time it occurred out of the blue. Denies any sick contacts. Denies heavy EtOH use. Source: patient Exam Limitations: no limitations Date seen by provider: Feb 11, 2022 Time Seen by Provider: 11:00 Attending Physician [place] PCP Admitting Physician: Chani Tarango MD Attending Physician: Chani Tarango MD Consult Date of Admission Feb 11, 2022 at 05:10 Home Medications Home Medications Reviewed patient Home Medication Reconciliation performed by pharmacy medication reconciliations glass installer technician and/or nursing. Patients Allergies have been reviewed. Allergies Coded Allergies: No Known Drug Allergies (Unverified , 04/14/10) [id number] Hx Patient Social History Smoking Status: Never a Smoker 2nd Hand Smoke Exposure: No Recent Hopitalizations: No Alcohol Use?: No Have you traveled recently?: No Immunizations Up To Date Tetanus Booster (TDap): Unknown Past Medical History GERD Obesity Family Medical History Significant Family History: Diabetes (Father), Other Conditions/Hx (Parkinson disease and dementia in father) Family History: Cancer PATERNAL GRANDMOTHER Family history: Cardiovascular disease 03 FATHER (PATIENT STATES THAT FATHER HAS CARDIAC HISTORY BUT SPECIFICS WERE UNKNOWN TO PATIENT) PATERNAL GRANDMOTHER (PATIENT STATES THAT PATERNAL GRANDMOTHER HAS CARDIAC HISTORY BUT SPECIFICS WERE UNKNOWN TO PATIENT) Review of Systems ([facility]) Constitutional: No dizziness, No fever; weakness EENTM: no symptoms reported; No mouth pain, No nose congestion, No nose pain Respiratory: no symptoms reported; No cough, No dyspnea on exertion, No short of breath Cardiovascular: no symptoms reported; No chest pain, No edema, No palpitations Gastrointestinal: abdominal pain, hematemesis, nausea, vomiting Genitourinary: no symptoms reported; No dysuria, No frequency, No hematuria Musculoskeletal: no symptoms reported; No back pain, No joint pain, No muscle pain Skin: no symptoms reported Psychiatric/Neurological: No Symptoms Reported Reviewed Test Results Reviewed Test Results Lab Laboratory Tests Test 02/11/22 03:00 02/11/22 03:34 02/11/22 03:43 Range/Units White Blood Count 8.3 4.3-11.0 10^3/uL Red Blood Count 4.88 4.30-5.52 10^6/uL Hemoglobin 15.5 13.3-17.7 g/dL Hematocrit 45 40-54 % Mean Corpuscular Volume 93 80-99 fL Mean Corpuscular Hemoglobin 32 25-34 pg Mean Corpuscular Hemoglobin Concent 34 32-36 g/dL Red Cell Distribution Width 12.3 10.0-14.5 % Platelet Count 263 130-400 10^3/uL Mean Platelet Volume 9.3 9.0-12.2 fL Immature Granulocyte % (Auto) 1 % Neutrophils (%) (Auto) 56 42-75 % Lymphocytes (%) (Auto) 23 12-44 % Monocytes (%) (Auto) 14 H 0-12 % Eosinophils (%) (Auto) 6 0-10 % Basophils (%) (Auto) 1 0-10 % Neutrophils # (Auto) 4.7 1.8-7.8 10^3/uL Lymphocytes # (Auto) 1.9 1.0-4.0 10^3/uL Monocytes # (Auto) 1.1 H 0.0-1.0 10^3/uL Eosinophils # (Auto) 0.5 H 0.0-0.3 10^3/uL Basophils # (Auto) 0.1 0.0-0.1 10^3/uL Immature Granulocyte # (Auto) 0.1 0.0-0.1 10^3/uL Prothrombin Time 13.4 12.2-14.7 SEC INR Comment 1.0 0.8-1.4 Activated Partial Thromboplast Time 32 24-35 SEC D-Dimer < 0.27 0.00-0.49 UG/ML Sodium Level 140 135-145 MMOL/L Potassium Level 4.2 3.6-5.0 MMOL/L Chloride Level 107 98-107 MMOL/L Carbon Dioxide Level 22 21-32 MMOL/L Anion Gap 11 5-14 MMOL/L Blood Urea Nitrogen 15 7-18 MG/DL Creatinine 1.01 0.60-1.30 MG/DL Estimat Glomerular Filtration Rate 103 BUN/Creatinine Ratio 15 Glucose Level 124 H 70-105 MG/DL Calcium Level 9.5 8.5-10.1 MG/DL Corrected Calcium 9.3 8.5-10.1 MG/DL Magnesium Level 2.0 1.6-2.4 MG/DL Total Bilirubin 0.4 0.1-1.0 MG/DL Aspartate Amino Transf (AST/SGOT) 19 5-34 U/L Alanine Aminotransferase (ALT/SGPT) 27 0-55 U/L Alkaline Phosphatase 113 40-136 U/L Troponin I < 0.028 <0.028 NG/ML Total Protein 7.4 6.4-8.2 GM/DL Albumin 4.2 3.2-4.5 GM/DL Serum Alcohol < 10 <10 MG/DL Influenza Type A (RT-PCR) Not Detected Not Detecte Influenza Type B (RT-PCR) Not Detected Not Detecte SARS-CoV-2 RNA (RT-PCR) Not Detected Not Detecte Urine Color YELLOW Urine Clarity CLEAR Urine pH 5.5 5-9 Urine Specific [place] 1.025 H 1.016-1.022 Urine Protein NEGATIVE NEGATIVE Urine Glucose (UA) NEGATIVE NEGATIVE Urine Ketones NEGATIVE NEGATIVE Urine Nitrite NEGATIVE NEGATIVE Urine Bilirubin NEGATIVE NEGATIVE Urine Urobilinogen 1.0 < = 1.0 MG/DL Urine Leukocyte Esterase TRACE H NEGATIVE Urine RBC (Auto) NEGATIVE NEGATIVE Urine RBC NONE /HPF Urine WBC 0-2 /HPF Urine Squamous Epithelial Cells 0-2 /HPF Urine Crystals NONE /LPF Urine Bacteria TRACE /HPF Urine Casts NONE /LPF Urine Mucus SMALL H /LPF Urine Culture Indicated NO Urine Opiates Screen NEGATIVE NEGATIVE Urine Oxycodone Screen NEGATIVE NEGATIVE Urine Methadone Screen NEGATIVE NEGATIVE Urine Propoxyphene Screen NEGATIVE NEGATIVE Urine Barbiturates Screen NEGATIVE NEGATIVE Ur Tricyclic Antidepressants Screen NEGATIVE NEGATIVE Urine Phencyclidine Screen NEGATIVE NEGATIVE Urine Amphetamines Screen NEGATIVE NEGATIVE Urine Methamphetamines Screen NEGATIVE NEGATIVE Urine Benzodiazepines Screen NEGATIVE NEGATIVE Urine Cocaine Screen NEGATIVE NEGATIVE Urine Cannabinoids Screen NEGATIVE NEGATIVE Radiology Physical Exam-([facility]) Physical Exam Vital Signs VS - Last 72 Hours, by Label 02/11/22 02/11/22 02/11/22 02/11/22 03:06 06:06 06:21 08:00 Temp 37.0 37.0 Pulse 80 77 Resp 20 20 B/P (MAP) 143/91 (108) 154/74 Pulse Ox 98 96 O2 Delivery Room Air Room Air Room Air Room Air 02/11/22 02/11/22 08:04 08:25 Temp 37.0 Pulse 72 77 Resp 20 B/P (MAP) 122/58 (79) Pulse Ox 96 O2 Delivery Room Air Capillary Refill : Less Than 3 Seconds General Appearance: WD/WN, no apparent distress, obese HEENT: PERRL/EOMI Neck: non-tender, full range of motion, supple Respiratory: chest non-tender, lungs clear, normal breath sounds, no respiratory distress, no accessory muscle use Cardiovascular: normal peripheral pulses, regular rate, rhythm, no edema, no murmur Gastrointestinal: normal bowel sounds, soft, tenderness; No mass Back: no CVA tenderness, no vertebral tenderness Extremities: normal range of motion, non-tender, normal inspection, no pedal edema, no calf tenderness, normal capillary refill Neurologic/Psychiatric: residential direct support professional II-XII nml as tested, no motor/sensory deficits, alert, normal mood/affect, oriented x 3 Skin: normal color, warm/dry Lymphatic: no adenopathy Short Stay Diagnosis Discharge Diagnosis-Short Stay Admission Diagnosis See problem list Final Discharge Diagnosis See problem list Conclusion Plan See problem list Assessment/Plan Assessment/Plan Admission Status: Observation (1) Esophageal ulcer with bleeding Status: Acute Assessment & Plan: - Consulted General surgery, EGD showed extensive gastritis and ulcer, new meds add, Start liquid diet 4-6 weeks (2) Cholelithiasis Status: Chronic Assessment & Plan: - Gall stones present, no acute inflammation, will follow as outpatient Qualifiers: Qualified Codes: K80.80 - Other cholelithiasis without obstruction (3) GERD (gastroesophageal reflux disease) Status: Chronic Qualifiers: Qualified Codes: K21.01 - Gastro-esophageal reflux disease with esophagitis, with bleeding CHANI TARANGO MD Feb 11, 2022 12:17
--- NOTE | 2022-02-11 12:20 | Discharge Summary ---
Discharge [facility] Reconcile Patient Problems Problems Reviewed?: Yes Discharge Medications New, Converted or Re-Newed RX: Transmitted to Pharmacy New Medications: Sucralfate (Carafate) 1 Gram Tablet 1 GM PO ACHS, #120 TAB 2 Refills Changed Medications: Pantoprazole Sodium (Protonix) 40 Mg Granpkt.dr 40 MG PO BID, #60 TAB 2 Refills (Changed from: DAILY; Removed Days; Refills: ) Continued Medications: Azithromycin (Azithromycin) 250 Mg Tablet 250 MG PO UD, #6 TAB TAKE 2 TABLETS ON DAY ONE THEN TAKE 1 TABLET DAILY FOR FOUR MORE DAYS Patient Instructions Goal/Follow Up Appt: renee pcp 1-2 weeks Patient Instructions: - It is very important that you stick to liquid diet to allow ulcer healing Activity & Diet Discharge Diet: Liquid Diet Activity as Tolerated: Yes CHANI MONTALVO MD Feb 11, 2022 12:20
[2022-02-11] MEDS ORDERED: CATHETER FLUSH 10 ML SYR IVP SCH (14:00)
--- NOTE | 2022-02-11 14:42 | Anesthesia-General Post-Op ---
MAC Patient Condition Mental Status/LOC: Same as Preop Cardiovascular: Satisfactory Nausea/Vomiting: Absent Respiratory: Satisfactory Pain: Controlled Complications: Absent Post Op Complications Complications None Follow Up Care/Instructions Patient Instructions None needed. Anesthesiology Discharge Order Discharge Order Patient is doing well, no complaints, stable vital signs, no apparent adverse anesthesia problems. No complications reported per nursing. TRACY SHERWOOD CRNA Feb 11, 2022 14:42
== END 2022-02-11 12:19 | disposition home or self-care (01) ==
LOC: EDUNIT# 02:27 → ER 02:41 → 4TH 05:10 → UNDOADMOB 05:10 → 4TH 06:12 → UNDODISOB 13:54
PROVIDERS: ADMIT Family Medicine; ATTEND Family Medicine
DX: K22.11 Ulcer of esophagus with bleeding (principal); K80.20 Calculus of gallbladder without cholecystitis without obstruction; K21.01 Gastro-esophageal reflux disease with esophagitis, with bleeding; E66.9 Obesity, unspecified; Z68.37 Body mass index [BMI] 37.0-37.9, adult; K44.9 Diaphragmatic hernia without obstruction or gangrene; K29.50 Unspecified chronic gastritis without bleeding; K29.80 Duodenitis without bleeding
CPT/HCPCS: 43239; 71045; 74177; 80053; 80306; 81000; 83735; 84484; 85025; 85379; 85610; 85730; 87636; 88305; 88312; 99284; G0378; G0480; 36415; 80320